=== PATIENT | female | born 1940 | race Caucasian/White ===

== ENCOUNTER 2019-03-14 14:35 | Observation (INO) ==
[2019-03-14 16:51] LABS: BASOPHILS % (AUTO) 0.4 % (0.2-1.0); EOSINOPHILS # (AUTO) 0.1 x10^3/uL (0.0-0.2); HEMATOCRIT 34.6 % (36.0-47.0); HEMOGLOBIN 11.6 g/dL (12.0-16.0); LYMPHOCYTES # (AUTO) 2.4 X10^3/uL (1.3-2.9); LYMPHOCYTES % (AUTO) 35.1 % (21.0-51.0); MEAN CORPUSCULAR HEMOGLOBIN 32.3 pg (27.0-34.0); MEAN CORPUSCULAR HGB CONC 33.5 g/dL (33.0-35.0); MEAN CORPUSCULAR VOLUME 96.3 fL (80.0-100.0); MEAN PLATELET VOLUME 7.5 fL (7.4-11.0); MONOCYTES # (AUTO) 0.7 x10^3/uL (0.3-0.8); MONOCYTES % (AUTO) 9.5 % (0.0-13.0); NEUTROPHILS # (AUTO) 3.6 x10^3/uL (2.2-4.8); PLATELET COUNT 285 X10^3/uL (150.0-450.0); RED BLOOD COUNT 3.59 X10^6/uL (3.5-5.4); RED CELL DISTRIBUTION WIDTH 13.3 % (11.6-16.5); WHITE BLOOD COUNT 6.9 X10^3/uL (3.6-10.0)
[2019-03-14 17:01] LABS: ALANINE AMINOTRANSFERASE 22 Units/L (12-78); ALBUMIN 3.7 g/dL (3.4-5.0); ALKALINE PHOSPHATASE 116 Units/L (46-116); ASPARTATE AMINO TRANSFERASE 18 Units/L (15-37); BLOOD UREA NITROGEN 16 mg/dL (7-18); CALCIUM 8.5 mg/dL (8.5-10.1); CARBON DIOXIDE 27.2 mmol/L (21-32); CHLORIDE 105 mmol/L (98-107); COR NA(FOR HYPERGLY) 142 mmol/L (136-145); CREATININE 1.15 mg/dL (0.55-1.02); SODIUM 141 mmol/L (136-145); TOTAL PROTEIN 6.9 g/dL (6.4-8.2); eGFR NON BLACK RACES 49 (>60)
[2019-03-14] MEDS: NS 1000 ML 1,000 ML IV SCH (17:37)
[2019-03-14 18:24] VITALS: BMI 22.4
[2019-03-14] MEDS: ZOFRAN INJ 4 MG VIAL IVP PRN (20:00)
[2019-03-14 20:48] LABS: BILIRUBIN,URINE NEGATIVE (NEGATIVE); BLOOD/HEMOGLOBIN,URINE NEGATIVE (NEGATIVE); GLUCOSE, URINE NEGATIVE (NEGATIVE); KETONES,URINE NEGATIVE (NEGATIVE); LEUKOCYTE ESTERASE ,URINE 1+ (NEGATIVE); NITRITES,URINE NEGATIVE (NEGATIVE); PH,URINE 6.5 (5.0 - 8.0); PROTEIN,URINE NEGATIVE (NEGATIVE); UROBILINOGEN,URINE NORMAL (NORMAL)
[2019-03-14 20:51] LABS: APPEARANCE,URINE CLEAR (CLEAR); COLOR,URINE STRAW (YELLOW)
[2019-03-14 20:54] LABS: BACTERIA,URINE NEGATIVE /HPF (NEGATIVE); RBC,URINE NONE SEEN /HPF (NONE SEEN); SQUAMOUS EPITHELIAL CELL,UR NEGATIVE /HPF (NEGATIVE)
--- NOTE | 2019-03-14 21:53 | CT ---
CT abdomen and pelvis with contrast Indication: Abdominal pain Technique: Helical images through the abdomen and pelvis after IV contrast. Coronal and sagittal reformats provided. Comparison: 09/23/2016 CT Findings: Limited images through the lower chest shows cardiomegaly and small hiatal hernia. Chronic lung changes are noted. Review of bone windows shows no destructive osseous lesion. Abdomen: Cholecystectomy clips is noted with mild intrahepatic biliary dilatation. No liver lesions seen. The spleen, adrenal glands and pancreas are normal. Stomach and small bowel are normal. No acute colonic abnormality is identified. Vasculature shows calcifications. Kidneys show no hydroureteronephrosis. Pelvis: The urinary bladder and rectum are normal. Uterus is absent. No adnexal region lesions seen. Appendix is not seen, presumably absent. Impression: 1. No acute abnormality to explain the patient's symptoms. 2. Vascular calcifications, cardiomegaly, biliary dilatation and other findings, all similar to the prior without significant change. Reported By:
[2019-03-15] MEDS: NS 1000 ML 1,000 ML IV SCH ×4 (01:01→18:07)
[2019-03-15 05:31] LABS: BASOPHILS % (AUTO) 0.7 % (0.2-1.0); EOSINOPHILS # (AUTO) 0.1 x10^3/uL (0.0-0.2); HEMATOCRIT 30.4 % (36.0-47.0); HEMOGLOBIN 10.5 g/dL (12.0-16.0); LYMPHOCYTES # (AUTO) 1.6 X10^3/uL (1.3-2.9); LYMPHOCYTES % (AUTO) 33.4 % (21.0-51.0); MEAN CORPUSCULAR HEMOGLOBIN 33.2 pg (27.0-34.0); MEAN CORPUSCULAR HGB CONC 34.4 g/dL (33.0-35.0); MEAN CORPUSCULAR VOLUME 96.3 fL (80.0-100.0); MEAN PLATELET VOLUME 7.6 fL (7.4-11.0); MONOCYTES # (AUTO) 0.6 x10^3/uL (0.3-0.8); MONOCYTES % (AUTO) 12.3 % (0.0-13.0); NEUTROPHILS # (AUTO) 2.5 x10^3/uL (2.2-4.8); NEUTROPHILS % (AUTO) 50.6 % (42.0-75.0); PLATELET COUNT 235 X10^3/uL (150.0-450.0); RED BLOOD COUNT 3.15 X10^6/uL (3.5-5.4); RED CELL DISTRIBUTION WIDTH 13.3 % (11.6-16.5); WHITE BLOOD COUNT 4.9 X10^3/uL (3.6-10.0)
[2019-03-15 05:46] LABS: ALANINE AMINOTRANSFERASE 18 Units/L (12-78); ALBUMIN 3.1 g/dL (3.4-5.0); ALKALINE PHOSPHATASE 100 Units/L (46-116); AMYLASE 29 Units/L (25-115); ASPARTATE AMINO TRANSFERASE 15 Units/L (15-37); BLOOD UREA NITROGEN 12 mg/dL (7-18); CALCIUM 7.8 mg/dL (8.5-10.1); CARBON DIOXIDE 25.4 mmol/L (21-32); CHLORIDE 107 mmol/L (98-107); COR CA(FOR HYPOALB) 8.5 mg/dL (8.5-10.1); COR NA(FOR HYPERGLY) 142 mmol/L (136-145); CREATININE 0.99 mg/dL (0.55-1.02); LIPASE 111 Units/L (73-393); SODIUM 142 mmol/L (136-145); TOTAL PROTEIN 5.9 g/dL (6.4-8.2); eGFR NON BLACK RACES 58 (>60)
[2019-03-15] MEDS: TYLENOL 325 MG TAB PO PRN ×2 (05:56→14:08)
[2019-03-15] MEDS: ZOFRAN INJ 4 MG VIAL IVP PRN (08:39)
[2019-03-15] MEDS: ZITHROMAX TAB 250 MG PO SCH (11:15)
[2019-03-15] MEDS ORDERED: LEVSIN ORAL DROPS PO PRN (12:20)
[2019-03-15] MEDS ORDERED: PHARMACY CONSULT - DOSE _____ XX SCH (13:00)
[2019-03-15] MEDS: LINZESS PO SCH (13:57)
[2019-03-15] MEDS: COZAAR PO SCH (13:58)
[2019-03-15] MEDS: CARAFATE PO SCH ×2 (13:58→21:17)
[2019-03-15] MEDS: SYNTHROID 100 mcg TAB PO SCH (13:58)
[2019-03-15] MEDS: OSCAL+D or CALTRATE+D PO SCH (13:58)
[2019-03-15] MEDS: BENTYL CAP 10 MG PO SCH ×3 (13:58→21:17)
[2019-03-15] MEDS: ELAVIL PO SCH ×2 (13:59→21:17)
[2019-03-15] MEDS: ECOTRIN TAB 325 MG PO SCH (13:59)
[2019-03-15] MEDS: PROTONIX TAB 40 MG PO SCH (13:59)
[2019-03-15] MEDS: TAB-A-VITE PO SCH (13:59)
[2019-03-15] MEDS: CELEXA PO SCH (13:59)
[2019-03-15] MEDS: LOVAZA PO SCH (13:59)
[2019-03-15] MEDS: REGLAN TAB 10 MG PO SCH ×2 (17:22→21:18)
[2019-03-15] MEDS ORDERED: MARINOL PO SCH (21:00)
[2019-03-15] MEDS ORDERED: LIPITOR TAB 40 MG PO SCH (21:00)
[2019-03-15] MEDS: LOPRESSOR TAB 25 MG PO SCH (21:18)
[2019-03-16] MEDS: NS 1000 ML 1,000 ML IV SCH (03:24)
[2019-03-16] MEDS: CARAFATE PO SCH (03:24)
[2019-03-16] MEDS: REGLAN TAB 10 MG PO SCH (05:43)
[2019-03-16 06:38] LABS: BASOPHILS % (AUTO) 0.8 % (0.2-1.0); EOSINOPHILS # (AUTO) 0.2 x10^3/uL (0.0-0.2); EOSINOPHILS % (AUTO) 3.2 % (0.9-2.9); HEMOGLOBIN 9.7 g/dL (12.0-16.0); LYMPHOCYTES # (AUTO) 1.7 X10^3/uL (1.3-2.9); LYMPHOCYTES % (AUTO) 33.2 % (21.0-51.0); MEAN CORPUSCULAR HEMOGLOBIN 33.3 pg (27.0-34.0); MEAN CORPUSCULAR HGB CONC 34.7 g/dL (33.0-35.0); MEAN CORPUSCULAR VOLUME 95.8 fL (80.0-100.0); MEAN PLATELET VOLUME 7.3 fL (7.4-11.0); MONOCYTES # (AUTO) 0.6 x10^3/uL (0.3-0.8); MONOCYTES % (AUTO) 12.2 % (0.0-13.0); NEUTROPHILS # (AUTO) 2.7 x10^3/uL (2.2-4.8); NEUTROPHILS % (AUTO) 50.6 % (42.0-75.0); PLATELET COUNT 200 X10^3/uL (150.0-450.0); RED BLOOD COUNT 2.93 X10^6/uL (3.5-5.4); RED CELL DISTRIBUTION WIDTH 13.5 % (11.6-16.5); WHITE BLOOD COUNT 5.3 X10^3/uL (3.6-10.0)
[2019-03-16 06:46] LABS: ALANINE AMINOTRANSFERASE 17 Units/L (12-78); ALBUMIN 2.8 g/dL (3.4-5.0); ALKALINE PHOSPHATASE 90 Units/L (46-116); ASPARTATE AMINO TRANSFERASE 17 Units/L (15-37); BLOOD UREA NITROGEN 11 mg/dL (7-18); CALCIUM 7.3 mg/dL (8.5-10.1); CARBON DIOXIDE 25.6 mmol/L (21-32); CHLORIDE 110 mmol/L (98-107); COR CA(FOR HYPOALB) 8.3 mg/dL (8.5-10.1); COR NA(FOR HYPERGLY) 143 mmol/L (136-145); CREATININE 0.93 mg/dL (0.55-1.02); SODIUM 142 mmol/L (136-145); TOTAL PROTEIN 5.6 g/dL (6.4-8.2); eGFR NON BLACK RACES > 60 (>60)
[2019-03-16] MEDS: ECOTRIN TAB 325 MG PO SCH (08:37)
[2019-03-16] MEDS: OSCAL+D or CALTRATE+D PO SCH (08:37)
[2019-03-16] MEDS: LOVAZA PO SCH (08:37)
[2019-03-16] MEDS: TAB-A-VITE PO SCH (08:37)
[2019-03-16] MEDS: COZAAR PO SCH (08:38)
[2019-03-16] MEDS: SYNTHROID 100 mcg TAB PO SCH (08:38)
[2019-03-16] MEDS: BENTYL CAP 10 MG PO SCH (08:39)
[2019-03-16] MEDS: PROTONIX TAB 40 MG PO SCH (08:39)
[2019-03-16] MEDS: CELEXA PO SCH (08:39)
[2019-03-16] MEDS: ZITHROMAX TAB 250 MG PO SCH (08:39)
[2019-03-16] MEDS: LOPRESSOR TAB 25 MG PO SCH (08:39)
[2019-03-16] MEDS: LINZESS PO SCH (08:39)
[2019-03-16 10:00] VITALS: BP 158/59
--- NOTE | 2019-03-27 17:42 | DR.UPDATE ---
H&P Update History and Physical Update: History and Physical reviewed and patient examined. Changes noted: Yes with the following: WAS SEEN IN THE OFFICE TODAY FOR COMPLAINTS OF SEVERE WEAKNESS, FATIGUE, NAUSEA, VOMITING, AND ABDOMINAL PAIN. SHE REPORTS BEING UNABLE TO HOLD ANYTHING DOWN. SHE HAS A HISTORY OF SEVERE GASTROPARESIS. WE ADMITTED PATIENT FOR FURTHER EVALUATION AND TREATMENT. ON ADMISSION, WE PLAN TO OBTAIN LABS AND AN ABDOMEN/PELVIS CT WITH CONTRAST. WE WILL START HER ON NORMAL SALINE AT 100ML/HR AND ZOFRAN 4MG IV Q6H PRN NAUSEA. OTHERWISE, WE WILL FOLLOW UP WITH AM LABS AND CONTINUE TO MONITOR.
--- NOTE | 2019-03-27 18:15 | PCM.PROG ---
Progress Note - Progress Note for Day of Date of Exam: 03/15/19 - Subjective Subjective: WAS ADMITTED FOR NAUSEA, VOMITING, ABDOMINAL PAIN, WEAKNESS, AND FATIGUE. SHE DOES HAVE A HISTORY OF SEVERE GASTROPARESIS. TODAY, SHE IS ALERT AND ORIENTED, LYING IN BED ON MORNING ROUNDS. SHE CONTINUES WITH SEVERE WEAKNESS, NAUSEA, AND VOMITING. ON EXAMINATION, HEART IS REGULAR IN RATE AND RHYTHM. BILATERAL LUNGS ARE NOTED WITH DIMINISHED LUNG SOUNDS THROUGHOUT. ABDOMEN IS ROUND, SOFT, AND NOTED WITH MILD, DIFFUSE TENDERNESS THROUGHOUT. HYPERACTIVE BOWEL SOUNDS ARE NOTED. HER VITALS THIS MORNING ARE: 98.1-73-18-97%-136/64. LABS WERE OBTAINED. ABNORMAL LAB VALUES INCLUDE THE FO LLOWING: RBC 3.15, HGB 10.5, HCT 30.4, GLUCOSE 114, TOTAL PROTEIN 5.9, ALBUMIN 3.1. AN ABDOMEN/PELVIS CT WITH CONTRAST WAS OBTAINED ON ADMISSION AND REVEALED: o acute abnormality to explain the patient's symptoms. Vascular calcifications, cardiomegaly, biliary dilatation and other findings, all similar to the prior without significant change. SHE IS CURRENTLY RECEIVING NORMAL SALINE AT 100ML/HR AND ZOFRAN. WE WILL RESUME HOME MEDICATIONS TODAY AND START AZITHROMAX 250MG PO DAILY FOR GASTROPARESIS. OTHERWISE, WE WILL FOLLOW UP WITH AM LABS AND CONTINUE TO MONITOR. - Past Medical Family Social History Past Med/Fam/Surg Hx: No changes since H&P Allergies: Allergies fentanyl Allergy (Severe, Verified 03/14/19 16:23) CARDIAC ARREST cefaclor Allergy (Mild, Verified 03/14/19 16:23) pentazocine Allergy (Mild, Verified 03/14/19 16:23) Sulfa (Sulfonamide Antibiotics) [SULFA] Allergy (Mild, Verified 03/14/19 16:23) prednisone Adverse Reaction (Mild, Verified 03/14/19 16:23) - Review of Systems ROS: No change since H&P - Vital Signs and I&O's Vital Signs: Temperature 97.8 F Pulse Rate [Right Brachial] 58 Respiratory Rate 18 Blood Pressure [Right Arm] 158/59 Blood Pressure [Left Arm] 109/56 Blood Pressure 109/56 O2 Sat by Pulse Oximetry 98 - Physical Exam Oriented: Normal Eyes: Normal Ear: Normal Nose: Normal Throat: Normal Respiratory: Generalized, Diminished Cardiovascular: Normal. negative: S3, S4, Murmur : Normal Auscultation: Bowel Sounds: Normal Palpation: Normal Tenderness: Diffuse, Mild. negative: Rebound, Guarding, Rigidity Skin: Normal Musculoskeletal: Normal Psychiatric: Normal Mood Description: Calm Affect: Normal Speech Pattern: Clear, Appropriate - Laboratory and Diagnostics Result Diagrams: 03/16/19 06:08 03/16/19 06:08 Labs: Laboratory WBC 5.3 X10^3/uL (3.6-10.0) 03/16/19 06:08 RBC 2.93 X10^6/uL (3.5-5.4) L 03/16/19 06:08 Hgb 9.7 g/dL (12.0-16.0) L 03/16/19 06:08 Hct 28.0 % (36.0-47.0) L 03/16/19 06:08 MCV 95.8 fL (80.0-100.0) 03/16/19 06:08 MCH 33.3 pg (27.0-34.0) 03/16/19 06:08 MCHC 34.7 g/dL (33.0-35.0) 03/16/19 06:08 RDW 13.5 % (11.6-16.5) 03/16/19 06:08 Plt Count 200 X10^3/uL (150.0-450.0) 03/16/19 06:08 MPV 7.3 fL (7.4-11.0) L 03/16/19 06:08 Neut % (Auto) 50.6 % (42.0-75.0) 03/16/19 06:08 Lymph % (Auto) 33.2 % (21.0-51.0) 03/16/19 06:08 [place] % (Auto) 12.2 % (0.0-13.0) 03/16/19 06:08 Eos % (Auto) 3.2 % (0.9-2.9) H 03/16/19 06:08 Baso % (Auto) 0.8 % (0.2-1.0) 03/16/19 06:08 Neut # (Auto) 2.7 x10^3/uL (2.2-4.8) 03/16/19 06:08 Lymph # (Auto) 1.7 X10^3/uL (1.3-2.9) 03/16/19 06:08 [place] # (Auto) 0.6 x10^3/uL (0.3-0.8) 03/16/19 06:08 Eos # (Auto) 0.2 x10^3/uL (0.0-0.2) 03/16/19 06:08 Baso # (Auto) 0.0 X10^3/uL (0.0-0.1) 03/16/19 06:08 Absolute Nucleated RBC 0.1 /100WBC 03/16/19 06:08 Sodium 142 mmol/L (136-145) 03/16/19 06:08 Corrected Sodium 143 mmol/L (136-145) 03/16/19 06:08 Potassium 3.9 mmol/L (3.5-5.1) 03/16/19 06:08 Chloride 110 mmol/L (98-107) H 03/16/19 06:08 Carbon Dioxide 25.6 mmol/L (21-32) 03/16/19 06:08 BUN 11 mg/dL (7-18) 03/16/19 06:08 Creatinine 0.93 mg/dL (0.55-1.02) 03/16/19 06:08 Est GFR (MDRD) Af Amer > 60 (>60) 03/16/19 06:08 Est GFR (MDRD) Non-Af > 60 (>60) 03/16/19 06:08 Glucose 131 mg/dL (65-99) H 03/16/19 06:08 POC Glucose (mg/dL) 115 mg/dL (65-99) H 03/16/19 05:30 Calcium 7.3 mg/dL (8.5-10.1) L 03/16/19 06:08 Corrected Calcium 8.3 mg/dL (8.5-10.1) L 03/16/19 06:08 Total Bilirubin 0.20 mg/dL (0.2-1.0) 03/16/19 06:08 AST 17 Units/L (15-37) 03/16/19 06:08 ALT 17 Units/L (12-78) 03/16/19 06:08 Alkaline Phosphatase 90 Units/L (46-116) 03/16/19 06:08 Total Protein 5.6 g/dL (6.4-8.2) L 03/16/19 06:08 Albumin 2.8 g/dL (3.4-5.0) L 03/16/19 06:08 Globulin 2.8 g/dL (2.5-4.5) 03/16/19 06:08 Albumin/Globulin Ratio 1.0 Ratio (1.1-2.1) L 03/16/19 06:08 Amylase 29 Units/L (25-115) 03/15/19 04:50 Lipase 111 Units/L (73-393) 03/15/19 04:50 Specimen Type Clean catch urine 03/14/19 20:40 Urine Color Straw (YELLOW) 03/14/19 20:40 Urine Appearance Clear (CLEAR) 03/14/19 20:40 Urine pH 6.5 (5.0 - 8.0) 03/14/19 20:40 Ur Specific [place] 1.005 (1.000-1.030) 03/14/19 20:40 Urine Protein Negative (NEGATIVE) 03/14/19 20:40 Urine Glucose (UA) Negative (NEGATIVE) 03/14/19 20:40 Urine Ketones Negative (NEGATIVE) 03/14/19 20:40 Urine Occult Blood Negative (NEGATIVE) 03/14/19 20:40 Urine Nitrite Negative (NEGATIVE) 03/14/19 20:40 Urine Bilirubin Negative (NEGATIVE) 03/14/19 20:40 Urine Urobilinogen Normal (NORMAL) 03/14/19 20:40 Ur Leukocyte Esterase 1+ (NEGATIVE) 03/14/19 20:40 Urine RBC None seen /HPF (NONE SEEN) 03/14/19 20:40 Urine WBC 0-2 /HPF (NONE SEEN) 03/14/19 20:40 Ur Squamous Epith Cells Negative /HPF (NEGATIVE) 03/14/19 20:40 Urine Bacteria Negative /HPF (NEGATIVE) 03/14/19 20:40 Ur Culture Indicated? No/not indicated 03/14/19 20:40 - Plan (1) Abdominal pain Status: Acute Qualifiers: Abdominal location: generalized Qualified Code(s): R10.84 - Generalized abdominal pain Plan: IV HYDRATION, PAIN CONTROL, NAUSEA MEDICATIONS, AZITHROMAX 250MG PO DAILY FOR GASTROPARESIS, CONTINUE TO MONITOR (2) Nausea and vomiting Status: Acute Qualifiers: Vomiting type: unspecified (3) Generalized weakness Status: Acute (4) Gastroparesis Status: Chronic Plan: AZITHROMAX 250MG PO DAILY, CONTINUE HOME MEDS, CONTINUE TO MONITOR
== END 2019-03-16 11:25 | disposition home or self-care (01) ==
LOC: MED/SURG
PROVIDERS: ADMIT Internal Medicine; ATTEND Internal Medicine
DX: R30.0 Dysuria; R11.2 Nausea with vomiting, unspecified; E86.0 Dehydration; I10 Essential (primary) hypertension; R94.4 Abnormal results of kidney function studies; R10.84 Generalized abdominal pain
CPT/HCPCS: 36415; 74177; 80053; 81001; 82150; 83690; 85025; 96367; 96374; A4216; A4222; Q0144; G0378; J2405; J3490; J7030

== ENCOUNTER 2019-05-01 16:33 | Inpatient (IN) ==
[2019-05-01 18:02] LABS: BASOPHILS # (AUTO) 0.1 X10^3/uL (0.0-0.1); BASOPHILS % (AUTO) 0.9 % (0.2-1.0); EOSINOPHILS # (AUTO) 0.2 x10^3/uL (0.0-0.2); EOSINOPHILS % (AUTO) 2.2 % (0.9-2.9); HEMATOCRIT 33.3 % (36.0-47.0); HEMOGLOBIN 11.1 g/dL (12.0-16.0); LYMPHOCYTES # (AUTO) 2.2 X10^3/uL (1.3-2.9); LYMPHOCYTES % (AUTO) 32.8 % (21.0-51.0); MEAN CORPUSCULAR HEMOGLOBIN 32.2 pg (27.0-34.0); MEAN CORPUSCULAR HGB CONC 33.2 g/dL (33.0-35.0); MEAN CORPUSCULAR VOLUME 96.9 fL (80.0-100.0); MEAN PLATELET VOLUME 8.8 fL (7.4-11.0); MONOCYTES # (AUTO) 0.7 x10^3/uL (0.3-0.8); MONOCYTES % (AUTO) 10.7 % (0.0-13.0); NEUTROPHILS # (AUTO) 3.6 x10^3/uL (2.2-4.8); NEUTROPHILS % (AUTO) 53.4 % (42.0-75.0); PLATELET COUNT 226 X10^3/uL (150.0-450.0); RED BLOOD COUNT 3.44 X10^6/uL (3.5-5.4); RED CELL DISTRIBUTION WIDTH 13.1 % (11.6-16.5); WHITE BLOOD COUNT 6.8 X10^3/uL (3.6-10.0)
[2019-05-01 18:12] VITALS: BMI 22.6
[2019-05-01 18:12] LABS: ALANINE AMINOTRANSFERASE 29 Units/L (12-78); ALBUMIN 3.8 g/dL (3.4-5.0); ALKALINE PHOSPHATASE 134 Units/L (46-116); AMYLASE 34 Units/L (25-115); ASPARTATE AMINO TRANSFERASE 27 Units/L (15-37); BLOOD UREA NITROGEN 19 mg/dL (7-18); CALCIUM 8.9 mg/dL (8.5-10.1); CHLORIDE 107 mmol/L (98-107); CREATININE 0.97 mg/dL (0.55-1.02); LIPASE 125 Units/L (73-393); SODIUM 142 mmol/L (136-145); TOTAL PROTEIN 7.4 g/dL (6.4-8.2); eGFR NON BLACK RACES 59 (>60)
[2019-05-01] MEDS: NS 1000 ML 1,000 ML IV SCH (18:31)
[2019-05-01 22:00] LABS: BILIRUBIN,URINE NEGATIVE (NEGATIVE); BLOOD/HEMOGLOBIN,URINE 1+ (NEGATIVE); GLUCOSE, URINE NEGATIVE (NEGATIVE); KETONES,URINE NEGATIVE (NEGATIVE); LEUKOCYTE ESTERASE ,URINE 3+ (NEGATIVE); NITRITES,URINE POSITIVE (NEGATIVE); PROTEIN,URINE NEGATIVE (NEGATIVE); UROBILINOGEN,URINE NORMAL (NORMAL)
[2019-05-01 22:27] LABS: APPEARANCE,URINE CLEAR (CLEAR); COLOR,URINE PALE YELLOW (YELLOW); RBC,URINE NONE SEEN /HPF (NONE SEEN)
[2019-05-01 22:28] LABS: BACTERIA,URINE 2+ /HPF (NEGATIVE); SQUAMOUS EPITHELIAL CELL,UR FEW /HPF (NEGATIVE); TRANSITIONAL EPI CELLS,URINE FEW /HPF (NEGATIVE)
[2019-05-02] MEDS: NS 1000 ML 1,000 ML IV SCH ×3 (06:02→21:07)
[2019-05-02] MEDS: TYLENOL 325 MG TAB PO PRN (06:02)
[2019-05-02 06:18] LABS: BASOPHILS % (AUTO) 0.5 % (0.2-1.0); EOSINOPHILS # (AUTO) 0.1 x10^3/uL (0.0-0.2); EOSINOPHILS % (AUTO) 3.1 % (0.9-2.9); HEMATOCRIT 28.6 % (36.0-47.0); HEMOGLOBIN 9.9 g/dL (12.0-16.0); LYMPHOCYTES # (AUTO) 1.6 X10^3/uL (1.3-2.9); LYMPHOCYTES % (AUTO) 34.2 % (21.0-51.0); MEAN CORPUSCULAR HEMOGLOBIN 33.2 pg (27.0-34.0); MEAN CORPUSCULAR HGB CONC 34.7 g/dL (33.0-35.0); MEAN CORPUSCULAR VOLUME 95.7 fL (80.0-100.0); MEAN PLATELET VOLUME 7.6 fL (7.4-11.0); MONOCYTES # (AUTO) 0.6 x10^3/uL (0.3-0.8); MONOCYTES % (AUTO) 12.6 % (0.0-13.0); NEUTROPHILS # (AUTO) 2.3 x10^3/uL (2.2-4.8); NEUTROPHILS % (AUTO) 49.6 % (42.0-75.0); PLATELET COUNT 230 X10^3/uL (150.0-450.0); RED BLOOD COUNT 2.98 X10^6/uL (3.5-5.4); RED CELL DISTRIBUTION WIDTH 12.9 % (11.6-16.5); WHITE BLOOD COUNT 4.6 X10^3/uL (3.6-10.0)
[2019-05-02 06:38] LABS: ALANINE AMINOTRANSFERASE 25 Units/L (12-78); ALBUMIN 3.1 g/dL (3.4-5.0); ALKALINE PHOSPHATASE 113 Units/L (46-116); ASPARTATE AMINO TRANSFERASE 21 Units/L (15-37); BLOOD UREA NITROGEN 14 mg/dL (7-18); CALCIUM 7.9 mg/dL (8.5-10.1); CARBON DIOXIDE 26.5 mmol/L (21-32); CHLORIDE 108 mmol/L (98-107); COR CA(FOR HYPOALB) 8.6 mg/dL (8.5-10.1); CREATININE 0.85 mg/dL (0.55-1.02); SODIUM 145 mmol/L (136-145); TOTAL PROTEIN 6.1 g/dL (6.4-8.2); eGFR NON BLACK RACES > 60 (>60)
[2019-05-02] MEDS: ZOFRAN INJ 4 MG VIAL IVP PRN ×3 (08:38→17:38)
[2019-05-02] MEDS ORDERED: ROCEPHIN VIAL 1 GRAM IVP SCH (09:00)
[2019-05-02] MEDS ORDERED: PHARMACY CONSULT - DOSE _____ XX SCH (09:00)
[2019-05-02] MEDS: LEVAQUIN PREMIX IV 500 MG 500 MG/100 ML BAG IV SCH (10:23)
[2019-05-02] MEDS ORDERED: LEVSIN SYRUP PO PRN (11:20)
[2019-05-02] MEDS: MARINOL PO SCH ×2 (12:22→21:09)
[2019-05-02] MEDS: LOVAZA PO SCH (12:22)
[2019-05-02] MEDS: LINZESS PO SCH (12:22)
[2019-05-02] MEDS: BENTYL CAP 10 MG PO SCH ×2 (12:22→21:07)
[2019-05-02] MEDS: CELEXA PO SCH (12:22)
[2019-05-02] MEDS: TAB-A-VITE PO SCH (12:23)
[2019-05-02] MEDS ORDERED: PHENERGAN INJ 25 MG IM PRN (13:15)
--- NOTE | 2019-05-02 15:03 | DR.H&P ---
H&P - History & Physical for Day of: H&P Date: 05/01/19 - Chief Complaint Chief Complaint: INTRACTABLE NAUSEA AND VOMITING, WEAKNESS - History of Present Illness History of Present Illness: IS A 79 YEAR OLD PATIENT OF OURS WHO PRESENTED TO THE HOSPITAL A DIRECT ADMISSION DUE TO COMPLAINTS OF INTRACTABLE NAUSEA AND VOMITING. PATIENT REPORTS THAT SYMPTOMS STARTED TWO DAYS AGO AND HAVE PROGRESSIVELY GOTTEN WORSE. PATIENT HAS A HISTORY SIGNIFICANT FOR DIABETIC GASTROPARESIS. ON ARRIVAL TO THE HOSPITAL, VITALS WERE 98.2-67-22-97%-215/97. LABS WERE OBTAINED. ABNORMAL LAB VALUES INCLUDE THE FOLLOWING: RBC 3.44, HGB 11.1, HCT 33.3, BUN 19, GLUCOSE 109, ALK PHOS 134. URINALYSIS REVEALED: WBC 10- 20, RBC NONE SEEN, LEUKOCYTES 3+, BACTERIA 2+, NITRITE POSITIVE. A URINE CULTURE IS PENDING. WE STARTED PATIENT ON NORMAL SALINE AT 80ML/HR, IV ZOFRAN, ROCEPHIN 1G IV DAILY, AND HER HOME MEDICATIONS WERE RESUMED. OTHERWISE, WE PLAN TO FOLLOW UP WITH AM LABS AND CONTINUE TO MONITOR. - Past Medical History Past Medical History: Dyslipidemia, GERD, Hypertension, Hypothyroidism - Past Surgical History Surgical History: Appendectomy, Cholecystectomy, Hysterectomy - Family History Family Medical History: Cancer, [place], Hypertension - Social History Does patient currently use any type of tobacco product: No Have you used tobacco products in the last 12 months: No Type of Tobacco Use: None Does any household member use tobacco: No Alcohol Use: None Drug Use: None Prescription drug monitoring program results: PDMP reviewed and no concerns identified - Medications Home Medications: fentanyl Allergy (Severe, Verified 05/01/19 17:57) CARDIAC ARREST cefaclor Allergy (Mild, Verified 05/01/19 17:57) pentazocine Allergy (Mild, Verified 05/01/19 17:57) Sulfa (Sulfonamide Antibiotics) [SULFA] Allergy (Mild, Verified 05/01/19 17:57) prednisone Adverse Reaction (Mild, Verified 05/01/19 17:57) CONTINUE taking the following medications dicyclomine 10 mg PO Q8H 05/02/19 [History] metoclopramide HCl 10 mg PO ACHS PRN 05/02/19 [History] - Review of Systems Constitutional: Weakness Eyes: No Symptoms Reported ENT: No Symptoms Reported Respiratory: No Symptoms Reported Cardiovascular: No Symptoms Reported Gastrointestinal: See HPI, Nausea, Vomiting, Abdominal Pain Genitourinary: No Symptoms Reported Musculoskeletal: No Symptoms Reported Skin: No Symptoms Reported Neurological: Weakness - Physical Exam Vital Signs: Temperature 98.1 F Pulse Rate [Left Brachial] 66 Respiratory Rate 18 Blood Pressure [Right Arm] 147/66 Blood Pressure [Left Arm] 139/64 Blood Pressure 180/74 O2 Sat by Pulse Oximetry 96 Oriented: Normal Eyes: Normal Ear: Normal Nose: Normal Throat: Normal Respiratory: Diminished Throughout Cardiovascular: Normal. negative: S3, S4, Murmur : Normal Auscultation: Bowel Sounds: Increased Palpation: Normal Tenderness: Diffuse, Moderate. negative: Rebound, Guarding, Rigidity Skin: Decreased [place] Musculoskeletal: Normal Psychiatric: Normal Mood Description: Calm Affect: Normal Speech Pattern: Clear - Assessment/Plan (1) Dehydration Status: Acute Plan: admit, normal saline at 80m/hr, continue to monitor (2) Generalized weakness Status: Acute (3) Nausea and vomiting Qualifiers: Vomiting type: unspecified Status: Acute Plan: zofran 4mg iv q4h prn, continue to monitor (4) Gastroparesis Status: Chronic - Allergies Allergies/Adverse Reactions: Allergies Allergy/AdvReac Type Severity Reaction Status Date / Time fentanyl Allergy Severe CARDIAC Verified 05/01/19 17:57 ARREST cefaclor Allergy Mild Verified 05/01/19 17:57 pentazocine Allergy Mild Verified 05/01/19 17:57 Sulfa (Sulfonamide Allergy Mild Verified 05/01/19 17:57 Antibiotics) [SULFA] prednisone AdvReac Mild Verified 05/01/19 17:57
[2019-05-02] MEDS: ELAVIL PO SCH (21:07)
[2019-05-02] MEDS: LIPITOR TAB 40 MG PO SCH (21:07)
[2019-05-03] MEDS: BENTYL CAP 10 MG PO SCH ×3 (04:26→21:08)
[2019-05-03 06:11] LABS: BASOPHILS % (AUTO) 0.6 % (0.2-1.0); EOSINOPHILS # (AUTO) 0.1 x10^3/uL (0.0-0.2); EOSINOPHILS % (AUTO) 2.7 % (0.9-2.9); HEMATOCRIT 28.9 % (36.0-47.0); HEMOGLOBIN 9.9 g/dL (12.0-16.0); LYMPHOCYTES # (AUTO) 1.5 X10^3/uL (1.3-2.9); LYMPHOCYTES % (AUTO) 30.9 % (21.0-51.0); MEAN CORPUSCULAR HEMOGLOBIN 32.9 pg (27.0-34.0); MEAN CORPUSCULAR HGB CONC 34.4 g/dL (33.0-35.0); MEAN CORPUSCULAR VOLUME 95.9 fL (80.0-100.0); MONOCYTES # (AUTO) 0.6 x10^3/uL (0.3-0.8); MONOCYTES % (AUTO) 11.4 % (0.0-13.0); NEUTROPHILS # (AUTO) 2.7 x10^3/uL (2.2-4.8); NEUTROPHILS % (AUTO) 54.4 % (42.0-75.0); PLATELET COUNT 200 X10^3/uL (150.0-450.0); RED BLOOD COUNT 3.01 X10^6/uL (3.5-5.4); RED CELL DISTRIBUTION WIDTH 12.9 % (11.6-16.5)
[2019-05-03 06:57] LABS: ALANINE AMINOTRANSFERASE 22 Units/L (12-78); ALBUMIN 2.8 g/dL (3.4-5.0); ALKALINE PHOSPHATASE 105 Units/L (46-116); ASPARTATE AMINO TRANSFERASE 21 Units/L (15-37); BLOOD UREA NITROGEN 9 mg/dL (7-18); CALCIUM 7.1 mg/dL (8.5-10.1); CARBON DIOXIDE 24.5 mmol/L (21-32); CHLORIDE 109 mmol/L (98-107); COR CA(FOR HYPOALB) 8.1 mg/dL (8.5-10.1); CREATININE 0.82 mg/dL (0.55-1.02); SODIUM 145 mmol/L (136-145); TOTAL PROTEIN 5.8 g/dL (6.4-8.2); eGFR NON BLACK RACES > 60 (>60)
[2019-05-03] MEDS: ZOFRAN INJ 4 MG VIAL IVP PRN ×3 (07:45→17:16)
[2019-05-03] MEDS: LEVAQUIN PREMIX IV 500 MG 500 MG/100 ML BAG IV SCH (08:20)
[2019-05-03] MEDS: LINZESS PO SCH (08:21)
[2019-05-03] MEDS: LOVAZA PO SCH (08:21)
[2019-05-03] MEDS: MARINOL PO SCH ×2 (08:37→21:10)
[2019-05-03] MEDS: TAB-A-VITE PO SCH (08:38)
[2019-05-03] MEDS: CELEXA PO SCH (08:39)
[2019-05-03] MEDS: ROCEPHIN VIAL 1 GRAM IVP SCH (10:19)
[2019-05-03] MEDS: NS 1000 ML 1,000 ML IV SCH ×3 (16:05→21:13)
[2019-05-03] MEDS: LIPITOR TAB 40 MG PO SCH (21:08)
[2019-05-03] MEDS: ELAVIL PO SCH (21:09)
--- NOTE | 2019-05-03 22:14 | PCM.PROG ---
Progress Note - Progress Note for Day of Date of Exam: 05/02/19 - Subjective Subjective: IS BEING TREATED FOR A URINARY TRACT INFECTION, GASTROPARESIS, AND INTRACTABLE NAUSEA AND VOMITING. TODAY, SHE IS ALERT AND ORIENTED, LYING IN BED ON MORNING ROUNDS. SHE CONTINUES WITH COMPLAINTS OF NAUSEA AND VOMITING TODAY, WELL COMPLAINTS OF LOWER ABDOMINAL PAIN. ON EXAMINATION, HEART IS REGULAR IN RATE AND RHYTHM. BILATERAL LUNGS ARE NOTED WITH DIMINISHED WITH LUNG SOUNDS THROUGHOUT. ABDOMEN IS ROUND, SOFT, AND NOTED WITH MILD SUPRAPUBIC TENDERNESS. NORMAL BOWEL SOUNDS NOTED IN ALL QUADRNATS. HER VITALS THIS MORNING ARE: 98.7-68-18-98%-139/64. LABS WERE OBTAINED. ABNORMAL LAB VALUES INCLUDE THE FOLLOWING: RBC 2.98, HGB 9.9 HCT 8.6, CHLORIDE 108, GLUCOSE 105, CALCIUM 7.9, TOTAL PROTEIN 6.1, ALBUMIN 3.1. URINE CULTURE IS PENDING. SHE IS CURRENTLY RECEIVING IV FLUIDS, IV ZOFRAN, AND IV ROCEPHIN. HOME MEDICATIONS WERE RESUMED. WE WILL DISCONTINUE THE ROCEPHIN AND START LEVAQUIN IV DAILY TODAY. WE WILL ALSO START PHENERGAN 12.5MG IM Q6H PRN NAUSEA. OTHERWISE, WE PLAN TO FOLLOW UP WITH AM LABS AND CONTINUE TO MONITOR. - Past Medical Family Social History Past Med/Fam/Surg Hx: No changes since H&P Allergies: Allergies fentanyl Allergy (Severe, Verified 05/01/19 17:57) CARDIAC ARREST cefaclor Allergy (Mild, Verified 05/01/19 17:57) pentazocine Allergy (Mild, Verified 05/01/19 17:57) Sulfa (Sulfonamide Antibiotics) [SULFA] Allergy (Mild, Verified 05/01/19 17:57) prednisone Adverse Reaction (Mild, Verified 05/01/19 17:57) - Review of Systems ROS: No change since H&P - Vital Signs and I&O's Vital Signs: Temperature 98.1 F Pulse Rate [Left Brachial] 61 Respiratory Rate 20 Blood Pressure [Right Arm] 150/76 Blood Pressure [Left Arm] 139/64 Blood Pressure 180/74 O2 Sat by Pulse Oximetry 96 Intake and Output: Intake & Output 05/01/19 05/02/19 05/03/19 05/04/19 11:59 11:59 11:59 11:59 Intake Total 1050 / 1050 2403 / 2403 2096 Balance 1050 / 1050 2403 / 2403 2096 - Physical Exam Oriented: Normal Eyes: Normal Ear: Normal Nose: Normal Throat: Normal Respiratory: Generalized, Diminished Cardiovascular: Normal. negative: S3, S4, Murmur : Normal Auscultation: Bowel Sounds: Normal Palpation: Normal Tenderness: Suprapubic, Mild. negative: Rebound, Guarding, Rigidity Skin: Decreased [place]urgur Musculoskeletal: Normal Psychiatric: Normal Mood Description: Calm Affect: Normal Speech Pattern: Clear - Laboratory and Diagnostics Result Diagrams: 05/03/19 05:50 05/03/19 05:50 Labs: 05/01/19 21:50 Urine,Clean Catch Urine Culture - Final Escherichia Coli Laboratory WBC 5.0 X10^3/uL (3.6-10.0) 05/03/19 05:50 RBC 3.01 X10^6/uL (3.5-5.4) L 05/03/19 05:50 Hgb 9.9 g/dL (12.0-16.0) L 05/03/19 05:50 Hct 28.9 % (36.0-47.0) L 05/03/19 05:50 MCV 95.9 fL (80.0-100.0) 05/03/19 05:50 MCH 32.9 pg (27.0-34.0) 05/03/19 05:50 MCHC 34.4 g/dL (33.0-35.0) 05/03/19 05:50 RDW 12.9 % (11.6-16.5) 05/03/19 05:50 Plt Count 200 X10^3/uL (150.0-450.0) 05/03/19 05:50 MPV 8.0 fL (7.4-11.0) 05/03/19 05:50 Neut % (Auto) 54.4 % (42.0-75.0) 05/03/19 05:50 Lymph % (Auto) 30.9 % (21.0-51.0) 05/03/19 05:50 [place] % (Auto) 11.4 % (0.0-13.0) 05/03/19 05:50 Eos % (Auto) 2.7 % (0.9-2.9) 05/03/19 05:50 Baso % (Auto) 0.6 % (0.2-1.0) 05/03/19 05:50 Neut # (Auto) 2.7 x10^3/uL (2.2-4.8) 05/03/19 05:50 Lymph # (Auto) 1.5 X10^3/uL (1.3-2.9) 05/03/19 05:50 [place] # (Auto) 0.6 x10^3/uL (0.3-0.8) 05/03/19 05:50 Eos # (Auto) 0.1 x10^3/uL (0.0-0.2) 05/03/19 05:50 Baso # (Auto) 0.0 X10^3/uL (0.0-0.1) 05/03/19 05:50 Absolute Nucleated RBC 0.1 /100WBC 05/03/19 05:50 Sodium 145 mmol/L (136-145) 05/03/19 05:50 Corrected Sodium TNP 05/03/19 05:50 Potassium 3.6 mmol/L (3.5-5.1) 05/03/19 05:50 Chloride 109 mmol/L (98-107) H 05/03/19 05:50 Carbon Dioxide 24.5 mmol/L (21-32) 05/03/19 05:50 BUN 9 mg/dL (7-18) 05/03/19 05:50 Creatinine 0.82 mg/dL (0.55-1.02) 05/03/19 05:50 Est GFR (MDRD) Af Amer > 60 (>60) 05/03/19 05:50 Est GFR (MDRD) Non-Af > 60 (>60) 05/03/19 05:50 Glucose 109 mg/dL (65-99) H 05/03/19 05:50 Calcium 7.1 mg/dL (8.5-10.1) L 05/03/19 05:50 Corrected Calcium 8.1 mg/dL (8.5-10.1) L 05/03/19 05:50 Total Bilirubin 0.20 mg/dL (0.2-1.0) 05/03/19 05:50 AST 21 Units/L (15-37) 05/03/19 05:50 ALT 22 Units/L (12-78) 05/03/19 05:50 Alkaline Phosphatase 105 Units/L (46-116) 05/03/19 05:50 Total Protein 5.8 g/dL (6.4-8.2) L 05/03/19 05:50 Albumin 2.8 g/dL (3.4-5.0) L 05/03/19 05:50 Globulin 3.0 g/dL (2.5-4.5) 05/03/19 05:50 Albumin/Globulin Ratio 0.9 Ratio (1.1-2.1) L 05/03/19 05:50 Amylase 34 Units/L (25-115) 05/01/19 17:49 Lipase 125 Units/L (73-393) 05/01/19 17:49 Specimen Type Clean catch urine 05/01/19 21:50 Urine Color Pale yellow (YELLOW) 05/01/19 21:50 Urine Appearance Clear (CLEAR) 05/01/19 21:50 Urine pH 6.0 (5.0 - 8.0) 05/01/19 21:50 Ur Specific [place] 1.010 (1.000-1.030) 05/01/19 21:50 Urine Protein Negative (NEGATIVE) 05/01/19 21:50 Urine Glucose (UA) Negative (NEGATIVE) 05/01/19 21:50 Urine Ketones Negative (NEGATIVE) 05/01/19 21:50 Urine Occult Blood 1+ (NEGATIVE) 05/01/19 21:50 Urine Nitrite Positive (NEGATIVE) 05/01/19 21:50 Urine Bilirubin Negative (NEGATIVE) 05/01/19 21:50 Urine Urobilinogen Normal (NORMAL) 05/01/19 21:50 Ur Leukocyte Esterase 3+ (NEGATIVE) 05/01/19 21:50 Urine RBC None seen /HPF (NONE SEEN) 05/01/19 21:50 Urine WBC 10-20 /HPF (NONE SEEN) 05/01/19 21:50 Ur Squamous Epith Cells Few /HPF (NEGATIVE) 05/01/19 21:50 Ur Transition Epith Cell Few /HPF (NEGATIVE) 05/01/19 21:50 Urine Bacteria 2+ /HPF (NEGATIVE) 05/01/19 21:50 Ur Culture Indicated? Yes/culture set up 05/01/19 21:50 - Plan (1) Dehydration Status: Acute Plan: admit, normal saline at 80m/hr, continue to monitor (2) Generalized weakness Status: Acute (3) Nausea and vomiting Status: Acute Qualifiers: Vomiting type: unspecified Plan: zofran 4mg iv q4h prn, continue to monitor (4) Gastroparesis Status: Chronic (5) Urinary tract infection Status: Acute Qualifiers: Urinary tract infection type: acute cystitis Hematuria presence: without hematuria Qualified Code(s): N30.00 - Acute cystitis without hematuria Plan: LEVAQUIN IV DAILY, IV FLUIDS, CONTINUE TO MONITOR
[2019-05-04] MEDS: NS 1000 ML 1,000 ML IV SCH ×2 (04:00→12:59)
[2019-05-04] MEDS: BENTYL CAP 10 MG PO SCH ×3 (04:06→21:34)
[2019-05-04 06:30] LABS: BASOPHILS % (AUTO) 0.5 % (0.2-1.0); EOSINOPHILS # (AUTO) 0.2 x10^3/uL (0.0-0.2); EOSINOPHILS % (AUTO) 3.3 % (0.9-2.9); HEMOGLOBIN 9.5 g/dL (12.0-16.0); LYMPHOCYTES # (AUTO) 1.6 X10^3/uL (1.3-2.9); LYMPHOCYTES % (AUTO) 29.8 % (21.0-51.0); MEAN CORPUSCULAR HEMOGLOBIN 33.4 pg (27.0-34.0); MEAN CORPUSCULAR HGB CONC 35.1 g/dL (33.0-35.0); MEAN CORPUSCULAR VOLUME 95.2 fL (80.0-100.0); MEAN PLATELET VOLUME 8.2 fL (7.4-11.0); MONOCYTES # (AUTO) 0.6 x10^3/uL (0.3-0.8); MONOCYTES % (AUTO) 11.7 % (0.0-13.0); NEUTROPHILS % (AUTO) 54.7 % (42.0-75.0); PLATELET COUNT 187 X10^3/uL (150.0-450.0); RED BLOOD COUNT 2.83 X10^6/uL (3.5-5.4); RED CELL DISTRIBUTION WIDTH 12.7 % (11.6-16.5); WHITE BLOOD COUNT 5.5 X10^3/uL (3.6-10.0)
[2019-05-04 06:46] LABS: ALANINE AMINOTRANSFERASE 19 Units/L (12-78); ALBUMIN 2.8 g/dL (3.4-5.0); ALKALINE PHOSPHATASE 109 Units/L (46-116); ASPARTATE AMINO TRANSFERASE 17 Units/L (15-37); BLOOD UREA NITROGEN 8 mg/dL (7-18); CALCIUM 7.2 mg/dL (8.5-10.1); CARBON DIOXIDE 22.1 mmol/L (21-32); CHLORIDE 110 mmol/L (98-107); COR CA(FOR HYPOALB) 8.2 mg/dL (8.5-10.1); CREATININE 0.82 mg/dL (0.55-1.02); SODIUM 144 mmol/L (136-145); TOTAL PROTEIN 5.8 g/dL (6.4-8.2); eGFR NON BLACK RACES > 60 (>60)
[2019-05-04] MEDS: ZOFRAN INJ 4 MG VIAL IVP PRN ×2 (08:00→18:07)
[2019-05-04] MEDS: CELEXA PO SCH (08:37)
[2019-05-04] MEDS: LOVAZA PO SCH (08:38)
[2019-05-04] MEDS: ROCEPHIN VIAL 1 GRAM IVP SCH (08:38)
[2019-05-04] MEDS: MARINOL PO SCH ×2 (08:38→21:35)
[2019-05-04] MEDS: LINZESS PO SCH (08:38)
[2019-05-04] MEDS: TAB-A-VITE PO SCH (08:38)
[2019-05-04] MEDS: LIPITOR TAB 40 MG PO SCH (21:34)
[2019-05-04] MEDS: REGLAN TAB 10 MG PO PRN (21:34)
[2019-05-04] MEDS: ELAVIL PO SCH (21:35)
[2019-05-05] MEDS: NS 1000 ML 1,000 ML IV SCH ×3 (03:24→20:06)
[2019-05-05] MEDS: BENTYL CAP 10 MG PO SCH ×3 (03:34→20:07)
[2019-05-05 05:25] LABS: BASOPHILS % (AUTO) 0.8 % (0.2-1.0); EOSINOPHILS # (AUTO) 0.2 x10^3/uL (0.0-0.2); EOSINOPHILS % (AUTO) 3.9 % (0.9-2.9); HEMATOCRIT 27.2 % (36.0-47.0); HEMOGLOBIN 9.2 g/dL (12.0-16.0); LYMPHOCYTES # (AUTO) 1.7 X10^3/uL (1.3-2.9); LYMPHOCYTES % (AUTO) 31.2 % (21.0-51.0); MEAN CORPUSCULAR HEMOGLOBIN 32.7 pg (27.0-34.0); MEAN CORPUSCULAR HGB CONC 33.9 g/dL (33.0-35.0); MEAN CORPUSCULAR VOLUME 96.6 fL (80.0-100.0); MEAN PLATELET VOLUME 8.8 fL (7.4-11.0); MONOCYTES # (AUTO) 0.7 x10^3/uL (0.3-0.8); MONOCYTES % (AUTO) 12.6 % (0.0-13.0); NEUTROPHILS # (AUTO) 2.8 x10^3/uL (2.2-4.8); NEUTROPHILS % (AUTO) 51.5 % (42.0-75.0); PLATELET COUNT 187 X10^3/uL (150.0-450.0); RED BLOOD COUNT 2.82 X10^6/uL (3.5-5.4); RED CELL DISTRIBUTION WIDTH 12.9 % (11.6-16.5); WHITE BLOOD COUNT 5.5 X10^3/uL (3.6-10.0)
[2019-05-05 05:42] LABS: ALANINE AMINOTRANSFERASE 11 Units/L (12-78); ALBUMIN 2.8 g/dL (3.4-5.0); ALKALINE PHOSPHATASE 108 Units/L (46-116); ASPARTATE AMINO TRANSFERASE 17 Units/L (15-37); BLOOD UREA NITROGEN 8 mg/dL (7-18); CARBON DIOXIDE 27.7 mmol/L (21-32); CHLORIDE 110 mmol/L (98-107); CREATININE 0.84 mg/dL (0.55-1.02); SODIUM 146 mmol/L (136-145); TOTAL PROTEIN 5.6 g/dL (6.4-8.2); eGFR NON BLACK RACES > 60 (>60)
[2019-05-05] MEDS ORDERED: POTASSIUM CHLORIDE LIQ 20 MEQ UDC PO PRN (06:07)
[2019-05-05] MEDS ORDERED: K-RIDER 10 MEQ/NS 100 ML 10 MEQ/100 ML BAG IV PRN (06:07)
[2019-05-05] MEDS ORDERED: POTASSIUM CHL 60 MEQ/NS 0.45% 500 ML IV PRN (06:07)
[2019-05-05] MEDS ORDERED: KLOR-CON PO PRN (06:07)
[2019-05-05] MEDS ORDERED: POTASSIUM CHL 40 MEQ/NS 0.45% 500 ML IV PRN (06:07)
[2019-05-05] MEDS ORDERED: K-DUR TAB 20 MEQ PO PRN (06:07)
[2019-05-05] MEDS: MAGNESIUM SULFATE 1 GRAM/100 mL PREMIX 1 GM/100 ML BAG IV PRN ×4 (06:35→14:48)
[2019-05-05] MEDS: LOVAZA PO SCH (09:34)
[2019-05-05] MEDS: ROCEPHIN VIAL 1 GRAM IVP SCH (09:34)
[2019-05-05] MEDS: CELEXA PO SCH (09:34)
[2019-05-05] MEDS: LINZESS PO SCH (09:34)
[2019-05-05] MEDS: TAB-A-VITE PO SCH (09:35)
[2019-05-05] MEDS: MICRO K EXTEN CAP 10 MEQ PO PRN ×2 (09:41→14:48)
[2019-05-05] MEDS: MARINOL PO SCH ×2 (11:00→20:07)
[2019-05-05] MEDS: TYLENOL 325 MG TAB PO PRN (20:08)
[2019-05-05] MEDS: ELAVIL PO SCH (20:08)
[2019-05-05] MEDS: LIPITOR TAB 40 MG PO SCH (20:08)
[2019-05-05] MEDS: REGLAN TAB 10 MG PO PRN (20:09)
--- NOTE | 2019-05-05 20:58 | PCM.PROG ---
Progress Note - Progress Note for Day of Date of Exam: 05/03/19 - Subjective Subjective: IS BEING TREATED FOR A URINARY TRACT INFECTION, GASTROPARESIS, AND INTRACTABLE NAUSEA AND VOMITING. TODAY, SHE IS ALERT AND ORIENTED, LYING IN BED ON MORNING ROUNDS. SHE CONTINUES WITH COMPLAINTS OF NAUSEA AND VOMITING TODAY, WELL COMPLAINTS OF LOWER ABDOMINAL PAIN. ON EXAMINATION, HEART IS REGULAR IN RATE AND RHYTHM. BILATERAL LUNGS ARE NOTED WITH DIMINISHED WITH LUNG SOUNDS THROUGHOUT. ABDOMEN IS ROUND, SOFT, AND NOTED WITH MILD SUPRAPUBIC TENDERNESS. NORMAL BOWEL SOUNDS NOTED IN ALL QUADRNATS. HER VITALS THIS MORNING ARE: 98.0-65-20-96%-144/62. ABNORMAL LAB VALUES INCLUDE THE FOLLOWING: RBC 3.01, HGB 9.9, HCT 28.6, CHLORIDE 109, GLUCOSE 109, CALCIUM 7.1, TOTAL PROTEIN 5.8, ALBUMIN 2.8. URINE CULTURE IS POSITIVE FOR E.COLI. SHE IS CURRENTLY RECEIVING IV FLUIDS, IV ZOFRAN, AND IV LEVAQUIN. HOME MEDICATIONS WERE RESUMED. WE WILL DISCONTINUE THE LEVAQUIN DUE TO RESISTANCE AND RESTART ROCEPHIN. OTHERWISE, WE PLAN TO FOLLOW UP WITH AM LABS AND CONTINUE TO MONITOR. - Past Medical Family Social History Past Med/Fam/Surg Hx: No changes since H&P Allergies: Allergies fentanyl Allergy (Severe, Verified 05/01/19 17:57) CARDIAC ARREST cefaclor Allergy (Mild, Verified 05/01/19 17:57) pentazocine Allergy (Mild, Verified 05/01/19 17:57) Sulfa (Sulfonamide Antibiotics) [SULFA] Allergy (Mild, Verified 05/01/19 17:57) prednisone Adverse Reaction (Mild, Verified 05/01/19 17:57) - Review of Systems ROS: No change since H&P - Vital Signs and I&O's Vital Signs: Temperature 98.5 F Pulse Rate [Left Brachial] 68 Respiratory Rate 20 Blood Pressure [Right Arm] 156/74 Blood Pressure [Left Arm] 139/64 Blood Pressure 180/74 O2 Sat by Pulse Oximetry 95 Intake and Output: Intake & Output 05/03/19 05/04/19 05/05/19 05/06/19 11:59 11:59 11:59 11:59 Intake Total 2403 / 2403 3781 / 3781 1520 / 1520 640 / 640 Balance 2403 / 2403 3781 / 3781 1520 / 1520 640 / 640 - Physical Exam Oriented: Normal Eyes: Normal Ear: Normal Nose: Normal Throat: Normal Respiratory: Generalized, Diminished Cardiovascular: Normal. negative: S3, S4, Murmur : Normal Auscultation: Bowel Sounds: Normal Palpation: Normal Tenderness: Suprapubic, Mild. negative: Rebound, Guarding, Rigidity Skin: Decreased Turgur Musculoskeletal: Normal Psychiatric: Normal Mood Description: Calm Affect: Normal Speech Pattern: Clear - Laboratory and Diagnostics Result Diagrams: 05/05/19 04:51 05/05/19 04:51 Labs: 05/01/19 21:50 Urine,Clean Catch Urine Culture - Final Escherichia Coli Laboratory WBC 5.5 X10^3/uL (3.6-10.0) 05/05/19 04:51 RBC 2.82 X10^6/uL (3.5-5.4) L 05/05/19 04:51 Hgb 9.2 g/dL (12.0-16.0) L 05/05/19 04:51 Hct 27.2 % (36.0-47.0) L 05/05/19 04:51 MCV 96.6 fL (80.0-100.0) 05/05/19 04:51 MCH 32.7 pg (27.0-34.0) 05/05/19 04:51 MCHC 33.9 g/dL (33.0-35.0) 05/05/19 04:51 RDW 12.9 % (11.6-16.5) 05/05/19 04:51 Plt Count 187 X10^3/uL (150.0-450.0) 05/05/19 04:51 MPV 8.8 fL (7.4-11.0) 05/05/19 04:51 Neut % (Auto) 51.5 % (42.0-75.0) 05/05/19 04:51 Lymph % (Auto) 31.2 % (21.0-51.0) 05/05/19 04:51 [place] % (Auto) 12.6 % (0.0-13.0) 05/05/19 04:51 Eos % (Auto) 3.9 % (0.9-2.9) H 05/05/19 04:51 Baso % (Auto) 0.8 % (0.2-1.0) 05/05/19 04:51 Neut # (Auto) 2.8 x10^3/uL (2.2-4.8) 05/05/19 04:51 Lymph # (Auto) 1.7 X10^3/uL (1.3-2.9) 05/05/19 04:51 [place] # (Auto) 0.7 x10^3/uL (0.3-0.8) 05/05/19 04:51 Eos # (Auto) 0.2 x10^3/uL (0.0-0.2) 05/05/19 04:51 Baso # (Auto) 0.0 X10^3/uL (0.0-0.1) 05/05/19 04:51 Absolute Nucleated RBC 0.0 /100WBC 05/05/19 04:51 Sodium 146 mmol/L (136-145) H 05/05/19 04:51 Corrected Sodium TNP 05/05/19 04:51 Potassium 3.1 mmol/L (3.5-5.1) L 05/05/19 04:51 Chloride 110 mmol/L (98-107) H 05/05/19 04:51 Carbon Dioxide 27.7 mmol/L (21-32) 05/05/19 04:51 BUN 8 mg/dL (7-18) 05/05/19 04:51 Creatinine 0.84 mg/dL (0.55-1.02) 05/05/19 04:51 Est GFR (MDRD) Af Amer > 60 (>60) 05/05/19 04:51 Est GFR (MDRD) Non-Af > 60 (>60) 05/05/19 04:51 Glucose 94 mg/dL (65-99) 05/05/19 04:51 Calcium 7.0 mg/dL (8.5-10.1) L 05/05/19 04:51 Corrected Calcium 8.0 mg/dL (8.5-10.1) L 05/05/19 04:51 Magnesium 1.3 mg/dL (1.7-2.9) L 05/05/19 04:51 Total Bilirubin 0.20 mg/dL (0.2-1.0) 05/05/19 04:51 AST 17 Units/L (15-37) 05/05/19 04:51 ALT 11 Units/L (12-78) L 05/05/19 04:51 Alkaline Phosphatase 108 Units/L (46-116) 05/05/19 04:51 Total Protein 5.6 g/dL (6.4-8.2) L 05/05/19 04:51 Albumin 2.8 g/dL (3.4-5.0) L 05/05/19 04:51 Globulin 2.8 g/dL (2.5-4.5) 05/05/19 04:51 Albumin/Globulin Ratio 1.0 Ratio (1.1-2.1) L 05/05/19 04:51 Amylase 34 Units/L (25-115) 05/01/19 17:49 Lipase 125 Units/L (73-393) 05/01/19 17:49 Specimen Type Clean catch urine 05/01/19 21:50 Urine Color Pale yellow (YELLOW) 05/01/19 21:50 Urine Appearance Clear (CLEAR) 05/01/19 21:50 Urine pH 6.0 (5.0 - 8.0) 05/01/19 21:50 Ur Specific [place] 1.010 (1.000-1.030) 05/01/19 21:50 Urine Protein Negative (NEGATIVE) 05/01/19 21:50 Urine Glucose (UA) Negative (NEGATIVE) 05/01/19 21:50 Urine Ketones Negative (NEGATIVE) 05/01/19 21:50 Urine Occult Blood 1+ (NEGATIVE) 05/01/19 21:50 Urine Nitrite Positive (NEGATIVE) 05/01/19 21:50 Urine Bilirubin Negative (NEGATIVE) 05/01/19 21:50 Urine Urobilinogen Normal (NORMAL) 05/01/19 21:50 Ur Leukocyte Esterase 3+ (NEGATIVE) 05/01/19 21:50 Urine RBC None seen /HPF (NONE SEEN) 05/01/19 21:50 Urine WBC 10-20 /HPF (NONE SEEN) 05/01/19 21:50 Ur Squamous Epith Cells Few /HPF (NEGATIVE) 05/01/19 21:50 Ur Transition Epith Cell Few /HPF (NEGATIVE) 05/01/19 21:50 Urine Bacteria 2+ /HPF (NEGATIVE) 05/01/19 21:50 Ur Culture Indicated? Yes/culture set up 05/01/19 21:50 - Plan (1) Dehydration Status: Acute Plan: normal saline at 80m/hr, continue to monitor (2) Generalized weakness Status: Acute (3) Nausea and vomiting Status: Acute Qualifiers: Vomiting type: unspecified Plan: zofran 4mg iv q4h prn, continue to monitor (4) Gastroparesis Status: Chronic (5) Urinary tract infection Status: Acute Qualifiers: Urinary tract infection type: acute cystitis Hematuria presence: without hematuria Qualified Code(s): N30.00 - Acute cystitis without hematuria Plan: ROCEPHIN, IV FLUIDS, CONTINUE TO MONITOR
[2019-05-06] MEDS: BENTYL CAP 10 MG PO SCH (05:04)
[2019-05-06 05:15] LABS: BASOPHILS % (AUTO) 0.5 % (0.2-1.0); EOSINOPHILS # (AUTO) 0.2 x10^3/uL (0.0-0.2); EOSINOPHILS % (AUTO) 3.4 % (0.9-2.9); HEMATOCRIT 27.4 % (36.0-47.0); HEMOGLOBIN 9.4 g/dL (12.0-16.0); LYMPHOCYTES # (AUTO) 1.5 X10^3/uL (1.3-2.9); LYMPHOCYTES % (AUTO) 26.5 % (21.0-51.0); MEAN CORPUSCULAR HGB CONC 34.4 g/dL (33.0-35.0); MEAN CORPUSCULAR VOLUME 96.1 fL (80.0-100.0); MEAN PLATELET VOLUME 8.8 fL (7.4-11.0); MONOCYTES # (AUTO) 0.6 x10^3/uL (0.3-0.8); MONOCYTES % (AUTO) 11.1 % (0.0-13.0); NEUTROPHILS # (AUTO) 3.3 x10^3/uL (2.2-4.8); NEUTROPHILS % (AUTO) 58.5 % (42.0-75.0); PLATELET COUNT 167 X10^3/uL (150.0-450.0); RED BLOOD COUNT 2.85 X10^6/uL (3.5-5.4); RED CELL DISTRIBUTION WIDTH 13.1 % (11.6-16.5); WHITE BLOOD COUNT 5.6 X10^3/uL (3.6-10.0)
[2019-05-06 05:33] LABS: ALANINE AMINOTRANSFERASE 24 Units/L (12-78); ALBUMIN 2.8 g/dL (3.4-5.0); ALKALINE PHOSPHATASE 112 Units/L (46-116); ASPARTATE AMINO TRANSFERASE 20 Units/L (15-37); BLOOD UREA NITROGEN 10 mg/dL (7-18); CALCIUM 7.1 mg/dL (8.5-10.1); CARBON DIOXIDE 27.3 mmol/L (21-32); CHLORIDE 109 mmol/L (98-107); COR CA(FOR HYPOALB) 8.1 mg/dL (8.5-10.1); CREATININE 0.88 mg/dL (0.55-1.02); MAGNESIUM 2.2 mg/dL (1.7-2.9); SODIUM 144 mmol/L (136-145); TOTAL PROTEIN 5.8 g/dL (6.4-8.2); eGFR NON BLACK RACES > 60 (>60)
[2019-05-06 08:03] VITALS: BP 157/72
[2019-05-06] MEDS: MARINOL PO SCH (09:33)
[2019-05-06] MEDS: ROCEPHIN VIAL 1 GRAM IVP SCH (09:33)
[2019-05-06] MEDS: TAB-A-VITE PO SCH (09:33)
[2019-05-06] MEDS: LINZESS PO SCH (09:33)
[2019-05-06] MEDS: CELEXA PO SCH (09:33)
[2019-05-06] MEDS: LOVAZA PO SCH (09:34)
== END 2019-05-06 12:10 | disposition home or self-care (01) | DRG 690 ==
LOC: ICU → OBS 17:10 → MED/SURG 05-04 14:05
PROVIDERS: ADMIT Internal Medicine; ATTEND Internal Medicine
DX: E11.43 Type 2 diabetes mellitus with diabetic autonomic (poly)neuropathy; R53.1 Weakness; N30.00 Acute cystitis without hematuria; I10 Essential (primary) hypertension; B96.29 Other Escherichia coli [E. coli] as the cause of diseases classified elsewhere; E78.2 Mixed hyperlipidemia; E11.65 Type 2 diabetes mellitus with hyperglycemia; E86.0 Dehydration; K21.9 Gastro-esophageal reflux disease without esophagitis; R11.2 Nausea with vomiting, unspecified; E03.8 Other specified hypothyroidism
CPT/HCPCS: 36415; 80053; 81001; 82150; 83690; 83735; 85025; 87086; 87088; 87186; A4216; A4222; G0378; J0696; J1956; J2405; J2550; J3475; J3490; J7030

== ENCOUNTER 2019-05-19 11:24 | Inpatient (IN) ==
[2019-05-19] MEDS ORDERED: HumuLIN R SUBCUT PRN (12:53)
[2019-05-19 14:01] LABS: BASOPHILS % (AUTO) 0.6 % (0.2-1.0); EOSINOPHILS # (AUTO) 0.2 x10^3/uL (0.0-0.2); EOSINOPHILS % (AUTO) 2.7 % (0.9-2.9); HEMATOCRIT 33.1 % (36.0-47.0); HEMOGLOBIN 11.2 g/dL (12.0-16.0); LYMPHOCYTES # (AUTO) 1.8 X10^3/uL (1.3-2.9); LYMPHOCYTES % (AUTO) 26.5 % (21.0-51.0); MEAN CORPUSCULAR HEMOGLOBIN 32.4 pg (27.0-34.0); MEAN CORPUSCULAR VOLUME 95.2 fL (80.0-100.0); MEAN PLATELET VOLUME 8.7 fL (7.4-11.0); MONOCYTES # (AUTO) 0.7 x10^3/uL (0.3-0.8); MONOCYTES % (AUTO) 10.9 % (0.0-13.0); NEUTROPHILS % (AUTO) 59.3 % (42.0-75.0); PLATELET COUNT 205 X10^3/uL (150.0-450.0); RED BLOOD COUNT 3.47 X10^6/uL (3.5-5.4); RED CELL DISTRIBUTION WIDTH 12.7 % (11.6-16.5); WHITE BLOOD COUNT 6.7 X10^3/uL (3.6-10.0)
[2019-05-19 14:16] VITALS: BMI 22.6
[2019-05-19 14:33] LABS: ALANINE AMINOTRANSFERASE 17 Units/L (12-78); ALBUMIN 3.8 g/dL (3.4-5.0); ALKALINE PHOSPHATASE 143 Units/L (46-116); AMYLASE 33 Units/L (25-115); ASPARTATE AMINO TRANSFERASE 18 Units/L (15-37); BLOOD UREA NITROGEN 21 mg/dL (7-18); CALCIUM 8.6 mg/dL (8.5-10.1); CARBON DIOXIDE 27.7 mmol/L (21-32); CHLORIDE 105 mmol/L (98-107); CREATININE 1.12 mg/dL (0.55-1.02); LIPASE 116 Units/L (73-393); SODIUM 142 mmol/L (136-145); eGFR NON BLACK RACES 50 (>60)
[2019-05-19 15:49] LABS: BILIRUBIN,URINE NEGATIVE (NEGATIVE); BLOOD/HEMOGLOBIN,URINE NEGATIVE (NEGATIVE); GLUCOSE, URINE NEGATIVE (NEGATIVE); KETONES,URINE NEGATIVE (NEGATIVE); LEUKOCYTE ESTERASE ,URINE 3+ (NEGATIVE); NITRITES,URINE NEGATIVE (NEGATIVE); PROTEIN,URINE NEGATIVE (NEGATIVE); UROBILINOGEN,URINE NORMAL (NORMAL)
[2019-05-19 16:03] LABS: APPEARANCE,URINE CLEAR (CLEAR); COLOR,URINE YELLOW (YELLOW); RBC,URINE 0-2 /HPF (NONE SEEN); SQUAMOUS EPITHELIAL CELL,UR FEW /HPF (NEGATIVE)
[2019-05-19 16:04] LABS: AMORPHOUS SEDIMENT,UR TRACE /HPF (NEGATIVE); BACTERIA,URINE TRACE /HPF (NEGATIVE)
[2019-05-19] MEDS: NS 1000 ML 1,000 ML IV SCH ×2 (16:57→22:16)
[2019-05-19] MEDS: ZOFRAN INJ 4 MG VIAL IVP PRN (17:15)
[2019-05-19] MEDS ORDERED: NORVASC TAB 5 MG PO ONE (17:22)
[2019-05-19] MEDS ORDERED: NORCO 5/325 MG TAB PO PRN (20:52)
--- NOTE | 2019-05-19 21:46 | DR.H&P ---
H&P - History & Physical for Day of: H&P Date: 05/19/19 - Chief Complaint Chief Complaint: NAUSEA, VOMITING, ABDOMINAL PAIN, FATIGUE - History of Present Illness History of Present Illness: IS A 79 YEAR OLD PATIENT OF OURS WHO PRESENTED TO THE HOSPITAL A DIRECT ADMISSION DUE TO COMPLAINTS OF INTRACTABLE NAUSEA AND VOMITING, AND FATIGUE. PATIENT REPORTS THAT SYMPTOMS HAVE PROGRESSIVELY GOTTEN WORSE SINCE HER LAST ADMISSION TWO WEEKS AGO. PATIENT HAS A HISTORY SIGNIFICANT FOR DIABETIC GASTROPARESIS. ON ARRIVAL TO THE HOSPITAL, VITALS WERE 98.1-63-20-91%-201/88. LABS WERE OBTAINED. ABNORMAL LAB VALUES INCLUDE THE FOLLOWING: RBC 3.47, HGB 11.2, HCT 33.1, BUN 21, CREATININE 1.12, GLUCOSE 105, ALK PHOS 143. URINALYSIS REVEALED: WBC 0-2, RBC 0-2, BACTERIA TRACE, LEUKOCYTES 3+. URINE CULTURE IS PENDING. WE STARTED PATIENT ON NORMAL SALINE AT 125ML/HR, IV ZOFRAN, PHENERGAN 12.5MG IM Q6H PRN, AND HOME MEDICATIONS WERE RESUMED. OTHERWISE, WE PLAN TO FOLLOW UP WITH AM LABS AND CONTINUE TO MONITOR. - Past Medical History Past Medical History: Dyslipidemia, GERD, Hypertension, Hypothyroidism - Past Surgical History Surgical History: Appendectomy, Cholecystectomy, Hysterectomy - Family History Family Medical History: Cancer, [place], Hypertension - Social History Does patient currently use any type of tobacco product: No Type of Tobacco Use: None Alcohol Use: None Drug Use: None - Medications Home Medications: fentanyl Allergy (Severe, Verified 05/01/19 17:57) CARDIAC ARREST cefaclor Allergy (Mild, Verified 05/01/19 17:57) pentazocine Allergy (Mild, Verified 05/01/19 17:57) Sulfa (Sulfonamide Antibiotics) [SULFA] Allergy (Mild, Verified 05/01/19 17:57) prednisone Adverse Reaction (Mild, Verified 05/01/19 17:57) CONTINUE taking the following medications atorvastatin 1 tab PO DAILY 05/19/19 [History] calcium citrate-vitamin D3 [Citracal Regular] 2 tab/day PO DAILY 05/19/19 [History] meloxicam 1 tab PO DAILY 05/19/19 [History] - Review of Systems Constitutional: See HPI, Weakness, Malaise Eyes: No Symptoms Reported ENT: No Symptoms Reported Respiratory: No Symptoms Reported Cardiovascular: No Symptoms Reported Gastrointestinal: See HPI, Nausea, Vomiting, Abdominal Pain Genitourinary: No Symptoms Reported Musculoskeletal: No Symptoms Reported Skin: No Symptoms Reported Neurological: Weakness - Physical Exam Vital Signs: Temperature 98.1 F Pulse Rate [Right] 63 Respiratory Rate 20 Blood Pressure [Right Arm] 201/88 Blood Pressure [Left Arm] 139/64 Blood Pressure 157/72 O2 Sat by Pulse Oximetry 91 Oriented: Normal Eyes: Normal Ear: Normal Nose: Normal Throat: Normal Respiratory: Diminished Throughout Cardiovascular: Normal : Normal Auscultation: Bowel Sounds: Increased Palpation: Normal Tenderness: Diffuse, Moderate. negative: Rebound, Guarding, Rigidity Skin: Normal Musculoskeletal: Normal Psychiatric: Normal Mood Description: Calm Affect: Normal Speech Pattern: Clear - Assessment/Plan (1) Dehydration Status: Acute Plan: NORMAL SALINE AT 125ML/HR, CONTINUE TO MONITOR (2) Abdominal pain Qualifiers: Abdominal location: generalized Qualified Code(s): R10.84 - Generalized abdominal pain Status: Acute (3) Nausea and vomiting Qualifiers: Vomiting type: unspecified Status: Acute Plan: NS AT 125ML/HR, IV ZOFRAN, IM PHENERGAN, CONTINUE TO MONITOR (4) Generalized weakness Status: Acute (5) Gastroparesis Status: Chronic - Allergies Allergies/Adverse Reactions: Allergies Allergy/AdvReac Type Severity Reaction Status Date / Time fentanyl Allergy Severe CARDIAC Verified 05/01/19 17:57 ARREST cefaclor Allergy Mild Verified 05/01/19 17:57 pentazocine Allergy Mild Verified 05/01/19 17:57 Sulfa (Sulfonamide Allergy Mild Verified 05/01/19 17:57 Antibiotics) [SULFA] prednisone AdvReac Mild Verified 05/01/19 17:57
[2019-05-19] MEDS: SNACK - Diabetic Appropriate PO SCH (22:16)
[2019-05-20] MEDS: NS 1000 ML 1,000 ML IV SCH ×3 (05:16→16:51)
[2019-05-20 05:17] LABS: BASOPHILS % (AUTO) 0.7 % (0.2-1.0); EOSINOPHILS # (AUTO) 0.2 x10^3/uL (0.0-0.2); EOSINOPHILS % (AUTO) 3.8 % (0.9-2.9); HEMATOCRIT 31.8 % (36.0-47.0); HEMOGLOBIN 10.7 g/dL (12.0-16.0); LYMPHOCYTES # (AUTO) 1.5 X10^3/uL (1.3-2.9); LYMPHOCYTES % (AUTO) 31.6 % (21.0-51.0); MEAN CORPUSCULAR HEMOGLOBIN 32.5 pg (27.0-34.0); MEAN CORPUSCULAR HGB CONC 33.8 g/dL (33.0-35.0); MEAN CORPUSCULAR VOLUME 96.1 fL (80.0-100.0); MEAN PLATELET VOLUME 8.8 fL (7.4-11.0); MONOCYTES # (AUTO) 0.6 x10^3/uL (0.3-0.8); MONOCYTES % (AUTO) 12.7 % (0.0-13.0); NEUTROPHILS # (AUTO) 2.5 x10^3/uL (2.2-4.8); NEUTROPHILS % (AUTO) 51.2 % (42.0-75.0); PLATELET COUNT 212 X10^3/uL (150.0-450.0); RED BLOOD COUNT 3.31 X10^6/uL (3.5-5.4); RED CELL DISTRIBUTION WIDTH 12.7 % (11.6-16.5); WHITE BLOOD COUNT 4.8 X10^3/uL (3.6-10.0)
[2019-05-20 05:36] LABS: ALANINE AMINOTRANSFERASE 14 Units/L (12-78); ALBUMIN 3.4 g/dL (3.4-5.0); ALKALINE PHOSPHATASE 130 Units/L (46-116); ASPARTATE AMINO TRANSFERASE 15 Units/L (15-37); BLOOD UREA NITROGEN 17 mg/dL (7-18); CALCIUM 7.9 mg/dL (8.5-10.1); CHLORIDE 107 mmol/L (98-107); COR NA(FOR HYPERGLY) 143 mmol/L (136-145); CREATININE 0.97 mg/dL (0.55-1.02); SODIUM 143 mmol/L (136-145); TOTAL PROTEIN 6.3 g/dL (6.4-8.2); eGFR NON BLACK RACES 59 (>60)
[2019-05-20] MEDS: ZOFRAN INJ 4 MG VIAL IVP PRN (08:56)
[2019-05-20] MEDS ORDERED: MAGIC MOUTHWASH MT PRN (09:18)
[2019-05-20] MEDS: PHENERGAN INJ 25 MG IM PRN (11:40)
[2019-05-20] MEDS ORDERED: PHARMACY CONSULT - DOSE _____ XX SCH (13:00)
[2019-05-20] MEDS: LOVENOX INJ 40 MG SYR SC SCH (16:50)
[2019-05-20] MEDS: SNACK - Diabetic Appropriate PO SCH (20:30)
[2019-05-20] MEDS ORDERED: K-RIDER 10 MEQ/NS 100 ML 10 MEQ/100 ML BAG IV PRN (23:32)
[2019-05-20] MEDS ORDERED: POTASSIUM CHL 60 MEQ/NS 0.45% 500 ML IV PRN (23:32)
[2019-05-20] MEDS ORDERED: KLOR-CON PO PRN (23:32)
[2019-05-20] MEDS ORDERED: MICRO K EXTEN CAP 10 MEQ PO PRN (23:32)
[2019-05-20] MEDS ORDERED: POTASSIUM CHL 40 MEQ/NS 0.45% 500 ML IV PRN (23:32)
[2019-05-20] MEDS ORDERED: POTASSIUM CHLORIDE LIQ 20 MEQ UDC PO PRN (23:32)
[2019-05-21] MEDS: NS 1000 ML 1,000 ML IV SCH ×6 (00:45→22:50)
[2019-05-21] MEDS: PHENERGAN INJ 25 MG IM PRN ×2 (03:50→20:01)
[2019-05-21 05:14] LABS: BASOPHILS % (AUTO) 0.7 % (0.2-1.0); EOSINOPHILS # (AUTO) 0.1 x10^3/uL (0.0-0.2); EOSINOPHILS % (AUTO) 3.2 % (0.9-2.9); HEMATOCRIT 29.2 % (36.0-47.0); LYMPHOCYTES # (AUTO) 1.2 X10^3/uL (1.3-2.9); LYMPHOCYTES % (AUTO) 28.2 % (21.0-51.0); MEAN CORPUSCULAR HEMOGLOBIN 32.9 pg (27.0-34.0); MEAN CORPUSCULAR HGB CONC 34.1 g/dL (33.0-35.0); MEAN CORPUSCULAR VOLUME 96.5 fL (80.0-100.0); MEAN PLATELET VOLUME 8.2 fL (7.4-11.0); MONOCYTES # (AUTO) 0.6 x10^3/uL (0.3-0.8); MONOCYTES % (AUTO) 13.4 % (0.0-13.0); NEUTROPHILS # (AUTO) 2.4 x10^3/uL (2.2-4.8); NEUTROPHILS % (AUTO) 54.5 % (42.0-75.0); PLATELET COUNT 223 X10^3/uL (150.0-450.0); RED BLOOD COUNT 3.03 X10^6/uL (3.5-5.4); RED CELL DISTRIBUTION WIDTH 12.7 % (11.6-16.5); WHITE BLOOD COUNT 4.3 X10^3/uL (3.6-10.0)
[2019-05-21 05:21] LABS: ALANINE AMINOTRANSFERASE 12 Units/L (12-78); ALBUMIN 3.2 g/dL (3.4-5.0); ALKALINE PHOSPHATASE 116 Units/L (46-116); ASPARTATE AMINO TRANSFERASE 12 Units/L (15-37); BLOOD UREA NITROGEN 15 mg/dL (7-18); CALCIUM 7.4 mg/dL (8.5-10.1); CHLORIDE 109 mmol/L (98-107); COR NA(FOR HYPERGLY) 144 mmol/L (136-145); CREATININE 0.92 mg/dL (0.55-1.02); MAGNESIUM 1.5 mg/dL (1.7-2.9); SODIUM 143 mmol/L (136-145); eGFR NON BLACK RACES > 60 (>60)
[2019-05-21] MEDS: MAGNESIUM SULFATE 1 GRAM/100 mL PREMIX 1 GM/100 ML BAG IV PRN ×2 (06:39→08:09)
[2019-05-21] MEDS: K-DUR TAB 20 MEQ PO PRN (06:43)
[2019-05-21] MEDS: LOVENOX INJ 40 MG SYR SC SCH (08:58)
[2019-05-21] MEDS ORDERED: LEVSIN ORAL DROPS PO PRN (12:54)
[2019-05-21] MEDS ORDERED: CARAFATE PO SCH (13:00)
[2019-05-21] MEDS: ZITHROMAX INJ 500 MG VIAL 500 MG in D5W 250 ML IV 250 ML IV SCH (16:59)
[2019-05-21] MEDS: COZAAR PO SCH (16:59)
[2019-05-21] MEDS: TAB-A-VITE PO SCH (16:59)
[2019-05-21] MEDS: MIRALAX POWDER (1 DOSE 17 G) PO SCH (17:00)
[2019-05-21] MEDS: PROTONIX TAB 40 MG PO SCH (17:00)
[2019-05-21] MEDS: SYNTHROID 100 mcg TAB PO SCH (17:00)
[2019-05-21] MEDS: LIPITOR TAB 40 MG PO SCH (17:00)
[2019-05-21] MEDS: ZOFRAN INJ 4 MG VIAL IVP PRN (17:53)
[2019-05-21] MEDS: ELAVIL PO SCH ×2 (17:53→20:28)
[2019-05-21] MEDS: BENTYL CAP 10 MG PO SCH ×2 (17:54→20:28)
[2019-05-21] MEDS: MARINOL PO SCH ×2 (17:58→20:04)
[2019-05-21] MEDS: SNACK - Diabetic Appropriate PO SCH (20:02)
--- NOTE | 2019-05-21 20:08 | PCM.PROG ---
Progress Note - Progress Note for Day of Date of Exam: 05/20/19 - Subjective Subjective: IS BEING TREATED FOR GASTROPARESIS, DEHYDRATION, AND INTRACTABLE NAUSEA AND VOMITING. TODAY, SHE IS ALERT AND ORIENTED, LYING IN BED ON MORNING ROUNDS. SHE CONTINUES WITH COMPLAINTS OF NAUSEA AND VOMITING TODAY, WELL COMPLAINTS OF DIFFUSE ABDOMINAL PAIN. ON EXAMINATION, HEART IS REGULAR IN RATE AND RHYTHM. BILATERAL LUNGS ARE NOTED WITH DIMINISHED WITH LUNG SOUNDS THROUGHOUT. ABDOMEN IS ROUND, SOFT, AND NOTED WITH MILD, DIFFUSE TENDERNESS. NORMAL BOWEL SOUNDS NOTED IN ALL QUADRANTS. HER VITALS THIS MORNING ARE: 98.1-74-18-96%-167/70. LABS WERE OBTAINED. ABNORMAL LAB VALUES INCLUDE THE FOLLOWING: RBC 3.31, HGB 10.7, HCT 31.8, POTASSIUM 3.3, GLUCOSE 14, CALCIUM 7.9, ALK PHOS 130, TOTAL PROTEIN 6.3. URINE CULTURE IS PENDING. SHE IS CURRENTLY RECEIVING IV FLUIDS, IV ZOFRAN, IM PHENERGAN, AND HOME MEDICATIONS WERE RESUMED. TODAY, WE WILL OBTAIN BLOOD CULTURES AND STOOL CULTURES. WE WILL OBTAIN AN ABDOMINAL SERIES. OTHERWISE, WE PLAN TO FOLLOW UP WITH AM LABS AND CONTINUE TO MONITOR. - Past Medical Family Social History Past Med/Fam/Surg Hx: No changes since H&P Allergies: Allergies fentanyl Allergy (Severe, Verified 05/01/19 17:57) CARDIAC ARREST cefaclor Allergy (Mild, Verified 05/01/19 17:57) pentazocine Allergy (Mild, Verified 05/01/19 17:57) Sulfa (Sulfonamide Antibiotics) [SULFA] Allergy (Mild, Verified 05/01/19 17:57) prednisone Adverse Reaction (Mild, Verified 05/01/19 17:57) - Review of Systems ROS: No change since H&P - Vital Signs and I&O's Vital Signs: Temperature 98.6 F Pulse Rate [Right] 72 Respiratory Rate 18 Blood Pressure [Right Arm] 154/70 Blood Pressure [Left Arm] 139/64 Blood Pressure 157/72 O2 Sat by Pulse Oximetry 97 Intake and Output: Intake & Output 05/19/19 05/20/19 05/21/19 05/22/19 11:59 11:59 11:59 11:59 Intake Total 910 / 910 2766 / 2766 640 / 640 Balance 910 / 910 2766 / 2766 640 / 640 - Physical Exam Oriented: Normal Eyes: Normal Ear: Normal Nose: Normal Throat: Normal Cardiovascular: Normal : Normal Auscultation: Bowel Sounds: Increased Palpation: Normal Tenderness: Diffuse, Moderate. negative: Rebound, Guarding, Rigidity Skin: Normal Musculoskeletal: Normal Psychiatric: Normal Mood Description: Calm Affect: Normal Speech Pattern: Clear, Appropriate - Laboratory and Diagnostics Result Diagrams: 05/21/19 04:45 05/21/19 04:45 Labs: 05/19/19 15:30 Urine,Clean Catch Urine Culture - Final Laboratory WBC 4.3 X10^3/uL (3.6-10.0) 05/21/19 04:45 RBC 3.03 X10^6/uL (3.5-5.4) L 05/21/19 04:45 Hgb 10.0 g/dL (12.0-16.0) L 05/21/19 04:45 Hct 29.2 % (36.0-47.0) L 05/21/19 04:45 MCV 96.5 fL (80.0-100.0) 05/21/19 04:45 MCH 32.9 pg (27.0-34.0) 05/21/19 04:45 MCHC 34.1 g/dL (33.0-35.0) 05/21/19 04:45 RDW 12.7 % (11.6-16.5) 05/21/19 04:45 Plt Count 223 X10^3/uL (150.0-450.0) 05/21/19 04:45 MPV 8.2 fL (7.4-11.0) 05/21/19 04:45 Neut % (Auto) 54.5 % (42.0-75.0) 05/21/19 04:45 Lymph % (Auto) 28.2 % (21.0-51.0) 05/21/19 04:45 [place] % (Auto) 13.4 % (0.0-13.0) H 05/21/19 04:45 Eos % (Auto) 3.2 % (0.9-2.9) H 05/21/19 04:45 Baso % (Auto) 0.7 % (0.2-1.0) 05/21/19 04:45 Neut # (Auto) 2.4 x10^3/uL (2.2-4.8) 05/21/19 04:45 Lymph # (Auto) 1.2 X10^3/uL (1.3-2.9) L 05/21/19 04:45 [place] # (Auto) 0.6 x10^3/uL (0.3-0.8) 05/21/19 04:45 Eos # (Auto) 0.1 x10^3/uL (0.0-0.2) 05/21/19 04:45 Baso # (Auto) 0.0 X10^3/uL (0.0-0.1) 05/21/19 04:45 Absolute Nucleated RBC 0.0 /100WBC 05/21/19 04:45 Sodium 143 mmol/L (136-145) 05/21/19 04:45 Corrected Sodium 144 mmol/L (136-145) 05/21/19 04:45 Potassium 3.8 mmol/L (3.5-5.1) 05/21/19 04:45 Chloride 109 mmol/L (98-107) H 05/21/19 04:45 Carbon Dioxide 24.0 mmol/L (21-32) 05/21/19 04:45 BUN 15 mg/dL (7-18) 05/21/19 04:45 Creatinine 0.92 mg/dL (0.55-1.02) 05/21/19 04:45 Est GFR (MDRD) Af Amer > 60 (>60) 05/21/19 04:45 Est GFR (MDRD) Non-Af > 60 (>60) 05/21/19 04:45 Glucose 122 mg/dL (65-99) H 05/21/19 04:45 Calcium 7.4 mg/dL (8.5-10.1) L 05/21/19 04:45 Corrected Calcium 8.0 mg/dL (8.5-10.1) L 05/21/19 04:45 Magnesium 1.5 mg/dL (1.7-2.9) L 05/21/19 04:45 Total Bilirubin 0.20 mg/dL (0.2-1.0) 05/21/19 04:45 AST 12 Units/L (15-37) L 05/21/19 04:45 ALT 12 Units/L (12-78) 05/21/19 04:45 Alkaline Phosphatase 116 Units/L (46-116) 05/21/19 04:45 Total Protein 6.0 g/dL (6.4-8.2) L 05/21/19 04:45 Albumin 3.2 g/dL (3.4-5.0) L 05/21/19 04:45 Globulin 2.8 g/dL (2.5-4.5) 05/21/19 04:45 Albumin/Globulin Ratio 1.1 Ratio (1.1-2.1) 05/21/19 04:45 Amylase 33 Units/L (25-115) 05/19/19 13:50 Lipase 116 Units/L (73-393) 05/19/19 13:50 Specimen Type Clean catch urine 05/19/19 15:30 Urine Color Yellow (YELLOW) 05/19/19 15:30 Urine Appearance Clear (CLEAR) 05/19/19 15:30 Urine pH 7.0 (5.0 - 8.0) 05/19/19 15:30 Ur Specific [place] 1.005 (1.000-1.030) 05/19/19 15:30 Urine Protein Negative (NEGATIVE) 05/19/19 15:30 Urine Glucose (UA) Negative (NEGATIVE) 05/19/19 15:30 Urine Ketones Negative (NEGATIVE) 05/19/19 15:30 Urine Occult Blood Negative (NEGATIVE) 05/19/19 15:30 Urine Nitrite Negative (NEGATIVE) 05/19/19 15:30 Urine Bilirubin Negative (NEGATIVE) 05/19/19 15:30 Urine Urobilinogen Normal (NORMAL) 05/19/19 15:30 Ur Leukocyte Esterase 3+ (NEGATIVE) 05/19/19 15:30 Urine RBC 0-2 /HPF (NONE SEEN) 05/19/19 15:30 Urine WBC 0-2 /HPF (NONE SEEN) 05/19/19 15:30 Ur Squamous Epith Cells Few /HPF (NEGATIVE) 05/19/19 15:30 Amorphous Sediment Trace /HPF (NEGATIVE) 05/19/19 15:30 Urine Bacteria Trace /HPF (NEGATIVE) 05/19/19 15:30 Ur Culture Indicated? Yes/culture set up 05/19/19 15:30 - Plan (1) Dehydration Status: Acute Plan: NORMAL SALINE AT 125ML/HR, CONTINUE TO MONITOR (2) Abdominal pain Status: Acute Qualifiers: Abdominal location: generalized Qualified Code(s): R10.84 - Generalized abdominal pain (3) Nausea and vomiting Status: Acute Qualifiers: Vomiting type: unspecified Plan: NS AT 125ML/HR, IV ZOFRAN, IM PHENERGAN, CONTINUE TO MONITOR (4) Generalized weakness Status: Acute (5) Gastroparesis Status: Chronic
[2019-05-21] MEDS: LOPRESSOR TAB 25 MG PO SCH (20:28)
[2019-05-22 05:33] LABS: BASOPHILS % (AUTO) 0.6 % (0.2-1.0); EOSINOPHILS # (AUTO) 0.1 x10^3/uL (0.0-0.2); EOSINOPHILS % (AUTO) 2.7 % (0.9-2.9); HEMATOCRIT 30.5 % (36.0-47.0); HEMOGLOBIN 10.4 g/dL (12.0-16.0); LYMPHOCYTES # (AUTO) 1.8 X10^3/uL (1.3-2.9); LYMPHOCYTES % (AUTO) 37.4 % (21.0-51.0); MEAN CORPUSCULAR HEMOGLOBIN 32.9 pg (27.0-34.0); MEAN CORPUSCULAR HGB CONC 34.3 g/dL (33.0-35.0); MEAN CORPUSCULAR VOLUME 95.9 fL (80.0-100.0); MEAN PLATELET VOLUME 8.8 fL (7.4-11.0); MONOCYTES # (AUTO) 0.6 x10^3/uL (0.3-0.8); MONOCYTES % (AUTO) 12.8 % (0.0-13.0); NEUTROPHILS # (AUTO) 2.2 x10^3/uL (2.2-4.8); NEUTROPHILS % (AUTO) 46.5 % (42.0-75.0); PLATELET COUNT 195 X10^3/uL (150.0-450.0); RED BLOOD COUNT 3.18 X10^6/uL (3.5-5.4); WHITE BLOOD COUNT 4.7 X10^3/uL (3.6-10.0)
[2019-05-22 05:45] LABS: ALANINE AMINOTRANSFERASE 11 Units/L (12-78); ALBUMIN 3.2 g/dL (3.4-5.0); ALKALINE PHOSPHATASE 115 Units/L (46-116); ASPARTATE AMINO TRANSFERASE 14 Units/L (15-37); BLOOD UREA NITROGEN 14 mg/dL (7-18); CALCIUM 7.4 mg/dL (8.5-10.1); CARBON DIOXIDE 24.5 mmol/L (21-32); CHLORIDE 111 mmol/L (98-107); CREATININE 0.83 mg/dL (0.55-1.02); SODIUM 144 mmol/L (136-145); TOTAL PROTEIN 6.4 g/dL (6.4-8.2); eGFR NON BLACK RACES > 60 (>60)
[2019-05-22] MEDS: NS 1000 ML 1,000 ML IV SCH ×3 (06:00→21:06)
[2019-05-22] MEDS: BENTYL CAP 10 MG PO SCH ×3 (06:00→21:02)
[2019-05-22] MEDS: SYNTHROID 100 mcg TAB PO SCH (06:00)
[2019-05-22] MEDS: MAGNESIUM SULFATE 1 GRAM/100 mL PREMIX 1 GM/100 ML BAG IV PRN ×2 (06:15→15:12)
[2019-05-22] MEDS: K-DUR TAB 20 MEQ PO PRN (06:20)
[2019-05-22] MEDS ORDERED: LINZESS PO SCH (09:00)
[2019-05-22] MEDS ORDERED: MILK OF MAGNESIA PO SCH (09:00)
[2019-05-22] MEDS: ZITHROMAX INJ 500 MG VIAL 500 MG in D5W 250 ML IV 250 ML IV SCH (09:11)
[2019-05-22] MEDS: COZAAR PO SCH (09:13)
[2019-05-22] MEDS: LOVAZA PO SCH (09:13)
[2019-05-22] MEDS: CARAFATE PO SCH ×2 (09:13→21:02)
[2019-05-22] MEDS: LIPITOR TAB 40 MG PO SCH (09:14)
[2019-05-22] MEDS: PROTONIX TAB 40 MG PO SCH (09:14)
[2019-05-22] MEDS: TAB-A-VITE PO SCH (09:14)
[2019-05-22] MEDS: MOBIC TAB 15 MG PO SCH (09:14)
[2019-05-22] MEDS: LOPRESSOR TAB 25 MG PO SCH ×3 (09:14→21:05)
[2019-05-22] MEDS: OSCAL+D or CALTRATE+D PO SCH (09:14)
[2019-05-22] MEDS: MIRALAX POWDER (1 DOSE 17 G) PO SCH (09:15)
[2019-05-22] MEDS: LOVENOX INJ 40 MG SYR SC SCH (09:16)
[2019-05-22] MEDS: MARINOL PO SCH ×2 (09:21→21:06)
[2019-05-22] MEDS: COLACE CAP 100 MG PO SCH ×2 (09:21→21:02)
--- NOTE | 2019-05-22 18:46 | PCM.PROG ---
Progress Note - Progress Note for Day of Date of Exam: 05/21/19 - Subjective Subjective: IS BEING TREATED FOR GASTROPARESIS, DEHYDRATION, AND INTRACTABLE NAUSEA AND VOMITING. TODAY, SHE IS ALERT AND ORIENTED, LYING IN BED ON MORNING ROUNDS. SHE CONTINUES WITH COMPLAINTS OF NAUSEA AND ABDOMINAL PAIN, BUT DENIES VOMITING TODAY. ON EXAMINATION, HEART IS REGULAR IN RATE AND RHYTHM. BILATERAL LUNGS ARE NOTED WITH DIMINISHED WITH LUNG SOUNDS THROUGHOUT. ABDOMEN IS ROUND, SOFT, AND NOTED WITH MILD, DIFFUSE TENDERNESS. NORMAL BOWEL SOUNDS NOTED IN ALL QUADRANTS. HER VITALS THIS MORNING ARE: 98.0-72-18-98%-178/74. LABS WERE OBTAINED. ABNORMAL LAB VALUES INCLUDE THE FOLLOWING: RBC 3.03, HGB 10.0, HCT 29.2, CHLORIDE 109, GLUCOSE 122, MAGNESIUM 1.5, AST 12, TOTAL PROTEIN 6.0, ALBUMIN 3.2. URINE CULTURE IS PENDING. SHE IS CURRENTLY RECEIVING IV FLUIDS, IV ZOFRAN, IM PHENERGAN, AND HOME MEDICATIONS WERE RESUMED. WE WILL CONTINUE WITH CURRENT PLAN OF CARE TODAY. OTHERWISE, WE PLAN TO FOLLOW UP WITH AM LABS AND CONTINUE TO MONITOR. - Past Medical Family Social History Past Med/Fam/Surg Hx: No changes since H&P Allergies: Allergies fentanyl Allergy (Severe, Verified 05/01/19 17:57) CARDIAC ARREST cefaclor Allergy (Mild, Verified 05/01/19 17:57) pentazocine Allergy (Mild, Verified 05/01/19 17:57) Sulfa (Sulfonamide Antibiotics) [SULFA] Allergy (Mild, Verified 05/01/19 17:57) prednisone Adverse Reaction (Mild, Verified 05/01/19 17:57) - Review of Systems ROS: No change since H&P - Vital Signs and I&O's Vital Signs: Temperature 97.8 F Pulse Rate [Right] 66 Respiratory Rate 20 Blood Pressure [Right Arm] 166/72 Blood Pressure [Left Arm] 139/64 Blood Pressure 157/72 O2 Sat by Pulse Oximetry 98 Intake and Output: Intake & Output 05/20/19 05/21/19 05/22/19 05/23/19 11:59 11:59 11:59 11:59 Intake Total 910 / 910 2766 / 2766 2360 / 2360 720 / 720 Balance 910 / 910 2766 / 2766 2360 / 2360 720 / 720 - Physical Exam Oriented: Normal Eyes: Normal Ear: Normal Nose: Normal Throat: Normal Cardiovascular: Normal : Normal Auscultation: Bowel Sounds: Increased Palpation: Normal Tenderness: Diffuse, Moderate. negative: Rebound, Guarding, Rigidity Skin: Normal Musculoskeletal: Normal Psychiatric: Normal Mood Description: Calm Affect: Normal Speech Pattern: Clear, Appropriate - Laboratory and Diagnostics Result Diagrams: 05/22/19 05:19 05/22/19 05:19 Labs: 05/20/19 09:50 Blood Blood Culture - Preliminary 05/20/19 09:38 Blood Blood Culture - Preliminary 05/19/19 15:30 Urine,Clean Catch Urine Culture - Final Laboratory WBC 4.7 X10^3/uL (3.6-10.0) 05/22/19 05:19 RBC 3.18 X10^6/uL (3.5-5.4) L 05/22/19 05:19 Hgb 10.4 g/dL (12.0-16.0) L 05/22/19 05:19 Hct 30.5 % (36.0-47.0) L 05/22/19 05:19 MCV 95.9 fL (80.0-100.0) 05/22/19 05:19 MCH 32.9 pg (27.0-34.0) 05/22/19 05:19 MCHC 34.3 g/dL (33.0-35.0) 05/22/19 05:19 RDW 13.0 % (11.6-16.5) 05/22/19 05:19 Plt Count 195 X10^3/uL (150.0-450.0) 05/22/19 05:19 MPV 8.8 fL (7.4-11.0) 05/22/19 05:19 Neut % (Auto) 46.5 % (42.0-75.0) 05/22/19 05:19 Lymph % (Auto) 37.4 % (21.0-51.0) 05/22/19 05:19 [place] % (Auto) 12.8 % (0.0-13.0) 05/22/19 05:19 Eos % (Auto) 2.7 % (0.9-2.9) 05/22/19 05:19 Baso % (Auto) 0.6 % (0.2-1.0) 05/22/19 05:19 Neut # (Auto) 2.2 x10^3/uL (2.2-4.8) 05/22/19 05:19 Lymph # (Auto) 1.8 X10^3/uL (1.3-2.9) 05/22/19 05:19 [place] # (Auto) 0.6 x10^3/uL (0.3-0.8) 05/22/19 05:19 Eos # (Auto) 0.1 x10^3/uL (0.0-0.2) 05/22/19 05:19 Baso # (Auto) 0.0 X10^3/uL (0.0-0.1) 05/22/19 05:19 Absolute Nucleated RBC 0.2 /100WBC 05/22/19 05:19 Sodium 144 mmol/L (136-145) 05/22/19 05:19 Corrected Sodium TNP 05/22/19 05:19 Potassium 3.8 mmol/L (3.5-5.1) 05/22/19 05:19 Chloride 111 mmol/L (98-107) H 05/22/19 05:19 Carbon Dioxide 24.5 mmol/L (21-32) 05/22/19 05:19 BUN 14 mg/dL (7-18) 05/22/19 05:19 Creatinine 0.83 mg/dL (0.55-1.02) 05/22/19 05:19 Est GFR (MDRD) Af Amer > 60 (>60) 05/22/19 05:19 Est GFR (MDRD) Non-Af > 60 (>60) 05/22/19 05:19 Glucose 107 mg/dL (65-99) H 05/22/19 05:19 Calcium 7.4 mg/dL (8.5-10.1) L 05/22/19 05:19 Corrected Calcium 8.0 mg/dL (8.5-10.1) L 05/22/19 05:19 Magnesium 1.6 mg/dL (1.7-2.9) L 05/22/19 05:19 Total Bilirubin 0.30 mg/dL (0.2-1.0) 05/22/19 05:19 AST 14 Units/L (15-37) L 05/22/19 05:19 ALT 11 Units/L (12-78) L 05/22/19 05:19 Alkaline Phosphatase 115 Units/L (46-116) 05/22/19 05:19 Total Protein 6.4 g/dL (6.4-8.2) 05/22/19 05:19 Albumin 3.2 g/dL (3.4-5.0) L 05/22/19 05:19 Globulin 3.2 g/dL (2.5-4.5) 05/22/19 05:19 Albumin/Globulin Ratio 1.0 Ratio (1.1-2.1) L 05/22/19 05:19 Amylase 33 Units/L (25-115) 05/19/19 13:50 Lipase 116 Units/L (73-393) 05/19/19 13:50 Specimen Type Clean catch urine 05/19/19 15:30 Urine Color Yellow (YELLOW) 05/19/19 15:30 Urine Appearance Clear (CLEAR) 05/19/19 15:30 Urine pH 7.0 (5.0 - 8.0) 05/19/19 15:30 Ur Specific [place] 1.005 (1.000-1.030) 05/19/19 15:30 Urine Protein Negative (NEGATIVE) 05/19/19 15:30 Urine Glucose (UA) Negative (NEGATIVE) 05/19/19 15:30 Urine Ketones Negative (NEGATIVE) 05/19/19 15:30 Urine Occult Blood Negative (NEGATIVE) 05/19/19 15:30 Urine Nitrite Negative (NEGATIVE) 05/19/19 15:30 Urine Bilirubin Negative (NEGATIVE) 05/19/19 15:30 Urine Urobilinogen Normal (NORMAL) 05/19/19 15:30 Ur Leukocyte Esterase 3+ (NEGATIVE) 05/19/19 15:30 Urine RBC 0-2 /HPF (NONE SEEN) 05/19/19 15:30 Urine WBC 0-2 /HPF (NONE SEEN) 05/19/19 15:30 Ur Squamous Epith Cells Few /HPF (NEGATIVE) 05/19/19 15:30 Amorphous Sediment Trace /HPF (NEGATIVE) 05/19/19 15:30 Urine Bacteria Trace /HPF (NEGATIVE) 05/19/19 15:30 Ur Culture Indicated? Yes/culture set up 08/03/19 15:30 - Plan (1) Dehydration Status: Acute Plan: NORMAL SALINE AT 125ML/HR, CONTINUE TO MONITOR (2) Abdominal pain Status: Acute Qualifiers: Abdominal location: generalized Qualified Code(s): R10.84 - Generalized abdominal pain (3) Nausea and vomiting Status: Acute Qualifiers: Vomiting type: unspecified Plan: NS AT 125ML/HR, IV ZOFRAN, IM PHENERGAN, CONTINUE TO MONITOR (4) Generalized weakness Status: Acute (5) Gastroparesis Status: Chronic
[2019-05-22] MEDS: ZITHROMAX TAB 250 MG PO SCH (21:02)
[2019-05-22] MEDS: ELAVIL PO SCH (21:05)
[2019-05-22] MEDS: SNACK - Diabetic Appropriate PO SCH (21:07)
[2019-05-23 05:21] LABS: BASOPHILS % (AUTO) 0.6 % (0.2-1.0); EOSINOPHILS # (AUTO) 0.2 x10^3/uL (0.0-0.2); EOSINOPHILS % (AUTO) 3.5 % (0.9-2.9); HEMATOCRIT 28.6 % (36.0-47.0); HEMOGLOBIN 9.7 g/dL (12.0-16.0); LYMPHOCYTES # (AUTO) 1.5 X10^3/uL (1.3-2.9); LYMPHOCYTES % (AUTO) 31.4 % (21.0-51.0); MEAN CORPUSCULAR HEMOGLOBIN 32.7 pg (27.0-34.0); MEAN CORPUSCULAR HGB CONC 33.8 g/dL (33.0-35.0); MEAN CORPUSCULAR VOLUME 96.5 fL (80.0-100.0); MEAN PLATELET VOLUME 8.5 fL (7.4-11.0); MONOCYTES # (AUTO) 0.6 x10^3/uL (0.3-0.8); MONOCYTES % (AUTO) 12.7 % (0.0-13.0); NEUTROPHILS # (AUTO) 2.5 x10^3/uL (2.2-4.8); NEUTROPHILS % (AUTO) 51.8 % (42.0-75.0); PLATELET COUNT 200 X10^3/uL (150.0-450.0); RED BLOOD COUNT 2.96 X10^6/uL (3.5-5.4); WHITE BLOOD COUNT 4.7 X10^3/uL (3.6-10.0)
[2019-05-23 05:35] LABS: ALANINE AMINOTRANSFERASE 12 Units/L (12-78); ALBUMIN 3.1 g/dL (3.4-5.0); ALKALINE PHOSPHATASE 108 Units/L (46-116); ASPARTATE AMINO TRANSFERASE 15 Units/L (15-37); BLOOD UREA NITROGEN 13 mg/dL (7-18); CALCIUM 7.2 mg/dL (8.5-10.1); CARBON DIOXIDE 20.7 mmol/L (21-32); CHLORIDE 113 mmol/L (98-107); COR CA(FOR HYPOALB) 7.9 mg/dL (8.5-10.1); CREATININE 0.83 mg/dL (0.55-1.02); SODIUM 145 mmol/L (136-145); eGFR NON BLACK RACES > 60 (>60)
[2019-05-23] MEDS: NS 1000 ML 1,000 ML IV SCH (05:43)
[2019-05-23] MEDS: BENTYL CAP 10 MG PO SCH (05:43)
[2019-05-23] MEDS: SYNTHROID 100 mcg TAB PO SCH (06:25)
[2019-05-23] MEDS: LOVENOX INJ 40 MG SYR SC SCH (08:42)
[2019-05-23] MEDS: CARAFATE PO SCH (08:43)
[2019-05-23] MEDS: LIPITOR TAB 40 MG PO SCH (08:43)
[2019-05-23] MEDS: ZITHROMAX TAB 250 MG PO SCH (08:43)
[2019-05-23] MEDS: PROTONIX TAB 40 MG PO SCH (08:43)
[2019-05-23] MEDS: COZAAR PO SCH (08:43)
[2019-05-23] MEDS: OSCAL+D or CALTRATE+D PO SCH (08:44)
[2019-05-23] MEDS: MOBIC TAB 15 MG PO SCH (08:44)
[2019-05-23] MEDS: TAB-A-VITE PO SCH (08:44)
[2019-05-23] MEDS: LOVAZA PO SCH (08:45)
[2019-05-23] MEDS: LOPRESSOR TAB 25 MG PO SCH (08:45)
[2019-05-23] MEDS: MARINOL PO SCH (08:51)
[2019-05-23 11:18] VITALS: BP 166/70
== END 2019-05-23 12:00 | disposition home or self-care (01) | DRG 74 ==
LOC: MED/SURG
PROVIDERS: ADMIT Internal Medicine; ATTEND Internal Medicine
DX: I10 Essential (primary) hypertension; K21.9 Gastro-esophageal reflux disease without esophagitis; R10.84 Generalized abdominal pain; R11.2 Nausea with vomiting, unspecified; K31.84 Gastroparesis; E11.43 Type 2 diabetes mellitus with diabetic autonomic (poly)neuropathy; E03.8 Other specified hypothyroidism; E78.2 Mixed hyperlipidemia; Z79.899 Other long term (current) drug therapy; E86.0 Dehydration
CPT/HCPCS: 36415; 74022; 80053; 81001; 82150; 83690; 83735; 85025; 87040; 87086; A4216; A4222; Q0144; G0378; J0456; J1650; J2405; J2550; J3475; J7030; J7060

== ENCOUNTER 2019-07-16 12:19 | Observation (INO) ==
[2019-07-16] MEDS ORDERED: ZOFRAN INJ 4 MG VIAL IVP PRN (15:58)
[2019-07-16] MEDS: NS 1000 ML 1,000 ML IV SCH (16:37)
[2019-07-16 16:41] LABS: BASOPHILS # (AUTO) 0.1 X10^3/uL (0.0-0.1); BASOPHILS % (AUTO) 0.7 % (0.2-1.0); EOSINOPHILS # (AUTO) 0.1 x10^3/uL (0.0-0.2); EOSINOPHILS % (AUTO) 0.9 % (0.9-2.9); HEMATOCRIT 35.6 % (36.0-47.0); HEMOGLOBIN 11.9 g/dL (12.0-16.0); LYMPHOCYTES # (AUTO) 1.3 X10^3/uL (1.3-2.9); LYMPHOCYTES % (AUTO) 14.9 % (21.0-51.0); MEAN CORPUSCULAR HEMOGLOBIN 31.6 pg (27.0-34.0); MEAN CORPUSCULAR HGB CONC 33.6 g/dL (33.0-35.0); MEAN CORPUSCULAR VOLUME 94.1 fL (80.0-100.0); MEAN PLATELET VOLUME 7.5 fL (7.4-11.0); MONOCYTES # (AUTO) 0.8 x10^3/uL (0.3-0.8); MONOCYTES % (AUTO) 9.4 % (0.0-13.0); NEUTROPHILS # (AUTO) 6.6 x10^3/uL (2.2-4.8); NEUTROPHILS % (AUTO) 74.1 % (42.0-75.0); PLATELET COUNT 321 X10^3/uL (150.0-450.0); RED BLOOD COUNT 3.78 X10^6/uL (3.5-5.4); RED CELL DISTRIBUTION WIDTH 13.1 % (11.6-16.5); WHITE BLOOD COUNT 8.9 X10^3/uL (3.6-10.0)
[2019-07-16 16:55] VITALS: BMI 22.6
[2019-07-16 17:00] LABS: ALANINE AMINOTRANSFERASE 69 Units/L (12-78); ALBUMIN 3.8 g/dL (3.4-5.0); ALKALINE PHOSPHATASE 210 Units/L (46-116); ASPARTATE AMINO TRANSFERASE 59 Units/L (15-37); BLOOD UREA NITROGEN 21 mg/dL (7-18); CALCIUM 9.2 mg/dL (8.5-10.1); CARBON DIOXIDE 25.5 mmol/L (21-32); CHLORIDE 101 mmol/L (98-107); COR NA(FOR HYPERGLY) 139 mmol/L (136-145); SODIUM 138 mmol/L (136-145); TOTAL PROTEIN 7.7 g/dL (6.4-8.2); eGFR NON BLACK RACES 46 (>60)
--- NOTE | 2019-07-16 17:23 | RAD ---
History: Chest pain and cough Exam: Chest x-ray Comparison: 09/10/2015 Technique: PA and lateral Findings: The heart is normal. The pulmonary vessels are normal. No consolidation or effusion is seen. The bones are intact. IMPRESSION: Stable chest with no acute abnormality seen. Reported By:
--- NOTE | 2019-07-16 18:29 | RAD ---
History: Pain Exam: KUB Comparison: None Technique: A supine view the abdomen was obtained. Findings: The gas pattern is unremarkable. Surgical clips are seen to a seen along the upper abdomen extending inferiorly. No urinary calculi are seen. Bones are intact. IMPRESSION: Postop changes along the upper abdomen with a nonspecific gas pattern Reported By:
[2019-07-16 20:53] LABS: BILIRUBIN,URINE NEGATIVE (NEGATIVE); BLOOD/HEMOGLOBIN,URINE 1+ (NEGATIVE); GLUCOSE, URINE NEGATIVE (NEGATIVE); KETONES,URINE NEGATIVE (NEGATIVE); LEUKOCYTE ESTERASE ,URINE 2+ (NEGATIVE); NITRITES,URINE NEGATIVE (NEGATIVE); PROTEIN,URINE 1+ (NEGATIVE); UROBILINOGEN,URINE NORMAL (NORMAL)
[2019-07-16 20:54] LABS: APPEARANCE,URINE SLIGHTLY HAZY (CLEAR); COLOR,URINE YELLOW (YELLOW)
[2019-07-16 21:02] LABS: BACTERIA,URINE TRACE /HPF (NEGATIVE); RBC,URINE 0-2 /HPF (0-3); SQUAMOUS EPITHELIAL CELL,UR FEW /HPF (NEGATIVE); YEAST,URINE FEW /HPF (NEGATIVE)
--- NOTE | 2019-07-16 21:17 | DR.UPDATE ---
H&P Update History and Physical Update: History and Physical reviewed and patient examined. Changes noted: Yes with the following: PRESENTED TO THE OFFICE WITH COMPLAINTS OF WEAKNESS, BODY ACHES, COUGH, AND NAUSEA. SHE REPORTS A DECREASED APPETITE. SYMPTOMS REPORTEDLY STARTED FOUR DAYS AGO. SHE WAS ADMITTED FOR FURTHER EVALUATION AND TREATMENT. ON ADMISSION, VITALS WERE 98.6-93-18-97%-146/74. LABS WERE OBTAINED. ABNORMAL LAB VALUES INCLUDE THE FOLLOWING: HGB 11.9, HCT 35.6, BUN 21, CREATININE 1.20, GLUCOSE 148, AST 59, ALK PHOS 210, INFLUENZA NEGATIVE. A KUB WAS OBTAINED AND REVEALED: Postop changes along the upper abdomen with a nonspecific gas pattern. A CHEST XRAY WAS OBTAINED AND REVEALED: Stable chest with no acute abnormality seen. WE WILL OBTAIN A URINALYSIS. WE WILL START NORMAL SALINE AT 125ML/HR AND ZOFRAN 4MG IV Q4H PRN NAUSEA. OTHERWISE, WE WILL FOLLOW UP WITH AM LABS AND CONTINUE TO MONITOR. Prescription drug monitoring program results: PDMP was not reviewed
[2019-07-17] MEDS: NS 1000 ML 1,000 ML IV SCH ×5 (00:22→21:10)
[2019-07-17 05:33] LABS: BASOPHILS % (AUTO) 0.5 % (0.2-1.0); EOSINOPHILS # (AUTO) 0.2 x10^3/uL (0.0-0.2); EOSINOPHILS % (AUTO) 2.8 % (0.9-2.9); HEMATOCRIT 29.7 % (36.0-47.0); LYMPHOCYTES # (AUTO) 1.8 X10^3/uL (1.3-2.9); LYMPHOCYTES % (AUTO) 32.7 % (21.0-51.0); MEAN CORPUSCULAR HEMOGLOBIN 31.8 pg (27.0-34.0); MEAN CORPUSCULAR HGB CONC 33.6 g/dL (33.0-35.0); MEAN CORPUSCULAR VOLUME 94.7 fL (80.0-100.0); MEAN PLATELET VOLUME 7.5 fL (7.4-11.0); MONOCYTES # (AUTO) 0.9 x10^3/uL (0.3-0.8); NEUTROPHILS # (AUTO) 2.6 x10^3/uL (2.2-4.8); PLATELET COUNT 263 X10^3/uL (150.0-450.0); RED BLOOD COUNT 3.14 X10^6/uL (3.5-5.4); RED CELL DISTRIBUTION WIDTH 12.6 % (11.6-16.5); WHITE BLOOD COUNT 5.5 X10^3/uL (3.6-10.0)
[2019-07-17 05:43] LABS: ALANINE AMINOTRANSFERASE 48 Units/L (12-78); ALBUMIN 2.8 g/dL (3.4-5.0); ALKALINE PHOSPHATASE 151 Units/L (46-116); ASPARTATE AMINO TRANSFERASE 35 Units/L (15-37); BLOOD UREA NITROGEN 16 mg/dL (7-18); CALCIUM 7.4 mg/dL (8.5-10.1); CARBON DIOXIDE 25.7 mmol/L (21-32); CHLORIDE 108 mmol/L (98-107); COR CA(FOR HYPOALB) 8.4 mg/dL (8.5-10.1); CREATININE 0.87 mg/dL (0.55-1.02); SODIUM 144 mmol/L (136-145); TOTAL PROTEIN 5.8 g/dL (6.4-8.2); eGFR NON BLACK RACES > 60 (>60)
[2019-07-17] MEDS ORDERED: LEVSIN SYRUP PO PRN (08:35)
[2019-07-17] MEDS ORDERED: TUSSIONEX PENNKINETIC SUSP PO PRN (10:26)
[2019-07-17] MEDS ORDERED: ROBITUSSIN DM ONE (10:52)
[2019-07-17] MEDS ORDERED: FORTAZ or TAZICEF VIAL INJ ONE (10:52)
[2019-07-17] MEDS ORDERED: PHARMACY CONSULT - DOSE _____ XX SCH (11:00)
[2019-07-17] MEDS: LINZESS PO SCH ×2 (11:14)
[2019-07-17] MEDS: BENTYL CAP 10 MG PO SCH ×2 (11:16→16:56)
[2019-07-17] MEDS: CITRACAL + VITAMIN D PO SCH (11:16)
[2019-07-17] MEDS: MARINOL PO SCH ×2 (11:16→13:01)
[2019-07-17] MEDS: CARAFATE PO SCH ×2 (11:16→21:34)
[2019-07-17] MEDS: COZAAR PO SCH (11:17)
[2019-07-17] MEDS: MOBIC TAB 15 MG PO SCH (11:18)
[2019-07-17] MEDS: LOVAZA PO SCH (11:18)
[2019-07-17] MEDS: LOPRESSOR TAB 25 MG PO SCH ×2 (11:18→21:36)
[2019-07-17] MEDS: LIPITOR TAB 40 MG PO SCH (11:18)
[2019-07-17] MEDS: SYNTHROID 100 mcg TAB PO SCH (11:19)
[2019-07-17] MEDS: FORTAZ or TAZICEF VIAL INJ 1 G in NS 100 ML IV + SPIKE MINIBAG* 100 ML IV SCH ×3 (11:19→21:36)
[2019-07-17] MEDS: PROTONIX TAB 40 MG PO SCH (11:19)
[2019-07-17] MEDS: TAB-A-VITE PO SCH (11:19)
[2019-07-17] MEDS: ROBITUSSIN DM PO SCH ×4 (11:20→21:33)
[2019-07-17] MEDS: LOVENOX INJ 40 MG SYR SC SCH (11:41)
--- NOTE | 2019-07-17 17:43 | PCM.PROG ---
Progress Note - Progress Note for Day of Date of Exam: 07/17/19 - Subjective Subjective: WAS ADMITTED FOR DEHYDRATION, WEAKNESS, AND BRONCHITIS. TODAY, SHE IS ALERT AND ORIENTED, LYING IN BED ON MORNING ROUNDS. SHE CONTINUES WITH WEAKNESS, NAUSEA, AND A NON-PRODUCTIVE COUGH. ON EXAMINATION, HEART IS REGULAR IN RATE AND RHYTHM. BILATERAL LUNGS ARE NOTED WITH DIMINISHED LUNG SOUNDS THROUGHOUT. ABDOMEN IS ROUND, SOFT, AND NON-TENDER WITH NORMAL BOWEL SOUNDS NOTED IN ALL QUADRANTS. HER VITALS THIS MORNING ARE: 98.0-82-18-95%-167/70. LABS WERE OBTAINED. ABNORMAL LAB VALUES INCLUDE THE FOLLOWING: RBC 3.14, HGB 10.0, HCT 29.7, POTASSIUM 3.2, CHLORIDE 108, GLUCOSE 108, CALCIUM 7.4, ALK PHOS 151, TOTAL PROTEIN 5.8, ALBUMIN 2.8. URINALYSIS REVEALED: WBC 5-10, RBC 0-2, LEUKOCYTES 2+, BACTERIA TRACE, YEAST FEW. URINE CULTURE PENDING. SHE IS CURRENTLY RECEIVING NORMAL SALINE AT 125ML/HR. TODAY, WE WILL START FORTAZ 1G IV Q8H, DIFLUCAN 200MG IV DAILY, TUSSIONEX Q12H PRN, AND ROBITUSSIN 10ML PO QID. OTHERWISE, WE PLAN TO FOLLOW UP WITH AM LABS AND CONTINUE TO MONITOR. - Past Medical Family Social History Past Med/Fam/Surg Hx: No changes since H&P Allergies: Allergies fentanyl Allergy (Severe, Verified 05/01/19 17:57) CARDIAC ARREST cefaclor Allergy (Mild, Verified 05/01/19 17:57) pentazocine Allergy (Mild, Verified 05/01/19 17:57) Sulfa (Sulfonamide Antibiotics) [SULFA] Allergy (Mild, Verified 05/01/19 17:57) prednisone Adverse Reaction (Mild, Verified 05/01/19 17:57) - Review of Systems ROS: No change since H&P - Vital Signs and I&O's Vital Signs: Temperature 98.2 F Pulse Rate [Left Radial] 70 Respiratory Rate 18 Blood Pressure [Right Arm] 160/74 Blood Pressure [Left Arm] 103/71 Blood Pressure 152/73 O2 Sat by Pulse Oximetry 94 Intake and Output: Intake & Output 07/15/19 07/16/19 07/17/19 07/18/19 11:59 11:59 11:59 11:59 Intake Total 1656 / 1656 1400 / 1400 Output Total 1200 / 1200 1100 / 1100 Balance 456 / 456 300 / 300 - Physical Exam Oriented: Normal Eyes: Normal Ear: Normal Nose: Normal Respiratory: Generalized, Diminished Cardiovascular: Normal. negative: S3, S4, Murmur : Normal Auscultation: Bowel Sounds: Normal Palpation: Normal Tenderness: Normal Skin: Normal Musculoskeletal: Normal Psychiatric: Normal Mood Description: Calm Affect: Normal Speech Pattern: Clear, Appropriate - Laboratory and Diagnostics Result Diagrams: 07/17/19 04:51 07/17/19 04:51 Labs: 07/16/19 20:25 Urine,Clean Catch Urine Culture - Final Laboratory WBC 5.5 X10^3/uL (3.6-10.0) 07/17/19 04:51 RBC 3.14 X10^6/uL (3.5-5.4) L 07/17/19 04:51 Hgb 10.0 g/dL (12.0-16.0) L 07/17/19 04:51 Hct 29.7 % (36.0-47.0) L 07/17/19 04:51 MCV 94.7 fL (80.0-100.0) 07/17/19 04:51 MCH 31.8 pg (27.0-34.0) 07/17/19 04:51 MCHC 33.6 g/dL (33.0-35.0) 07/17/19 04:51 RDW 12.6 % (11.6-16.5) 07/17/19 04:51 Plt Count 263 X10^3/uL (150.0-450.0) 07/17/19 04:51 MPV 7.5 fL (7.4-11.0) 07/17/19 04:51 Neut % (Auto) 47.0 % (42.0-75.0) 07/17/19 04:51 Lymph % (Auto) 32.7 % (21.0-51.0) 07/17/19 04:51 [place] % (Auto) 17.0 % (0.0-13.0) H 07/17/19 04:51 Eos % (Auto) 2.8 % (0.9-2.9) 07/17/19 04:51 Baso % (Auto) 0.5 % (0.2-1.0) 07/17/19 04:51 Neut # (Auto) 2.6 x10^3/uL (2.2-4.8) 07/17/19 04:51 Lymph # (Auto) 1.8 X10^3/uL (1.3-2.9) 07/17/19 04:51 [place] # (Auto) 0.9 x10^3/uL (0.3-0.8) H 07/17/19 04:51 Eos # (Auto) 0.2 x10^3/uL (0.0-0.2) 07/17/19 04:51 Baso # (Auto) 0.0 X10^3/uL (0.0-0.1) 07/17/19 04:51 Absolute Nucleated RBC 0.0 /100WBC 07/17/19 04:51 Sodium 144 mmol/L (136-145) 07/17/19 04:51 Corrected Sodium TNP 07/17/19 04:51 Potassium 3.2 mmol/L (3.5-5.1) L 07/17/19 04:51 Chloride 108 mmol/L (98-107) H 07/17/19 04:51 Carbon Dioxide 25.7 mmol/L (21-32) 07/17/19 04:51 BUN 16 mg/dL (7-18) 07/17/19 04:51 Creatinine 0.87 mg/dL (0.55-1.02) 07/17/19 04:51 Est GFR (MDRD) Af Amer > 60 (>60) 07/17/19 04:51 Est GFR (MDRD) Non-Af > 60 (>60) 07/17/19 04:51 Glucose 108 mg/dL (65-99) H 07/17/19 04:51 Calcium 7.4 mg/dL (8.5-10.1) L 07/17/19 04:51 Corrected Calcium 8.4 mg/dL (8.5-10.1) L 07/17/19 04:51 Total Bilirubin 0.20 mg/dL (0.2-1.0) 07/17/19 04:51 AST 35 Units/L (15-37) 07/17/19 04:51 ALT 48 Units/L (12-78) 07/17/19 04:51 Alkaline Phosphatase 151 Units/L (46-116) H 07/17/19 04:51 Total Protein 5.8 g/dL (6.4-8.2) L 07/17/19 04:51 Albumin 2.8 g/dL (3.4-5.0) L 07/17/19 04:51 Globulin 3.0 g/dL (2.5-4.5) 07/17/19 04:51 Albumin/Globulin Ratio 0.9 Ratio (1.1-2.1) L 07/17/19 04:51 Specimen Type Clean catch urine 07/16/19 20:25 Urine Color Yellow (YELLOW) 07/16/19 20:25 Urine Appearance Slightly hazy (CLEAR) 07/16/19 20:25 Urine pH 5.0 (5.0 - 8.0) 07/16/19 20:25 Ur Specific [place] 1.010 (1.000-1.030) 07/16/19 20:25 Urine Protein 1+ (NEGATIVE) 07/16/19 20:25 Urine Glucose (UA) Negative (NEGATIVE) 07/16/19 20:25 Urine Ketones Negative (NEGATIVE) 07/16/19 20:25 Urine Occult Blood 1+ (NEGATIVE) 07/16/19 20:25 Urine Nitrite Negative (NEGATIVE) 07/16/19 20:25 Urine Bilirubin Negative (NEGATIVE) 07/16/19 20:25 Urine Urobilinogen Normal (NORMAL) 07/16/19 20:25 Ur Leukocyte Esterase 2+ (NEGATIVE) 07/16/19 20:25 Urine RBC 0-2 /HPF (0-3) 07/16/19 20:25 Urine WBC 5-10 /HPF (0-5) A 07/16/19 20:25 Ur Squamous Epith Cells Few /HPF (NEGATIVE) 07/16/19 20:25 Urine Bacteria Trace /HPF (NEGATIVE) 07/16/19 20:25 Urine Yeast Few /HPF (NEGATIVE) 07/16/19 20:25 Ur Culture Indicated? Yes/culture set up 07/16/19 20:25 Influenza Type A (PCR) Negative (NEGATIVE) 07/16/19 16:25 Influenza Type B (PCR) Negative (NEGATIVE) 07/16/19 16:25 - Plan (1) Dehydration Status: Acute Plan: CHRISTAL SALINE AT 125ML/HR, CONTINUE TO MONITOR (2) Urinary tract infection Status: Acute Qualifiers: Urinary tract infection type: acute cystitis Hematuria presence: without hematuria Qualified Code(s): N30.00 - Acute cystitis without hematuria Plan: IV FORTAZ, IV FLUIDS, IV DIFLUCAN, CONTINUE TO MONITOR (3) Bronchitis Status: Acute Plan: IV FORTAZ, RESPIRATORY TX, CONTINUE TO MONITOR (4) Generalized weakness Status: Acute
[2019-07-17] MEDS ORDERED: DIFLUCAN 200 MG IV PREMIX* 200 MG/100 ML BAG IV ONE (17:52)
[2019-07-17] MEDS: DIFLUCAN 200 MG IV PREMIX* 200 MG/100 ML BAG IV SCH (18:01)
[2019-07-17] MEDS: DUONEB 0.5 MG/3 MG NEB SCH (20:57)
[2019-07-17] MEDS ORDERED: ELAVIL PO SCH (21:00)
[2019-07-17] MEDS ORDERED: POTASSIUM CHLORIDE LIQ 20 MEQ UDC PO PRN (23:34)
[2019-07-17] MEDS ORDERED: POTASSIUM CHL 40 MEQ/NS 0.45% 500 ML IV PRN (23:34)
[2019-07-17] MEDS ORDERED: MICRO K EXTEN CAP 10 MEQ PO PRN (23:34)
[2019-07-17] MEDS ORDERED: POTASSIUM CHL 60 MEQ/NS 0.45% 500 ML IV PRN (23:34)
[2019-07-17] MEDS ORDERED: KLOR-CON PO PRN (23:34)
[2019-07-17] MEDS ORDERED: K-RIDER 10 MEQ/NS 100 ML 10 MEQ/100 ML BAG IV PRN (23:34)
[2019-07-17] MEDS ORDERED: K-DUR TAB 20 MEQ PO PRN (23:34)
[2019-07-17] MEDS ORDERED: MARINOL PO SCH (23:45)
[2019-07-18] MEDS: NS 1000 ML 1,000 ML IV SCH ×2 (00:20→11:35)
[2019-07-18] MEDS: BENTYL CAP 10 MG PO SCH ×2 (01:52→09:27)
[2019-07-18] MEDS: MAGNESIUM SULFATE 1 GRAM/100 mL PREMIX 1 GM/100 ML BAG IV PRN ×4 (01:54→05:02)
[2019-07-18 05:18] LABS: BASOPHILS % (AUTO) 0.7 % (0.2-1.0); EOSINOPHILS # (AUTO) 0.1 x10^3/uL (0.0-0.2); EOSINOPHILS % (AUTO) 3.2 % (0.9-2.9); HEMATOCRIT 25.8 % (36.0-47.0); HEMOGLOBIN 8.9 g/dL (12.0-16.0); LYMPHOCYTES # (AUTO) 1.3 X10^3/uL (1.3-2.9); LYMPHOCYTES % (AUTO) 27.9 % (21.0-51.0); MEAN CORPUSCULAR HEMOGLOBIN 32.4 pg (27.0-34.0); MEAN CORPUSCULAR HGB CONC 34.4 g/dL (33.0-35.0); MEAN CORPUSCULAR VOLUME 94.2 fL (80.0-100.0); MEAN PLATELET VOLUME 7.3 fL (7.4-11.0); MONOCYTES # (AUTO) 0.6 x10^3/uL (0.3-0.8); MONOCYTES % (AUTO) 13.1 % (0.0-13.0); NEUTROPHILS # (AUTO) 2.6 x10^3/uL (2.2-4.8); NEUTROPHILS % (AUTO) 55.1 % (42.0-75.0); PLATELET COUNT 243 X10^3/uL (150.0-450.0); RED BLOOD COUNT 2.73 X10^6/uL (3.5-5.4); RED CELL DISTRIBUTION WIDTH 12.7 % (11.6-16.5); WHITE BLOOD COUNT 4.6 X10^3/uL (3.6-10.0)
[2019-07-18 05:29] LABS: ALANINE AMINOTRANSFERASE 33 Units/L (12-78); ALBUMIN 2.5 g/dL (3.4-5.0); ALKALINE PHOSPHATASE 122 Units/L (46-116); ASPARTATE AMINO TRANSFERASE 20 Units/L (15-37); BLOOD UREA NITROGEN 14 mg/dL (7-18); CALCIUM 7.3 mg/dL (8.5-10.1); CARBON DIOXIDE 25.1 mmol/L (21-32); CHLORIDE 110 mmol/L (98-107); COR CA(FOR HYPOALB) 8.5 mg/dL (8.5-10.1); COR NA(FOR HYPERGLY) 143 mmol/L (136-145); CREATININE 0.82 mg/dL (0.55-1.02); SODIUM 142 mmol/L (136-145); TOTAL PROTEIN 5.2 g/dL (6.4-8.2); eGFR NON BLACK RACES > 60 (>60)
[2019-07-18] MEDS: FORTAZ or TAZICEF VIAL INJ 1 G in NS 100 ML IV + SPIKE MINIBAG* 100 ML IV SCH (06:15)
[2019-07-18] MEDS: SYNTHROID 100 mcg TAB PO SCH (06:33)
--- NOTE | 2019-07-18 06:43 | RAD ---
HISTORY: Shortness of breath Study: Chest AP portable Comparison: 07/16/2019 Findings: The heart is enlarged. No congestive heart failure is identified. The lungs are mildly hypo inflated but free of acute alveolar infiltrates. No pleural effusions are identified. The bony thorax is unremarkable. IMPRESSION: Mild cardiomegaly without congestive heart failure No definite acute infiltrates Reported By:
[2019-07-18] MEDS: DUONEB 0.5 MG/3 MG NEB SCH ×2 (08:42→11:59)
[2019-07-18] MEDS: CARAFATE PO SCH (09:26)
[2019-07-18] MEDS: LOVENOX INJ 40 MG SYR SC SCH (09:26)
[2019-07-18] MEDS: LINZESS PO SCH (09:26)
[2019-07-18] MEDS: ROBITUSSIN DM PO SCH (09:26)
[2019-07-18] MEDS: MOBIC TAB 15 MG PO SCH (09:27)
[2019-07-18] MEDS: TAB-A-VITE PO SCH (09:27)
[2019-07-18] MEDS: PROTONIX TAB 40 MG PO SCH (09:27)
[2019-07-18] MEDS: COZAAR PO SCH (09:27)
[2019-07-18] MEDS: LOVAZA PO SCH (09:28)
[2019-07-18] MEDS: LOPRESSOR TAB 25 MG PO SCH (09:28)
[2019-07-18] MEDS: LIPITOR TAB 40 MG PO SCH (09:29)
[2019-07-18] MEDS: CITRACAL + VITAMIN D PO SCH (09:29)
[2019-07-18] MEDS: DIFLUCAN 200 MG IV PREMIX* 200 MG/100 ML BAG IV SCH (09:36)
[2019-07-18 12:11] VITALS: BP 121/64
== END 2019-07-18 12:57 | disposition home or self-care (01) ==
LOC: MED/SURG
PROVIDERS: ADMIT Internal Medicine; ATTEND Internal Medicine
DX: J20.9 Acute bronchitis, unspecified; E11.65 Type 2 diabetes mellitus with hyperglycemia; R74.0 Nonspecific elevation of levels of transaminase and lactic acid dehydrogenase [LDH]; N30.00 Acute cystitis without hematuria; R53.1 Weakness; E86.0 Dehydration; R94.4 Abnormal results of kidney function studies
CPT/HCPCS: 36415; 71010; 71020; 71045; 71046; 74000; 74018; 80053; 81001; 83735; 85025; 87086; 87502; 94640; 96367; 96372; 96374; A4222; G0378; J0713; J1450; J1650; J2405; J3475; J7030; J7050; J7620

== ENCOUNTER 2019-10-25 17:33 | Inpatient (IN) ==
[2019-10-25] MEDS ORDERED: HumuLIN R SUBCUT PRN (19:43)
[2019-10-25 20:05] LABS: BASOPHILS # (AUTO) 0.1 X10^3/uL (0.0-0.1); BASOPHILS % (AUTO) 1.1 % (0.2-1.0); EOSINOPHILS # (AUTO) 0.1 x10^3/uL (0.0-0.2); EOSINOPHILS % (AUTO) 1.1 % (0.9-2.9); HEMATOCRIT 35.2 % (36.0-47.0); HEMOGLOBIN 11.9 g/dL (12.0-16.0); LYMPHOCYTES # (AUTO) 1.7 X10^3/uL (1.3-2.9); MEAN CORPUSCULAR HEMOGLOBIN 31.3 pg (27.0-34.0); MEAN CORPUSCULAR HGB CONC 33.8 g/dL (33.0-35.0); MEAN CORPUSCULAR VOLUME 92.5 fL (80.0-100.0); MEAN PLATELET VOLUME 7.4 fL (7.4-11.0); MONOCYTES # (AUTO) 0.7 x10^3/uL (0.3-0.8); MONOCYTES % (AUTO) 8.3 % (0.0-13.0); NEUTROPHILS # (AUTO) 5.6 x10^3/uL (2.2-4.8); NEUTROPHILS % (AUTO) 68.5 % (42.0-75.0); PLATELET COUNT 277 X10^3/uL (150.0-450.0); RED CELL DISTRIBUTION WIDTH 13.3 % (11.6-16.5); WHITE BLOOD COUNT 8.2 X10^3/uL (3.6-10.0)
[2019-10-25 20:28] LABS: ALANINE AMINOTRANSFERASE 17 Units/L (12-78); ALBUMIN 3.8 g/dL (3.4-5.0); ALKALINE PHOSPHATASE 123 Units/L (46-116); ASPARTATE AMINO TRANSFERASE 10 Units/L (15-37); BLOOD UREA NITROGEN 21 mg/dL (7-18); CALCIUM 8.4 mg/dL (8.5-10.1); CARBON DIOXIDE 25.7 mmol/L (21-32); CHLORIDE 104 mmol/L (98-107); COR NA(FOR HYPERGLY) 143 mmol/L (136-145); CREATININE 1.32 mg/dL (0.55-1.02); SODIUM 142 mmol/L (136-145); TOTAL PROTEIN 7.2 g/dL (6.4-8.2); eGFR NON BLACK RACES 41 (>60)
[2019-10-25] MEDS: NS 1000 ML 1,000 ML IV SCH (20:59)
[2019-10-25 21:16] LABS: BILIRUBIN,URINE NEGATIVE (NEGATIVE); BLOOD/HEMOGLOBIN,URINE 1+ (NEGATIVE); GLUCOSE, URINE NEGATIVE (NEGATIVE); KETONES,URINE NEGATIVE (NEGATIVE); LEUKOCYTE ESTERASE ,URINE 3+ (NEGATIVE); NITRITES,URINE NEGATIVE (NEGATIVE); PH,URINE 6.5 (5.0 - 8.0); PROTEIN,URINE NEGATIVE (NEGATIVE); UROBILINOGEN,URINE NORMAL (NORMAL)
[2019-10-25 21:18] LABS: APPEARANCE,URINE HAZY (CLEAR); COLOR,URINE YELLOW (YELLOW)
[2019-10-25 21:22] LABS: BACTERIA,URINE 2+ /HPF (NEGATIVE); RBC,URINE 0-2 /HPF (0-3); SQUAMOUS EPITHELIAL CELL,UR FEW /HPF (NEGATIVE)
[2019-10-26 02:15] VITALS: BMI 21.2
[2019-10-26 05:28] LABS: BASOPHILS % (AUTO) 0.7 % (0.2-1.0); EOSINOPHILS # (AUTO) 0.1 x10^3/uL (0.0-0.2); HEMATOCRIT 30.6 % (36.0-47.0); HEMOGLOBIN 10.4 g/dL (12.0-16.0); LYMPHOCYTES # (AUTO) 1.8 X10^3/uL (1.3-2.9); MEAN CORPUSCULAR HEMOGLOBIN 31.6 pg (27.0-34.0); MEAN CORPUSCULAR HGB CONC 33.9 g/dL (33.0-35.0); MEAN CORPUSCULAR VOLUME 93.2 fL (80.0-100.0); MEAN PLATELET VOLUME 7.8 fL (7.4-11.0); MONOCYTES # (AUTO) 0.7 x10^3/uL (0.3-0.8); MONOCYTES % (AUTO) 12.1 % (0.0-13.0); NEUTROPHILS # (AUTO) 3.4 x10^3/uL (2.2-4.8); NEUTROPHILS % (AUTO) 55.2 % (42.0-75.0); PLATELET COUNT 240 X10^3/uL (150.0-450.0); RED BLOOD COUNT 3.28 X10^6/uL (3.5-5.4); RED CELL DISTRIBUTION WIDTH 13.1 % (11.6-16.5); WHITE BLOOD COUNT 6.1 X10^3/uL (3.6-10.0)
[2019-10-26 05:37] LABS: ALANINE AMINOTRANSFERASE 17 Units/L (12-78); ALBUMIN 3.1 g/dL (3.4-5.0); ALKALINE PHOSPHATASE 100 Units/L (46-116); ASPARTATE AMINO TRANSFERASE 15 Units/L (15-37); BLOOD UREA NITROGEN 18 mg/dL (7-18); CALCIUM 7.6 mg/dL (8.5-10.1); CHLORIDE 106 mmol/L (98-107); COR CA(FOR HYPOALB) 8.3 mg/dL (8.5-10.1); COR NA(FOR HYPERGLY) 142 mmol/L (136-145); CREATININE 1.08 mg/dL (0.55-1.02); SODIUM 141 mmol/L (136-145); eGFR NON BLACK RACES 52 (>60)
[2019-10-26] MEDS: NS 1000 ML 1,000 ML IV SCH (09:52)
--- NOTE | 2019-10-26 10:10 | DR.H&P ---
H&P - History & Physical for Day of: H&P Date: 10/25/19 - Chief Complaint Chief Complaint: NAUSEA, VOMITING, ABDOMINAL PAIN, FATIGUE - History of Present Illness History of Present Illness: IS A 79 YEAR OLD PATIENT OF OURS WHO PRESENTED TO THE HOSPITAL A DIRECT ADMISSION DUE TO COMPLAINTS OF INTRACTABLE NAUSEA AND VOMITING, ABDOMINAL PAIN, AND FATIGUE. PATIENT REPORTS THAT SYMPTOMSSTARTED SEVERAL DAYS AGO AND HAVE PROGRESSIVELY GOTTEN WORSE. PATIENT HAS A HISTORY SIGNIFICANT FOR DIABETIC GASTROPARESIS. ON ARRIVAL TO THE HOSPITAL, VITALS WERE 98.5-80-18-97%-136/71. LABS WERE OBTAINED. ABNORMAL LAB VALUES INCLUDE THE FOLLOWING: HGB 11.9, HCT 35.2, BUN 21, CREATININE 1.32, GLUCOSE 133, CALCIUM 8.4, TOTAL BILI 0.10, AST 10, ALK PHOS 123. URINALYSIS REVEALED WBC 5-10, RBC 0-2, LEUKOCYTES 3+, BACTERIA 2+. WE STARTED PATIENT ON NORMAL SALINE AT 80ML/HR, IV ZOFRAN, ROCEPHIN 1G IV DAILY, AND HOME MEDICATIONS WERE RESUMED. OTHERWISE, WE PLAN TO FOLLOW UP WITH AM LABS AND CONTINUE TO MONITOR. - Past Medical History Past Medical History: Diabetes, Dyslipidemia, GERD, Hypertension, Hypothyroidism Additional Medical History: GASTROPARESIS - Past Surgical History Surgical History: Appendectomy, Cholecystectomy, Hysterectomy, Ortho Surgery, Other - Family History Family Medical History: Cancer, GA, Hypertension - Social History Alcohol Use: None Drug Use: None Prescription drug monitoring program results: PDMP was not reviewed - Medications Home Medications: fentanyl Allergy (Severe, Verified 10/25/19 21:05) CARDIAC ARREST cefaclor Allergy (Mild, Verified 10/25/19 21:05) pentazocine Allergy (Mild, Verified 10/25/19 21:05) Sulfa (Sulfonamide Antibiotics) [SULFA] Allergy (Mild, Verified 10/25/19 21:05) prednisone Adverse Reaction (Mild, Verified 10/25/19 21:05) - Review of Systems Constitutional: Weakness, Malaise Eyes: No Symptoms Reported ENT: No Symptoms Reported Respiratory: No Symptoms Reported Cardiovascular: No Symptoms Reported Gastrointestinal: Nausea, Vomiting, Abdominal Pain Genitourinary: No Symptoms Reported Musculoskeletal: No Symptoms Reported Skin: No Symptoms Reported Neurological: Weakness - Physical Exam Vital Signs: Temperature 98.6 F Pulse Rate [Right Brachial] 85 Respiratory Rate 20 Blood Pressure [Right Arm] 121/59 Blood Pressure [Left Arm] 144/64 O2 Sat by Pulse Oximetry 98 Oriented: Normal Eyes: Normal Ear: Normal Nose: Normal Throat: Normal Respiratory: Diminished Throughout Cardiovascular: Normal : Normal Auscultation: Bowel Sounds: Normal Palpation: Normal Tenderness: Diffuse, Moderate. negative: Rebound, Guarding, Rigidity Skin: Decreased Turgur Musculoskeletal: Normal Psychiatric: Normal Mood Description: Calm Affect: Normal Speech Pattern: Clear - Assessment/Plan (1) Dehydration Status: Acute Plan: NORMAL SALINE AT 80ML/HR, CONTINUE TO MONITOR (2) Urinary tract infection Qualifiers: Urinary tract infection type: acute cystitis Hematuria presence: without hematuria Qualified Code(s): N30.00 - Acute cystitis without hematuria Status: Acute Plan: ROCEPHIN 1G IV DAILY (3) Abdominal pain Qualifiers: Abdominal location: generalized Status: Acute (4) Nausea and vomiting Qualifiers: Vomiting type: unspecified Vomiting Intractability: intractable Qualified Code(s): R11.2 - Nausea with vomiting, unspecified Status: Acute Plan: ZOFRAN PRN, CONTINUE TO MONITOR - Allergies Allergies/Adverse Reactions: Allergies Allergy/AdvReac Type Severity Reaction Status Date / Time fentanyl Allergy Severe CARDIAC Verified 10/25/19 21:05 ARREST cefaclor Allergy Mild Verified 10/25/19 21:05 pentazocine Allergy Mild Verified 10/25/19 21:05 Sulfa (Sulfonamide Allergy Mild Verified 10/25/19 21:05 Antibiotics) [SULFA] prednisone AdvReac Mild Verified 10/25/19 21:05
[2019-10-26] MEDS ORDERED: LEVSIN SYRUP PO PRN (10:11)
[2019-10-26] MEDS ORDERED: ZOFRAN TAB 4 MG PO PRN (10:11)
[2019-10-26] MEDS ORDERED: BENTYL CAP 10 MG PO SCH (11:00)
[2019-10-26] MEDS: ROCEPHIN VIAL 1 GRAM 1 G in NS 100 ML IV + SPIKE MINIBAG* 100 ML IV SCH (11:31)
[2019-10-26] MEDS: COZAAR PO SCH (11:35)
[2019-10-26] MEDS: MOBIC TAB 15 MG PO SCH (11:36)
[2019-10-26] MEDS: CITRACAL + VITAMIN D PO SCH (11:36)
[2019-10-26] MEDS: LOPRESSOR TAB 25 MG PO SCH ×2 (11:36→21:04)
[2019-10-26] MEDS: LOVAZA PO SCH (11:37)
[2019-10-26] MEDS: PROTONIX TAB 40 MG PO SCH (11:37)
[2019-10-26] MEDS: LINZESS PO SCH (11:37)
[2019-10-26] MEDS: CARAFATE PO SCH ×2 (11:38→23:15)
[2019-10-26] MEDS: LIPITOR TAB 40 MG PO SCH (11:38)
[2019-10-26] MEDS: SYNTHROID 100 mcg TAB PO SCH (11:38)
[2019-10-26] MEDS: TAB-A-VITE PO SCH (11:38)
[2019-10-26] MEDS: ELAVIL PO SCH ×2 (11:39→21:05)
[2019-10-26] MEDS: MARINOL PO SCH ×3 (11:39→21:05)
[2019-10-26] MEDS ORDERED: MILK OF MAGNESIA PO PRN (14:12)
[2019-10-26] MEDS ORDERED: COLACE CAP 100 MG PO PRN (14:12)
[2019-10-27] MEDS: NS 1000 ML 1,000 ML IV SCH ×2 (03:24→11:06)
[2019-10-27 06:51] LABS: BASOPHILS % (AUTO) 0.4 % (0.2-1.0); EOSINOPHILS # (AUTO) 0.1 x10^3/uL (0.0-0.2); EOSINOPHILS % (AUTO) 1.8 % (0.9-2.9); HEMATOCRIT 30.8 % (36.0-47.0); HEMOGLOBIN 10.3 g/dL (12.0-16.0); LYMPHOCYTES # (AUTO) 1.8 X10^3/uL (1.3-2.9); LYMPHOCYTES % (AUTO) 24.4 % (21.0-51.0); MEAN CORPUSCULAR HEMOGLOBIN 31.7 pg (27.0-34.0); MEAN CORPUSCULAR HGB CONC 33.5 g/dL (33.0-35.0); MEAN CORPUSCULAR VOLUME 94.4 fL (80.0-100.0); MONOCYTES # (AUTO) 0.8 x10^3/uL (0.3-0.8); MONOCYTES % (AUTO) 11.4 % (0.0-13.0); NEUTROPHILS # (AUTO) 4.5 x10^3/uL (2.2-4.8); PLATELET COUNT 228 X10^3/uL (150.0-450.0); RED BLOOD COUNT 3.26 X10^6/uL (3.5-5.4); RED CELL DISTRIBUTION WIDTH 13.2 % (11.6-16.5); WHITE BLOOD COUNT 7.3 X10^3/uL (3.6-10.0)
[2019-10-27 07:09] LABS: ALANINE AMINOTRANSFERASE 17 Units/L (12-78); ALBUMIN 2.9 g/dL (3.4-5.0); ALKALINE PHOSPHATASE 89 Units/L (46-116); ASPARTATE AMINO TRANSFERASE 15 Units/L (15-37); BLOOD UREA NITROGEN 15 mg/dL (7-18); CALCIUM 7.2 mg/dL (8.5-10.1); CARBON DIOXIDE 20.7 mmol/L (21-32); CHLORIDE 110 mmol/L (98-107); COR CA(FOR HYPOALB) 8.1 mg/dL (8.5-10.1); CREATININE 0.88 mg/dL (0.55-1.02); SODIUM 143 mmol/L (136-145); TOTAL PROTEIN 5.7 g/dL (6.4-8.2); eGFR NON BLACK RACES > 60 (>60)
[2019-10-27] MEDS: CITRACAL + VITAMIN D PO SCH (08:26)
[2019-10-27] MEDS: LOVAZA PO SCH (08:26)
[2019-10-27] MEDS: ROCEPHIN VIAL 1 GRAM 1 G in NS 100 ML IV + SPIKE MINIBAG* 100 ML IV SCH (08:26)
[2019-10-27] MEDS: MOBIC TAB 15 MG PO SCH (08:27)
[2019-10-27] MEDS: LIPITOR TAB 40 MG PO SCH (08:27)
[2019-10-27] MEDS: SYNTHROID 100 mcg TAB PO SCH (08:27)
[2019-10-27] MEDS: LINZESS PO SCH (08:28)
[2019-10-27] MEDS: TAB-A-VITE PO SCH (08:28)
[2019-10-27] MEDS: COZAAR PO SCH (08:28)
[2019-10-27] MEDS: LOPRESSOR TAB 25 MG PO SCH ×2 (08:29→20:38)
[2019-10-27] MEDS: MARINOL PO SCH (08:29)
[2019-10-27] MEDS: PROTONIX TAB 40 MG PO SCH (08:29)
[2019-10-27] MEDS: CARAFATE PO SCH ×2 (11:06→22:44)
[2019-10-27] MEDS ORDERED: K-RIDER 10 MEQ/NS 100 ML 10 MEQ/100 ML BAG IV PRN (14:09)
[2019-10-27] MEDS ORDERED: K-DUR TAB 20 MEQ PO PRN (14:09)
[2019-10-27] MEDS ORDERED: MICRO K EXTEN CAP 10 MEQ PO PRN (14:09)
[2019-10-27] MEDS ORDERED: KLOR-CON PO PRN (14:09)
[2019-10-27] MEDS ORDERED: POTASSIUM CHL 60 MEQ/NS 0.45% 500 ML IV PRN (14:09)
[2019-10-27] MEDS ORDERED: POTASSIUM CHL 40 MEQ/NS 0.45% 500 ML IV PRN (14:09)
[2019-10-27] MEDS ORDERED: POTASSIUM CHLORIDE LIQ 20 MEQ UDC PO PRN (14:09)
[2019-10-27] MEDS: IMODIUM CAP 2 MG PO SCH ×2 (14:41→18:17)
[2019-10-27] MEDS: MAGNESIUM SULFATE 1 GRAM/100 mL PREMIX 1 GM/100 ML BAG IV PRN ×4 (16:06→22:01)
[2019-10-27] MEDS: ZOFRAN INJ 4 MG VIAL IVP PRN (19:48)
[2019-10-27] MEDS: ELAVIL PO SCH (20:37)
[2019-10-28 05:55] LABS: BASOPHILS % (AUTO) 0.5 % (0.2-1.0); EOSINOPHILS # (AUTO) 0.1 x10^3/uL (0.0-0.2); EOSINOPHILS % (AUTO) 2.1 % (0.9-2.9); HEMATOCRIT 29.4 % (36.0-47.0); HEMOGLOBIN 10.1 g/dL (12.0-16.0); LYMPHOCYTES # (AUTO) 1.8 X10^3/uL (1.3-2.9); LYMPHOCYTES % (AUTO) 33.9 % (21.0-51.0); MEAN CORPUSCULAR HEMOGLOBIN 31.7 pg (27.0-34.0); MEAN CORPUSCULAR HGB CONC 34.2 g/dL (33.0-35.0); MEAN CORPUSCULAR VOLUME 92.6 fL (80.0-100.0); MEAN PLATELET VOLUME 7.7 fL (7.4-11.0); MONOCYTES # (AUTO) 0.6 x10^3/uL (0.3-0.8); MONOCYTES % (AUTO) 10.8 % (0.0-13.0); NEUTROPHILS # (AUTO) 2.9 x10^3/uL (2.2-4.8); NEUTROPHILS % (AUTO) 52.7 % (42.0-75.0); PLATELET COUNT 225 X10^3/uL (150.0-450.0); RED BLOOD COUNT 3.18 X10^6/uL (3.5-5.4); RED CELL DISTRIBUTION WIDTH 13.1 % (11.6-16.5); WHITE BLOOD COUNT 5.4 X10^3/uL (3.6-10.0)
[2019-10-28 06:07] LABS: ALANINE AMINOTRANSFERASE 18 Units/L (12-78); ALKALINE PHOSPHATASE 90 Units/L (46-116); ASPARTATE AMINO TRANSFERASE 14 Units/L (15-37); BLOOD UREA NITROGEN 12 mg/dL (7-18); CALCIUM 7.6 mg/dL (8.5-10.1); CARBON DIOXIDE 25.2 mmol/L (21-32); CHLORIDE 109 mmol/L (98-107); COR CA(FOR HYPOALB) 8.4 mg/dL (8.5-10.1); CREATININE 1.02 mg/dL (0.55-1.02); MAGNESIUM 2.6 mg/dL (1.7-2.9); SODIUM 143 mmol/L (136-145); TOTAL PROTEIN 5.9 g/dL (6.4-8.2); eGFR NON BLACK RACES 56 (>60)
[2019-10-28] MEDS: NS 1000 ML 1,000 ML IV SCH ×4 (06:52→22:00)
[2019-10-28] MEDS: ZOFRAN INJ 4 MG VIAL IVP PRN (07:58)
[2019-10-28] MEDS: LINZESS PO SCH (08:03)
[2019-10-28] MEDS: MOBIC TAB 15 MG PO SCH (08:03)
[2019-10-28] MEDS: LIPITOR TAB 40 MG PO SCH (08:03)
[2019-10-28] MEDS: COZAAR PO SCH (08:03)
[2019-10-28] MEDS: TAB-A-VITE PO SCH (08:03)
[2019-10-28] MEDS: LOVAZA PO SCH (08:04)
[2019-10-28] MEDS: PROTONIX TAB 40 MG PO SCH (08:04)
[2019-10-28] MEDS: ROCEPHIN VIAL 1 GRAM 1 G in NS 100 ML IV + SPIKE MINIBAG* 100 ML IV SCH (08:04)
[2019-10-28] MEDS: CITRACAL + VITAMIN D PO SCH (08:04)
[2019-10-28] MEDS: SYNTHROID 100 mcg TAB PO SCH (08:04)
[2019-10-28] MEDS: LOPRESSOR TAB 25 MG PO SCH ×2 (08:04→22:29)
[2019-10-28] MEDS: MARINOL PO SCH (08:11)
[2019-10-28] MEDS: CARAFATE PO SCH ×2 (11:30→22:49)
--- NOTE | 2019-10-28 11:59 | PCM.PROG ---
Progress Note - Progress Note for Day of Date of Exam: 10/27/19 - Subjective Subjective: IS BEING TREATED FOR GASTROPARESIS, DEHYDRATION, INTRACTABLE NAUSEA AND VOMITING, AND ABDOMINAL PAIN. TODAY, SHE IS ALERT AND ORIENTED, LYING IN BED ON MORNING ROUNDS. SHE CONTINUES WITH COMPLAINTS OF NAUSEA, VOMITING, AND ABDOMINAL PAIN. ON EXAMINATION, HEART IS REGULAR IN RATE AND RHYTHM. BILATERAL LUNGS ARE NOTED WITH DIMINISHED WITH LUNG SOUNDS THROUGHOUT. ABDOMEN IS ROUND, SOFT, AND NOTED WITH MILD, DIFFUSE TENDERNESS. NORMAL BOWEL SOUNDS NOTED IN ALL QUADRANTS. HER VITALS THIS MORNING ARE: 97.7-83-18-99%-157/72. LABS WERE OBTAINED. ABNORMAL LAB VALUES INCLUDE THE FOLLOWING: RBC 3.26, HGB 10.3, HCT 30.8, POTASSIUM 3.4, CHLORIDE 110, CARBON DIOXIDE 20.7, GLUCOSE 104, CALCIUM 7.2, MAGNESIUM 1.3, TOTAL BILI 0.10, TOTAL PROTEIN 5.7, ALBUMIN 2.9. URINE CULTURE AND BLOOD CULTURES ARE PENDING. SHE IS CURRENTLY RECEIVING IV FLUIDS, IV ZOFRAN, ROCEPHIN IV, THE POTASSIUM AND MAGNESIUM PROTOCOLS, AND HOME MEDICATIONS WERE RESUMED. WE WILL CONTINUE WITH CURRENT PLAN OF CARE TODAY. OTHERWISE, WE PLAN TO FOLLOW UP WITH AM LABS AND CONTINUE TO MONITOR. - Past Medical Family Social History Past Med/Fam/Surg Hx: No changes since H&P Allergies: Allergies fentanyl Allergy (Severe, Verified 10/25/19 21:05) CARDIAC ARREST cefaclor Allergy (Mild, Verified 10/25/19 21:05) pentazocine Allergy (Mild, Verified 10/25/19 21:05) Sulfa (Sulfonamide Antibiotics) [SULFA] Allergy (Mild, Verified 10/25/19 21:05) prednisone Adverse Reaction (Mild, Verified 10/25/19 21:05) - Review of Systems ROS: No change since H&P - Vital Signs and I&O's Vital Signs: Temperature 97.7 F Pulse Rate [Right Brachial] 77 Respiratory Rate 20 Blood Pressure [Right Arm] 184/86 Blood Pressure [Left Arm] 144/64 O2 Sat by Pulse Oximetry 98 Intake and Output: Intake & Output 10/25/19 10/26/19 10/27/19 10/28/19 11:59 11:59 11:59 11:59 Intake Total 1328 / 1328 3165 / 3165 3650 / 3650 Balance 1328 / 1328 3165 / 3165 3649 / 3649 - Physical Exam Oriented: Normal Eyes: Normal Ear: Normal Nose: Normal Throat: Normal Respiratory: Generalized, Diminished Cardiovascular: Normal : Normal Auscultation: Bowel Sounds: Normal Palpation: Normal Tenderness: Diffuse, Mild. negative: Rebound, Guarding, Rigidity Skin: Decreased Turgur Musculoskeletal: Normal Psychiatric: Normal Mood Description: Calm Affect: Normal Speech Pattern: Clear, Appropriate - Laboratory and Diagnostics Result Diagrams: 10/28/19 04:40 10/28/19 04:40 Labs: 10/25/19 21:04 Urine,Clean Catch Urine Culture - Final Escherichia Coli 10/25/19 19:55 Blood Blood Culture - Preliminary 10/25/19 19:51 Blood Blood Culture - Preliminary Laboratory WBC 5.4 X10^3/uL (3.6-10.0) 10/28/19 04:40 RBC 3.18 X10^6/uL (3.5-5.4) L 10/28/19 04:40 Hgb 10.1 g/dL (12.0-16.0) L 10/28/19 04:40 Hct 29.4 % (36.0-47.0) L 10/28/19 04:40 MCV 92.6 fL (80.0-100.0) 10/28/19 04:40 MCH 31.7 pg (27.0-34.0) 10/28/19 04:40 MCHC 34.2 g/dL (33.0-35.0) 10/28/19 04:40 RDW 13.1 % (11.6-16.5) 10/28/19 04:40 Plt Count 225 X10^3/uL (150.0-450.0) 10/28/19 04:40 MPV 7.7 fL (7.4-11.0) 10/28/19 04:40 Neut % (Auto) 52.7 % (42.0-75.0) 10/28/19 04:40 Lymph % (Auto) 33.9 % (21.0-51.0) 10/28/19 04:40 [place] % (Auto) 10.8 % (0.0-13.0) 10/28/19 04:40 Eos % (Auto) 2.1 % (0.9-2.9) 10/28/19 04:40 Baso % (Auto) 0.5 % (0.2-1.0) 10/28/19 04:40 Neut # (Auto) 2.9 x10^3/uL (2.2-4.8) 10/28/19 04:40 Lymph # (Auto) 1.8 X10^3/uL (1.3-2.9) 10/28/19 04:40 [place] # (Auto) 0.6 x10^3/uL (0.3-0.8) 10/28/19 04:40 Eos # (Auto) 0.1 x10^3/uL (0.0-0.2) 10/28/19 04:40 Baso # (Auto) 0.0 X10^3/uL (0.0-0.1) 10/28/19 04:40 Absolute Nucleated RBC 0.0 /100WBC 10/28/19 04:40 Sodium 143 mmol/L (136-145) 10/28/19 04:40 Corrected Sodium TNP 10/28/19 04:40 Potassium 4.1 mmol/L (3.5-5.1) 10/28/19 04:40 Chloride 109 mmol/L (98-107) H 10/28/19 04:40 Carbon Dioxide 25.2 mmol/L (21-32) 10/28/19 04:40 BUN 12 mg/dL (7-18) 10/28/19 04:40 Creatinine 1.02 mg/dL (0.55-1.02) 10/28/19 04:40 Est GFR (MDRD) Af Amer > 60 (>60) 10/28/19 04:40 Est GFR (MDRD) Non-Af 56 (>60) L 10/28/19 04:40 Glucose 104 mg/dL (65-99) H 10/28/19 04:40 POC Glucose (mg/dL) 106 mg/dL (65-99) H 10/28/19 05:58 Calcium 7.6 mg/dL (8.5-10.1) L 10/28/19 04:40 Corrected Calcium 8.4 mg/dL (8.5-10.1) L 10/28/19 04:40 Magnesium 2.6 mg/dL (1.7-2.9) 10/28/19 04:40 Total Bilirubin 0.10 mg/dL (0.2-1.0) L 10/28/19 04:40 AST 14 Units/L (15-37) L 10/28/19 04:40 ALT 18 Units/L (12-78) 10/28/19 04:40 Alkaline Phosphatase 90 Units/L (46-116) 10/28/19 04:40 Total Protein 5.9 g/dL (6.4-8.2) L 10/28/19 04:40 Albumin 3.0 g/dL (3.4-5.0) L 10/28/19 04:40 Globulin 2.9 g/dL (2.5-4.5) 10/28/19 04:40 Albumin/Globulin Ratio 1.0 Ratio (1.1-2.1) L 10/28/19 04:40 Specimen Type Clean catch urine 10/25/19 21:04 Urine Color Yellow (YELLOW) 10/25/19 21:04 Urine Appearance Hazy (CLEAR) 10/25/19 21:04 Urine pH 6.5 (5.0 - 8.0) 10/25/19 21:04 Ur Specific [place] 1.005 (1.000-1.030) 10/25/19 21:04 Urine Protein Negative (NEGATIVE) 10/25/19 21:04 Urine Glucose (UA) Negative (NEGATIVE) 10/25/19 21:04 Urine Ketones Negative (NEGATIVE) 10/25/19 21:04 Urine Occult Blood 1+ (NEGATIVE) 10/25/19 21:04 Urine Nitrite Negative (NEGATIVE) 10/25/19 21:04 Urine Bilirubin Negative (NEGATIVE) 10/25/19 21:04 Urine Urobilinogen Normal (NORMAL) 10/25/19 21:04 Ur Leukocyte Esterase 3+ (NEGATIVE) 10/25/19 21:04 Urine RBC 0-2 /HPF (0-3) 10/25/19 21:04 Urine WBC 5-10 /HPF (0-5) A 10/25/19 21:04 Ur Squamous Epith Cells Few /HPF (NEGATIVE) 10/25/19 21:04 Urine Bacteria 2+ /HPF (NEGATIVE) 10/25/19 21:04 Ur Culture Indicated? Yes/culture set up 10/25/19 21:04 - Plan (1) Urinary tract infection Status: Acute Qualifiers: Urinary tract infection type: acute cystitis Hematuria presence: without hematuria Qualified Code(s): N30.00 - Acute cystitis without hematuria Plan: ROCEPHIN 1G IV DAILY (2) Nausea and vomiting Status: Acute Qualifiers: Vomiting type: unspecified Vomiting Intractability: intractable Qualified Code(s): R11.2 - Nausea with vomiting, unspecified Plan: ZOFRAN IV PRN (3) Hypokalemia Status: Acute Plan: REPLACEMENT PER PROTOCOL (4) Hypomagnesemia Status: Acute Plan: REPLACEMENT PER PROTOCOL (5) Gastroparesis Status: Chronic Plan: CONTINUE HOME MEDS
--- NOTE | 2019-10-28 12:01 | PCM.PROG ---
Progress Note - Progress Note for Day of Date of Exam: 10/28/19 - Subjective Subjective: IS BEING TREATED FOR GASTROPARESIS, DEHYDRATION, INTRACTABLE NAUSEA AND VOMITING, AND ABDOMINAL PAIN. TODAY, SHE IS ALERT AND ORIENTED, LYING IN BED ON MORNING ROUNDS. SHE CONTINUES WITH COMPLAINTS OF NAUSEA, VOMITING, AND ABDOMINAL PAIN. ON EXAMINATION, HEART IS REGULAR IN RATE AND RHYTHM. BILATERAL LUNGS ARE NOTED WITH DIMINISHED WITH LUNG SOUNDS THROUGHOUT. ABDOMEN IS ROUND, SOFT, AND NOTED WITH MILD, DIFFUSE TENDERNESS. NORMAL BOWEL SOUNDS NOTED IN ALL QUADRANTS. HER VITALS THIS MORNING ARE: 97.7-77-20-98%-184/86. LABS WERE OBTAINED. ABNORMAL LAB VALUES INCLUDE THE FOLLOWING: RBC 3.18, HGB 10.1, HCT 29.4, CHLORIDE 109, GLUCOSE 104, CALCIUM 7.6, TOTAL BILI 0.10, AST 14, TOTAL PROTEIN 5.9, ALBUMIN 3.0. URINE CULTURE REPORTS GROWTH OF E.COLI. BLOOD CULTURES ARE PENDING. SHE IS CURRENTLY RECEIVING IV FLUIDS, IV ZOFRAN, ROCEPHIN IV, THE POTASSIUM AND MAGNESIUM PROTOCOLS, AND HOME MEDICATIONS WERE RESUMED. WE WILL CONTINUE WITH CURRENT PLAN OF CARE TODAY AND ADD GI COCKTAIL. OTHERWISE, WE PLAN TO FOLLOW UP WITH AM LABS AND CONTINUE TO MONITOR. - Past Medical Family Social History Past Med/Fam/Surg Hx: No changes since H&P Allergies: Allergies fentanyl Allergy (Severe, Verified 10/25/19 21:05) CARDIAC ARREST cefaclor Allergy (Mild, Verified 10/25/19 21:05) pentazocine Allergy (Mild, Verified 10/25/19 21:05) Sulfa (Sulfonamide Antibiotics) [SULFA] Allergy (Mild, Verified 10/25/19 21:05) prednisone Adverse Reaction (Mild, Verified 10/25/19 21:05) - Review of Systems ROS: No change since H&P - Vital Signs and I&O's Vital Signs: Temperature 97.7 F Pulse Rate [Right Brachial] 77 Respiratory Rate 20 Blood Pressure [Right Arm] 184/86 Blood Pressure [Left Arm] 144/64 O2 Sat by Pulse Oximetry 98 Intake and Output: Intake & Output 10/26/19 10/27/19 10/28/19 10/29/19 11:59 11:59 11:59 11:59 Intake Total 1328 / 1328 3165 / 3165 3650 / 3650 Balance 1328 / 1328 3165 / 3165 365 / 365 - Physical Exam Oriented: Normal Eyes: Normal Ear: Normal Nose: Normal Throat: Normal Respiratory: Generalized, Diminished Cardiovascular: Normal : Normal Auscultation: Bowel Sounds: Normal Tenderness: Diffuse, Mild. negative: Rebound, Guarding, Rigidity Skin: Decreased Turgur Musculoskeletal: Normal Psychiatric: Normal Mood Description: Calm Affect: Normal Speech Pattern: Clear, Appropriate - Laboratory and Diagnostics Result Diagrams: 10/28/19 04:40 10/28/19 04:40 Labs: 10/25/19 21:04 Urine,Clean Catch Urine Culture - Final Escherichia Coli 10/25/19 19:55 Blood Blood Culture - Preliminary 10/25/19 19:51 Blood Blood Culture - Preliminary Laboratory WBC 5.4 X10^3/uL (3.6-10.0) 10/28/19 04:40 RBC 3.18 X10^6/uL (3.5-5.4) L 10/28/19 04:40 Hgb 10.1 g/dL (12.0-16.0) L 10/28/19 04:40 Hct 29.4 % (36.0-47.0) L 10/28/19 04:40 MCV 92.6 fL (80.0-100.0) 10/28/19 04:40 MCH 31.7 pg (27.0-34.0) 10/28/19 04:40 MCHC 34.2 g/dL (33.0-35.0) 10/28/19 04:40 RDW 13.1 % (11.6-16.5) 10/28/19 04:40 Plt Count 225 X10^3/uL (150.0-450.0) 10/28/19 04:40 MPV 7.7 fL (7.4-11.0) 10/28/19 04:40 Neut % (Auto) 52.7 % (42.0-75.0) 10/28/19 04:40 Lymph % (Auto) 33.9 % (21.0-51.0) 10/28/19 04:40 [place] % (Auto) 10.8 % (0.0-13.0) 10/28/19 04:40 Eos % (Auto) 2.1 % (0.9-2.9) 10/28/19 04:40 Baso % (Auto) 0.5 % (0.2-1.0) 10/28/19 04:40 Neut # (Auto) 2.9 x10^3/uL (2.2-4.8) 10/28/19 04:40 Lymph # (Auto) 1.8 X10^3/uL (1.3-2.9) 10/28/19 04:40 [place] # (Auto) 0.6 x10^3/uL (0.3-0.8) 10/28/19 04:40 Eos # (Auto) 0.1 x10^3/uL (0.0-0.2) 10/28/19 04:40 Baso # (Auto) 0.0 X10^3/uL (0.0-0.1) 10/28/19 04:40 Absolute Nucleated RBC 0.0 /100WBC 10/28/19 04:40 Sodium 143 mmol/L (136-145) 10/28/19 04:40 Corrected Sodium TNP 10/28/19 04:40 Potassium 4.1 mmol/L (3.5-5.1) 10/28/19 04:40 Chloride 109 mmol/L (98-107) H 10/28/19 04:40 Carbon Dioxide 25.2 mmol/L (21-32) 10/28/19 04:40 BUN 12 mg/dL (7-18) 10/28/19 04:40 Creatinine 1.02 mg/dL (0.55-1.02) 10/28/19 04:40 Est GFR (MDRD) Af Amer > 60 (>60) 10/28/19 04:40 Est GFR (MDRD) Non-Af 56 (>60) L 10/28/19 04:40 Glucose 104 mg/dL (65-99) H 10/28/19 04:40 POC Glucose (mg/dL) 106 mg/dL (65-99) H 10/28/19 05:58 Calcium 7.6 mg/dL (8.5-10.1) L 10/28/19 04:40 Corrected Calcium 8.4 mg/dL (8.5-10.1) L 10/28/19 04:40 Magnesium 2.6 mg/dL (1.7-2.9) 10/28/19 04:40 Total Bilirubin 0.10 mg/dL (0.2-1.0) L 10/28/19 04:40 AST 14 Units/L (15-37) L 10/28/19 04:40 ALT 18 Units/L (12-78) 10/28/19 04:40 Alkaline Phosphatase 90 Units/L (46-116) 10/28/19 04:40 Total Protein 5.9 g/dL (6.4-8.2) L 10/28/19 04:40 Albumin 3.0 g/dL (3.4-5.0) L 10/28/19 04:40 Globulin 2.9 g/dL (2.5-4.5) 10/28/19 04:40 Albumin/Globulin Ratio 1.0 Ratio (1.1-2.1) L 10/28/19 04:40 Specimen Type Clean catch urine 10/25/19 21:04 Urine Color Yellow (YELLOW) 10/25/19 21:04 Urine Appearance Hazy (CLEAR) 10/25/19 21:04 Urine pH 6.5 (5.0 - 8.0) 10/25/19 21:04 Ur Specific [place] 1.005 (1.000-1.030) 10/25/19 21:04 Urine Protein Negative (NEGATIVE) 10/25/19 21:04 Urine Glucose (UA) Negative (NEGATIVE) 10/25/19 21:04 Urine Ketones Negative (NEGATIVE) 10/25/19 21:04 Urine Occult Blood 1+ (NEGATIVE) 10/25/19 21:04 Urine Nitrite Negative (NEGATIVE) 10/25/19 21:04 Urine Bilirubin Negative (NEGATIVE) 10/25/19 21:04 Urine Urobilinogen Normal (NORMAL) 10/25/19 21:04 Ur Leukocyte Esterase 3+ (NEGATIVE) 10/25/19 21:04 Urine RBC 0-2 /HPF (0-3) 10/25/19 21:04 Urine WBC 5-10 /HPF (0-5) A 10/25/19 21:04 Ur Squamous Epith Cells Few /HPF (NEGATIVE) 10/25/19 21:04 Urine Bacteria 2+ /HPF (NEGATIVE) 10/25/19 21:04 Ur Culture Indicated? Yes/culture set up 10/25/19 21:04 - Plan (1) Urinary tract infection Status: Acute Qualifiers: Urinary tract infection type: acute cystitis Hematuria presence: without hematuria Qualified Code(s): N30.00 - Acute cystitis without hematuria Plan: ROCEPHIN 1G IV DAILY (2) Nausea and vomiting Status: Acute Qualifiers: Vomiting type: unspecified Vomiting Intractability: intractable Qualified Code(s): R11.2 - Nausea with vomiting, unspecified Plan: ZOFRAN IV PRN (3) Hypokalemia Status: Acute Plan: REPLACEMENT PER PROTOCOL (4) Hypomagnesemia Status: Acute Plan: REPLACEMENT PER PROTOCOL (5) Gastroparesis Status: Chronic Plan: CONTINUE HOME MEDS
[2019-10-28] MEDS: LEVSIN/MAALOX/LIDOC VISC PO SCH ×3 (13:39→22:29)
[2019-10-28] MEDS: ELAVIL PO SCH (22:29)
[2019-10-29] MEDS ORDERED: TYLENOL 325 MG TAB PO ONE (03:32)
[2019-10-29] MEDS: TYLENOL 325 MG TAB PO PRN ×2 (03:34→12:34)
[2019-10-29] MEDS: NS 1000 ML 1,000 ML IV SCH ×3 (05:22→17:02)
[2019-10-29 06:18] LABS: ALANINE AMINOTRANSFERASE 16 Units/L (12-78); ALBUMIN 2.9 g/dL (3.4-5.0); ALKALINE PHOSPHATASE 84 Units/L (46-116); ASPARTATE AMINO TRANSFERASE 15 Units/L (15-37); BLOOD UREA NITROGEN 15 mg/dL (7-18); CALCIUM 7.2 mg/dL (8.5-10.1); CARBON DIOXIDE 26.5 mmol/L (21-32); CHLORIDE 108 mmol/L (98-107); COR CA(FOR HYPOALB) 8.1 mg/dL (8.5-10.1); CREATININE 0.99 mg/dL (0.55-1.02); SODIUM 142 mmol/L (136-145); TOTAL PROTEIN 5.9 g/dL (6.4-8.2); eGFR NON BLACK RACES 58 (>60)
[2019-10-29 06:38] LABS: BASOPHILS # (AUTO) 0.1 X10^3/uL (0.0-0.1); BASOPHILS % (AUTO) 0.8 % (0.2-1.0); EOSINOPHILS # (AUTO) 0.1 x10^3/uL (0.0-0.2); EOSINOPHILS % (AUTO) 0.9 % (0.9-2.9); HEMATOCRIT 29.5 % (36.0-47.0); HEMOGLOBIN 9.8 g/dL (12.0-16.0); LYMPHOCYTES # (AUTO) 1.3 X10^3/uL (1.3-2.9); LYMPHOCYTES % (AUTO) 17.2 % (21.0-51.0); MEAN CORPUSCULAR HEMOGLOBIN 30.6 pg (27.0-34.0); MEAN CORPUSCULAR HGB CONC 33.2 g/dL (33.0-35.0); MEAN CORPUSCULAR VOLUME 92.2 fL (80.0-100.0); MEAN PLATELET VOLUME 8.2 fL (7.4-11.0); MONOCYTES # (AUTO) 0.8 x10^3/uL (0.3-0.8); MONOCYTES % (AUTO) 10.4 % (0.0-13.0); NEUTROPHILS # (AUTO) 5.2 x10^3/uL (2.2-4.8); NEUTROPHILS % (AUTO) 70.7 % (42.0-75.0); PLATELET COUNT 211 X10^3/uL (150.0-450.0); RED CELL DISTRIBUTION WIDTH 13.2 % (11.6-16.5); WHITE BLOOD COUNT 7.3 X10^3/uL (3.6-10.0)
[2019-10-29 07:09] LABS: PLATELET MORPHOLOGY COMMENT NORMAL (NORMAL)
[2019-10-29] MEDS: ZOFRAN INJ 4 MG VIAL IVP PRN (08:19)
[2019-10-29] MEDS: LINZESS PO SCH (08:20)
[2019-10-29] MEDS: LOPRESSOR TAB 25 MG PO SCH ×2 (08:20→21:35)
[2019-10-29] MEDS: LOVAZA PO SCH (08:21)
[2019-10-29] MEDS: LIPITOR TAB 40 MG PO SCH (08:21)
[2019-10-29] MEDS: PROTONIX TAB 40 MG PO SCH (08:21)
[2019-10-29] MEDS: MOBIC TAB 15 MG PO SCH (08:21)
[2019-10-29] MEDS: TAB-A-VITE PO SCH (08:22)
[2019-10-29] MEDS: SYNTHROID 100 mcg TAB PO SCH (08:22)
[2019-10-29] MEDS: CITRACAL + VITAMIN D PO SCH (08:23)
[2019-10-29] MEDS: COZAAR PO SCH (08:23)
[2019-10-29] MEDS: ROCEPHIN VIAL 1 GRAM 1 G in NS 100 ML IV + SPIKE MINIBAG* 100 ML IV SCH (08:24)
[2019-10-29] MEDS: MARINOL PO SCH (08:25)
[2019-10-29] MEDS: LEVSIN/MAALOX/LIDOC VISC PO SCH ×4 (08:26→21:36)
[2019-10-29] MEDS: CARAFATE PO SCH ×2 (12:27→23:00)
[2019-10-29] MEDS: PATANOL 0.1% EYE DROPS OP SCH ×2 (12:28→21:37)
[2019-10-29] MEDS: FLONASE NASAL SPRAY ENOSTRIL SCH (12:28)
[2019-10-29] MEDS: LOVENOX INJ 40 MG SYR SC SCH (14:30)
--- NOTE | 2019-10-29 20:43 | PCM.PROG ---
Progress Note - Progress Note for Day of Date of Exam: 10/29/19 - Subjective Subjective: IS BEING TREATED FOR GASTROPARESIS, DEHYDRATION, INTRACTABLE NAUSEA AND VOMITING, AND ABDOMINAL PAIN. TODAY, SHE IS ALERT AND ORIENTED, LYING IN BED ON MORNING ROUNDS. SHE CONTINUES WITH COMPLAINTS OF NAUSEA, VOMITING, AND ABDOMINAL PAIN. SHE ALSO REPORTS NASAL CONGESTION AND WATERY DRAINAGE FROM EYES TODAY. ON EXAMINATION, HEART IS REGULAR IN RATE AND RHYTHM. BILATERAL LUNGS ARE NOTED WITH DIMINISHED WITH LUNG SOUNDS THROUGHOUT. ABDOMEN IS ROUND, SOFT, AND NOTED WITH MILD, DIFFUSE TENDERNESS. NORMAL BOWEL SOUNDS NOTED IN ALL QUADRANTS. HER VITALS THIS MORNING ARE: 98.2-82-20-97%- 160/77. LABS WERE OBTAINED. ABNORMAL LAB VALUES INCLUDE THE FOLLOWING: RBC 3.20, HGB 9.8, HCT 29.5, CHLORIDE 108, GLUCOSE 104, CALCIUM 7.2, TOTAL PROTEIN 5.9, ALBUMIN 2.9. URINE CULTURE REPORTS GROWTH OF E.COLI. BLOOD CULTURES ARE PENDING. SHE IS CURRENTLY RECEIVING IV FLUIDS, IV ZOFRAN, ROCEPHIN IV, GI COCKTAIL, THE POTASSIUM AND MAGNESIUM PROTOCOLS, AND HOME MEDICATIONS WERE RESUMED. WE WILL CONTINUE WITH CURRENT PLAN OF CARE TODAY AND ADD FLONASE AND PATANOL EYE DROPS. OTHERWISE, WE PLAN TO FOLLOW UP WITH AM LABS AND CONTINUE TO MONITOR. - Past Medical Family Social History Past Med/Fam/Surg Hx: No changes since H&P Allergies: Allergies fentanyl Allergy (Severe, Verified 10/25/19 21:05) CARDIAC ARREST cefaclor Allergy (Mild, Verified 10/25/19 21:05) pentazocine Allergy (Mild, Verified 10/25/19 21:05) Sulfa (Sulfonamide Antibiotics) [SULFA] Allergy (Mild, Verified 10/25/19 21:05) prednisone Adverse Reaction (Mild, Verified 10/25/19 21:05) - Review of Systems ROS: No change since H&P - Vital Signs and I&O's Vital Signs: Temperature 98.2 F Pulse Rate [Right Brachial] 74 Respiratory Rate 20 Blood Pressure [Right Arm] 137/65 Blood Pressure [Left Arm] 116/56 O2 Sat by Pulse Oximetry 96 Intake and Output: Intake & Output 10/27/19 10/28/19 10/29/19 10/30/19 11:59 11:59 11:59 11:59 Intake Total 3165 / 3165 3650 / 3650 2200 / 2200 680 / 680 Balance 3165 / 3165 3650 / 3650 2200 / 2200 680 / 680 - Physical Exam Oriented: Normal Eyes: Normal Ear: Normal Nose: Normal Throat: Normal Respiratory: Generalized, Diminished Cardiovascular: Normal : Normal Auscultation: Bowel Sounds: Normal Tenderness: Diffuse, Mild. negative: Rebound, Guarding, Rigidity Skin: Decreased Turgur Musculoskeletal: Normal Psychiatric: Normal Mood Description: Calm Affect: Normal Speech Pattern: Clear, Appropriate - Laboratory and Diagnostics Result Diagrams: 10/29/19 05:20 10/29/19 05:20 Labs: 10/25/19 21:04 Urine,Clean Catch Urine Culture - Final Escherichia Coli 10/25/19 19:55 Blood Blood Culture - Preliminary 10/25/19 19:51 Blood Blood Culture - Preliminary Laboratory WBC 7.3 X10^3/uL (3.6-10.0) 10/29/19 05:20 RBC 3.20 X10^6/uL (3.5-5.4) L 10/29/19 05:20 Hgb 9.8 g/dL (12.0-16.0) L 10/29/19 05:20 Hct 29.5 % (36.0-47.0) L 10/29/19 05:20 MCV 92.2 fL (80.0-100.0) 10/29/19 05:20 MCH 30.6 pg (27.0-34.0) 10/29/19 05:20 MCHC 33.2 g/dL (33.0-35.0) 10/29/19 05:20 RDW 13.2 % (11.6-16.5) 10/29/19 05:20 Plt Count 211 X10^3/uL (150.0-450.0) 10/29/19 05:20 Plt Count Comment Adequate (ADEQUATE) 10/29/19 05:20 MPV 8.2 fL (7.4-11.0) 10/29/19 05:20 Neut % (Auto) 70.7 % (42.0-75.0) 10/29/19 05:20 Lymph % (Auto) 17.2 % (21.0-51.0) L 10/29/19 05:20 [place] % (Auto) 10.4 % (0.0-13.0) 10/29/19 05:20 Eos % (Auto) 0.9 % (0.9-2.9) 10/29/19 05:20 Baso % (Auto) 0.8 % (0.2-1.0) 10/29/19 05:20 Neut # (Auto) 5.2 x10^3/uL (2.2-4.8) H 10/29/19 05:20 Lymph # (Auto) 1.3 X10^3/uL (1.3-2.9) 10/29/19 05:20 [place] # (Auto) 0.8 x10^3/uL (0.3-0.8) 10/29/19 05:20 Eos # (Auto) 0.1 x10^3/uL (0.0-0.2) 10/29/19 05:20 Baso # (Auto) 0.1 X10^3/uL (0.0-0.1) 10/29/19 05:20 Absolute Nucleated RBC 0.1 /100WBC 10/29/19 05:20 Plt Clumps, EDTA Rare 10/29/19 05:20 Plt Morphology Comment Normal (NORMAL) 10/29/19 05:20 RBC Morphology Normal (NORMAL) 10/29/19 05:20 Sodium 142 mmol/L (136-145) 10/29/19 05:20 Corrected Sodium TNP 10/29/19 05:20 Potassium 3.9 mmol/L (3.5-5.1) 10/29/19 05:20 Chloride 108 mmol/L (98-107) H 10/29/19 05:20 Carbon Dioxide 26.5 mmol/L (21-32) 10/29/19 05:20 BUN 15 mg/dL (7-18) 10/29/19 05:20 Creatinine 0.99 mg/dL (0.55-1.02) 10/29/19 05:20 Est GFR (MDRD) Af Amer > 60 (>60) 10/29/19 05:20 Est GFR (MDRD) Non-Af 58 (>60) L 10/29/19 05:20 Glucose 104 mg/dL (65-99) H 10/29/19 05:20 POC Glucose (mg/dL) 125 mg/dL (65-99) H 10/28/19 20:01 Calcium 7.2 mg/dL (8.5-10.1) L 10/29/19 05:20 Corrected Calcium 8.1 mg/dL (8.5-10.1) L 10/29/19 05:20 Magnesium 2.6 mg/dL (1.7-2.9) 10/28/19 04:40 Total Bilirubin < 0.10 mg/dL (0.2-1.0) L 10/29/19 05:20 AST 15 Units/L (15-37) 10/29/19 05:20 ALT 16 Units/L (12-78) 10/29/19 05:20 Alkaline Phosphatase 84 Units/L (46-116) 10/29/19 05:20 Total Protein 5.9 g/dL (6.4-8.2) L 10/29/19 05:20 Albumin 2.9 g/dL (3.4-5.0) L 10/29/19 05:20 Globulin 3.0 g/dL (2.5-4.5) 10/29/19 05:20 Albumin/Globulin Ratio 1.0 Ratio (1.1-2.1) L 10/29/19 05:20 Specimen Type Clean catch urine 10/25/19 21:04 Urine Color Yellow (YELLOW) 10/25/19 21:04 Urine Appearance Hazy (CLEAR) 10/25/19 21:04 Urine pH 6.5 (5.0 - 8.0) 10/25/19 21:04 Ur Specific Bow 1.005 (1.000-1.030) 10/25/19 21:04 Urine Protein Negative (NEGATIVE) 10/25/19 21:04 Urine Glucose (UA) Negative (NEGATIVE) 10/25/19 21:04 Urine Ketones Negative (NEGATIVE) 10/25/19 21:04 Urine Occult Blood 1+ (NEGATIVE) 10/25/19 21:04 Urine Nitrite Negative (NEGATIVE) 10/25/19 21:04 Urine Bilirubin Negative (NEGATIVE) 10/25/19 21:04 Urine Urobilinogen Normal (NORMAL) 10/25/19 21:04 Ur Leukocyte Esterase 3+ (NEGATIVE) 10/25/19 21:04 Urine RBC 0-2 /HPF (0-3) 10/25/19 21:04 Urine WBC 5-10 /HPF (0-5) A 10/25/19 21:04 Ur Squamous Epith Cells Few /HPF (NEGATIVE) 10/25/19 21:04 Urine Bacteria 2+ /HPF (NEGATIVE) 10/25/19 21:04 Ur Culture Indicated? Yes/culture set up 10/25/19 21:04 - Plan (1) Urinary tract infection Status: Acute Qualifiers: Urinary tract infection type: acute cystitis Hematuria presence: without hematuria Qualified Code(s): N30.00 - Acute cystitis without hematuria Plan: ROCEPHIN 1G IV DAILY (2) Nausea and vomiting Status: Acute Qualifiers: Vomiting type: unspecified Vomiting Intractability: intractable Qualified Code(s): R11.2 - Nausea with vomiting, unspecified Plan: ZOFRAN IV PRN (3) Hypokalemia Status: Acute Plan: REPLACEMENT PER PROTOCOL (4) Hypomagnesemia Status: Acute Plan: REPLACEMENT PER PROTOCOL (5) Gastroparesis Status: Chronic Plan: CONTINUE HOME MEDS
[2019-10-29] MEDS: ELAVIL PO SCH (21:36)
[2019-10-30] MEDS: NS 1000 ML 1,000 ML IV SCH ×4 (00:20→18:07)
[2019-10-30 06:20] LABS: BASOPHILS % (AUTO) 0.7 % (0.2-1.0); EOSINOPHILS % (AUTO) 1.1 % (0.9-2.9); HEMATOCRIT 25.2 % (36.0-47.0); HEMOGLOBIN 8.8 g/dL (12.0-16.0); LYMPHOCYTES # (AUTO) 1.1 X10^3/uL (1.3-2.9); LYMPHOCYTES % (AUTO) 29.6 % (21.0-51.0); MEAN CORPUSCULAR HEMOGLOBIN 32.1 pg (27.0-34.0); MEAN CORPUSCULAR VOLUME 91.8 fL (80.0-100.0); MEAN PLATELET VOLUME 7.7 fL (7.4-11.0); MONOCYTES # (AUTO) 0.5 x10^3/uL (0.3-0.8); MONOCYTES % (AUTO) 14.2 % (0.0-13.0); NEUTROPHILS # (AUTO) 2.1 x10^3/uL (2.2-4.8); NEUTROPHILS % (AUTO) 54.4 % (42.0-75.0); PLATELET COUNT 185 X10^3/uL (150.0-450.0); RED BLOOD COUNT 2.75 X10^6/uL (3.5-5.4); WHITE BLOOD COUNT 3.8 X10^3/uL (3.6-10.0)
[2019-10-30 06:27] LABS: ALANINE AMINOTRANSFERASE 19 Units/L (12-78); ALBUMIN 2.7 g/dL (3.4-5.0); ALKALINE PHOSPHATASE 82 Units/L (46-116); ASPARTATE AMINO TRANSFERASE 19 Units/L (15-37); BLOOD UREA NITROGEN 14 mg/dL (7-18); CHLORIDE 108 mmol/L (98-107); CREATININE 0.88 mg/dL (0.55-1.02); SODIUM 143 mmol/L (136-145); TOTAL PROTEIN 5.5 g/dL (6.4-8.2); eGFR NON BLACK RACES > 60 (>60)
--- NOTE | 2019-10-30 10:33 | RAD ---
HISTORYAbdominal painSTUDYPortable supine abdomenCOMPARISONSeptember 2018FINDINGSThe bowel gas pattern is unremarkable. There is prominent fecal material in the ascending and transverse and descending colon. The rectosigmoid appears relatively empty. There are multiple upper abdominal surgical clips and right upper quadrant anastomotic sutures. No abnormal soft tissue calcification is demonstrated.IMPRESSIONNo evidence for acute disease. Prominent fecal material in the ascending transverse and descending colon.Electronically signed by: KIKI ELIZONDO (Oct 30, 2019 10:32:25)
[2019-10-30] MEDS: MARINOL PO SCH (11:09)
[2019-10-30] MEDS: TAB-A-VITE PO SCH (11:10)
[2019-10-30] MEDS: FLONASE NASAL SPRAY ENOSTRIL SCH (11:11)
[2019-10-30] MEDS: COZAAR PO SCH (11:13)
[2019-10-30] MEDS: PROTONIX TAB 40 MG PO SCH (11:13)
[2019-10-30] MEDS: LOVAZA PO SCH (11:13)
[2019-10-30] MEDS: LOPRESSOR TAB 25 MG PO SCH ×2 (11:13→21:27)
[2019-10-30] MEDS: LIPITOR TAB 40 MG PO SCH (11:14)
[2019-10-30] MEDS: MOBIC TAB 15 MG PO SCH (11:15)
[2019-10-30] MEDS: CARAFATE PO SCH ×2 (11:15→23:47)
[2019-10-30] MEDS: CITRACAL + VITAMIN D PO SCH (11:15)
[2019-10-30] MEDS: SYNTHROID 100 mcg TAB PO SCH (11:15)
[2019-10-30] MEDS: LINZESS PO SCH (11:16)
[2019-10-30] MEDS: ROCEPHIN VIAL 1 GRAM 1 G in NS 100 ML IV + SPIKE MINIBAG* 100 ML IV SCH (11:16)
[2019-10-30] MEDS: PATANOL 0.1% EYE DROPS OP SCH ×2 (11:17→21:32)
[2019-10-30] MEDS: COLACE CAP 100 MG PO SCH ×2 (11:22→21:27)
[2019-10-30] MEDS: MIRALAX POWDER (1 DOSE 17 G) PO SCH (11:23)
[2019-10-30] MEDS: LEVSIN/MAALOX/LIDOC VISC PO SCH ×4 (11:24→21:29)
[2019-10-30] MEDS: MILK OF MAGNESIA PO SCH ×4 (11:27→21:26)
[2019-10-30] MEDS: MAGNESIUM SULFATE 1 GRAM/100 mL PREMIX 1 GM/100 ML BAG IV PRN ×2 (12:00→14:31)
[2019-10-30] MEDS: LOVENOX INJ 40 MG SYR SC SCH (12:36)
--- NOTE | 2019-10-30 21:22 | PCM.PROG ---
Progress Note - Progress Note for Day of Date of Exam: 10/30/19 - Subjective Subjective: IS BEING TREATED FOR GASTROPARESIS, DEHYDRATION, INTRACTABLE NAUSEA AND VOMITING, AND ABDOMINAL PAIN. TODAY, SHE IS ALERT AND ORIENTED, LYING IN BED ON MORNING ROUNDS. SHE CONTINUES WITH COMPLAINTS OF NAUSEA, VOMITING, AND ABDOMINAL PAIN. SHE REPORTS CONSTIPATION TODAY. ON EXAMINATION, HEART IS REGULAR IN RATE AND RHYTHM. BILATERAL LUNGS ARE NOTED WITH DIMINISHED WITH LUNG SOUNDS THROUGHOUT. ABDOMEN IS ROUND, SOFT, AND NOTED WITH MILD, DIFFUSE TENDERNESS. HYPOACTIVE BOWEL SOUNDS NOTED IN ALL QUADRANTS. HER VITALS THIS MORNING ARE: 98.5-72-20-98%-181/83. LABS WERE OBTAINED. ABNORMAL LAB VALUES INCLUDE THE FOLLOWING: RBC 2.75, HGB 8.8, HCT 25.2, CHLORIE 108, GLUCOSE 102, CALCIUM 7.0, MAGNESIUM 1.6, TOTAL BILI 0.10, TOTAL PROTEIN 5.5, ALBUMIN 2.7. URINE CULTURE REPORTS GROWTH OF E.COLI. SHE IS CURRENTLY RECEIVING IV FLUIDS, IV ZOFRAN, ROCEPHIN IV, GI COCKTAIL, FLONASE, PATANOL EYE DROPS, THE POTASSIUM AND MAGNESIUM PROTOCOLS, AND HOME MEDICATIONS WERE RESUMED. WE WILL CONTINUE WITH CURRENT PLAN OF CARE TODAY AND ADD COLACE, MIRALAX, AND MILK OF MAGNESIA. WE WILL OBTAIN A KUB. OTHERWISE, WE PLAN TO FOLLOW UP WITH AM LABS AND CONTINUE TO MONITOR. - Past Medical Family Social History Past Med/Fam/Surg Hx: No changes since H&P Allergies: Allergies fentanyl Allergy (Severe, Verified 10/25/19 21:05) CARDIAC ARREST cefaclor Allergy (Mild, Verified 10/25/19 21:05) pentazocine Allergy (Mild, Verified 10/25/19 21:05) Sulfa (Sulfonamide Antibiotics) [SULFA] Allergy (Mild, Verified 10/25/19 21:05) prednisone Adverse Reaction (Mild, Verified 10/25/19 21:05) - Review of Systems ROS: No change since H&P - Vital Signs and I&O's Vital Signs: Temperature 98.7 F Pulse Rate [Right Brachial] 72 Respiratory Rate 18 Blood Pressure [Right Arm] 137/65 Blood Pressure [Left Arm] 125/60 O2 Sat by Pulse Oximetry 96 Intake and Output: Intake & Output 10/28/19 10/29/19 10/30/19 10/31/19 11:59 11:59 11:59 11:59 Intake Total 3650 / 3650 2200 / 2200 1520 / 1520 840 / 840 Balance 3650 / 3650 2200 / 2200 1520 / 1520 840 / 840 - Physical Exam Oriented: Normal Eyes: Normal Ear: Normal Nose: Normal Throat: Normal Respiratory: Generalized, Diminished Cardiovascular: Normal : Normal Auscultation: Bowel Sounds: Normal Palpation: Normal Tenderness: Diffuse, Mild. negative: Rebound, Guarding, Rigidity Skin: Decreased Turgur Musculoskeletal: Normal Psychiatric: Normal Mood Description: Calm Affect: Normal Speech Pattern: Clear, Appropriate - Laboratory and Diagnostics Result Diagrams: 10/30/19 04:06 10/30/19 04:06 Labs: 10/25/19 21:04 Urine,Clean Catch Urine Culture - Final Escherichia Coli 10/25/19 19:55 Blood Blood Culture - Preliminary 10/25/19 19:51 Blood Blood Culture - Preliminary Laboratory WBC 3.8 X10^3/uL (3.6-10.0) 10/30/19 04:06 RBC 2.75 X10^6/uL (3.5-5.4) L 10/30/19 04:06 Hgb 8.8 g/dL (12.0-16.0) L 10/30/19 04:06 Hct 25.2 % (36.0-47.0) L 10/30/19 04:06 MCV 91.8 fL (80.0-100.0) 10/30/19 04:06 MCH 32.1 pg (27.0-34.0) 10/30/19 04:06 MCHC 35.0 g/dL (33.0-35.0) 10/30/19 04:06 RDW 13.0 % (11.6-16.5) 10/30/19 04:06 Plt Count 185 X10^3/uL (150.0-450.0) 10/30/19 04:06 Plt Count Comment Adequate (ADEQUATE) 10/29/19 05:20 MPV 7.7 fL (7.4-11.0) 10/30/19 04:06 Neut % (Auto) 54.4 % (42.0-75.0) 10/30/19 04:06 Lymph % (Auto) 29.6 % (21.0-51.0) 10/30/19 04:06 [place] % (Auto) 14.2 % (0.0-13.0) H 10/30/19 04:06 Eos % (Auto) 1.1 % (0.9-2.9) 10/30/19 04:06 Baso % (Auto) 0.7 % (0.2-1.0) 10/30/19 04:06 Neut # (Auto) 2.1 x10^3/uL (2.2-4.8) L 10/30/19 04:06 Lymph # (Auto) 1.1 X10^3/uL (1.3-2.9) L 10/30/19 04:06 [place] # (Auto) 0.5 x10^3/uL (0.3-0.8) 10/30/19 04:06 Eos # (Auto) 0.0 x10^3/uL (0.0-0.2) 10/30/19 04:06 Baso # (Auto) 0.0 X10^3/uL (0.0-0.1) 10/30/19 04:06 Absolute Nucleated RBC 0.1 /100WBC 10/30/19 04:06 Plt Clumps, EDTA Rare 10/29/19 05:20 Plt Morphology Comment Normal (NORMAL) 10/29/19 05:20 RBC Morphology Normal (NORMAL) 10/29/19 05:20 Sodium 143 mmol/L (136-145) 10/30/19 04:06 Corrected Sodium TNP 10/30/19 04:06 Potassium 3.6 mmol/L (3.5-5.1) 10/30/19 04:06 Chloride 108 mmol/L (98-107) H 10/30/19 04:06 Carbon Dioxide 28.0 mmol/L (21-32) 10/30/19 04:06 BUN 14 mg/dL (7-18) 10/30/19 04:06 Creatinine 0.88 mg/dL (0.55-1.02) 10/30/19 04:06 Est GFR (MDRD) Af Amer > 60 (>60) 10/30/19 04:06 Est GFR (MDRD) Non-Af > 60 (>60) 10/30/19 04:06 Glucose 102 mg/dL (65-99) H 10/30/19 04:06 POC Glucose (mg/dL) 98 mg/dL (65-99) 10/30/19 20:57 Calcium 7.0 mg/dL (8.5-10.1) L 10/30/19 04:06 Corrected Calcium 8.0 mg/dL (8.5-10.1) L 10/30/19 04:06 Magnesium 1.6 mg/dL (1.7-2.9) L 10/30/19 04:06 Total Bilirubin 0.10 mg/dL (0.2-1.0) L 10/30/19 04:06 AST 19 Units/L (15-37) 10/30/19 04:06 ALT 19 Units/L (12-78) 10/30/19 04:06 Alkaline Phosphatase 82 Units/L (46-116) 10/30/19 04:06 Total Protein 5.5 g/dL (6.4-8.2) L 10/30/19 04:06 Albumin 2.7 g/dL (3.4-5.0) L 10/30/19 04:06 Globulin 2.8 g/dL (2.5-4.5) 10/30/19 04:06 Albumin/Globulin Ratio 1.0 Ratio (1.1-2.1) L 10/30/19 04:06 Specimen Type Clean catch urine 10/25/19 21:04 Urine Color Yellow (YELLOW) 10/25/19 21:04 Urine Appearance Hazy (CLEAR) 10/25/19 21:04 Urine pH 6.5 (5.0 - 8.0) 10/25/19 21:04 Ur Specific [place] 1.005 (1.000-1.030) 10/25/19 21:04 Urine Protein Negative (NEGATIVE) 10/25/19 21:04 Urine Glucose (UA) Negative (NEGATIVE) 10/25/19 21:04 Urine Ketones Negative (NEGATIVE) 10/25/19 21:04 Urine Occult Blood 1+ (NEGATIVE) 10/25/19 21:04 Urine Nitrite Negative (NEGATIVE) 10/25/19 21:04 Urine Bilirubin Negative (NEGATIVE) 10/25/19 21:04 Urine Urobilinogen Normal (NORMAL) 10/25/19 21:04 Ur Leukocyte Esterase 3+ (NEGATIVE) 10/25/19 21:04 Urine RBC 0-2 /HPF (0-3) 10/25/19 21:04 Urine WBC 5-10 /HPF (0-5) A 10/25/19 21:04 Ur Squamous Epith Cells Few /HPF (NEGATIVE) 10/25/19 21:04 Urine Bacteria 2+ /HPF (NEGATIVE) 10/25/19 21:04 Ur Culture Indicated? Yes/culture set up 10/25/19 21:04 - Plan (1) Urinary tract infection Status: Acute Qualifiers: Urinary tract infection type: acute cystitis Hematuria presence: without hematuria Qualified Code(s): N30.00 - Acute cystitis without hematuria Plan: ROCEPHIN 1G IV DAILY (2) Nausea and vomiting Status: Acute Qualifiers: Vomiting type: unspecified Vomiting Intractability: intractable Qualified Code(s): R11.2 - Nausea with vomiting, unspecified Plan: ZOFRAN IV PRN (3) Hypokalemia Status: Acute Plan: REPLACEMENT PER PROTOCOL (4) Hypomagnesemia Status: Acute Plan: REPLACEMENT PER PROTOCOL (5) Gastroparesis Status: Chronic Plan: CONTINUE HOME MEDS (6) Constipation Status: Acute Qualifiers: Constipation type: unspecified constipation type Qualified Code(s): K59.00 - Constipation, unspecified Plan: COLACE, MIRALAX, MILK OF MAGNESIA, CONTINUE TO MONITOR
[2019-10-30] MEDS: TYLENOL 325 MG TAB PO PRN (21:28)
[2019-10-30] MEDS: ELAVIL PO SCH (21:28)
[2019-10-31] MEDS: NS 1000 ML 1,000 ML IV SCH ×2 (05:04→06:05)
[2019-10-31 05:07] LABS: CRYPTOSPORIDIUM PARVUM ANTIGEN NEGATIVE (NEGATIVE); GIARDIA LAMBLIA ANTIGEN NEGATIVE (NEGATIVE)
[2019-10-31 06:30] LABS: BASOPHILS % (AUTO) 0.4 % (0.2-1.0); EOSINOPHILS % (AUTO) 0.7 % (0.9-2.9); HEMATOCRIT 27.9 % (36.0-47.0); HEMOGLOBIN 9.6 g/dL (12.0-16.0); LYMPHOCYTES # (AUTO) 1.1 X10^3/uL (1.3-2.9); LYMPHOCYTES % (AUTO) 23.6 % (21.0-51.0); MEAN CORPUSCULAR HEMOGLOBIN 31.5 pg (27.0-34.0); MEAN CORPUSCULAR HGB CONC 34.6 g/dL (33.0-35.0); MEAN CORPUSCULAR VOLUME 91.1 fL (80.0-100.0); MEAN PLATELET VOLUME 7.4 fL (7.4-11.0); MONOCYTES # (AUTO) 0.7 x10^3/uL (0.3-0.8); MONOCYTES % (AUTO) 15.4 % (0.0-13.0); NEUTROPHILS # (AUTO) 2.7 x10^3/uL (2.2-4.8); NEUTROPHILS % (AUTO) 59.9 % (42.0-75.0); PLATELET COUNT 178 X10^3/uL (150.0-450.0); RED BLOOD COUNT 3.06 X10^6/uL (3.5-5.4); RED CELL DISTRIBUTION WIDTH 13.3 % (11.6-16.5); WHITE BLOOD COUNT 4.5 X10^3/uL (3.6-10.0)
[2019-10-31 07:07] LABS: ALANINE AMINOTRANSFERASE 33 Units/L (12-78); ALBUMIN 2.8 g/dL (3.4-5.0); ALKALINE PHOSPHATASE 105 Units/L (46-116); ASPARTATE AMINO TRANSFERASE 39 Units/L (15-37); BLOOD UREA NITROGEN 12 mg/dL (7-18); CARBON DIOXIDE 27.8 mmol/L (21-32); CHLORIDE 106 mmol/L (98-107); SODIUM 142 mmol/L (136-145); TOTAL PROTEIN 5.8 g/dL (6.4-8.2); eGFR NON BLACK RACES > 60 (>60)
[2019-10-31] MEDS: ROCEPHIN VIAL 1 GRAM 1 G in NS 100 ML IV + SPIKE MINIBAG* 100 ML IV SCH (07:59)
[2019-10-31] MEDS: LEVSIN/MAALOX/LIDOC VISC PO SCH ×2 (07:59→14:23)
[2019-10-31] MEDS: LOVENOX INJ 40 MG SYR SC SCH (08:03)
[2019-10-31] MEDS: LINZESS PO SCH (08:03)
[2019-10-31] MEDS: LOPRESSOR TAB 25 MG PO SCH (08:04)
[2019-10-31] MEDS: COZAAR PO SCH (08:04)
[2019-10-31] MEDS: TAB-A-VITE PO SCH (08:05)
[2019-10-31] MEDS: PATANOL 0.1% EYE DROPS OP SCH (08:05)
[2019-10-31] MEDS: MOBIC TAB 15 MG PO SCH (08:05)
[2019-10-31] MEDS: PROTONIX TAB 40 MG PO SCH (08:05)
[2019-10-31] MEDS: SYNTHROID 100 mcg TAB PO SCH (08:05)
[2019-10-31] MEDS: CITRACAL + VITAMIN D PO SCH (08:05)
[2019-10-31] MEDS: LOVAZA PO SCH (08:06)
[2019-10-31] MEDS: LIPITOR TAB 40 MG PO SCH (08:06)
[2019-10-31] MEDS: MIRALAX POWDER (1 DOSE 17 G) PO SCH (08:06)
[2019-10-31] MEDS: FLONASE NASAL SPRAY ENOSTRIL SCH (08:07)
[2019-10-31] MEDS: MARINOL PO SCH (08:09)
[2019-10-31] MEDS: MILK OF MAGNESIA PO SCH ×2 (08:34→14:24)
--- NOTE | 2019-10-31 09:55 | RAD ---
HISTORYConstipationSTUDYKUBCOMPARISONAbdominal film October 30, 2019.FINDINGSMultiple surgical clips are seen right upper and left upper quadrant. Bowel anastomotic sutures are seen in the area of the h epatic flexure. The amount of stool has decreased significantly from the right and descending colon c ompared to yesterdays study.IMPRESSIONMarked decrease in the stool burden throughout the colon when c ompared to yesterday's exam.Electronically signed by: LAURA TORREZ (Oct 31, 2019 09:53:50)
[2019-10-31] MEDS: CARAFATE PO SCH (10:58)
[2019-10-31] MEDS: COLACE CAP 100 MG PO SCH (10:58)
[2019-10-31 12:28] VITALS: BP 118/56
== END 2019-10-31 15:55 | disposition home or self-care (01) | DRG 690 ==
LOC: MED/SURG
PROVIDERS: ADMIT Internal Medicine; ATTEND Internal Medicine
CPT/HCPCS: 36415; 74000; 74018; 80053; 81001; 83735; 85025; 87040; 87045; 87086; 87088; 87186; 87328; 87329; 87427; 87449; 87899; A4216; A4222; G0378; J0696; J1650; J2405; J3475; J3490; J7030; J7050

== ENCOUNTER 2020-01-11 14:00 | Inpatient (IN) ==
[2020-01-11] MEDS ORDERED: HumuLIN R SUBCUT PRN (14:11)
[2020-01-11] MEDS ORDERED: PHENERGAN INJ 25 MG IM PRN (14:23)
[2020-01-11 15:07] LABS: BASOPHILS # (AUTO) 0.1 X10^3/uL (0.0-0.1); BASOPHILS % (AUTO) 0.8 % (0.2-1.0); EOSINOPHILS # (AUTO) 0.1 x10^3/uL (0.0-0.2); EOSINOPHILS % (AUTO) 1.1 % (0.9-2.9); HEMATOCRIT 36.2 % (36.0-47.0); LYMPHOCYTES # (AUTO) 1.8 X10^3/uL (1.3-2.9); LYMPHOCYTES % (AUTO) 24.7 % (21.0-51.0); MEAN CORPUSCULAR HEMOGLOBIN 31.3 pg (27.0-34.0); MEAN CORPUSCULAR HGB CONC 33.1 g/dL (33.0-35.0); MEAN CORPUSCULAR VOLUME 94.6 fL (80.0-100.0); MEAN PLATELET VOLUME 7.3 fL (7.4-11.0); MONOCYTES # (AUTO) 0.8 x10^3/uL (0.3-0.8); MONOCYTES % (AUTO) 10.3 % (0.0-13.0); NEUTROPHILS # (AUTO) 4.6 x10^3/uL (2.2-4.8); NEUTROPHILS % (AUTO) 63.1 % (42.0-75.0); PLATELET COUNT 318 X10^3/uL (150.0-450.0); RED BLOOD COUNT 3.83 X10^6/uL (3.5-5.4); RED CELL DISTRIBUTION WIDTH 13.7 % (11.6-16.5); WHITE BLOOD COUNT 7.3 X10^3/uL (3.6-10.0)
[2020-01-11 15:20] LABS: ALANINE AMINOTRANSFERASE 27 Units/L (12-78); ALKALINE PHOSPHATASE 124 Units/L (46-116); ASPARTATE AMINO TRANSFERASE 21 Units/L (15-37); BLOOD UREA NITROGEN 28 mg/dL (7-18); CARBON DIOXIDE 27.7 mmol/L (21-32); CHLORIDE 105 mmol/L (98-107); CREATININE 1.46 mg/dL (0.55-1.02); SODIUM 141 mmol/L (136-145); TOTAL PROTEIN 7.5 g/dL (6.4-8.2); eGFR NON BLACK RACES 37 (>60)
--- NOTE | 2020-01-11 15:27 | RAD ---
HISTORY:Nausea, vomitingStudy: KUBComparison:NoneFINDINGS/IMPRESSION:Multiple surgical clips are present throughout the abdomen. Bowel gas pattern is nonobstructive. No abnormal calcifications are seen. The soft tissues are intact.Electronically signed by: MIRNA VELASCO (Jan 11, 2020 15:26:19)
[2020-01-11] MEDS: NS 1000 ML 1,000 ML IV SCH (17:05)
[2020-01-11] MEDS: PEPCID 20 MG IV PREMIX* 20 MG/50 ML BAG IV SCH ×2 (17:05→22:07)
[2020-01-11] MEDS: PROTONIX INJ 40 MG VIAL IVP SCH ×2 (17:06→22:07)
[2020-01-11] MEDS: LEVSIN/MAALOX/LIDOC VISC PO SCH ×3 (17:07→22:08)
[2020-01-11 17:13] VITALS: BMI 21.2
[2020-01-11 20:31] LABS: BILIRUBIN,URINE NEGATIVE (NEGATIVE); BLOOD/HEMOGLOBIN,URINE NEGATIVE (NEGATIVE); GLUCOSE, URINE NEGATIVE (NEGATIVE); KETONES,URINE NEGATIVE (NEGATIVE); LEUKOCYTE ESTERASE ,URINE 1+ (NEGATIVE); NITRITES,URINE NEGATIVE (NEGATIVE); PROTEIN,URINE NEGATIVE (NEGATIVE); UROBILINOGEN,URINE NORMAL (NORMAL)
[2020-01-11 20:40] LABS: APPEARANCE,URINE CLEAR (CLEAR); COLOR,URINE PALE YELLOW (YELLOW)
[2020-01-11 20:41] LABS: BACTERIA,URINE NEGATIVE /HPF (NEGATIVE); RBC,URINE NONE SEEN /HPF (0-3); SQUAMOUS EPITHELIAL CELL,UR RARE /HPF (NEGATIVE)
[2020-01-11] MEDS: SNACK - Diabetic Appropriate PO SCH (22:02)
[2020-01-12] MEDS: NS 1000 ML 1,000 ML IV SCH ×3 (04:10→17:31)
[2020-01-12 05:21] LABS: BASOPHILS % (AUTO) 0.8 % (0.2-1.0); EOSINOPHILS # (AUTO) 0.2 x10^3/uL (0.0-0.2); EOSINOPHILS % (AUTO) 2.8 % (0.9-2.9); HEMATOCRIT 31.3 % (36.0-47.0); HEMOGLOBIN 10.6 g/dL (12.0-16.0); LYMPHOCYTES # (AUTO) 1.8 X10^3/uL (1.3-2.9); LYMPHOCYTES % (AUTO) 31.7 % (21.0-51.0); MEAN CORPUSCULAR HEMOGLOBIN 31.8 pg (27.0-34.0); MEAN CORPUSCULAR HGB CONC 33.9 g/dL (33.0-35.0); MEAN CORPUSCULAR VOLUME 93.9 fL (80.0-100.0); MEAN PLATELET VOLUME 7.8 fL (7.4-11.0); MONOCYTES # (AUTO) 0.8 x10^3/uL (0.3-0.8); MONOCYTES % (AUTO) 13.9 % (0.0-13.0); NEUTROPHILS # (AUTO) 2.8 x10^3/uL (2.2-4.8); NEUTROPHILS % (AUTO) 50.8 % (42.0-75.0); PLATELET COUNT 275 X10^3/uL (150.0-450.0); RED BLOOD COUNT 3.33 X10^6/uL (3.5-5.4); RED CELL DISTRIBUTION WIDTH 13.7 % (11.6-16.5); WHITE BLOOD COUNT 5.6 X10^3/uL (3.6-10.0)
[2020-01-12 05:26] LABS: ALANINE AMINOTRANSFERASE 25 Units/L (12-78); ALBUMIN 3.3 g/dL (3.4-5.0); ALKALINE PHOSPHATASE 103 Units/L (46-116); ASPARTATE AMINO TRANSFERASE 19 Units/L (15-37); BLOOD UREA NITROGEN 21 mg/dL (7-18); CALCIUM 7.9 mg/dL (8.5-10.1); CARBON DIOXIDE 26.9 mmol/L (21-32); CHLORIDE 107 mmol/L (98-107); COR CA(FOR HYPOALB) 8.5 mg/dL (8.5-10.1); CREATININE 1.17 mg/dL (0.55-1.02); SODIUM 141 mmol/L (136-145); TOTAL PROTEIN 6.3 g/dL (6.4-8.2); eGFR NON BLACK RACES 47 (>60)
[2020-01-12] MEDS: LEVSIN/MAALOX/LIDOC VISC PO SCH ×4 (08:40→20:27)
[2020-01-12] MEDS: PEPCID 20 MG IV PREMIX* 20 MG/50 ML BAG IV SCH ×2 (08:41→20:29)
[2020-01-12] MEDS: PROTONIX INJ 40 MG VIAL IVP SCH ×2 (08:41→20:26)
[2020-01-12] MEDS: SNACK - Diabetic Appropriate PO SCH (20:25)
[2020-01-12] MEDS: MILK OF MAGNESIA PO SCH (20:26)
[2020-01-12] MEDS: COLACE CAP 100 MG PO SCH (20:27)
[2020-01-12] MEDS: RESTORIL CAP 15 MG PO PRN (20:27)
[2020-01-13] MEDS: NS 1000 ML 1,000 ML IV SCH ×3 (01:19→20:33)
[2020-01-13 05:25] LABS: BASOPHILS % (AUTO) 0.6 % (0.2-1.0); EOSINOPHILS # (AUTO) 0.1 x10^3/uL (0.0-0.2); EOSINOPHILS % (AUTO) 2.4 % (0.9-2.9); HEMATOCRIT 30.5 % (36.0-47.0); HEMOGLOBIN 10.3 g/dL (12.0-16.0); LYMPHOCYTES # (AUTO) 1.8 X10^3/uL (1.3-2.9); LYMPHOCYTES % (AUTO) 33.4 % (21.0-51.0); MEAN CORPUSCULAR HEMOGLOBIN 31.9 pg (27.0-34.0); MEAN CORPUSCULAR HGB CONC 33.8 g/dL (33.0-35.0); MEAN CORPUSCULAR VOLUME 94.4 fL (80.0-100.0); MEAN PLATELET VOLUME 7.7 fL (7.4-11.0); MONOCYTES # (AUTO) 0.6 x10^3/uL (0.3-0.8); MONOCYTES % (AUTO) 11.4 % (0.0-13.0); NEUTROPHILS # (AUTO) 2.7 x10^3/uL (2.2-4.8); NEUTROPHILS % (AUTO) 52.2 % (42.0-75.0); PLATELET COUNT 237 X10^3/uL (150.0-450.0); RED BLOOD COUNT 3.23 X10^6/uL (3.5-5.4); RED CELL DISTRIBUTION WIDTH 13.5 % (11.6-16.5); WHITE BLOOD COUNT 5.2 X10^3/uL (3.6-10.0)
[2020-01-13 05:37] LABS: ALBUMIN 3.1 g/dL (3.4-5.0); CALCIUM 7.4 mg/dL (8.5-10.1); CARBON DIOXIDE 28.1 mmol/L (21-32); COR CA(FOR HYPOALB) 8.1 mg/dL (8.5-10.1); CREATININE 1.14 mg/dL (0.55-1.02)
[2020-01-13] MEDS: PEPCID 20 MG IV PREMIX* 20 MG/50 ML BAG IV SCH ×2 (09:29→20:40)
[2020-01-13] MEDS: PROTONIX INJ 40 MG VIAL IVP SCH ×2 (09:31→20:40)
[2020-01-13] MEDS: LEVSIN/MAALOX/LIDOC VISC PO SCH ×4 (09:38→20:39)
[2020-01-13] MEDS: SNACK - Diabetic Appropriate PO SCH (20:38)
[2020-01-13] MEDS: COLACE CAP 100 MG PO SCH (20:39)
[2020-01-13] MEDS: MILK OF MAGNESIA PO SCH (20:40)
[2020-01-13] MEDS: RESTORIL CAP 15 MG PO PRN (20:41)
--- NOTE | 2020-01-13 21:39 | DR.H&P ---
H&P - History & Physical for Day of: H&P Date: 01/11/20 - Chief Complaint Chief Complaint: NAUSEA, VOMITING, WEAKNESS, FATIGUE - History of Present Illness History of Present Illness: IS A 79 YEAR OLD PATIENT OF OURS WHO PRESENTED TO THE HOSPITAL A DIRECT ADMISSION DUE TO COMPLAINTS OF INTRACTABLE NAUSEA AND VOMITING, WEAKNESS, AND FATIGUE. PATIENT REPORTS THAT SYMPTOMS STARTED ONE WEEK AGO AND HAS PROGRESSIVELY GOTTEN WORSE. PATIENT HAS A HISTORY SIGNIFICANT FOR GASTROPARESIS. ON ARRIVAL TO THE HOSPITAL, VITALS WERE 97.9-110-20-97%-137/71. LABS WERE OBTAINED. ABNORMAL LAB VALUES INCLUDE THE FOLLOWING: BUN 28, CREATININE 1.46, ALK PHOS 124. URINALYSIS REVEALED: WBC 0-2, RBC NONE SEEN, BACTERIA NEGATIVE, LEUKOCYTES 1+. A KUB WAS OBTAINED AND REVEALED: Multiple surgical clips are present throughout the abdomen. Bowel gas pattern is nonobstructive. No abnormal calcifications are seen. The soft tissues are intact. WE STARTED PATIENT ON NORMAL SALINE AT 80ML/HR, PHENERGAN 12.5MG IM Q6H PRN, PEPCID IV, PROTONIX IV, HUMULIN R SLIDING SCALE, AND GI COCKTAIL. WE WILL REVIEW HER HOME MEDICATIONS. OTHERWISE, WE PLAN TO FOLLOW UP WITH AM LABS AND CONTINUE TO MONITOR. - Past Medical History Past Medical History: Diabetes, Dyslipidemia, GERD, Hypertension, Hypothyroidism Additional Medical History: GASTROPARESIS - Past Surgical History Surgical History: Abdominal Surgery - Family History Family Medical History: Cancer, Coronary Artery Disease - Social History Does patient currently use any type of tobacco product: No Have you used tobacco products in the last 12 months: No Type of Tobacco Use: None Does any household member use tobacco: No Alcohol Use: None Drug Use: None - Medications Home Medications: fentanyl Allergy (Severe, Verified 10/25/19 21:05) CARDIAC ARREST cefaclor Allergy (Mild, Verified 10/25/19 21:05) pentazocine Allergy (Mild, Verified 10/25/19 21:05) Sulfa (Sulfonamide Antibiotics) [SULFA] Allergy (Mild, Verified 10/25/19 21:05) prednisone Adverse Reaction (Mild, Verified 10/25/19 21:05) CONTINUE taking the following medications pantoprazole 40 mg PO DAILY 01/12/20 [History] - Review of Systems Constitutional: Weakness, Malaise Eyes: No Symptoms Reported ENT: No Symptoms Reported Respiratory: No Symptoms Reported Cardiovascular: No Symptoms Reported Gastrointestinal: See HPI, Nausea, Vomiting Genitourinary: No Symptoms Reported Musculoskeletal: No Symptoms Reported Skin: No Symptoms Reported Neurological: Weakness - Physical Exam Vital Signs: Temperature 98.6 F Pulse Rate [Right Brachial] 98 Respiratory Rate 18 Blood Pressure [Right Arm] 127/64 Blood Pressure [Left Arm] 177/77 O2 Sat by Pulse Oximetry 96 Oriented: Normal Eyes: Normal Ear: Normal Nose: Normal Throat: Normal Respiratory: Diminished Throughout Cardiovascular: Normal : Normal Auscultation: Bowel Sounds: Normal Palpation: Normal Tenderness: Normal Skin: Decreased Turgur Musculoskeletal: Normal Psychiatric: Normal Mood Description: Calm Affect: Normal Speech Pattern: Clear - Assessment/Plan (1) Dehydration Status: Acute Plan: ADMIT, NORMAL SALINE AT 80ML/HR, PHENERGAN 12.5MG IM Q6H PRN, PEPCID IV, PROTONIX IV, HUMULIN R SLIDING SCALE, AND GI COCKTAIL. (2) Nausea and vomiting Qualifiers: Vomiting type: unspecified Vomiting Intractability: intractable Qualified Code(s): R11.2 - Nausea with vomiting, unspecified Status: Acute (3) Gastroparesis Status: Chronic - Allergies Allergies/Adverse Reactions: Allergies Allergy/AdvReac Type Severity Reaction Status Date / Time fentanyl Allergy Severe CARDIAC Verified 10/25/19 21:05 ARREST cefaclor Allergy Mild Verified 10/25/19 21:05 pentazocine Allergy Mild Verified 10/25/19 21:05 Sulfa (Sulfonamide Allergy Mild Verified 10/25/19 21:05 Antibiotics) [SULFA] prednisone AdvReac Mild Verified 10/25/19 21:05
[2020-01-14 05:18] LABS: BASOPHILS % (AUTO) 0.5 % (0.2-1.0); EOSINOPHILS # (AUTO) 0.2 x10^3/uL (0.0-0.2); EOSINOPHILS % (AUTO) 2.6 % (0.9-2.9); HEMATOCRIT 30.4 % (36.0-47.0); HEMOGLOBIN 10.4 g/dL (12.0-16.0); LYMPHOCYTES # (AUTO) 1.7 X10^3/uL (1.3-2.9); LYMPHOCYTES % (AUTO) 28.3 % (21.0-51.0); MEAN CORPUSCULAR HGB CONC 34.2 g/dL (33.0-35.0); MEAN CORPUSCULAR VOLUME 93.6 fL (80.0-100.0); MEAN PLATELET VOLUME 7.4 fL (7.4-11.0); MONOCYTES # (AUTO) 0.7 x10^3/uL (0.3-0.8); MONOCYTES % (AUTO) 11.2 % (0.0-13.0); NEUTROPHILS # (AUTO) 3.4 x10^3/uL (2.2-4.8); NEUTROPHILS % (AUTO) 57.4 % (42.0-75.0); PLATELET COUNT 240 X10^3/uL (150.0-450.0); RED BLOOD COUNT 3.24 X10^6/uL (3.5-5.4); RED CELL DISTRIBUTION WIDTH 13.5 % (11.6-16.5)
[2020-01-14 05:27] LABS: ALANINE AMINOTRANSFERASE 19 Units/L (12-78); ALBUMIN 3.1 g/dL (3.4-5.0); ALKALINE PHOSPHATASE 99 Units/L (46-116); ASPARTATE AMINO TRANSFERASE 18 Units/L (15-37); BLOOD UREA NITROGEN 19 mg/dL (7-18); CALCIUM 7.3 mg/dL (8.5-10.1); CARBON DIOXIDE 27.5 mmol/L (21-32); CHLORIDE 106 mmol/L (98-107); COR NA(FOR HYPERGLY) 139 mmol/L (136-145); CREATININE 1.07 mg/dL (0.55-1.02); SODIUM 139 mmol/L (136-145); eGFR NON BLACK RACES 53 (>60)
[2020-01-14] MEDS: PROTONIX INJ 40 MG VIAL IVP SCH ×2 (08:37→20:09)
[2020-01-14] MEDS: LEVSIN/MAALOX/LIDOC VISC PO SCH ×4 (08:37→20:09)
[2020-01-14] MEDS: NS 1000 ML 1,000 ML IV SCH ×3 (08:37→20:18)
[2020-01-14] MEDS: PEPCID 20 MG IV PREMIX* 20 MG/50 ML BAG IV SCH ×2 (08:38→20:11)
[2020-01-14] MEDS ORDERED: ZOFRAN TAB 4 MG PO PRN (09:55)
--- NOTE | 2020-01-14 10:27 | PCM.PROG ---
Progress Note - Progress Note for Day of Date of Exam: 01/13/20 - Subjective Subjective: IS BEING TREATED FOR DEHYDRATION, NAUSEA AND VOMITING, AND GASTROPARESIS. TODAY, SHE IS ALERT AND ORIENTED, LYING IN BED ON MORNING ROUNDS. SHE CONTINUES WITH INTERMITTENT NAUSEA AND VOMITING. SHE ALSO REPORTS WEAKNESS. ON EXAMINATION, HEART IS REGULAR IN RATE AND RHYTHM. BILATERAL LUNGS ARE CLEAR TO AUSCULTATION. ABDOMEN IS ROUND, SOFT, AND NOTED WITH MILD, DIFFUSE TENDERNESS. HYPERACTIVE BOWEL SOUNDS NOTED. HER VITALS THIS MORNING ARE: 98.2-97-18-97%-177/77. LABS WERE OBTAINED. ABNORMAL LAB VALUES INCLUDE THE FOLLOWING: RBC 3.23, HGB 10.3, HCT 30.5, BUN 19, CREATININE 1.14, GLUCOSE 111, CALCIUM 7.4, TOTAL PROTEIN 6.0, ALBUMIN 3.1. SHE IS CURRENTLY RECEIVING NORMAL SALINE AT 80ML/HR, PHENERGAN 12.5MG IM Q6H PRN, PEPCID IV, PROTONIX IV, HUMULIN R SLIDING SCALE, AND GI COCKTAIL. WE WILL CONTINUE WITH CURRENT PLAN OF CARE TODAY. OTHERWISE, WE PLAN TO FOLLOW UP WITH AM LABS AND CONTINUE TO MONITOR. - Past Medical Family Social History Past Med/Fam/Surg Hx: No changes since H&P Allergies: Allergies fentanyl Allergy (Severe, Verified 10/25/19 21:05) CARDIAC ARREST cefaclor Allergy (Mild, Verified 10/25/19 21:05) pentazocine Allergy (Mild, Verified 10/25/19 21:05) Sulfa (Sulfonamide Antibiotics) [SULFA] Allergy (Mild, Verified 10/25/19 21:05) prednisone Adverse Reaction (Mild, Verified 10/25/19 21:05) - Review of Systems ROS: No change since H&P - Vital Signs and I&O's Vital Signs: Temperature 97.7 F Pulse Rate [Right Brachial] 110 Respiratory Rate 18 Blood Pressure [Right Arm] 137/65 Blood Pressure [Left Arm] 177/77 O2 Sat by Pulse Oximetry 97 Intake and Output: Intake & Output 01/11/20 01/12/20 01/13/20 01/14/20 11:59 11:59 11:59 11:59 Intake Total 1370 / 1370 3287 / 3287 3725 / 3725 Output Total 900 / 900 Balance 1370 / 1370 2387 / 2387 3725 / 3725 - Physical Exam Oriented: Normal Eyes: Normal Ear: Normal Nose: Normal Throat: Normal Respiratory: Normal Cardiovascular: Normal : Normal Auscultation: Bowel Sounds: Normal Palpation: Normal Tenderness: Normal Skin: Decreased Turgur Musculoskeletal: Normal Psychiatric: Normal Mood Description: Calm Affect: Normal Speech Pattern: Clear, Appropriate - Laboratory and Diagnostics Result Diagrams: 01/14/20 04:45 01/14/20 04:45 Labs: Laboratory WBC 6.0 X10^3/uL (3.6-10.0) 01/14/20 04:45 RBC 3.24 X10^6/uL (3.5-5.4) L 01/14/20 04:45 Hgb 10.4 g/dL (12.0-16.0) L 01/14/20 04:45 Hct 30.4 % (36.0-47.0) L 01/14/20 04:45 MCV 93.6 fL (80.0-100.0) 01/14/20 04:45 MCH 32.0 pg (27.0-34.0) 01/14/20 04:45 MCHC 34.2 g/dL (33.0-35.0) 01/14/20 04:45 RDW 13.5 % (11.6-16.5) 01/14/20 04:45 Plt Count 240 X10^3/uL (150.0-450.0) 01/14/20 04:45 MPV 7.4 fL (7.4-11.0) 01/14/20 04:45 Neut % (Auto) 57.4 % (42.0-75.0) 01/14/20 04:45 Lymph % (Auto) 28.3 % (21.0-51.0) 01/14/20 04:45 [place] % (Auto) 11.2 % (0.0-13.0) 01/14/20 04:45 Eos % (Auto) 2.6 % (0.9-2.9) 01/14/20 04:45 Baso % (Auto) 0.5 % (0.2-1.0) 01/14/20 04:45 Neut # (Auto) 3.4 x10^3/uL (2.2-4.8) 01/14/20 04:45 Lymph # (Auto) 1.7 X10^3/uL (1.3-2.9) 01/14/20 04:45 [place] # (Auto) 0.7 x10^3/uL (0.3-0.8) 01/14/20 04:45 Eos # (Auto) 0.2 x10^3/uL (0.0-0.2) 01/14/20 04:45 Baso # (Auto) 0.0 X10^3/uL (0.0-0.1) 01/14/20 04:45 Absolute Nucleated RBC 0.0 /100WBC 01/14/20 04:45 Sodium 139 mmol/L (136-145) 01/14/20 04:45 Corrected Sodium 139 mmol/L (136-145) 01/14/20 04:45 Potassium 4.8 mmol/L (3.5-5.1) 01/14/20 04:45 Chloride 106 mmol/L (98-107) 01/14/20 04:45 Carbon Dioxide 27.5 mmol/L (21-32) 01/14/20 04:45 BUN 19 mg/dL (7-18) H 01/14/20 04:45 Creatinine 1.07 mg/dL (0.55-1.02) H 01/14/20 04:45 Est GFR (MDRD) Af Amer > 60 (>60) 01/14/20 04:45 Est GFR (MDRD) Non-Af 53 (>60) L 01/14/20 04:45 Glucose 111 mg/dL (65-99) H 01/14/20 04:45 POC Glucose (mg/dL) 121 mg/dL (65-99) H 01/14/20 05:17 Calcium 7.3 mg/dL (8.5-10.1) L 01/14/20 04:45 Corrected Calcium 8.0 mg/dL (8.5-10.1) L 01/14/20 04:45 Total Bilirubin 0.20 mg/dL (0.2-1.0) 01/14/20 04:45 AST 18 Units/L (15-37) 01/14/20 04:45 ALT 19 Units/L (12-78) 01/14/20 04:45 Alkaline Phosphatase 99 Units/L (46-116) 01/14/20 04:45 Total Protein 6.0 g/dL (6.4-8.2) L 01/14/20 04:45 Albumin 3.1 g/dL (3.4-5.0) L 01/14/20 04:45 Globulin 2.9 g/dL (2.5-4.5) 01/14/20 04:45 Albumin/Globulin Ratio 1.1 Ratio (1.1-2.1) 01/14/20 04:45 Specimen Type Clean catch urine 01/11/20 20:20 Urine Color Pale yellow (YELLOW) 01/11/20 20:20 Urine Appearance Clear (CLEAR) 01/11/20 20:20 Urine pH 7.0 (5.0 - 8.0) 01/11/20 20:20 Ur Specific [place] 1.005 (1.000-1.030) 01/11/20 20:20 Urine Protein Negative (NEGATIVE) 01/11/20 20:20 Urine Glucose (UA) Negative (NEGATIVE) 01/11/20 20:20 Urine Ketones Negative (NEGATIVE) 01/11/20 20:20 Urine Occult Blood Negative (NEGATIVE) 01/11/20 20:20 Urine Nitrite Negative (NEGATIVE) 01/11/20 20:20 Urine Bilirubin Negative (NEGATIVE) 01/11/20 20:20 Urine Urobilinogen Normal (NORMAL) 01/11/20 20:20 Ur Leukocyte Esterase 1+ (NEGATIVE) 01/11/20 20:20 Urine RBC None seen /HPF (0-3) 01/11/20 20:20 Urine WBC 0-2 /HPF (0-5) 01/11/20 20:20 Ur Squamous Epith Cells Rare /HPF (NEGATIVE) 01/11/20 20:20 Urine Bacteria Negative /HPF (NEGATIVE) 01/11/20 20:20 Ur Culture Indicated? No/not indicated 01/11/20 20:20 - Plan (1) Dehydration Status: Acute Plan: NORMAL SALINE AT 80ML/HR, PHENERGAN 12.5MG IM Q6H PRN, PEPCID IV, PROTONIX IV, HUMULIN R SLIDING SCALE, AND GI COCKTAIL. (2) Nausea and vomiting Status: Acute Qualifiers: Vomiting type: unspecified Vomiting Intractability: intractable Qualified Code(s): R11.2 - Nausea with vomiting, unspecified (3) Gastroparesis Status: Chronic
[2020-01-14] MEDS: LOVAZA PO SCH (10:44)
[2020-01-14] MEDS: LIPITOR TAB 40 MG PO SCH (10:44)
[2020-01-14] MEDS: SYNTHROID 100 mcg TAB PO SCH (10:44)
[2020-01-14] MEDS: COZAAR PO SCH (10:45)
[2020-01-14] MEDS: CITRACAL + VITAMIN D PO SCH (10:45)
[2020-01-14] MEDS: LINZESS PO SCH (10:45)
[2020-01-14] MEDS: TAB-A-VITE PO SCH (10:46)
[2020-01-14] MEDS: BENTYL CAP 10 MG PO SCH ×2 (10:46→17:23)
[2020-01-14] MEDS: LOPRESSOR TAB 25 MG PO SCH ×2 (10:47→20:10)
[2020-01-14] MEDS: MOBIC TAB 15 MG PO SCH (10:47)
[2020-01-14] MEDS: CARAFATE PO SCH ×2 (10:47→21:14)
--- NOTE | 2020-01-14 11:12 | PCM.PROG ---
Progress Note - Progress Note for Day of Date of Exam: 01/14/20 - Subjective Subjective: IS BEING TREATED FOR DEHYDRATION, NAUSEA AND VOMITING, AND GASTROPARESIS. TODAY, SHE IS ALERT AND ORIENTED, LYING IN BED ON MORNING ROUNDS. SHE CONTINUES WITH INTERMITTENT NAUSEA AND VOMITING. SHE ALSO REPORTS WEAKNESS. ON EXAMINATION, HEART IS REGULAR IN RATE AND RHYTHM. BILATERAL LUNGS ARE CLEAR TO AUSCULTATION. ABDOMEN IS ROUND, SOFT, AND NOTED WITH MILD, DIFFUSE TENDERNESS. HYPERACTIVE BOWEL SOUNDS NOTED. HER VITALS THIS MORNING ARE: 97.7-100-20-97%-137/65. LABS WERE OBTAINED. ABNORMAL LAB VALUES INCLUDE THE FOLLOWING: RBC 3.24, HGB 10.4, HCT 30.4, BUN 19, CREATININE 1.07, GLUCOSE 111, CALCIUM 7.3, TOTAL PROTEIN 6.0, ALBUMIN 3.1. SHE IS CURRENTLY RECEIVING NORMAL SALINE AT 80ML/HR, PHENERGAN 12.5MG IM Q6H PRN, PEPCID IV, PROTONIX IV, HUMULIN R SLIDING SCALE, AND GI COCKTAIL. WE WILL CONTINUE WITH CURRENT PLAN OF CARE TODAY AND RESUME HER HOME MEDICATIONS. OTHERWISE, WE PLAN TO FOLLOW UP WITH AM LABS AND CONTINUE TO MONITOR. - Past Medical Family Social History Past Med/Fam/Surg Hx: No changes since H&P Allergies: Allergies fentanyl Allergy (Severe, Verified 10/25/19 21:05) CARDIAC ARREST cefaclor Allergy (Mild, Verified 10/25/19 21:05) pentazocine Allergy (Mild, Verified 10/25/19 21:05) Sulfa (Sulfonamide Antibiotics) [SULFA] Allergy (Mild, Verified 10/25/19 21:05) prednisone Adverse Reaction (Mild, Verified 10/25/19 21:05) - Review of Systems ROS: No change since H&P - Vital Signs and I&O's Vital Signs: Temperature 97.7 F Pulse Rate [Right Brachial] 110 Respiratory Rate 18 Blood Pressure [Right Arm] 137/65 Blood Pressure [Left Arm] 177/77 O2 Sat by Pulse Oximetry 97 Intake and Output: Intake & Output 01/11/20 01/12/20 01/13/20 01/14/20 11:59 11:59 11:59 11:59 Intake Total 1370 / 1370 3287 / 3287 3725 / 3725 Output Total 900 / 900 Balance 1370 / 1370 2387 / 2387 3725 / 3725 - Physical Exam Oriented: Normal Eyes: Normal Ear: Normal Nose: Normal Throat: Normal Respiratory: Normal Cardiovascular: Normal : Normal Auscultation: Bowel Sounds: Normal Tenderness: Normal Skin: Decreased Turgur Musculoskeletal: Normal Psychiatric: Normal Mood Description: Calm Affect: Normal Speech Pattern: Clear, Appropriate - Laboratory and Diagnostics Result Diagrams: 01/14/20 04:45 01/14/20 04:45 Labs: Laboratory WBC 6.0 X10^3/uL (3.6-10.0) 01/14/20 04:45 RBC 3.24 X10^6/uL (3.5-5.4) L 01/14/20 04:45 Hgb 10.4 g/dL (12.0-16.0) L 01/14/20 04:45 Hct 30.4 % (36.0-47.0) L 01/14/20 04:45 MCV 93.6 fL (80.0-100.0) 01/14/20 04:45 MCH 32.0 pg (27.0-34.0) 01/14/20 04:45 MCHC 34.2 g/dL (33.0-35.0) 01/14/20 04:45 RDW 13.5 % (11.6-16.5) 01/14/20 04:45 Plt Count 240 X10^3/uL (150.0-450.0) 01/14/20 04:45 MPV 7.4 fL (7.4-11.0) 01/14/20 04:45 Neut % (Auto) 57.4 % (42.0-75.0) 01/14/20 04:45 Lymph % (Auto) 28.3 % (21.0-51.0) 01/14/20 04:45 [place] % (Auto) 11.2 % (0.0-13.0) 01/14/20 04:45 Eos % (Auto) 2.6 % (0.9-2.9) 01/14/20 04:45 Baso % (Auto) 0.5 % (0.2-1.0) 01/14/20 04:45 Neut # (Auto) 3.4 x10^3/uL (2.2-4.8) 01/14/20 04:45 Lymph # (Auto) 1.7 X10^3/uL (1.3-2.9) 01/14/20 04:45 [place] # (Auto) 0.7 x10^3/uL (0.3-0.8) 01/14/20 04:45 Eos # (Auto) 0.2 x10^3/uL (0.0-0.2) 01/14/20 04:45 Baso # (Auto) 0.0 X10^3/uL (0.0-0.1) 01/14/20 04:45 Absolute Nucleated RBC 0.0 /100WBC 01/14/20 04:45 Sodium 139 mmol/L (136-145) 01/14/20 04:45 Corrected Sodium 139 mmol/L (136-145) 01/14/20 04:45 Potassium 4.8 mmol/L (3.5-5.1) 01/14/20 04:45 Chloride 106 mmol/L (98-107) 01/14/20 04:45 Carbon Dioxide 27.5 mmol/L (21-32) 01/14/20 04:45 BUN 19 mg/dL (7-18) H 01/14/20 04:45 Creatinine 1.07 mg/dL (0.55-1.02) H 01/14/20 04:45 Est GFR (MDRD) Af Amer > 60 (>60) 01/14/20 04:45 Est GFR (MDRD) Non-Af 53 (>60) L 01/14/20 04:45 Glucose 111 mg/dL (65-99) H 01/14/20 04:45 POC Glucose (mg/dL) 121 mg/dL (65-99) H 01/14/20 05:17 Calcium 7.3 mg/dL (8.5-10.1) L 01/14/20 04:45 Corrected Calcium 8.0 mg/dL (8.5-10.1) L 01/14/20 04:45 Total Bilirubin 0.20 mg/dL (0.2-1.0) 01/14/20 04:45 AST 18 Units/L (15-37) 01/14/20 04:45 ALT 19 Units/L (12-78) 01/14/20 04:45 Alkaline Phosphatase 99 Units/L (46-116) 01/14/20 04:45 Total Protein 6.0 g/dL (6.4-8.2) L 01/14/20 04:45 Albumin 3.1 g/dL (3.4-5.0) L 01/14/20 04:45 Globulin 2.9 g/dL (2.5-4.5) 01/14/20 04:45 Albumin/Globulin Ratio 1.1 Ratio (1.1-2.1) 01/14/20 04:45 Specimen Type Clean catch urine 01/11/20 20:20 Urine Color Pale yellow (YELLOW) 01/11/20 20:20 Urine Appearance Clear (CLEAR) 01/11/20 20:20 Urine pH 7.0 (5.0 - 8.0) 01/11/20 20:20 Ur Specific [place] 1.005 (1.000-1.030) 01/11/20 20:20 Urine Protein Negative (NEGATIVE) 01/11/20 20:20 Urine Glucose (UA) Negative (NEGATIVE) 01/11/20 20:20 Urine Ketones Negative (NEGATIVE) 01/11/20 20:20 Urine Occult Blood Negative (NEGATIVE) 01/11/20 20:20 Urine Nitrite Negative (NEGATIVE) 01/11/20 20:20 Urine Bilirubin Negative (NEGATIVE) 01/11/20 20:20 Urine Urobilinogen Normal (NORMAL) 01/11/20 20:20 Ur Leukocyte Esterase 1+ (NEGATIVE) 01/11/20 20:20 Urine RBC None seen /HPF (0-3) 01/11/20 20:20 Urine WBC 0-2 /HPF (0-5) 01/11/20 20:20 Ur Squamous Epith Cells Rare /HPF (NEGATIVE) 01/11/20 20:20 Urine Bacteria Negative /HPF (NEGATIVE) 01/11/20 20:20 Ur Culture Indicated? No/not indicated 01/11/20 20:20 - Plan (1) Dehydration Status: Acute Plan: NORMAL SALINE AT 80ML/HR, PHENERGAN 12.5MG IM Q6H PRN, PEPCID IV, PROTONIX IV, HUMULIN R SLIDING SCALE, AND GI COCKTAIL. (2) Nausea and vomiting Status: Acute Qualifiers: Vomiting type: unspecified Vomiting Intractability: intractable Qualified Code(s): R11.2 - Nausea with vomiting, unspecified (3) Gastroparesis Status: Chronic
[2020-01-14] MEDS: MARINOL PO SCH ×2 (12:36→20:11)
[2020-01-14] MEDS: MILK OF MAGNESIA PO SCH (20:09)
[2020-01-14] MEDS: RESTORIL CAP 15 MG PO PRN (20:10)
[2020-01-14] MEDS: COLACE CAP 100 MG PO SCH (20:10)
[2020-01-14] MEDS: SNACK - Diabetic Appropriate PO SCH (20:11)
[2020-01-14] MEDS ORDERED: ELAVIL PO SCH (21:00)
[2020-01-15] MEDS: BENTYL CAP 10 MG PO SCH (02:30)
[2020-01-15 05:25] LABS: BASOPHILS % (AUTO) 0.7 % (0.2-1.0); EOSINOPHILS # (AUTO) 0.2 x10^3/uL (0.0-0.2); EOSINOPHILS % (AUTO) 3.3 % (0.9-2.9); HEMATOCRIT 29.7 % (36.0-47.0); LYMPHOCYTES # (AUTO) 1.7 X10^3/uL (1.3-2.9); MEAN CORPUSCULAR HEMOGLOBIN 31.6 pg (27.0-34.0); MEAN CORPUSCULAR HGB CONC 33.6 g/dL (33.0-35.0); MEAN CORPUSCULAR VOLUME 93.8 fL (80.0-100.0); MEAN PLATELET VOLUME 7.9 fL (7.4-11.0); MONOCYTES # (AUTO) 0.6 x10^3/uL (0.3-0.8); MONOCYTES % (AUTO) 12.1 % (0.0-13.0); NEUTROPHILS # (AUTO) 2.7 x10^3/uL (2.2-4.8); NEUTROPHILS % (AUTO) 50.9 % (42.0-75.0); PLATELET COUNT 226 X10^3/uL (150.0-450.0); RED BLOOD COUNT 3.16 X10^6/uL (3.5-5.4); RED CELL DISTRIBUTION WIDTH 13.5 % (11.6-16.5); WHITE BLOOD COUNT 5.2 X10^3/uL (3.6-10.0)
[2020-01-15 05:39] LABS: ALANINE AMINOTRANSFERASE 24 Units/L (12-78); ALKALINE PHOSPHATASE 97 Units/L (46-116); ASPARTATE AMINO TRANSFERASE 25 Units/L (15-37); BLOOD UREA NITROGEN 18 mg/dL (7-18); CALCIUM 7.4 mg/dL (8.5-10.1); CARBON DIOXIDE 25.8 mmol/L (21-32); CHLORIDE 107 mmol/L (98-107); COR CA(FOR HYPOALB) 8.2 mg/dL (8.5-10.1); CREATININE 1.05 mg/dL (0.55-1.02); SODIUM 138 mmol/L (136-145); TOTAL PROTEIN 5.8 g/dL (6.4-8.2); eGFR NON BLACK RACES 54 (>60)
[2020-01-15] MEDS ORDERED: BENTYL CAP 10 MG PO PRN (05:47)
[2020-01-15] MEDS: LINZESS PO SCH (08:38)
[2020-01-15] MEDS: CITRACAL + VITAMIN D PO SCH (08:39)
[2020-01-15] MEDS: MOBIC TAB 15 MG PO SCH (08:39)
[2020-01-15] MEDS: LIPITOR TAB 40 MG PO SCH (08:39)
[2020-01-15] MEDS: TAB-A-VITE PO SCH (08:39)
[2020-01-15] MEDS: LOPRESSOR TAB 25 MG PO SCH (08:40)
[2020-01-15] MEDS: LOVAZA PO SCH (08:40)
[2020-01-15] MEDS: LEVSIN/MAALOX/LIDOC VISC PO SCH (08:40)
[2020-01-15] MEDS: COZAAR PO SCH (08:40)
[2020-01-15] MEDS: SYNTHROID 100 mcg TAB PO SCH (08:40)
[2020-01-15] MEDS: MARINOL PO SCH (08:41)
[2020-01-15] MEDS ORDERED: PROTONIX TAB 40 MG PO SCH (09:00)
[2020-01-15] MEDS ORDERED: PEPCID TAB 20 MG PO SCH (09:00)
[2020-01-15 09:55] VITALS: BP 152/64
[2020-01-15] MEDS: NS 1000 ML 1,000 ML IV SCH (09:55)
[2020-01-15] MEDS: CARAFATE PO SCH (10:05)
== END 2020-01-15 11:30 | disposition home or self-care (01) | DRG 641 ==
LOC: MED/SURG
PROVIDERS: ADMIT Internal Medicine; ATTEND Internal Medicine
DX: E78.2 Mixed hyperlipidemia; E03.8 Other specified hypothyroidism; K31.84 Gastroparesis; E86.0 Dehydration; R11.2 Nausea with vomiting, unspecified; E11.65 Type 2 diabetes mellitus with hyperglycemia; R53.83 Other fatigue; K21.9 Gastro-esophageal reflux disease without esophagitis
CPT/HCPCS: 36415; 74000; 74018; 80053; 81001; 85025; A4216; A4222; C9113; G0378; J2550; J7030; Q0167; S0028

== ENCOUNTER 2020-02-04 15:34 | Observation (INO) ==
[2020-02-04] MEDS ORDERED: ZOSYN VIAL 3.375 GRAMS 3.375 G in NS 100 ML IV + SPIKE MINIBAG* 100 ML IV SCH (16:30)
[2020-02-04] MEDS ORDERED: NS 1000 ML 1,000 ML ONE (17:12)
[2020-02-04] MEDS: NS 1000 ML 1,000 ML IV SCH (17:14)
--- NOTE | 2020-02-04 17:17 | RAD ---
HISTORYSOBSTUDYCHEST, 1 VIEWCOMPARISONNoneFINDINGSThe heart is normal. The pulmonary vessels are normal. No consolidation or effusion is seen. The bones are intact.IMPRESSIONNo acute cardiopulmonary disease.Electronically signed by: JULIA DICKEY (Feb 04, 2020 17:16:15)
[2020-02-04] MEDS ORDERED: NS 100 ML IV 100 ML IV ONE (17:45)
[2020-02-04] MEDS ORDERED: ZOSYN VIAL 3.375 GRAMS IV ONE (17:45)
[2020-02-04] MEDS: ZOSYN VIAL 3.375 GRAMS 3.375 G in NS 100 ML IV + SPIKE MINIBAG* 100 ML IV SCH ×2 (17:56→21:35)
[2020-02-04 18:14] LABS: ALANINE AMINOTRANSFERASE 29 Units/L (12-78); ALBUMIN 3.8 g/dL (3.4-5.0); ALKALINE PHOSPHATASE 96 Units/L (46-116); ASPARTATE AMINO TRANSFERASE 16 Units/L (15-37); BLOOD UREA NITROGEN 36 mg/dL (7-18); CALCIUM 8.9 mg/dL (8.5-10.1); CARBON DIOXIDE 23.3 mmol/L (21-32); CHLORIDE 102 mmol/L (98-107); COR NA(FOR HYPERGLY) 141 mmol/L (136-145); CREATININE 1.35 mg/dL (0.55-1.02); SODIUM 139 mmol/L (136-145); TOTAL PROTEIN 7.4 g/dL (6.4-8.2); eGFR NON BLACK RACES 40 (>60)
[2020-02-04 18:15] VITALS: BMI 20.5
[2020-02-04 18:34] LABS: BASOPHILS % (AUTO) 0.3 % (0.2-1.0); HEMATOCRIT 37.7 % (36.0-47.0); HEMOGLOBIN 12.4 g/dL (12.0-16.0); LYMPHOCYTES # (AUTO) 0.9 X10^3/uL (1.3-2.9); LYMPHOCYTES % (AUTO) 8.2 % (21.0-51.0); MEAN CORPUSCULAR HEMOGLOBIN 31.3 pg (27.0-34.0); MEAN CORPUSCULAR VOLUME 94.8 fL (80.0-100.0); MEAN PLATELET VOLUME 8.2 fL (7.4-11.0); MONOCYTES # (AUTO) 0.3 x10^3/uL (0.3-0.8); MONOCYTES % (AUTO) 2.5 % (0.0-13.0); NEUTROPHILS # (AUTO) 10.1 x10^3/uL (2.2-4.8); PLATELET COUNT 323 X10^3/uL (150.0-450.0); RED BLOOD COUNT 3.97 X10^6/uL (3.5-5.4); RED CELL DISTRIBUTION WIDTH 13.8 % (11.6-16.5); WHITE BLOOD COUNT 11.4 X10^3/uL (3.6-10.0)
[2020-02-04 18:44] LABS: BAND NEUTROPHILS % 6 % (0-10)
[2020-02-04 18:45] LABS: PLATELET MORPHOLOGY COMMENT NORMAL (NORMAL)
[2020-02-04 21:18] LABS: BILIRUBIN,URINE NEGATIVE (NEGATIVE); BLOOD/HEMOGLOBIN,URINE 1+ (NEGATIVE); GLUCOSE, URINE NEGATIVE (NEGATIVE); KETONES,URINE NEGATIVE (NEGATIVE); LEUKOCYTE ESTERASE ,URINE 3+ (NEGATIVE); NITRITES,URINE NEGATIVE (NEGATIVE); PROTEIN,URINE NEGATIVE (NEGATIVE); UROBILINOGEN,URINE NORMAL (NORMAL)
[2020-02-04 21:21] LABS: COLOR,URINE YELLOW (YELLOW)
[2020-02-04 21:22] LABS: APPEARANCE,URINE CLOUDY (CLEAR)
[2020-02-04 21:33] LABS: BACTERIA,URINE 1+ /HPF (NEGATIVE); SQUAMOUS EPITHELIAL CELL,UR RARE /HPF (NEGATIVE)
[2020-02-04 21:34] LABS: YEAST,URINE MODERATE /HPF (NEGATIVE)
[2020-02-04] MEDS: RESTORIL CAP 15 MG PO PRN (21:52)
[2020-02-05] MEDS: NS 1000 ML 1,000 ML IV SCH ×3 (00:48→17:43)
[2020-02-05] MEDS ORDERED: NS 100 ML IV 100 ML IV ONE ×2 (05:31→15:44)
[2020-02-05] MEDS ORDERED: ZOSYN VIAL 3.375 GRAMS IV ONE ×2 (05:31→15:44)
[2020-02-05] MEDS: ZOSYN VIAL 3.375 GRAMS 3.375 G in NS 100 ML IV + SPIKE MINIBAG* 100 ML IV SCH (06:04)
[2020-02-05 06:38] LABS: BASOPHILS % (AUTO) 0.3 % (0.2-1.0); EOSINOPHILS % (AUTO) 0.4 % (0.9-2.9); HEMATOCRIT 26.9 % (36.0-47.0); HEMOGLOBIN 9.2 g/dL (12.0-16.0); LYMPHOCYTES # (AUTO) 1.8 X10^3/uL (1.3-2.9); LYMPHOCYTES % (AUTO) 15.1 % (21.0-51.0); MEAN CORPUSCULAR HEMOGLOBIN 31.8 pg (27.0-34.0); MEAN CORPUSCULAR HGB CONC 34.3 g/dL (33.0-35.0); MEAN CORPUSCULAR VOLUME 92.8 fL (80.0-100.0); MEAN PLATELET VOLUME 7.4 fL (7.4-11.0); MONOCYTES # (AUTO) 0.9 x10^3/uL (0.3-0.8); NEUTROPHILS % (AUTO) 76.2 % (42.0-75.0); PLATELET COUNT 237 X10^3/uL (150.0-450.0); RED CELL DISTRIBUTION WIDTH 13.8 % (11.6-16.5); WHITE BLOOD COUNT 11.8 X10^3/uL (3.6-10.0)
[2020-02-05 06:42] LABS: ALANINE AMINOTRANSFERASE 20 Units/L (12-78); ALBUMIN 2.5 g/dL (3.4-5.0); ALKALINE PHOSPHATASE 58 Units/L (46-116); ASPARTATE AMINO TRANSFERASE 14 Units/L (15-37); BLOOD UREA NITROGEN 35 mg/dL (7-18); CALCIUM 7.6 mg/dL (8.5-10.1); CARBON DIOXIDE 24.6 mmol/L (21-32); CHLORIDE 109 mmol/L (98-107); COR CA(FOR HYPOALB) 8.8 mg/dL (8.5-10.1); CREATININE 1.31 mg/dL (0.55-1.02); SODIUM 142 mmol/L (136-145); eGFR NON BLACK RACES 42 (>60)
[2020-02-05 07:00] LABS: PLATELET MORPHOLOGY COMMENT NORMAL (NORMAL)
[2020-02-05 07:01] LABS: BAND NEUTROPHILS % 2 % (0-10)
[2020-02-05] MEDS ORDERED: HumuLIN R SUBCUT PRN (09:37)
--- NOTE | 2020-02-05 10:56 | US ---
HISTORYHX CHRONIC UTI, DEHYDRATIONSTUDYRENAL SONOGRAMCOMPARISONNoneTECHNIQUEMultiple zavala scale and color flow Doppler images of the kidneys were obtained. The region of the urinary bladder was evaluated as well.FINDINGSRight kidney measures 7.6 x 4.0 x 4.8 centimeters in size. Renal cortical thickness on the right is 1.2 centimeters.Left kidney measures 8.0 x 4.3 x 4.4 centimeters in size. Renal cortical thickness on the left is 1.4 centimeters.Both kidneys demonstrate no evidence of hydronephrosis, echogenic calculi, or renal mass on either side.Urinary bladder is sonographically unremarkableIMPRESSIONUnremarkable renal ultrasound examElectronically signed by: TAYE DAVIS (Feb 05, 2020 10:55:05)
--- NOTE | 2020-02-05 11:07 | CT ---
HISTORYAltered mental status. Hypertension, CVA.STUDYBRAIN W/O CONCOMPARISONNone.TECHNIQUEMultiple axial images of the head were obtained from the skull base to the vertex without administration of IV contrast. Sagittal and coronal reformatted images were performed. Automated exposure control (AEC) was utilized to adjust the MA and/or kV.FINDINGSThe sulci, cisterns and ventricles are prominent consistent with diffuse volume loss. There are confluent and scattered foci of low attenuation in the periventricular and subcortical white matter of both hemispheres. This is a nonspecific finding which likely represents microangiopathic change in a patient of this age.There is no evidence of acute territorial infarction, hemorrhage, mass, mass effect or midline shift. There are no abnormal intra-axial or extra-axial fluid collections.There is no evidence of acute osseous abnormality or significant soft tissue swelling. There is polypoid mucosal thickening in the right maxillary sinus. There is opacification of several ethmoid air cells. No air-fluid levels are identified.IMPRESSION1. No evidence of acute intracranial abnormality.2. Nonspecific white matter change and volume loss.3. If there is strong clinical concern for acute infarction, then an MRI examination of the brain could be performed for further evaluation. However, if there are no deficits on neurologic exam, there are no abnormalities identified on this study which require immediate imaging follow-up on an emergent basis. Follow-up MRI could be considered on an outpatient basis as clinically warranted.Electronically signed by: ИРИНА WITT (Feb 05, 2020 11:05:05)
[2020-02-05] MEDS: DIFLUCAN 200 MG IV PREMIX* 200 MG/100 ML BAG IV SCH (11:59)
--- NOTE | 2020-02-05 15:10 | DR.H&P ---
H&P - History & Physical for Day of: H&P Date: 02/04/20 - Chief Complaint Chief Complaint: AMS, WEAKNESS, LOWER ABDOMINAL PAIN - History of Present Illness History of Present Illness: IS A 79 YEAR OLD PATIENT OF OURS WHO PRESENTED TO THE HOSPITAL A DIRECT ADMISSION DUE TO COMPLAINTS OF SEVERE WEAKNESS, ALTERED MENTAL STATUS, AND LOWER ABDOMINAL PAIN. SYMPTOMS STARTED SEVERAL DAYS PRIOR TO ARRIVAL. SHE HAS A PMH OF DIABETES, GASTROPARESIS, HTN, AND DYSLIPIDEMIA. ON ARRIVAL TO THE HOSPITAL, VITALS WERE 97.1-108-20-99%-145/75. LABS WERE OBTAINED. ABNORMAL LAB VALUES INCLUDE THE FOLLOWING: WBC 11.4, BUN 36, CREATININE 1.35, GLUCOSE 193. A URINALYSIS WAS OBTAINED AND REVEALED: WBC 5-10, RBC 3-5, LEUKOCYTES 3+, BACTERIA 1+, YEAST MODERATE. URINE AND BLOOD CULTURES WERE SET UP. A CHEST XRAY WAS OBTAINED AND REVEALED: NO ACUTE CARDIOPULMONARY DISEASE. SHE WAS STARTED ON NS AT 125 ML/HR, ZOSYN 3.375G IV TID FOR TX OF UTI, HUMULIN R SLIDING SCALE, AND DIFLUCAN 200MG IV DAILY FOR TX OF YEAST IN URINE. TODAY, WE WILL OBTAIN A RENAL US AND A BRAIN CT WITHOUT CONTRAST DUE TO PERSISTENT AMS. WE WILL REVIEW HER HOME MEDICATIONS. OTHERWISE, WE WILL FOLLOW UP WITH AM LABS AND CONTINUE TO MONITOR. - Past Medical History Past Medical History: Diabetes, Dyslipidemia, GERD, Hypertension, Hypothyroidism Additional Medical History: GASTROPARESIS - Past Surgical History Surgical History: Abdominal Surgery - Family History Family Medical History: Cancer, Coronary Artery Disease - Social History Does any household member use tobacco: No Alcohol Use: None Drug Use: None Prescription drug monitoring program results: PDMP was not reviewed - Medications Home Medications: fentanyl Allergy (Severe, Verified 10/25/19 21:05) CARDIAC ARREST cefaclor Allergy (Mild, Verified 10/25/19 21:05) pentazocine Allergy (Mild, Verified 10/25/19 21:05) Sulfa (Sulfonamide Antibiotics) [SULFA] Allergy (Mild, Verified 10/25/19 21:05) prednisone Adverse Reaction (Mild, Verified 10/25/19 21:05) - Review of Systems Constitutional: See HPI, Weakness Eyes: No Symptoms Reported ENT: No Symptoms Reported Respiratory: No Symptoms Reported Cardiovascular: No Symptoms Reported Gastrointestinal: Nausea, Abdominal Pain Musculoskeletal: No Symptoms Reported Skin: No Symptoms Reported Neurological: Weakness, Confusion - Physical Exam Vital Signs: Temperature 97.9 F Pulse Rate [Left Brachial] 74 Respiratory Rate 18 Blood Pressure [Left Arm] 117/58 Blood Pressure [Right Arm] 148/74 O2 Sat by Pulse Oximetry 99 Oriented: Person Ear: Normal Nose: Normal Throat: Normal Respiratory: Diminished Throughout Cardiovascular: Tachycardia : Normal Auscultation: Bowel Sounds: Normal Palpation: Normal Tenderness: Suprapubic, Mild. negative: Rebound, Guarding, Rigidity Skin: Normal Musculoskeletal: Normal Psychiatric: Normal Mood Description: Calm Affect: Normal Speech Pattern: Clear - Assessment/Plan (1) Dehydration Status: Acute Plan: NS AT 125ML/HR, CONTINUE TO MONITOR (2) Urinary tract infection Qualifiers: Urinary tract infection type: acute cystitis Hematuria presence: without hematuria Qualified Code(s): N30.00 - Acute cystitis without hematuria Status: Acute Plan: ZOSYN 3.375G IV TID, DIFLUCAN 200MG IV DAILY, CONTINUE TO MONITOR (3) Yeast UTI Status: Acute (4) Altered mental status Status: Acute (5) Weakness Status: Acute - Allergies Allergies/Adverse Reactions: Allergies Allergy/AdvReac Type Severity Reaction Status Date / Time fentanyl Allergy Severe CARDIAC Verified 10/25/19 21:05 ARREST cefaclor Allergy Mild Verified 10/25/19 21:05 pentazocine Allergy Mild Verified 10/25/19 21:05 Sulfa (Sulfonamide Allergy Mild Verified 10/25/19 21:05 Antibiotics) [SULFA] prednisone AdvReac Mild Verified 10/25/19 21:05
[2020-02-05] MEDS: ZOSYN VIAL 3.375 GRAMS 3.375 G in NS 100 ML IV 100 ML IV SCH ×2 (15:46→21:46)
[2020-02-05] MEDS ORDERED: SNACK - Diabetic Appropriate PO SCH (20:00)
[2020-02-05] MEDS: RESTORIL CAP 15 MG PO PRN (21:49)
[2020-02-06] MEDS: NS 1000 ML 1,000 ML IV SCH (02:40)
[2020-02-06] MEDS: ZOSYN VIAL 3.375 GRAMS 3.375 G in NS 100 ML IV 100 ML IV SCH (05:32)
[2020-02-06 05:43] LABS: BASOPHILS % (AUTO) 0.2 % (0.2-1.0); EOSINOPHILS # (AUTO) 0.2 x10^3/uL (0.0-0.2); EOSINOPHILS % (AUTO) 2.2 % (0.9-2.9); HEMATOCRIT 25.9 % (36.0-47.0); HEMOGLOBIN 9.2 g/dL (12.0-16.0); LYMPHOCYTES # (AUTO) 1.2 X10^3/uL (1.3-2.9); LYMPHOCYTES % (AUTO) 15.7 % (21.0-51.0); MEAN CORPUSCULAR HEMOGLOBIN 32.9 pg (27.0-34.0); MEAN CORPUSCULAR HGB CONC 35.3 g/dL (33.0-35.0); MEAN PLATELET VOLUME 7.4 fL (7.4-11.0); MONOCYTES # (AUTO) 0.7 x10^3/uL (0.3-0.8); MONOCYTES % (AUTO) 9.2 % (0.0-13.0); NEUTROPHILS # (AUTO) 5.4 x10^3/uL (2.2-4.8); NEUTROPHILS % (AUTO) 72.7 % (42.0-75.0); PLATELET COUNT 215 X10^3/uL (150.0-450.0); RED BLOOD COUNT 2.79 X10^6/uL (3.5-5.4); RED CELL DISTRIBUTION WIDTH 13.8 % (11.6-16.5); WHITE BLOOD COUNT 7.4 X10^3/uL (3.6-10.0)
[2020-02-06 05:56] LABS: ALANINE AMINOTRANSFERASE 18 Units/L (12-78); ALBUMIN 2.4 g/dL (3.4-5.0); ALKALINE PHOSPHATASE 55 Units/L (46-116); ASPARTATE AMINO TRANSFERASE 13 Units/L (15-37); BLOOD UREA NITROGEN 27 mg/dL (7-18); CALCIUM 7.4 mg/dL (8.5-10.1); CARBON DIOXIDE 23.4 mmol/L (21-32); CHLORIDE 109 mmol/L (98-107); COR CA(FOR HYPOALB) 8.7 mg/dL (8.5-10.1); CREATININE 1.13 mg/dL (0.55-1.02); SODIUM 143 mmol/L (136-145); TOTAL PROTEIN 4.9 g/dL (6.4-8.2); eGFR NON BLACK RACES 49 (>60)
[2020-02-06 06:04] LABS: BAND NEUTROPHILS % 5 % (0-10); PLATELET MORPHOLOGY COMMENT NORMAL (NORMAL)
[2020-02-06] MEDS: DIFLUCAN 200 MG IV PREMIX* 200 MG/100 ML BAG IV SCH (10:07)
[2020-02-06] MEDS ORDERED: NS 1000 ML 1,000 ML IV ONE (10:20)
[2020-02-06 12:34] VITALS: BP 154/65
== END 2020-02-06 13:30 | disposition home or self-care (01) ==
LOC: MED/SURG
PROVIDERS: ADMIT Internal Medicine; ATTEND Internal Medicine
DX: R94.4 Abnormal results of kidney function studies; I10 Essential (primary) hypertension; R10.84 Generalized abdominal pain; E86.0 Dehydration; B96.1 Klebsiella pneumoniae [K. pneumoniae] as the cause of diseases classified elsewhere; E11.65 Type 2 diabetes mellitus with hyperglycemia; N30.00 Acute cystitis without hematuria; D64.89 Other specified anemias; K31.84 Gastroparesis; B37.41 Candidal cystitis and urethritis; R41.82 Altered mental status, unspecified; R53.1 Weakness; E78.2 Mixed hyperlipidemia

== ENCOUNTER 2020-08-26 11:36 | Inpatient (IN) ==
[2020-08-26] MEDS ORDERED: NS 1000 ML 1,000 ML IV ONE ×2 (13:31)
[2020-08-26] MEDS ORDERED: HumuLIN R SUBCUT PRN (13:31)
[2020-08-26] MEDS ORDERED: NS 1000 ML 1,000 ML ONE (13:40)
[2020-08-26] MEDS: LEVAQUIN PREMIX IV 500 MG 500 MG/100 ML BAG IV SCH (14:30)
[2020-08-26 14:33] LABS: ABG BASE EXCESS -10.6 mmol/L (-2.0-2.0)
[2020-08-26 14:33] LABS: BASOPHILS % (AUTO) 0.6 % (0.2-1.0); EOSINOPHILS # (AUTO) 0.1 x10^3/uL (0.0-0.2); EOSINOPHILS % (AUTO) 1.6 % (0.9-2.9); HEMATOCRIT 31.4 % (36.0-47.0); HEMOGLOBIN 10.4 g/dL (12.0-16.0); LYMPHOCYTES # (AUTO) 2.1 X10^3/uL (1.3-2.9); LYMPHOCYTES % (AUTO) 28.8 % (21.0-51.0); MEAN CORPUSCULAR VOLUME 94.1 fL (80.0-100.0); MEAN PLATELET VOLUME 7.4 fL (7.4-11.0); MONOCYTES # (AUTO) 0.8 x10^3/uL (0.3-0.8); MONOCYTES % (AUTO) 10.7 % (0.0-13.0); NEUTROPHILS # (AUTO) 4.2 x10^3/uL (2.2-4.8); NEUTROPHILS % (AUTO) 58.3 % (42.0-75.0); PLATELET COUNT 296 X10^3/uL (150.0-450.0); RED BLOOD COUNT 3.34 X10^6/uL (3.5-5.4); RED CELL DISTRIBUTION WIDTH 15.4 % (11.6-16.5); WHITE BLOOD COUNT 7.2 X10^3/uL (3.6-10.0)
[2020-08-26 14:34] LABS: ABG ALLEN TEST POS; ABG HCO3 13.2 mmol/L (22-26)
[2020-08-26 14:47] LABS: ALANINE AMINOTRANSFERASE 19 Units/L (12-78); ALBUMIN 3.5 g/dL (3.4-5.0); ALKALINE PHOSPHATASE 72 Units/L (46-116); ASPARTATE AMINO TRANSFERASE 16 Units/L (15-37); BLOOD UREA NITROGEN 30 mg/dL (7-18); CALCIUM 8.1 mg/dL (8.5-10.1); CARBON DIOXIDE 17.6 mmol/L (21-32); CHLORIDE 114 mmol/L (98-107); CREATININE 1.36 mg/dL (0.55-1.02); SODIUM 149 mmol/L (136-145); TOTAL PROTEIN 7.2 g/dL (6.4-8.2); eGFR NON BLACK RACES 40 (>60)
[2020-08-26] MEDS: NS 1000 ML 1,000 ML with SODIUM BICARBONATE 8.4% INJ ADULT 50 ML IV SCH ×4 (15:15→21:48)
[2020-08-26 15:37] LABS: BILIRUBIN,URINE NEGATIVE (NEGATIVE); BLOOD/HEMOGLOBIN,URINE NEGATIVE (NEGATIVE); GLUCOSE, URINE NEGATIVE (NEGATIVE); KETONES,URINE NEGATIVE (NEGATIVE); LEUKOCYTE ESTERASE ,URINE 3+ (NEGATIVE); NITRITES,URINE NEGATIVE (NEGATIVE); PROTEIN,URINE 1+ (NEGATIVE); UROBILINOGEN,URINE NORMAL (NORMAL)
[2020-08-26 15:59] VITALS: BMI 21.0
[2020-08-26 16:26] LABS: APPEARANCE,URINE SLIGHTLY HAZY (CLEAR); COLOR,URINE YELLOW (YELLOW)
[2020-08-26 16:27] LABS: BACTERIA,URINE 1+ /HPF (NEGATIVE); RBC,URINE 0-2 /HPF (0-3); SQUAMOUS EPITHELIAL CELL,UR MODERATE /HPF (NEGATIVE)
[2020-08-26] MEDS: RESTORIL CAP 15 MG PO PRN (20:48)
[2020-08-26] MEDS: SNACK - Diabetic Appropriate PO SCH (20:50)
[2020-08-27 05:49] LABS: ABG BASE EXCESS -1.2 mmol/L (-2.0-2.0); ABG HCO3 20.1 mmol/L (22-26)
[2020-08-27 05:50] LABS: ABG ALLEN TEST POS
[2020-08-27] MEDS: NS 1000 ML 1,000 ML with SODIUM BICARBONATE 8.4% INJ ADULT 50 ML IV SCH ×4 (05:57→14:57)
[2020-08-27 06:31] LABS: BASOPHILS % (AUTO) 0.4 % (0.2-1.0); EOSINOPHILS # (AUTO) 0.1 x10^3/uL (0.0-0.2); HEMATOCRIT 23.7 % (36.0-47.0); HEMOGLOBIN 8.2 g/dL (12.0-16.0); LYMPHOCYTES # (AUTO) 1.7 X10^3/uL (1.3-2.9); LYMPHOCYTES % (AUTO) 30.6 % (21.0-51.0); MEAN CORPUSCULAR HEMOGLOBIN 31.9 pg (27.0-34.0); MEAN CORPUSCULAR HGB CONC 34.7 g/dL (33.0-35.0); MEAN CORPUSCULAR VOLUME 91.8 fL (80.0-100.0); MEAN PLATELET VOLUME 7.1 fL (7.4-11.0); MONOCYTES # (AUTO) 0.6 x10^3/uL (0.3-0.8); MONOCYTES % (AUTO) 11.2 % (0.0-13.0); NEUTROPHILS # (AUTO) 3.1 x10^3/uL (2.2-4.8); NEUTROPHILS % (AUTO) 55.8 % (42.0-75.0); PLATELET COUNT 250 X10^3/uL (150.0-450.0); RED BLOOD COUNT 2.58 X10^6/uL (3.5-5.4); RED CELL DISTRIBUTION WIDTH 15.2 % (11.6-16.5); WHITE BLOOD COUNT 5.5 X10^3/uL (3.6-10.0)
[2020-08-27 07:07] LABS: ALANINE AMINOTRANSFERASE 16 Units/L (12-78); ALBUMIN 2.6 g/dL (3.4-5.0); ALKALINE PHOSPHATASE 58 Units/L (46-116); ASPARTATE AMINO TRANSFERASE 15 Units/L (15-37); BLOOD UREA NITROGEN 17 mg/dL (7-18); CALCIUM 6.7 mg/dL (8.5-10.1); CARBON DIOXIDE 24.2 mmol/L (21-32); CHLORIDE 113 mmol/L (98-107); COR CA(FOR HYPOALB) 7.8 mg/dL (8.5-10.1); CREATININE 1.08 mg/dL (0.55-1.02); SODIUM 147 mmol/L (136-145); TOTAL PROTEIN 5.3 g/dL (6.4-8.2); eGFR NON BLACK RACES 52 (>60)
[2020-08-27] MEDS ORDERED: MICRO K EXTEN CAP 10 MEQ PO PRN (07:41)
[2020-08-27] MEDS ORDERED: K-RIDER 10 MEQ/NS 100 ML 10 MEQ/100 ML BAG IV PRN (07:41)
[2020-08-27] MEDS ORDERED: KLOR-CON PO PRN (07:41)
[2020-08-27] MEDS ORDERED: POTASSIUM CHLORIDE LIQ 20 MEQ UDC PO PRN (07:41)
[2020-08-27] MEDS ORDERED: POTASSIUM CHL 60 MEQ/NS 0.45% 500 ML IV PRN (07:41)
[2020-08-27] MEDS ORDERED: POTASSIUM CHL 40 MEQ/NS 0.45% 500 ML IV PRN (07:41)
[2020-08-27] MEDS ORDERED: LEVSIN SYRUP PO PRN (08:34)
[2020-08-27] MEDS ORDERED: MARINOL PO SCH (09:00)
[2020-08-27] MEDS: K-DUR TAB 20 MEQ PO PRN (09:31)
[2020-08-27] MEDS: CARAFATE PO SCH ×2 (09:31→20:14)
[2020-08-27] MEDS: CITRACAL + VITAMIN D PO SCH (09:31)
[2020-08-27] MEDS: LIPITOR TAB 40 MG PO SCH (09:32)
[2020-08-27] MEDS: LINZESS PO SCH (09:32)
[2020-08-27] MEDS: LEVAQUIN PREMIX IV 500 MG 500 MG/100 ML BAG IV SCH (09:32)
[2020-08-27] MEDS: ELAVIL PO SCH ×2 (09:32→20:14)
[2020-08-27] MEDS: COZAAR PO SCH (09:32)
[2020-08-27] MEDS: LOVAZA PO SCH (09:33)
[2020-08-27] MEDS: SYNTHROID 100 mcg TAB PO SCH (09:33)
[2020-08-27] MEDS: PROTONIX TAB 40 MG PO SCH (09:33)
[2020-08-27] MEDS: LOPRESSOR TAB 25 MG PO SCH ×2 (09:33→20:14)
[2020-08-27] MEDS: TAB-A-VITE PO SCH (09:33)
[2020-08-27] MEDS ORDERED: ZOFRAN INJ 4 MG VIAL IVP PRN (12:01)
[2020-08-27] MEDS ORDERED: FIORICET TAB PO PRN (12:01)
--- NOTE | 2020-08-27 12:01 | DR.H&P ---
H&P - History & Physical for Day of: H&P Date: 08/26/20 - Chief Complaint Chief Complaint: WEAKNESS, SOB, NAUSEA, DIARRHEA, ABDOMINAL PAIN, UTI - History of Present Illness History of Present Illness: IS A 80 YEAR OLD PATIENT OF OURS. SHE PRESENTED TO THE HOSPITAL A DIRECT ADMISSION DUE TO COMPLAINTS OF WEAKNESS, SHORTNESS OF BREATH, NAUSEA, DIARRHEA, AND LOWER ABDOMINAL PAIN. SYMPTOMS REPORTEDLY STARTED ON 08/12/20 AND HAVE PROGRESSIVELY GOTTEN WORSE. SHE BEGAN TREATMENT WITH LEVAQUIN FOR A URINARY TRACT INFECTION ON 08/24/20. SHE HAS A PMH OF GASTROPARESIS, HTN, AND DYSLIPIDEMIA. ON ARRIVAL TO THE HOSPITAL, VITALS WERE 97.9-100-20-96%-167/72. LABS WERE OBTAINED. ABNORMAL LAB VALUES INCLUDE THE FOLLOWING: RBC 3.34, HGB 10.4, HCT 31.4, SODIUM 149, CHLORIDE 114, CARBON DIOXIDE 17.6, BUN 30, CREATININE 1.36, CALCIUM 8.1, TOTAL BILI 0.10. URINALYSIS WAS REPEATED AND REVEALED: WBC 10-20, RBC 0-2, LEUKOCYTES 3+, BACTERIA 1+. ACETONES NEGATIVE. COVID-19 NEGATIVE. AN ABG WAS OBTAINED AND REVEALED: PH 7.350, PC02 24.0, P02 119, HC03 13.2, 02 SAT 98, FI02 21.0. A URINE CULTURE WAS SET UP. SHE WAS GIVEN TWO, ONE LITER NORMAL SALINE BOLUSES ON ADMISSION. SHE WAS THEN STARTED ON NORMAL SALINE WITH ONE AMP OF BICARB IN EACH LITER AT 150ML/HR, LEVAQUIN 500MG IV DAILY, THE POTASSIUM AND MAGNESIUM PROTOCOLS, HUMULIN R SLIDING SCALE, AND HER HOME MEDICATIONS OF ELAVIL, LIPITOR, BENTYL, MARINOL, LEVSIN, SYNTHROID, LINZESS, COZAAR, LOPRESSOR, MULTIVITAMINS, LOVAZA, PROTONIX, AND CARAFATE WERE RESUMED. OTHERWISE, WE PLAN TO FOLLOW UP WITH AM LABS AND CONTINUE TO MONITOR. - Past Medical History Past Medical History: Hypertension, Dyslipidemia, Diabetes, Hypothyroidism, GERD Additional Medical History: GASTROPARESIS - Past Surgical History Surgical History: Abdominal Surgery, Other - Family History Family Medical History: Cancer, Coronary Artery Disease - Social History Does any household member use tobacco: No Alcohol Use: None Drug Use: None - Medications Home Medications: fentanyl Allergy (Severe, Verified 10/01/20 17:27) CARDIAC ARREST cefaclor Allergy (Mild, Verified 07/17/20 17:27) pentazocine Allergy (Mild, Verified 07/17/20 17:27) Sulfa (Sulfonamide Antibiotics) [SULFA] Allergy (Mild, Verified 07/17/20 17:27) prednisone Adverse Reaction (Mild, Verified 07/17/20 17:27) - Review of Systems Constitutional: Weakness Eyes: No Symptoms Reported ENT: No Symptoms Reported Respiratory: Shortness of Breath Cardiovascular: No Symptoms Reported Gastrointestinal: No Symptoms Reported, Nausea, Abdominal Pain, Diarrhea Genitourinary: Dysuria Musculoskeletal: No Symptoms Reported Skin: No Symptoms Reported Neurological: Weakness - Physical Exam Vital Signs: Temperature 98.3 F Pulse Rate [Bilateral Radial] 76 Respiratory Rate 20 Blood Pressure [Right Arm] 139/66 Blood Pressure [Left Arm] 132/72 O2 Sat by Pulse Oximetry 99 Oriented: Normal Eyes: Normal Ear: Normal Nose: Normal Throat: Normal Respiratory: Diminished Throughout Cardiovascular: Normal : Normal Auscultation: Bowel Sounds: Normal Palpation: Normal Tenderness: Suprapubic Skin: Normal Musculoskeletal: Normal Psychiatric: Normal Mood Description: Calm Affect: Normal Speech Pattern: Clear - Assessment/Plan (1) Urinary tract infection Qualifiers: Urinary tract infection type: acute cystitis Hematuria presence: without hematuria Qualified Code(s): N30.00 - Acute cystitis without hematuria Status: Acute Plan: ADMIT, NORMAL SALINE WITH ONE AMP OF BICARB IN EACH LITER AT 150ML/HR, LEVAQUIN 500MG IV DAILY, THE POTASSIUM AND MAGNESIUM PROTOCOLS, HUMULIN R SLIDING SCALE, AND HER HOME MEDICATIONS OF ELAVIL, LIPITOR, BENTYL, MARINOL, LEVSIN, SYNTHROID, LINZESS, COZAAR, LOPRESSOR, MULTIVITAMINS, LOVAZA, PROTONIX, AND CARAFATE WERE RESUMED (2) Metabolic acidosis Status: Acute - Allergies Allergies/Adverse Reactions: Allergies Allergy/AdvReac Type Severity Reaction Status Date / Time fentanyl Allergy Severe CARDIAC Verified 07/17/20 17:27 ARREST cefaclor Allergy Mild Verified 07/17/20 17:27 pentazocine Allergy Mild Verified 07/17/20 17:27 Sulfa (Sulfonamide Allergy Mild Verified 07/17/20 17:27 Antibiotics) [SULFA] prednisone AdvReac Mild Verified 07/17/20 17:27
[2020-08-27] MEDS: BENTYL CAP 10 MG PO SCH ×2 (13:32→21:38)
[2020-08-27] MEDS: SNACK - Diabetic Appropriate PO SCH (20:10)
[2020-08-27] MEDS: MARINOL PO SCH (20:12)
[2020-08-27] MEDS: RESTORIL CAP 15 MG PO PRN (20:15)
[2020-08-27] MEDS: MAGNESIUM SULFATE 1 GRAM/100 mL PREMIX 1 GM/100 ML BAG IV PRN ×2 (22:18→23:20)
[2020-08-28] MEDS: MAGNESIUM SULFATE 1 GRAM/100 mL PREMIX 1 GM/100 ML BAG IV PRN ×4 (00:33→04:03)
[2020-08-28] MEDS: BENTYL CAP 10 MG PO SCH ×3 (05:38→22:30)
[2020-08-28] MEDS: NS 1000 ML 1,000 ML with SODIUM BICARBONATE 8.4% INJ ADULT 50 ML IV SCH ×2 (05:38)
[2020-08-28 06:19] LABS: BASOPHILS % (AUTO) 0.4 % (0.2-1.0); EOSINOPHILS # (AUTO) 0.1 x10^3/uL (0.0-0.2); EOSINOPHILS % (AUTO) 2.2 % (0.9-2.9); HEMATOCRIT 26.1 % (36.0-47.0); LYMPHOCYTES # (AUTO) 1.8 X10^3/uL (1.3-2.9); LYMPHOCYTES % (AUTO) 29.1 % (21.0-51.0); MEAN CORPUSCULAR HEMOGLOBIN 31.7 pg (27.0-34.0); MEAN CORPUSCULAR HGB CONC 34.6 g/dL (33.0-35.0); MEAN CORPUSCULAR VOLUME 91.8 fL (80.0-100.0); MONOCYTES # (AUTO) 0.6 x10^3/uL (0.3-0.8); MONOCYTES % (AUTO) 10.2 % (0.0-13.0); NEUTROPHILS # (AUTO) 3.6 x10^3/uL (2.2-4.8); NEUTROPHILS % (AUTO) 58.1 % (42.0-75.0); PLATELET COUNT 264 X10^3/uL (150.0-450.0); RED BLOOD COUNT 2.85 X10^6/uL (3.5-5.4); RED CELL DISTRIBUTION WIDTH 15.2 % (11.6-16.5); WHITE BLOOD COUNT 6.3 X10^3/uL (3.6-10.0)
[2020-08-28 06:21] LABS: ABG BASE EXCESS 0.2 mmol/L (-2.0-2.0); ABG HCO3 22.3 mmol/L (22-26)
[2020-08-28 06:22] LABS: ABG ALLEN TEST POS
[2020-08-28 06:35] LABS: ALANINE AMINOTRANSFERASE 20 Units/L (12-78); ALBUMIN 2.7 g/dL (3.4-5.0); ALKALINE PHOSPHATASE 66 Units/L (46-116); ASPARTATE AMINO TRANSFERASE 17 Units/L (15-37); BLOOD UREA NITROGEN 12 mg/dL (7-18); CALCIUM 6.9 mg/dL (8.5-10.1); CARBON DIOXIDE 23.1 mmol/L (21-32); CHLORIDE 111 mmol/L (98-107); COR CA(FOR HYPOALB) 7.9 mg/dL (8.5-10.1); CREATININE 0.92 mg/dL (0.55-1.02); SODIUM 144 mmol/L (136-145); TOTAL PROTEIN 5.6 g/dL (6.4-8.2); eGFR NON BLACK RACES > 60 (>60)
[2020-08-28] MEDS: MARINOL PO SCH ×2 (08:30→21:50)
[2020-08-28] MEDS: CARAFATE PO SCH ×2 (08:30→21:50)
[2020-08-28] MEDS: LEVAQUIN PREMIX IV 500 MG 500 MG/100 ML BAG IV SCH (08:55)
[2020-08-28] MEDS: SYNTHROID 100 mcg TAB PO SCH (08:56)
[2020-08-28] MEDS: CITRACAL + VITAMIN D PO SCH (08:56)
[2020-08-28] MEDS: LIPITOR TAB 40 MG PO SCH (08:56)
[2020-08-28] MEDS: TAB-A-VITE PO SCH (08:57)
[2020-08-28] MEDS: LOVAZA PO SCH (08:58)
[2020-08-28] MEDS: COZAAR PO SCH (08:58)
[2020-08-28] MEDS: LINZESS PO SCH (08:58)
[2020-08-28] MEDS: PROTONIX TAB 40 MG PO SCH (08:58)
[2020-08-28] MEDS: LOPRESSOR TAB 25 MG PO SCH ×2 (08:58→21:49)
[2020-08-28] MEDS: K-DUR TAB 20 MEQ PO PRN (10:53)
[2020-08-28] MEDS: NS 1000 ML 1,000 ML IV SCH ×2 (10:54→23:00)
--- NOTE | 2020-08-28 11:18 | RAD ---
HISTORYSOBSTUDYCHEST x-ray, 1 VIEWCOMPARISONX-ray 08/24/2020FINDINGSPort catheter terminates in the region of the mid SVC. No pneumothorax, focal infiltrate, or pleural effusion is seen. Likely minimal linear atelectasis in the lingula.IMPRESSIONLikely minimal linear atelectasis in the lingula.Electronically signed by: Blu Cazares (Aug 28, 2020 11:16:33)
[2020-08-28] MEDS: SNACK - Diabetic Appropriate PO SCH (20:30)
[2020-08-28] MEDS: ELAVIL PO SCH (21:50)
[2020-08-28] MEDS: RESTORIL CAP 15 MG PO PRN (21:52)
[2020-08-29] MEDS: BENTYL CAP 10 MG PO SCH (05:27)
--- NOTE | 2020-08-29 05:50 | RAD ---
HISTORYSOBSTUDYCHEST, 1 [id number]/12/2020FINDINGSThe trachea is midline. The cardiac silhouette is upper limits of normal.. No new consolidation.. The bony thorax is unremarkable. Left chest wall MediPort unchanged in position.IMPRESSIONNo significant interval change.Electronically signed by: Madelyn Wright (Aug 29, 2020 05:48:48)
[2020-08-29 07:07] LABS: BASOPHILS % (AUTO) 0.3 % (0.2-1.0); EOSINOPHILS # (AUTO) 0.1 x10^3/uL (0.0-0.2); EOSINOPHILS % (AUTO) 2.1 % (0.9-2.9); HEMATOCRIT 23.5 % (36.0-47.0); HEMOGLOBIN 8.1 g/dL (12.0-16.0); LYMPHOCYTES # (AUTO) 1.7 X10^3/uL (1.3-2.9); LYMPHOCYTES % (AUTO) 26.7 % (21.0-51.0); MEAN CORPUSCULAR HEMOGLOBIN 31.6 pg (27.0-34.0); MEAN CORPUSCULAR HGB CONC 34.4 g/dL (33.0-35.0); MEAN CORPUSCULAR VOLUME 91.9 fL (80.0-100.0); MEAN PLATELET VOLUME 7.1 fL (7.4-11.0); MONOCYTES # (AUTO) 0.7 x10^3/uL (0.3-0.8); MONOCYTES % (AUTO) 10.3 % (0.0-13.0); NEUTROPHILS # (AUTO) 3.9 x10^3/uL (2.2-4.8); NEUTROPHILS % (AUTO) 60.6 % (42.0-75.0); PLATELET COUNT 233 X10^3/uL (150.0-450.0); RED BLOOD COUNT 2.55 X10^6/uL (3.5-5.4); RED CELL DISTRIBUTION WIDTH 14.8 % (11.6-16.5); WHITE BLOOD COUNT 6.4 X10^3/uL (3.6-10.0)
[2020-08-29 07:13] LABS: ALANINE AMINOTRANSFERASE 19 Units/L (12-78); ALBUMIN 2.3 g/dL (3.4-5.0); ALKALINE PHOSPHATASE 56 Units/L (46-116); ASPARTATE AMINO TRANSFERASE 19 Units/L (15-37); BLOOD UREA NITROGEN 11 mg/dL (7-18); CALCIUM 6.6 mg/dL (8.5-10.1); CARBON DIOXIDE 22.2 mmol/L (21-32); CHLORIDE 111 mmol/L (98-107); CREATININE 0.99 mg/dL (0.55-1.02); SODIUM 145 mmol/L (136-145); TOTAL PROTEIN 5.2 g/dL (6.4-8.2); eGFR NON BLACK RACES 57 (>60)
--- NOTE | 2020-08-29 08:30 | PCM.PROG ---
Progress Note - Progress Note for Day of Date of Exam: 08/28/20 - Subjective Subjective: WAS ADMITTED FOR TREATMENT OF A URINARY TRACT INFECTION, SHORTNESS OF BREATH, AND METABOLIC ACIDOSIS. TODAY, SHE IS ALERT AND ORIENTED, LYING IN BED ON MORNING ROUNDS. SHE CONTINUES WITH COMPLAINTS OF SHORTNESS OF BREATH AND WEAKNESS TODAY. ON EXAMINATION, HEART IS REGULAR IN RATE AND RHYTHM. LUNGS ARE NOTED WITH DIMINISHED LUNG SOUNDS THROUGHOUT. ABDOMEN IS ROUND, SOFT, AND NOTED WITH SUPRAPUBIC TENDERNESS. HER VITALS THIS MORNING ARE: 98.8-62-18-100%-135/62. LABS WERE OBTAINED. ABNORMAL LAB VALUES INCLUDE THE FOLLOWING: RBC 2.85, HGB 9.0, HCT 26.1, POTASSIUM 3.4, CHLORIDE 111, GLUCOSE 101, CALCIUM 6.9, MAGNESIUM 3.0, TOTAL BILI 0.10, TOTAL PROTEIN 5.6, ALBUMIN 2.7. AN ABG WAS REPEATED AND REVEALED: PH 7.510, PC02 28.0, P02 93.0, HC03 22.3, 02 SAT 98.0, FI02 21.0. A CHEST XRAY WAS OBTAINED AND REVEALED: Likely minimal linear atelectasis in the lingula. SHE IS CURRENTLY RECEIVING NS AT 50 ML/HR, THE POTASSIUM AND MAGNESIUM PROTOCOLS, ZOFRAN 4MG IV Q4H PRN, HUMULIN R SLIDIDNG SCALE, LEVAQUIN 500MG IV DAILY, AND HER HOME MEDICATIOSN WERE RESUMED. WE WILL CONTINUE WITH DISCONTINUE THE BICARB IN HER IV FLUIDS TODAY. OTHERWISE, WE WILL FOLLOW UP WITH AM LABS AND CONTINUE TO MONITOR. - Past Medical Family Social History Past Med/Fam/Surg Hx: No changes since H&P Allergies: Allergies fentanyl Allergy (Severe, Verified 07/17/20 17:27) CARDIAC ARREST cefaclor Allergy (Mild, Verified 07/17/20 17:27) pentazocine Allergy (Mild, Verified 07/17/20 17:27) Sulfa (Sulfonamide Antibiotics) [SULFA] Allergy (Mild, Verified 07/17/20 17:27) prednisone Adverse Reaction (Mild, Verified 07/17/20 17:27) - Review of Systems ROS: No change since H&P - Vital Signs and I&O's Vital Signs: Temperature 98.8 F Pulse Rate [Right Brachial] 100 Pulse Rate [Bilateral Radial] 62 Respiratory Rate 18 Blood Pressure [Right Arm] 155/55 Blood Pressure [Left Arm] 132/72 O2 Sat by Pulse Oximetry 98 Intake and Output: Intake & Output 08/26/20 08/27/20 08/28/20 08/29/20 11:59 11:59 11:59 11:59 Intake Total 4145 / 4145 3711 / 3711 3296 / 3296 Balance 4145 / 4145 3711 / 3711 3296 / 3296 - Physical Exam Oriented: Normal Eyes: Normal Ear: Normal Nose: Normal Throat: Normal Respiratory: Generalized, Diminished Cardiovascular: Normal : Normal Auscultation: Bowel Sounds: Normal Palpation: Normal Tenderness: Suprapubic Skin: Normal Musculoskeletal: Normal Psychiatric: Normal Mood Description: Calm Affect: Normal Speech Pattern: Clear, Appropriate - Laboratory and Diagnostics Result Diagrams: 08/29/20 05:58 08/29/20 05:58 Labs: 08/26/20 15:11 Urine,Clean Catch Urine Culture - Final Laboratory WBC 6.4 X10^3/uL (3.6-10.0) 08/29/20 05:58 RBC 2.55 X10^6/uL (3.5-5.4) L 08/29/20 05:58 Hgb 8.1 g/dL (12.0-16.0) L 08/29/20 05:58 Hct 23.5 % (36.0-47.0) L 08/29/20 05:58 MCV 91.9 fL (80.0-100.0) 08/29/20 05:58 MCH 31.6 pg (27.0-34.0) 08/29/20 05:58 MCHC 34.4 g/dL (33.0-35.0) 08/29/20 05:58 RDW 14.8 % (11.6-16.5) 08/29/20 05:58 Plt Count 233 X10^3/uL (150.0-450.0) 08/29/20 05:58 MPV 7.1 fL (7.4-11.0) L 08/29/20 05:58 Neut % (Auto) 60.6 % (42.0-75.0) 08/29/20 05:58 Lymph % (Auto) 26.7 % (21.0-51.0) 08/29/20 05:58 [place] % (Auto) 10.3 % (0.0-13.0) 08/29/20 05:58 Eos % (Auto) 2.1 % (0.9-2.9) 08/29/20 05:58 Baso % (Auto) 0.3 % (0.2-1.0) 08/29/20 05:58 Neut # (Auto) 3.9 x10^3/uL (2.2-4.8) 08/29/20 05:58 Lymph # (Auto) 1.7 X10^3/uL (1.3-2.9) 08/29/20 05:58 [place] # (Auto) 0.7 x10^3/uL (0.3-0.8) 08/29/20 05:58 Eos # (Auto) 0.1 x10^3/uL (0.0-0.2) 08/29/20 05:58 Baso # (Auto) 0.0 X10^3/uL (0.0-0.1) 08/29/20 05:58 Absolute Nucleated RBC 0.0 /100WBC 08/29/20 05:58 Sample Site Rrad 08/28/20 06:19 ABG pH 7.510 (7.35-7.45) H 08/28/20 06:19 ABG pCO2 28.0 mmHg (35.0-45.0) L 08/28/20 06:19 ABG pO2 93.0 mmHg (80.0-100.0) 08/28/20 06:19 ABG HCO3 22.3 mmol/L (22-26) 08/28/20 06:19 ABG O2 Saturation 98.0 % (90-100) 08/28/20 06:19 ABG Base Excess 0.2 mmol/L (-2.0-2.0) 08/28/20 06:19 Will Test Pos 08/28/20 06:19 A-a Gradient 22.0 mmHg 08/28/20 06:19 FiO2 21.0 08/28/20 06:19 Blood Gas Comments Rosario abg well-mtf 08/28/20 06:19 Sodium 145 mmol/L (136-145) 08/29/20 05:58 Corrected Sodium TNP 08/29/20 05:58 Potassium 3.0 mmol/L (3.5-5.1) L* 08/29/20 05:58 Chloride 111 mmol/L (98-107) H 08/29/20 05:58 Carbon Dioxide 22.2 mmol/L (21-32) 08/29/20 05:58 BUN 11 mg/dL (7-18) 08/29/20 05:58 Creatinine 0.99 mg/dL (0.55-1.02) 08/29/20 05:58 Est GFR (MDRD) Af Amer > 60 (>60) 08/29/20 05:58 Est GFR (MDRD) Non-Af 57 (>60) L 08/29/20 05:58 Glucose 87 mg/dL (65-99) 08/29/20 05:58 POC Glucose (mg/dL) 83 mg/dL (65-99) 08/29/20 05:20 Calcium 6.6 mg/dL (8.5-10.1) L 08/29/20 05:58 Corrected Calcium 8.0 mg/dL (8.5-10.1) L 08/29/20 05:58 Magnesium 3.0 mg/dL (1.7-2.9) H 08/28/20 05:24 Total Bilirubin 0.10 mg/dL (0.2-1.0) L 08/29/20 05:58 AST 19 Units/L (15-37) 08/29/20 05:58 ALT 19 Units/L (12-78) 08/29/20 05:58 Alkaline Phosphatase 56 Units/L (46-116) 08/29/20 05:58 Total Protein 5.2 g/dL (6.4-8.2) L 08/29/20 05:58 Albumin 2.3 g/dL (3.4-5.0) L 08/29/20 05:58 Globulin 2.9 g/dL (2.5-4.5) 08/29/20 05:58 Albumin/Globulin Ratio 0.8 Ratio (1.1-2.1) L 08/29/20 05:58 Specimen Type Clean catch urine 08/26/20 15:11 Urine Color Yellow (YELLOW) 08/26/20 15:11 Urine Appearance Slightly hazy (CLEAR) 08/26/20 15:11 Urine pH 5.0 (5.0 - 8.0) 08/26/20 15:11 Ur Specific [place] 1.010 (1.000-1.030) 08/26/20 15:11 Urine Protein 1+ (NEGATIVE) 08/26/20 15:11 Urine Glucose (UA) Negative (NEGATIVE) 08/26/20 15:11 Urine Ketones Negative (NEGATIVE) 08/26/20 15:11 Urine Occult Blood Negative (NEGATIVE) 08/26/20 15:11 Urine Nitrite Negative (NEGATIVE) 08/26/20 15:11 Urine Bilirubin Negative (NEGATIVE) 08/26/20 15:11 Urine Acetone Negative (NEGATIVE) 08/26/20 15:11 Urine Urobilinogen Normal (NORMAL) 08/26/20 15:11 Ur Leukocyte Esterase 3+ (NEGATIVE) 08/26/20 15:11 Urine RBC 0-2 /HPF (0-3) 08/26/20 15:11 Urine WBC 10-20 /HPF (0-5) A 08/26/20 15:11 Ur Squamous Epith Cells Moderate /HPF (NEGATIVE) 08/26/20 15:11 Urine Bacteria 1+ /HPF (NEGATIVE) 08/26/20 15:11 Ur Culture Indicated? Yes/culture set up 08/26/20 15:11 SARS-CoV-2 (PCR) Negative (NEGATIVE) 08/26/20 15:00 - Plan (1) Urinary tract infection Status: Acute Qualifiers: Urinary tract infection type: acute cystitis Hematuria presence: without hematuria Qualified Code(s): N30.00 - Acute cystitis without hematuria Plan: NORMAL SALINE AT 150ML/HR, LEVAQUIN 500MG IV DAILY, THE POTASSIUM AND MAGNESIUM PROTOCOLS, HUMULIN R SLIDING SCALE, AND HER HOME MEDICATIONS OF ELAVIL, LIPITOR, BENTYL, MARINOL, LEVSIN, SYNTHROID, LINZESS, COZAAR, LOPRESSOR, MULTIVITAMINS, LOVAZA, PROTONIX, AND CARAFATE WERE RESUMED (2) Metabolic acidosis Status: Acute (3) SOB (shortness of breath) Status: Acute
[2020-08-29] MEDS: PROTONIX TAB 40 MG PO SCH (09:20)
[2020-08-29] MEDS: SYNTHROID 100 mcg TAB PO SCH (09:20)
[2020-08-29] MEDS: CITRACAL + VITAMIN D PO SCH (09:20)
[2020-08-29] MEDS: TAB-A-VITE PO SCH (09:20)
[2020-08-29] MEDS: LOPRESSOR TAB 25 MG PO SCH (09:21)
[2020-08-29] MEDS: MARINOL PO SCH (09:21)
[2020-08-29] MEDS: LOVAZA PO SCH (09:21)
[2020-08-29] MEDS: LIPITOR TAB 40 MG PO SCH (09:22)
[2020-08-29] MEDS: COZAAR PO SCH (09:22)
[2020-08-29] MEDS: LEVAQUIN PREMIX IV 500 MG 500 MG/100 ML BAG IV SCH (09:22)
[2020-08-29] MEDS: LINZESS PO SCH (09:22)
[2020-08-29] MEDS: CARAFATE PO SCH (09:22)
[2020-08-29 09:55] VITALS: BP 124/60
== END 2020-08-29 11:30 | disposition home health service (06) | DRG 690 ==
LOC: MED/SURG
PROVIDERS: ADMIT Internal Medicine; ATTEND Internal Medicine
DX: Z20.828 Contact with and (suspected) exposure to other viral communicable diseases; E87.2 Acidosis; R06.02 Shortness of breath; R94.4 Abnormal results of kidney function studies; E87.5 Hyperkalemia; I10 Essential (primary) hypertension; E78.2 Mixed hyperlipidemia; N30.00 Acute cystitis without hematuria; B96.29 Other Escherichia coli [E. coli] as the cause of diseases classified elsewhere

== ENCOUNTER 2021-06-05 23:49 | Inpatient (IN) ==
--- NOTE | 2021-06-06 00:08 | DR.CP ---
HPI Time Seen Time Seen by Provider: 06/06/21 00:04 PCP Primary Care Physician: Geovanni HPI Comment HPI Comment: PATIENT IS 81YR OLD FEMALE WITH CHEST PAIN ON AND OFF Complaint Chief Complaint Doctor Comments: CHEST PAIN. Chief Complaint:: chest pain off and on for 1 week. Saw MD on Tuesday and wore a monitor. Severe tonight , sharp, knife like radiating into back. Source History Provided: Patient Mode of Arrival Mode of Arrival: Wheelchair Timing Onset of Chief Complaint: 05/29/21 PMH PMH Past Medical History: Yes Past Medical History: Coronary Artery Disease and Hypertension Past Surgical History: Yes Surgical History: Other Past Surgical History Comment: several stomach surgeries Family History History of Family Medical Conditions: No Family Medical History: Cancer, [place], Coronary Artery Disease, Heart Failure, Sudden Cardiac and Hypertension Social History Does patient currently use any type of tobacco product: No Have you used tobacco products in the last 12 months: No Type of Tobacco Use: None Does any household member use tobacco: No Alcohol Use: None Do you use any recreational Drugs:: No Lives With: Spouse Lives Where: Home Infectious screening In the last 2 months have you had wt loss of >10#?: NO Have you had fever, night sweats or hemotysis?: No Have you traveled outside the country in the last 6 months?: No Isolation: Standard PE Vitals Vitals: Pulse Rate [Left] 87 Pulse Rate 86 Respiratory Rate 17 Blood Pressure [Right Arm] 129/64 Blood Pressure 117/61 O2 Sat by Pulse Oximetry 96 ROR Labs Reviewed Result Diagrams: 06/06/21 00:21 06/06/21 00:21 Laboratory: WBC 11.1 X10^3/uL (3.6-10.0) H 06/06/21 00:21 RBC 2.49 X10^6/uL (3.5-5.4) L 06/06/21 00:21 Hgb 8.2 g/dL (12.0-16.0) L 06/06/21 00:21 Hct 24.6 % (36.0-47.0) L 06/06/21 00:21 MCV 99.2 fL (80.0-100.0) 06/06/21 00:21 MCH 32.9 pg (27.0-34.0) 06/06/21 00:21 MCHC 33.2 g/dL (33.0-35.0) 06/06/21 00: RDW 14.5 % (11.6-16.5) 06/06/21 00:21 Plt Count 385 X10^3/uL (150.0-450.0) 06/06/21 00: Plt Count Comment Adequate (ADEQUATE) 06/06/21 00:21 MPV 7.9 fL (7.4-11.0) 06/06/21 00:21 Neut % (Auto) 71.1 % (42.0-75.0) 06/06/21 00:21 Lymph % (Auto) 16.7 % (21.0-51.0) L 06/06/21 00:21 [place] % (Auto) 11.1 % (0.0-13.0) 06/06/21 00:21 Eos % (Auto) 0.9 % (0.9-2.9) 06/06/21 00:21 Baso % (Auto) 0.2 % (0.2-1.0) 06/06/21 00:21 Neut # (Auto) 7.9 x10^3/uL (2.2-4.8) H 06/06/21 00:21 Lymph # (Auto) 1.9 X10^3/uL (1.3-2.9) 06/06/21 00:21 [place] # (Auto) 1.2 x10^3/uL (0.3-0.8) H 06/06/21 00:21 Eos # (Auto) 0.1 x10^3/uL (0.0-0.2) 06/06/21 00:21 Baso # (Auto) 0.0 X10^3/uL (0.0-0.1) 06/06/21 00:21 Absolute Nucleated RBC 0.0 /100WBC 06/06/21 00: Total Counted 100 06/06/21 00:21 Neutrophils % (Manual) 78 % (39-76) H 06/06/21 00:21 Lymphocytes % (Manual) 8 % (13-43) L 06/06/21 00:21 Monocytes % (Manual) 14 % (4-9) H 06/06/21 00:21 Plt Morphology Comment Normal (NORMAL) 06/06/21 00:21 RBC Morphology Normal (NORMAL) 06/06/21 00:21 PT 66.0 SECONDS (11.8-14.3) 06/06/21 02:47 INR Target Range - 06/06/21 02:47 INR 8.38 (0.8-1.3) H* 06/06/21 02:47 APTT 131.1 SECONDS (22.9-36.5) H 06/06/21 02:47 PTT Comment - 06/06/21 02:47 D-Dimer 5.27 ug/ml (0.0-0.57) H* 06/06/21 02:47 Sodium 137 mmol/L (136-145) 06/06/21 00:21 Corrected Sodium 138 mmol/L (136-145) 06/06/21 00:21 Potassium 4.4 mmol/L (3.5-5.1) 06/06/21 00:21 Chloride 105 mmol/L (98-107) 06/06/21 00:21 Carbon Dioxide 14.2 mmol/L (21-32) L* 06/06/21 00:21 BUN 54 mg/dL (7-18) H 06/06/21 00:21 Creatinine 1.95 mg/dL (0.55-1.02) H 06/06/21 00:21 Est GFR (MDRD) Af Amer 32 (>60) L 06/06/21 00:21 Est GFR (MDRD) Non-Af 26 (>60) L 06/06/21 00:21 Glucose 128 mg/dL (65-99) H 06/06/21 00:21 Calcium 7.9 mg/dL (8.5-10.1) L 06/06/21 00:21 Corrected Calcium 8.9 mg/dL (8.5-10.1) 06/06/21 00:21 Total Bilirubin 0.20 mg/dL (0.2-1.0) 06/06/21 00:21 AST 106 Units/L (15-37) H 06/06/21 00:21 ALT 104 Units/L (12-78) H 06/06/21 00:21 Alkaline Phosphatase 126 Units/L (46-116) H 06/06/21 00:21 Creatine Kinase 29 Units/L (26-192) 06/06/21 00:21 CK-MB (CK-2) < 1.0 ng/mL (0-4.0) 06/06/21 00:21 CK/CKMB % Calc 3.5 % (<4) 06/06/21 00:21 Troponin I < 0.02 ng/mL (0-1.5) 06/06/21 00:21 Total Protein 7.2 g/dL (6.4-8.2) 06/06/21 00:21 Albumin 2.7 g/dL (3.4-5.0) L 06/06/21 00:21 Globulin 4.5 g/dL (2.5-4.5) 06/06/21 00:21 Albumin/Globulin Ratio 0.6 Ratio (1.1-2.1) L 06/06/21 00:21 SARS CoV-2 RNA Rapid ASHLEY Negative (NEGATIVE) 06/06/21 04:58 Opioid Opioid Risk Tool Age (Adan box if 16-45): No History of Preadolescent Sexual Abuse: No Total: 0 Total Score Risk Category: Low Risk Copyright: [employer] HEL[employer] predicting aberrant behaviors
[2021-06-06 00:39] LABS: BASOPHILS % (AUTO) 0.2 % (0.2-1.0); EOSINOPHILS # (AUTO) 0.1 x10^3/uL (0.0-0.2); EOSINOPHILS % (AUTO) 0.9 % (0.9-2.9); PLATELET COUNT 385 X10^3/uL (150.0-450.0); RED BLOOD COUNT 2.49 X10^6/uL (3.5-5.4)
[2021-06-06 00:56] LABS: ALANINE AMINOTRANSFERASE 104 Units/L (12-78); ALBUMIN 2.7 g/dL (3.4-5.0); ALKALINE PHOSPHATASE 126 Units/L (46-116); ASPARTATE AMINO TRANSFERASE 106 Units/L (15-37); BLOOD UREA NITROGEN 54 mg/dL (7-18); CALCIUM 7.9 mg/dL (8.5-10.1); CHLORIDE 105 mmol/L (98-107); CKMB % 3.5 % (<4); COR CA(FOR HYPOALB) 8.9 mg/dL (8.5-10.1); COR NA(FOR HYPERGLY) 138 mmol/L (136-145); CREATINE KINASE 29 Units/L (26-192); CREATINE KINASE MB < 1.0 ng/mL (0-4.0); CREATININE 1.95 mg/dL (0.55-1.02); SODIUM 137 mmol/L (136-145); TOTAL PROTEIN 7.2 g/dL (6.4-8.2); TROPONIN I < 0.02 ng/mL (0-1.5); eGFR NON BLACK RACES 26 (>60)
[2021-06-06 00:57] LABS: HEMATOCRIT 24.6 % (36.0-47.0); HEMOGLOBIN 8.2 g/dL (12.0-16.0); LYMPHOCYTES # (AUTO) 1.9 X10^3/uL (1.3-2.9); LYMPHOCYTES % (AUTO) 16.7 % (21.0-51.0); MEAN CORPUSCULAR HEMOGLOBIN 32.9 pg (27.0-34.0); MEAN CORPUSCULAR HGB CONC 33.2 g/dL (33.0-35.0); MEAN CORPUSCULAR VOLUME 99.2 fL (80.0-100.0); MEAN PLATELET VOLUME 7.9 fL (7.4-11.0); MONOCYTES # (AUTO) 1.2 x10^3/uL (0.3-0.8); MONOCYTES % (AUTO) 11.1 % (0.0-13.0); NEUTROPHILS # (AUTO) 7.9 x10^3/uL (2.2-4.8); NEUTROPHILS % (AUTO) 71.1 % (42.0-75.0); RED CELL DISTRIBUTION WIDTH 14.5 % (11.6-16.5); WHITE BLOOD COUNT 11.1 X10^3/uL (3.6-10.0)
[2021-06-06 01:04] LABS: CARBON DIOXIDE 14.2 mmol/L (21-32)
[2021-06-06] MEDS ORDERED: ZOFRAN INJ 4 MG VIAL IVP ONE (01:11)
[2021-06-06] MEDS ORDERED: MORPHINE SULFATE INJ 2 MG INJ IVP ONE ×2 (01:11→02:18)
[2021-06-06] MEDS ORDERED: MORPHINE SULFATE INJ 2 MG INJ ONE ×2 (01:23→02:19)
[2021-06-06] MEDS ORDERED: NS 1000 ML 1,000 ML ONE (01:23)
[2021-06-06] MEDS ORDERED: ZOFRAN INJ 4 MG VIAL ONE (01:23)
[2021-06-06] MEDS ORDERED: TESSALON PERLES PO ONE (01:33)
[2021-06-06] MEDS: NS 1000 ML 1,000 ML IV SCH ×3 (01:35→21:44)
[2021-06-06 02:16] LABS: PLATELET MORPHOLOGY COMMENT NORMAL (NORMAL)
--- NOTE | 2021-06-06 05:27 | RAD ---
STUDY: FRONTAL VIEW CHESTCOMPARISON: April 24, 2021HISTORY: CHEST PAINFINDINGS:Left chemotherapy port is stable.No focal consolidation is seen.The heart size is within normal limits.The mediastinum is unremarkable.There is no evidence of pleural effusion or gross pneumothorax.The trachea is midline.IMPRESSION:1. No focal consolidation is seen.2. The heart size is normal.Electronically signed by: Clem Aponte (Jun 06, 2021 05:25:18)
[2021-06-06] MEDS ORDERED: AQUA-MEPHYTON ADULT INJ SC ONE (05:52)
[2021-06-06] MEDS ORDERED: AQUA-MEPHYTON ADULT INJ ONE (06:06)
[2021-06-06] MEDS ORDERED: ZESTRIL TAB 5 MG PO PRN (07:13)
[2021-06-06] MEDS ORDERED: ZOFRAN TAB 4 MG PO PRN (07:13)
[2021-06-06 08:35] LABS: CKMB % 3.9 % (<4); CREATINE KINASE 26 Units/L (26-192); CREATINE KINASE MB < 1.0 ng/mL (0-4.0); TROPONIN I < 0.02 ng/mL (0-1.5)
[2021-06-06] MEDS ORDERED: [UNRECOGNIZED DRUG - OTHER] PO SCH (09:00)
[2021-06-06] MEDS ORDERED: TOPROL XL PO SCH (09:00)
[2021-06-06] MEDS ORDERED: HYOSCYAMINE SULFATE PO SCH (09:00)
[2021-06-06] MEDS ORDERED: PROTONIX TAB 40 MG PO SCH (09:00)
[2021-06-06] MEDS ORDERED: LEVSIN SYRUP PO SCH (09:00)
[2021-06-06 11:04] LABS: AMYLASE 36 Units/L (25-115); LIPASE 172 Units/L (73-393)
--- NOTE | 2021-06-06 11:22 | DR.H&P ---
H&P - History & Physical for Day of: H&P Date: 06/06/21 - Chief Complaint Chief Complaint: UPPER ABDOMINAL PAIN, CHEST PAIN RADIATES TO MID BACK - History of Present Illness History of Present Illness: chest pain off and on for 1 week. Saw MD on Tuesday and wore a monitor. Severe tonight , sharp, knife like radiating into back. - Past Medical History Past Medical History: Coronary Artery Disease, Diabetes, Hypertension Additional Medical History: GASTROPARESIS - Past Surgical History Surgical History: Other - Family History Family Medical History: Cancer, [place], Coronary Artery Disease, Heart Failure, Sudden Cardiac , Hypertension - Social History Does patient currently use any type of tobacco product: No Have you used tobacco products in the last 12 months: No Type of Tobacco Use: None Does any household member use tobacco: No Alcohol Use: None - Medications Home Medications: cefaclor Allergy (Mild, Verified 07/17/20 17:27) pentazocine Allergy (Mild, Verified 07/17/20 17:27) Sulfa (Sulfonamide Antibiotics) [SULFA] Allergy (Mild, Verified 07/17/20 17:27) megestrol Allergy (Verified 04/24/21 21:09) fentanyl Adverse Reaction (Severe, Verified 10/12/20 14:34) CARDIAC ARREST prednisone Adverse Reaction (Mild, Verified 07/17/20 17:27) nitrofurantoin [From Macrobid] Adverse Reaction (Verified 10/12/20 14:34) CONTINUE taking the following medications amitriptyline 20 mg PO HS 06/06/21 [History] atorvastatin 40 mg PO DAILY 06/06/21 [History] dicyclomine See Rx Instructions .ROUTE .COMPLEX 06/06/21 [History] diltiazem HCl 30 mg PO TID 06/06/21 [History] docusate sodium [Colace] 100 mg PO DAILY 06/06/21 [History] ferrous sulfate [FeroSul] 325 mg PO DAILY 06/06/21 [History] furosemide 20 mg PO DAILY PRN 06/06/21 [History] hyoscyamine sulfate [Anaspaz] 125 mg PO DAILY 06/06/21 [History] levothyroxine 50 mcg PO DAILY 06/06/21 [History] linaclotide [Linzess] 290 mcg PO DAILY 06/06/21 [History] lisinopril 5 mg PO DAILY PRN 06/06/21 [History] metoprolol succinate 50 mg PO DAILY 06/06/21 [History] ondansetron 8 mg PO TID-QID PRN 06/06/21 [History] pantoprazole 40 mg PO DAILY 06/06/21 [History] warfarin 2 mg PO DAILY 06/06/21 [History] - Review of Systems Constitutional: Weakness Eyes: No Symptoms Reported ENT: No Symptoms Reported Respiratory: No Symptoms Reported Cardiovascular: Chest Pain Gastrointestinal: Nausea, Diarrhea Genitourinary: No Symptoms Reported Musculoskeletal: Back Pain Skin: No Symptoms Reported Neurological: No Symptoms Reported - Physical Exam Vital Signs: Pulse Rate [Left] 87 Pulse Rate 87 Respiratory Rate 19 Blood Pressure [Right Arm] 129/64 Blood Pressure 117/61 O2 Sat by Pulse Oximetry 98 Oriented: Normal Eyes: Normal Ear: Normal Nose: Normal Throat: Normal Respiratory: RLL Diminished, LLL Diminished Cardiovascular: Normal : Normal Auscultation: Bowel Sounds: Normal Palpation: Normal Tenderness: Diffuse Skin: Decreased Turgur Musculoskeletal: Back:Thoracic, Back:Lumbar Psychiatric: Anxiety Affect: Anxious Speech Pattern: Clear, Appropriate - Assessment/Plan (1) Chest pain Status: Acute Plan: ADMIT, CARDIAC MONITORING. EKG, BP CONTROL, VERIFY HOME MEDICATION. PT/INR, HOLD COUMADIN THERAPY. VIT K GIVEN IN ER. OCCULT STOOL. PPI THERAPY, PAIN AND NAUSEA CONTROL (2) Coumadin toxicity Status: Acute (3) Nausea and vomiting Qualifiers: Status: Acute (4) Constipation Qualifiers: Status: Acute - Allergies Allergies/Adverse Reactions: Allergies Allergy/AdvReac Type Severity Reaction Status Date / Time cefaclor Allergy Mild Verified 07/17/20 17:27 pentazocine Allergy Mild Verified 07/17/20 17:27 Sulfa (Sulfonamide Allergy Mild Verified 07/17/20 17:27 Antibiotics) [SULFA] megestrol Allergy Verified 04/24/21 21:09 fentanyl AdvReac Severe CARDIAC Verified 10/12/20 14:34 ARREST prednisone AdvReac Mild Verified 07/17/20 17:27 nitrofurantoin AdvReac Verified 10/12/20 14:34 [From Macrobid]
[2021-06-06] MEDS: FERROUS GLUCONATE PO SCH (11:52)
[2021-06-06] MEDS: COLACE CAP 100 MG PO SCH (11:52)
[2021-06-06] MEDS: BENTYL CAP 10 MG PO SCH (11:52)
[2021-06-06] MEDS: SYNTHROID 50 mcg TAB PO SCH (11:53)
[2021-06-06] MEDS: PROTONIX INJ 40 MG VIAL IVP SCH ×2 (11:54→21:43)
[2021-06-06] MEDS: LIPITOR TAB 40 MG PO SCH (11:54)
[2021-06-06] MEDS: MORPHINE SULFATE INJ 4 MG IVP PRN ×2 (12:06→19:52)
[2021-06-06 14:39] LABS: CREATINE KINASE 25 Units/L (26-192); CREATINE KINASE MB < 1.0 ng/mL (0-4.0); TROPONIN I < 0.02 ng/mL (0-1.5)
[2021-06-06] MEDS: CARDIZEM TAB 30 MG PLAIN PO SCH ×2 (14:57→21:44)
--- NOTE | 2021-06-06 15:47 | RAD ---
HISTORYAbdominal painSTUDYAbdomen with AP supine chest three viewsCOMPARISONKUB 03/09/2021FINDINGSAP supine chest demonstrates normal heart size and grossly clear lungs. A left subclavian port extends to the SVC.Additional frontal views of the abdomen were obtained. The images are not designated as either supine or upright. There is moderately severe gaseous distention of small and large bowel. Surgical clips are present in the upper abdomen. No mass, organ enlargement or ascites identified.IMPRESSION1. No acute abnormality demonstrated on AP chest.2. Described intestinal gas pattern is consistent with nonobstructive distention/ileus. No other abnormality is identified although it should be noted that pneumoperitoneum cannot be reliably excluded without a designated upright view of chest or abdomen.Electronically signed by: BHARAT SAAVEDRA (Jun 06, 2021 15:45:43)
[2021-06-06 19:38] LABS: BILIRUBIN,URINE NEGATIVE (NEGATIVE); BLOOD/HEMOGLOBIN,URINE 1+ (NEGATIVE); GLUCOSE, URINE NEGATIVE (NEGATIVE); KETONES,URINE NEGATIVE (NEGATIVE); LEUKOCYTE ESTERASE ,URINE 3+ (NEGATIVE); NITRITES,URINE NEGATIVE (NEGATIVE); PROTEIN,URINE 2+ (NEGATIVE); UROBILINOGEN,URINE NORMAL (NORMAL)
[2021-06-06 19:39] LABS: APPEARANCE,URINE HAZY (CLEAR); COLOR,URINE YELLOW (YELLOW)
[2021-06-06 19:46] LABS: BACTERIA,URINE 3+ /HPF (NEGATIVE); COARSE GRANULAR CASTS,URINE FEW /HPF (NEGATIVE); HYALINE CASTS, URINE FEW /LPF (NEGATIVE); SQUAMOUS EPITHELIAL CELL,UR FEW /HPF (NEGATIVE)
[2021-06-06 21:33] LABS: CKMB % 2.9 % (<4); CREATINE KINASE 34 Units/L (26-192); CREATINE KINASE MB < 1.0 ng/mL (0-4.0); TROPONIN I < 0.02 ng/mL (0-1.5)
[2021-06-06] MEDS: ELAVIL PO SCH (21:43)
[2021-06-07] MEDS: CARDIZEM TAB 30 MG PLAIN PO SCH ×3 (05:53→21:58)
[2021-06-07] MEDS: NS 1000 ML 1,000 ML IV SCH ×2 (06:07→21:32)
[2021-06-07 06:47] LABS: BASOPHILS % (AUTO) 0.2 % (0.2-1.0); EOSINOPHILS % (AUTO) 0.2 % (0.9-2.9); HEMATOCRIT 24.2 % (36.0-47.0); HEMOGLOBIN 8.1 g/dL (12.0-16.0); LYMPHOCYTES # (AUTO) 0.9 X10^3/uL (1.3-2.9); LYMPHOCYTES % (AUTO) 7.8 % (21.0-51.0); MEAN CORPUSCULAR HEMOGLOBIN 33.4 pg (27.0-34.0); MEAN CORPUSCULAR HGB CONC 33.3 g/dL (33.0-35.0); MEAN CORPUSCULAR VOLUME 100.5 fL (80.0-100.0); MEAN PLATELET VOLUME 7.6 fL (7.4-11.0); MONOCYTES # (AUTO) 1.6 x10^3/uL (0.3-0.8); MONOCYTES % (AUTO) 14.4 % (0.0-13.0); NEUTROPHILS # (AUTO) 8.7 x10^3/uL (2.2-4.8); NEUTROPHILS % (AUTO) 77.4 % (42.0-75.0); PLATELET COUNT 451 X10^3/uL (150.0-450.0); RED BLOOD COUNT 2.41 X10^6/uL (3.5-5.4); RED CELL DISTRIBUTION WIDTH 14.9 % (11.6-16.5); WHITE BLOOD COUNT 11.2 X10^3/uL (3.6-10.0)
[2021-06-07 06:53] LABS: ALBUMIN 2.6 g/dL (3.4-5.0); CALCIUM 7.7 mg/dL (8.5-10.1); COR CA(FOR HYPOALB) 8.8 mg/dL (8.5-10.1); CREATININE 1.71 mg/dL (0.55-1.02); MAGNESIUM 1.9 mg/dL (1.7-2.9); TOTAL PROTEIN 7.5 g/dL (6.4-8.2)
[2021-06-07 06:56] LABS: CARBON DIOXIDE 13.5 mmol/L (21-32)
[2021-06-07 08:12] LABS: BAND NEUTROPHILS % 4 % (0-10)
[2021-06-07 08:13] LABS: ANISOCYTOSIS SLIGHT; PLATELET MORPHOLOGY COMMENT ABNORMAL (NORMAL)
[2021-06-07 08:14] LABS: METAMYELOCYTES % 3
[2021-06-07] MEDS: FERROUS GLUCONATE PO SCH (09:00)
[2021-06-07] MEDS: PROTONIX INJ 40 MG VIAL IVP SCH ×2 (09:00→21:58)
[2021-06-07] MEDS: BENTYL CAP 10 MG PO SCH (09:00)
[2021-06-07] MEDS: LIPITOR TAB 40 MG PO SCH (09:00)
[2021-06-07] MEDS: TOPROL XL PO SCH (09:00)
[2021-06-07] MEDS: COLACE CAP 100 MG PO SCH (09:00)
[2021-06-07] MEDS: SYNTHROID 50 mcg TAB PO SCH (09:00)
[2021-06-07] MEDS: MORPHINE SULFATE INJ 4 MG IVP PRN (10:30)
--- NOTE | 2021-06-07 12:01 | CT ---
PROCEDURE: CT Abdomen and Pelvis without Contrast .HISTORY: Abdomen pain. Rule out obstruction.TECHNIQUE: Axial images were performed through the abdomen and pelvis without the administration of IV contrast with multiplanar reformations . Oral contrast was not administered . Dose reduction techniques including Automated Exposure Control (AEC) and adjustment of mA and kV were utilized .COMPARISON: 12/31/2020.TECHNICAL QUALITY: Satisfactory .FINDINGS:Small to moderate pericardial effusion that is appeared since previous study. Small left pleural effusion with linear scar versus discoid atelectasis left base.Liver, spleen, adrenals, pancreas show no significant abnormality.Kidneys show no urinary tract stones or obstruction.Previous cholecystectomy with normal size biliary tree.No abdominal ascites or pneumoperitoneum.Mild atherosclerosis aorta.No lymphadenopathy.Some nonspecific gas in the colon. No obstruction or bowel inflammation. Appendix is not visualized.Pelvis shows previous hysterectomy and no masses or free fluid. Normal urinary bladder.No acute bony abnormality.IMPRESSION:1. Some nonspecific gas in the colon with no obstruction or inflammation involving bowel.2. No other significant abnormality involving abdomen or pelvis.3. Small left pleural effusion.4. Mild to moderate pericardial effusion that is appeared since previous study.Electronically signed by: Jorje Cortes (Jun 07, 2021 11:59:56)
[2021-06-07 12:06] LABS: ABG BASE EXCESS -14.8 mmol/L (-2.0-2.0)
[2021-06-07 12:07] LABS: ABG ALLEN TEST POS; ABG HCO3 9.9 mmol/L (22-26)
[2021-06-07] MEDS: LEVSIN/MAALOX/LIDOC VISC PO SCH (13:00)
[2021-06-07] MEDS: MERREM VIAL 500 MG in NS 100 ML IV + SPIKE MINIBAG* 100 ML IV SCH ×2 (13:34→21:57)
[2021-06-07] MEDS ORDERED: LASIX IVP ONE ×2 (14:47→15:03)
[2021-06-07] MEDS: ZOFRAN INJ 4 MG VIAL IVP PRN (17:16)
[2021-06-07 20:08] LABS: CALCIUM 7.9 mg/dL (8.5-10.1); CREATININE 1.84 mg/dL (0.55-1.02)
[2021-06-07 20:13] LABS: CARBON DIOXIDE 13.9 mmol/L (21-32)
[2021-06-07] MEDS: ELAVIL PO SCH (21:58)
[2021-06-08 00:38] LABS: CALCIUM 7.6 mg/dL (8.5-10.1); CREATININE 1.62 mg/dL (0.55-1.02)
[2021-06-08 00:44] LABS: CARBON DIOXIDE 14.4 mmol/L (21-32)
[2021-06-08] MEDS ORDERED: NS 100 ML IV + SPIKE MINIBAG* 100 ML IV ONE (05:31)
[2021-06-08] MEDS ORDERED: MERREM VIAL ONE (05:31)
[2021-06-08] MEDS: CARDIZEM TAB 30 MG PLAIN PO SCH ×3 (05:36→21:35)
[2021-06-08] MEDS: MERREM VIAL 500 MG in NS 100 ML IV + SPIKE MINIBAG* 100 ML IV SCH ×3 (05:36→21:40)
--- NOTE | 2021-06-08 06:24 | RAD ---
HISTORYSOBSTUDYCHEST, 1 [id number]/21/2021.TECHNIQUEAP view of the chestFINDINGSLeft chest wall port with tip in good position. Cardiac silhouette is stably mildly enlarged. Low lung volumes. Mild scattered interstitial opacities. No definite pleural effusion or pneumothorax.IMPRESSIONMild scattered interstitial opacities can be seen with pulmonary edema and atypical pneumonia.Electronically signed by: Hemant Lujan (Jun 08, 2021 06:22:24)
[2021-06-08 07:10] LABS: BASOPHILS % (AUTO) 0.3 % (0.2-1.0); EOSINOPHILS # (AUTO) 0.1 x10^3/uL (0.0-0.2); EOSINOPHILS % (AUTO) 0.7 % (0.9-2.9); HEMOGLOBIN 8.1 g/dL (12.0-16.0); LYMPHOCYTES # (AUTO) 1.3 X10^3/uL (1.3-2.9); LYMPHOCYTES % (AUTO) 12.3 % (21.0-51.0); MEAN CORPUSCULAR HEMOGLOBIN 33.5 pg (27.0-34.0); MEAN CORPUSCULAR HGB CONC 33.6 g/dL (33.0-35.0); MEAN CORPUSCULAR VOLUME 99.9 fL (80.0-100.0); MEAN PLATELET VOLUME 7.7 fL (7.4-11.0); MONOCYTES # (AUTO) 1.5 x10^3/uL (0.3-0.8); MONOCYTES % (AUTO) 14.1 % (0.0-13.0); NEUTROPHILS # (AUTO) 7.8 x10^3/uL (2.2-4.8); NEUTROPHILS % (AUTO) 72.6 % (42.0-75.0); PLATELET COUNT 507 X10^3/uL (150.0-450.0); RED CELL DISTRIBUTION WIDTH 14.2 % (11.6-16.5); WHITE BLOOD COUNT 10.8 X10^3/uL (3.6-10.0)
[2021-06-08 07:35] LABS: ALBUMIN 2.6 g/dL (3.4-5.0); CALCIUM 7.8 mg/dL (8.5-10.1); COR CA(FOR HYPOALB) 8.9 mg/dL (8.5-10.1); CREATININE 1.6 mg/dL (0.55-1.02); TOTAL PROTEIN 7.6 g/dL (6.4-8.2)
[2021-06-08 07:38] LABS: PLATELET MORPHOLOGY COMMENT NORMAL (NORMAL)
[2021-06-08 07:42] LABS: CARBON DIOXIDE 15.1 mmol/L (21-32)
[2021-06-08] MEDS ORDERED: PROTONIX INJ 40 MG VIAL ONE (08:31)
[2021-06-08] MEDS: LEVSIN/MAALOX/LIDOC VISC PO SCH (08:33)
[2021-06-08] MEDS: SYNTHROID 50 mcg TAB PO SCH (08:34)
[2021-06-08] MEDS: COLACE CAP 100 MG PO SCH (08:34)
[2021-06-08] MEDS: FERROUS GLUCONATE PO SCH (08:34)
[2021-06-08] MEDS: PROTONIX INJ 40 MG VIAL IVP SCH ×2 (08:34→21:30)
[2021-06-08] MEDS: LIPITOR TAB 40 MG PO SCH (08:35)
[2021-06-08] MEDS ORDERED: REMDESIVIR 200 MG in NS 250 ML IV 250 ML IV ONE (09:57)
[2021-06-08] MEDS: MORPHINE SULFATE INJ 4 MG IVP PRN (09:58)
[2021-06-08] MEDS: TOPROL XL PO SCH (10:23)
[2021-06-08] MEDS: LASIX IVP SCH ×2 (10:26→21:35)
[2021-06-08] MEDS: DIFLUCAN PO SCH (10:28)
[2021-06-08] MEDS: DUONEB 0.5 MG/3 MG (3 mL) NEB SCH ×3 (14:00→21:58)
[2021-06-08] MEDS: PULMICORT NEB TX 0.5 MG NEB SCH ×2 (19:01→21:58)
[2021-06-08] MEDS: ELAVIL PO SCH (21:35)
[2021-06-09] MEDS: MORPHINE SULFATE INJ 4 MG IVP PRN ×3 (03:35→22:11)
[2021-06-09] MEDS: DUONEB 0.5 MG/3 MG (3 mL) NEB SCH ×3 (05:22→21:00)
[2021-06-09 05:33] LABS: ABG ALLEN TEST POS; ABG BASE EXCESS -8.2 mmol/L (-2.0-2.0); ABG HCO3 15.4 mmol/L (22-26)
[2021-06-09] MEDS: CARDIZEM TAB 30 MG PLAIN PO SCH ×3 (05:59→22:35)
[2021-06-09] MEDS: MERREM VIAL 500 MG in NS 100 ML IV + SPIKE MINIBAG* 100 ML IV SCH ×3 (06:01→22:36)
[2021-06-09 06:18] LABS: BASOPHILS % (AUTO) 0.3 % (0.2-1.0); EOSINOPHILS % (AUTO) 0.4 % (0.9-2.9); HEMATOCRIT 23.5 % (36.0-47.0); HEMOGLOBIN 7.8 g/dL (12.0-16.0); LYMPHOCYTES # (AUTO) 1.3 X10^3/uL (1.3-2.9); LYMPHOCYTES % (AUTO) 12.2 % (21.0-51.0); MEAN CORPUSCULAR HEMOGLOBIN 33.1 pg (27.0-34.0); MEAN CORPUSCULAR HGB CONC 33.3 g/dL (33.0-35.0); MEAN CORPUSCULAR VOLUME 99.4 fL (80.0-100.0); MEAN PLATELET VOLUME 7.5 fL (7.4-11.0); MONOCYTES # (AUTO) 1.6 x10^3/uL (0.3-0.8); MONOCYTES % (AUTO) 14.2 % (0.0-13.0); NEUTROPHILS # (AUTO) 8.1 x10^3/uL (2.2-4.8); NEUTROPHILS % (AUTO) 72.9 % (42.0-75.0); PLATELET COUNT 535 X10^3/uL (150.0-450.0); RED BLOOD COUNT 2.37 X10^6/uL (3.5-5.4); RED CELL DISTRIBUTION WIDTH 14.6 % (11.6-16.5); WHITE BLOOD COUNT 11.1 X10^3/uL (3.6-10.0)
[2021-06-09 06:46] LABS: ALBUMIN 2.5 g/dL (3.4-5.0); CALCIUM 7.9 mg/dL (8.5-10.1); CARBON DIOXIDE 17.2 mmol/L (21-32); COR CA(FOR HYPOALB) 9.1 mg/dL (8.5-10.1); CREATININE 1.45 mg/dL (0.55-1.02); TOTAL PROTEIN 7.4 g/dL (6.4-8.2)
[2021-06-09 07:04] LABS: GIANT PLATELET FEW; PLATELET MORPHOLOGY COMMENT ABNORMAL (NORMAL)
--- NOTE | 2021-06-09 07:58 | RAD ---
HISTORYSOBSTUDYCHEST x-ray, 1 VIEWCOMPARISONX-ray 06/08/2021FINDINGSPort catheter terminates in the region of the mid SVC. Persistent cardiomegaly is seen without pulmonary venous congestion. Vague scattered lung infiltrates persist. No pneumothorax or pleural effusion is seen.IMPRESSIONAppearance of the chest is unchanged.Electronically signed by: Blu Cazares (Jun 09, 2021 07:56:45)
[2021-06-09] MEDS: DIFLUCAN PO SCH (08:22)
[2021-06-09] MEDS: COLACE CAP 100 MG PO SCH (08:22)
[2021-06-09] MEDS: FERROUS GLUCONATE PO SCH (08:23)
[2021-06-09] MEDS: LIPITOR TAB 40 MG PO SCH (08:23)
[2021-06-09] MEDS: REMDESIVIR 100 MG in NS 250 ML IV 250 ML IV SCH (08:24)
[2021-06-09] MEDS: PROTONIX INJ 40 MG VIAL IVP SCH ×2 (08:24→21:35)
[2021-06-09] MEDS: SYNTHROID 50 mcg TAB PO SCH (08:24)
[2021-06-09] MEDS: TOPROL XL PO SCH (08:26)
[2021-06-09] MEDS: PULMICORT NEB TX 0.5 MG NEB SCH ×2 (08:58→21:00)
[2021-06-09] MEDS ORDERED: LEVSIN/MAALOX/LIDOC VISC ONE (09:27)
[2021-06-09] MEDS: LEVSIN/MAALOX/LIDOC VISC PO SCH ×4 (09:36→22:28)
[2021-06-09] MEDS ORDERED: PROCRIT or EPOGEN VIAL 10,000 UNITS SC ONE ×2 (09:52→21:00)
[2021-06-09] MEDS: COREG TAB 3.125 MG PO SCH ×2 (10:33→21:14)
[2021-06-09] MEDS: PEPCID 20 MG IV PREMIX* 20 MG/50 ML BAG IV SCH (10:33)
--- NOTE | 2021-06-09 11:53 | PCM.PROG ---
Progress Note - Progress Note for Day of Date of Exam: 06/08/21 - Subjective Subjective: WAS ADMITTED ON 06/06 FOR TREATMENT OF CHEST PAIN, SHORTNESS OF BREATH, UTI, COUMADIN TOXICITY, ELEVATED D-DIMER, NAUSEA AND VOMITING, AND CONSTIPATION. SHE HAS A RECENT HISTORY OF A PULMONARY EMOBLISM. SHE ALSO HAS A PMH OF GASTROPARESIS, CHF, HTN. ABDOMEN/PELVIS CT OBTAINED ON ADMISSION ALSO REVEALED A NEW MILD TO MODERATE PERICARDIAL EFFUSION. TODAY, SHE IS ALERT AND ORIENTED, LYING IN BED ON MORNING ROUNDS. SHE REPORTS SHORTNESS OF BREATH AND WEAKNESS THIS MORNING. SHE ADMITS TO A NON-PRODUCTIVE COUGH. SHE DENIES CHEST PAIN THIS MORNING. ON EXAMINATION, HEART IS REGULAR IN RATE AND RHYTHM. SHE IS NOTED TO HAVE UPPER EXPIRATORY WHEEZING. ABDOMEN IS ROUND, SOFT, AND NOTED WITH MILD, DIFFUSE TENDERNESS. NORMAL BOWEL SOUNDS NOTED IN ALL QUADRANTS. BLE NOTED TO HAVE 1+ PITTING EDEMA. HER VITALS THIS MORNING ARE: 98.3-107-18-95%-132/70. LABS WERE OBTAINED. ABNORMAL LAB VALUES INCLUDE THE FOLLOWING: WBC 10.8, RBC 2.40, HGB 8.1, HCT 24.0, PLT COUNT 507, INR 2.06, PTT 53, D-DIMER 8.95, CARBON DIOXIDE 15.1, BUN 49, CREATININE 1.60, GLUCOSE 123, CALCIUM 7.8, AST 88, ALT 111, ALK PHOS 152, CRP 357.50, BNP 619, ALBUMIN 2.6, GLOBULIN 5.0. COVID-19 NEGATIVE. A CHEST XRAY WAS OBTAINED AND REVEALED: Mild scattered interstitial opacities can be seen with pulmonary edema and atypical pneumonia. SHE IS CURRENTLY RECEIVING NORMAL SALINE AT 70 ML/HR, MEROPENEM 500MG IV Q8H, PEPCID 20MG IV DAILY, PROTONIX 40MG IV BID, GI COCKTAIL, ZOFRAN 4MG IV Q6H PRN, MORPHINE SULFATE 4MG IV Q6H PRN, AND HER HOME MEDICATIONS WITH THE EXCEPTION OF HER COUMADIN WERE RESUMED. TODAY, WE WILL OBTAIN AN AIT SWAB FOR RESPIRATORY PANEL, SPUTUM CULTURE, BETSY PANEL, ECHO. WE WILL START LASIX 20MG IV BID X 2 DOSES, REMDESIVIR 100MG IV DAILY, DUONEBS TID, PULMICORT NEBS BID, DIFLUCAN 100MG PO DAILY. WE WILL RESTRICT HER FLUID INTAKE TO LESS THAN 1 LITER/DAY. OTHERWISE, WE WILL CONTINUE WITH CURRENT PLAN OF CARE. WE PLAN TO FOLLOW UP WITH AM LABS AND CHEST XRAY AND CONTINUE TO [facility]. TIME SPENT ON CLINICAL ASSESSMENT, REVIEWING LABS AND IMAGING, DECISION MAKING, AND DOCUMENTATION GREATER THAN 45 MINUTES. - Past Medical Family Social History Past Med/Fam/Surg Hx: No changes since H&P Allergies: Allergies cefaclor Allergy (Mild, Verified 07/17/20 17:27) pentazocine Allergy (Mild, Verified 07/17/20 17:27) Sulfa (Sulfonamide Antibiotics) [SULFA] Allergy (Mild, Verified 07/17/20 17:27) megestrol Allergy (Verified 04/24/21 21:09) fentanyl Adverse Reaction (Severe, Verified 10/12/20 14:34) CARDIAC ARREST prednisone Adverse Reaction (Mild, Verified 07/17/20 17:27) nitrofurantoin [From Macrobid] Adverse Reaction (Verified 10/12/20 14:34) - Review of Systems ROS: No change since H&P - Vital Signs and I&O's Vital Signs: Temperature 98.2 F Pulse Rate [Left] 108 Pulse Rate 80 Respiratory Rate 22 Blood Pressure [Right Arm] 131/69 Blood Pressure 117/61 O2 Sat by Pulse Oximetry 91 Intake and Output: Intake & Output 06/06/21 06/07/21 06/08/21 06/09/21 11:59 11:59 11:59 11:59 Intake Total 3210 / 3210 1511 / 1511 2200 / 2200 Balance 3210 / 3210 1511 / 1511 2200 / 2200 - Physical Exam Oriented: Normal Eyes: Normal Ear: Normal Nose: Normal Throat: Normal Respiratory: Generalized, Diminished, Wheezes Cardiovascular: Edema (BLE 1+ PITTING ) : Normal Auscultation: Bowel Sounds: Normal Palpation: Normal Tenderness: Diffuse, Mild Skin: Decreased Turgur Musculoskeletal: Back:Thoracic, Back:Lumbar Psychiatric: Anxiety Affect: Anxious Speech Pattern: Clear, Appropriate - Laboratory and Diagnostics Result Diagrams: 06/09/21 05:39 06/09/21 05:39 Labs: 06/06/21 19:20 Urine,Clean Catch Urine Culture - Final Klebsiella Pneumoniae Laboratory WBC 11.1 X10^3/uL (3.6-10.0) H 06/09/21 05:39 RBC 2.37 X10^6/uL (3.5-5.4) L 06/09/21 05:39 Hgb 7.8 g/dL (12.0-16.0) L 06/09/21 05:39 Hct 23.5 % (36.0-47.0) L 06/09/21 05:39 MCV 99.4 fL (80.0-100.0) 06/09/21 05:39 MCH 33.1 pg (27.0-34.0) 06/09/21 05:39 MCHC 33.3 g/dL (33.0-35.0) 06/09/21 05:39 RDW 14.6 % (11.6-16.5) 06/09/21 05:39 Plt Count 535 X10^3/uL (150.0-450.0) H 06/09/21 05:39 Plt Count Comment Increased (ADEQUATE) A 06/09/21 05:39 MPV 7.5 fL (7.4-11.0) 06/09/21 05:39 Neut % (Auto) 72.9 % (42.0-75.0) 06/09/21 05:39 Lymph % (Auto) 12.2 % (21.0-51.0) L 06/09/21 05:39 [place] % (Auto) 14.2 % (0.0-13.0) H 06/09/21 05:39 Eos % (Auto) 0.4 % (0.9-2.9) L 06/09/21 05:39 Baso % (Auto) 0.3 % (0.2-1.0) 06/09/21 05:39 Neut # (Auto) 8.1 x10^3/uL (2.2-4.8) H 06/09/21 05:39 Lymph # (Auto) 1.3 X10^3/uL (1.3-2.9) 06/09/21 05:39 [place] # (Auto) 1.6 x10^3/uL (0.3-0.8) H 06/09/21 05:39 Eos # (Auto) 0.0 x10^3/uL (0.0-0.2) 06/09/21 05:39 Baso # (Auto) 0.0 X10^3/uL (0.0-0.1) 06/09/21 05:39 Absolute Nucleated RBC 0.2 /100WBC 06/09/21 05:39 Total Counted 100 06/09/21 05:39 Neutrophils % (Manual) 65 % (39-76) 06/09/21 05:39 Band Neutrophils % 4 % (0-10) 06/07/21 05:15 Lymphocytes % (Manual) 14 % (13-43) 06/09/21 05:39 Monocytes % (Manual) 21 % (4-9) H 06/09/21 05:39 Metamyelocytes % 3 06/07/21 05:15 Plt Clumps, EDTA Rare 06/07/21 05:15 Giant Platelets Few 06/09/21 05:39 Plt Morphology Comment Abnormal (NORMAL) A 06/09/21 05:39 RBC Morphology Normal (NORMAL) 06/09/21 05:39 Anisocytosis Slight A 06/07/21 05:15 Macrocytosis Slight A 06/07/21 05:15 PT 19.4 SECONDS (11.8-14.3) 06/09/21 05:39 INR Target Range - 06/09/21 05:39 INR 1.73 (0.8-1.3) H 06/09/21 05:39 APTT 37.0 SECONDS (22.9-36.5) H 06/09/21 05:39 PTT Comment - 06/09/21 05:39 D-Dimer 9.38 ug/ml (0.0-0.57) H* 06/09/21 05:39 Sample Site Lrad 06/09/21 05:30 ABG pH 7.380 (7.35-7.45) 06/09/21 05:30 ABG pCO2 26.0 mmHg (35.0-45.0) L 06/09/21 05:30 ABG pO2 77.0 mmHg (80.0-100.0) L 06/09/21 05:30 ABG HCO3 15.4 mmol/L (22-26) L* 06/09/21 05:30 ABG O2 Saturation 95.0 % (90-100) 06/09/21 05:30 ABG Base Excess -8.2 mmol/L (-2.0-2.0) L 06/09/21 05:30 Will Test Pos 06/09/21 05:30 A-a Gradient 90.0 mmHg 06/09/21 05:30 FiO2 28.0 06/09/21 05:30 Blood Gas Comments Rosario well mts/sa 06/09/21 05:30 Sodium 139 mmol/L (136-145) 06/09/21 05:39 Corrected Sodium 140 mmol/L (136-145) 06/09/21 05:39 Potassium 4.7 mmol/L (3.5-5.1) 06/09/21 05:39 Chloride 105 mmol/L (98-107) 06/09/21 05:39 Carbon Dioxide 17.2 mmol/L (21-32) L 06/09/21 05:39 BUN 48 mg/dL (7-18) H 06/09/21 05:39 Creatinine 1.45 mg/dL (0.55-1.02) H 06/09/21 05:39 Est GFR (MDRD) Af Amer 45 (>60) L 06/09/21 05:39 Est GFR (MDRD) Non-Af 37 (>60) L 06/09/21 05:39 Glucose 152 mg/dL (65-99) H 06/09/21 05:39 Lactic Acid 1.1 mmol/L (0.4-2.0) 06/07/21 12:06 Calcium 7.9 mg/dL (8.5-10.1) L 06/09/21 05:39 Corrected Calcium 9.1 mg/dL (8.5-10.1) 06/09/21 05:39 Magnesium 1.9 mg/dL (1.7-2.9) 06/07/21 05:15 Total Bilirubin 0.20 mg/dL (0.2-1.0) 06/09/21 05:39 AST 94 Units/L (15-37) H 06/09/21 05:39 ALT 117 Units/L (12-78) H 06/09/21 05:39 Alkaline Phosphatase 152 Units/L (46-116) H 06/09/21 05:39 Creatine Kinase 34 Units/L (26-192) 06/06/21 20:54 CK-MB (CK-2) < 1.0 ng/mL (0-4.0) 06/06/21 20:54 CK/CKMB % Calc 2.9 % (<4) 06/06/21 20:54 Troponin I < 0.02 ng/mL (0-1.5) 06/06/21 20:54 C-Reactive Protein 323.20 mg/L (0-3.0) H 06/09/21 05:39 B-Natriuretic Peptide 417 pg/mL (0-79) H 06/09/21 05:39 Total Protein 7.4 g/dL (6.4-8.2) 06/09/21 05:39 Albumin 2.5 g/dL (3.4-5.0) L 06/09/21 05:39 Globulin 4.9 g/dL (2.5-4.5) H 06/09/21 05:39 Albumin/Globulin Ratio 0.5 Ratio (1.1-2.1) L 06/09/21 05:39 Amylase 36 Units/L (25-115) 06/06/21 00:21 Lipase 172 Units/L (73-393) 06/06/21 00:21 Specimen Type Clean catch urine 06/06/21 19:20 Urine Color Yellow (YELLOW) 06/06/21 19:20 Urine Appearance Hazy (CLEAR) 06/06/21 19:20 Urine pH 5.0 (5.0 - 8.0) 06/06/21 19:20 Ur Specific [place] 1.020 (1.000-1.030) 06/06/21 19:20 Urine Protein 2+ (NEGATIVE) 06/06/21 19:20 Urine Glucose (UA) Negative (NEGATIVE) 06/06/21 19:20 Urine Ketones Negative (NEGATIVE) 06/06/21 19:20 Urine Occult Blood 1+ (NEGATIVE) 06/06/21 19:20 Urine Nitrite Negative (NEGATIVE) 06/06/21 19:20 Urine Bilirubin Negative (NEGATIVE) 06/06/21 19:20 Urine Urobilinogen Normal (NORMAL) 06/06/21 19:20 Ur Leukocyte Esterase 3+ (NEGATIVE) 06/06/21 19:20 Urine RBC 3-5 /HPF (0-3) A 06/06/21 19:20 Urine WBC Tntc /HPF (0-5) A 06/06/21 19:20 Ur Squamous Epith Cells Few /HPF (NEGATIVE) 06/06/21 19:20 Urine Bacteria 3+ /HPF (NEGATIVE) 06/06/21 19:20 Hyaline Casts Few /LPF (NEGATIVE) 06/06/21 19:20 Coarse Granular Casts Few /HPF (NEGATIVE) 06/06/21 19:20 Ur Culture Indicated? Yes/culture set up 06/06/21 19:20 Acetone, Semi-Quant Negative (NEGATIVE) 06/07/21 12:06 SARS-CoV-2 (PCR) Negative (NEGATIVE) 06/08/21 09:54 Influenza Type A (PCR) Negative (NEGATIVE) 06/08/21 09:54 Influenza Type B (PCR) Negative (NEGATIVE) 06/08/21 09:54 RSV (PCR) Negative (NEGATIVE) 06/08/21 09:54 SARS CoV-2 RNA Rapid ASHLEY Negative (NEGATIVE) 06/06/21 04:58 - Plan (1) Pneumonia Status: Acute Qualifiers: Pneumonia type: due to unspecified organism Laterality: unspecified laterality Lung location: unspecified part of lung Qualified Code(s): J18.9 - Pneumonia, unspecified organism Plan: NORMAL SALINE AT 70 ML/HR, MEROPENEM 500MG IV Q8H, PEPCID 20MG IV DAILY, PROTONIX 40MG IV BID, GI COCKTAIL, ZOFRAN 4MG IV Q6H PRN, MORPHINE SULFATE 4MG IV Q6H PRN, LASIX 20MG IV BID X 2 DOSES, REMDESIVIR 100MG IV DAILY, DUONEBS TID, PULMICORT NEBS BID, DIFLUCAN 100MG PO DAILY, AND HER HOME MEDICATIONS WITH THE EXCEPTION OF HER COUMADIN WERE RESUMED. (2) Coumadin toxicity Status: Acute Qualifiers: Encounter type: initial encounter Injury intent: undetermined intent Qualified Code(s): T45.514A - Poisoning by anticoagulants, undetermined, initial encounter (3) Urinary tract infection Status: Acute Qualifiers: Urinary tract infection type: acute cystitis Hematuria presence: without hematuria Qualified Code(s): N30.00 - Acute cystitis without hematuria (4) Abdominal pain Status: Acute Qualifiers: Abdominal location: generalized Qualified Code(s): R10.84 - Generalized abdominal pain (5) Pericardial effusion Status: Acute (6) Elevated d-dimer Status: Acute (7) Gastroparesis Status: Chronic (8) Diabetes Status: Chronic Qualifiers: Diabetes mellitus type: type 2 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 roof 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
--- NOTE | 2021-06-09 12:31 | PCM.PROG ---
Progress Note - Progress Note for Day of Date of Exam: 06/09/21 - Subjective Subjective: IS BEING TREATED FOR PNEUMONIA, SHORTNESS OF BREATH, UTI, COUMADIN TOXICITY, ELEVATED D-DIMER, ABDOMINAL PAIN, PERICARDIAL EFFUSION. SHE HAS A RECENT HISTORY OF A PULMONARY EMOBLISM, GASTROPARESIS, CHF, HTN. SHE HAS BEEN TAKING COUMADIN AT HOME. TODAY, SHE IS ALERT AND ORIENTED, LYING IN BED ON MORNING ROUNDS. SHE CONTINUES WITH SHORTNESS OF BREATH AND WEAKNESS THIS MORNING. SHE ALSO REPORTS LEFT ARM PAIN AND REPORTS THAT IT IS DIFFICULT TO LIFT IT MUCH. SHE ADMITS TO A NON-PRODUCTIVE COUGH. ON EXAMINATION, HEART IS REGULAR IN RATE AND RHYTHM. SHE IS NOTED TO HAVE UPPER EXPIRATORY WHEEZING. ABDOMEN IS ROUND, SOFT, AND NOTED WITH MILD, DIFFUSE TENDERNESS. NORMAL BOWEL SOUNDS NOTED IN ALL QUADRANTS. BLE NOTED TO HAVE 1+ PITTING EDEMA. HER VITALS THIS MORNING ARE: 98.2-108-20-91%-131/69. LABS WERE OBTAINED. ABNORMAL LAB VALUES INCLUDE THE FOLLOWING: WBC 11.1, RBC 2.37, HGB 7.8, HCT 23.5, PLT CONT 535, INR 1.73, PTT 37, D-DIMER 9.38, CARBON DIOXIDE 17.2, BUN 48, CREATININE 1.45, GLUCOSE 152, CALCIUM 7.9, AST 94, ALT 117, ALK PHOS 152, CRP 323.20, BNP 417, ALBUMIN 2.5, GLOBULIN 4.9. URINE CULTURE POSITIVE FOR GROWTH OF KELBSIELLA PNEUMONIAE. A CHEST XRAY WAS OBTAINED AND REVEALED: Port catheter terminates in the region of the mid SVC. Persistent cardiomegaly is seen without pulmonary venous congestion. Vague scattered lung infiltrates persist. No pneumothorax or pleural effusion is seen. ECHO REVEALED AN EJECTION FRACTION OF 23%. RVSP 27mmHg, SMALL PERICARDIAL EFFUSION WITH CLEAR FLUIDS. SHE IS CURRENTLY RECEIVING NORMAL SALINE AT 70 ML/HR, MEROPENEM 500MG IV Q8H, REMDESIVIR 100MG IV DAILY, DUONEBS TID, PULMICORT NEBS BID, DIFLUCAN 100MG PO DAILY, PEPCID 20MG IV DAILY, PROTONIX 40MG IV BID, GI COCKTAIL, ZOFRAN 4MG IV Q6H PRN, MORPHINE SULFATE 4MG IV Q6H PRN, AND HER HOME MEDICATIONS WERE RESUMED. TODAY, WE WILL DISCONTINUE THE METOPROLOL. WE WILL START ALDACTONE 25MG PO DAILY, COREG 3.125MG PO BID, RESUME HER COUMADIN, ADD PEPCID BID, AND ADMINISTER PROCRIT 5,000 UNITS THIS MORNING. IF SHE TOLERATES PROCRIT, WE WILL GIVE AN ADDITIONAL DOSE THIS EVENING. WE WILL MONITOR H&H Q12H. OTHERWISE, WE WILL CONTINUE WITH CURRENT PLAN OF CARE. WE PLAN TO FOLLOW UP WITH AM LABS AND CHEST XRAY AND CONTINUE TO MONITOR. TIME SPENT ON CLINICAL ASSESSMENT, REVIEWING LABS AND IMAGING, DECISION MAKING, AND DOCUMENTATION GREATER THAN 45 MINUTES. - Past Medical Family Social History Past Med/Fam/Surg Hx: No changes since H&P Allergies: Allergies cefaclor Allergy (Mild, Verified 07/17/20 17:27) pentazocine Allergy (Mild, Verified 07/17/20 17:27) Sulfa (Sulfonamide Antibiotics) [SULFA] Allergy (Mild, Verified 07/17/20 17:27) megestrol Allergy (Verified 04/24/21 21:09) fentanyl Adverse Reaction (Severe, Verified 10/12/20 14:34) CARDIAC ARREST prednisone Adverse Reaction (Mild, Verified 07/17/20 17:27) nitrofurantoin [From Macrobid] Adverse Reaction (Verified 10/12/20 14:34) - Review of Systems ROS: No change since H&P - Vital Signs and I&O's Vital Signs: Temperature 98.2 F Pulse Rate [Left] 108 Pulse Rate 80 Respiratory Rate 22 Blood Pressure [Right Arm] 131/69 Blood Pressure 117/61 O2 Sat by Pulse Oximetry 91 Intake and Output: Intake & Output 06/07/21 06/08/21 06/09/21 06/10/21 11:59 11:59 11:59 11:59 Intake Total 3210 / 3210 1511 / 1511 2200 / 2200 Balance 3210 / 3210 1511 / 1511 2200 / 2200 - Physical Exam Oriented: Normal Eyes: Normal Ear: Normal Nose: Normal Throat: Normal Respiratory: Generalized, Diminished, Wheezes Cardiovascular: Edema (BLE 1+ PITTING ) : Normal Auscultation: Bowel Sounds: Normal Tenderness: Diffuse, Mild Skin: Decreased Turgur Musculoskeletal: Back:Thoracic, Back:Lumbar Psychiatric: Anxiety Affect: Anxious Speech Pattern: Clear, Appropriate - Laboratory and Diagnostics Result Diagrams: 06/09/21 05:39 06/09/21 05:39 Labs: 06/06/21 19:20 Urine,Clean Catch Urine Culture - Final Klebsiella Pneumoniae Laboratory WBC 11.1 X10^3/uL (3.6-10.0) H 06/09/21 05:39 RBC 2.37 X10^6/uL (3.5-5.4) L 06/09/21 05:39 Hgb 7.8 g/dL (12.0-16.0) L 06/09/21 05:39 Hct 23.5 % (36.0-47.0) L 06/09/21 05:39 MCV 99.4 fL (80.0-100.0) 06/09/21 05:39 MCH 33.1 pg (27.0-34.0) 06/09/21 05:39 MCHC 33.3 g/dL (33.0-35.0) 06/09/21 05:39 RDW 14.6 % (11.6-16.5) 06/09/21 05:39 Plt Count 535 X10^3/uL (150.0-450.0) H 06/09/21 05:39 Plt Count Comment Increased (ADEQUATE) A 06/09/21 05:39 MPV 7.5 fL (7.4-11.0) 06/09/21 05:39 Neut % (Auto) 72.9 % (42.0-75.0) 06/09/21 05:39 Lymph % (Auto) 12.2 % (21.0-51.0) L 06/09/21 05:39 Sibley % (Auto) 14.2 % (0.0-13.0) H 06/09/21 05:39 Eos % (Auto) 0.4 % (0.9-2.9) L 06/09/21 05:39 Baso % (Auto) 0.3 % (0.2-1.0) 06/09/21 05:39 Neut # (Auto) 8.1 x10^3/uL (2.2-4.8) H 06/09/21 05:39 Lymph # (Auto) 1.3 X10^3/uL (1.3-2.9) 06/09/21 05:39 Sibley # (Auto) 1.6 x10^3/uL (0.3-0.8) H 06/09/21 05:39 Eos # (Auto) 0.0 x10^3/uL (0.0-0.2) 06/09/21 05:39 Baso # (Auto) 0.0 X10^3/uL (0.0-0.1) 06/09/21 05:39 Absolute Nucleated RBC 0.2 /100WBC 06/09/21 05:39 Total Counted 100 06/09/21 05:39 Neutrophils % (Manual) 65 % (39-76) 06/09/21 05:39 Band Neutrophils % 4 % (0-10) 06/07/21 05:15 Lymphocytes % (Manual) 14 % (13-43) 06/09/21 05:39 Monocytes % (Manual) 21 % (4-9) H 06/09/21 05:39 Metamyelocytes % 3 06/07/21 05:15 Plt Clumps, EDTA Rare 06/07/21 05:15 Giant Platelets Few 06/09/21 05:39 Plt Morphology Comment Abnormal (NORMAL) A 06/09/21 05:39 RBC Morphology Normal (NORMAL) 06/09/21 05:39 Anisocytosis Slight A 06/07/21 05:15 Macrocytosis Slight A 06/07/21 05:15 PT 19.4 SECONDS (11.8-14.3) 06/09/21 05:39 INR Target Range - 06/09/21 05:39 INR 1.73 (0.8-1.3) H 06/09/21 05:39 APTT 37.0 SECONDS (22.9-36.5) H 06/09/21 05:39 PTT Comment - 06/09/21 05:39 D-Dimer 9.38 ug/ml (0.0-0.57) H* 06/09/21 05:39 Sample Site Lrad 06/09/21 05:30 ABG pH 7.380 (7.35-7.45) 06/09/21 05:30 ABG pCO2 26.0 mmHg (35.0-45.0) L 06/09/21 05:30 ABG pO2 77.0 mmHg (80.0-100.0) L 06/09/21 05:30 ABG HCO3 15.4 mmol/L (22-26) L* 06/09/21 05:30 ABG O2 Saturation 95.0 % (90-100) 06/09/21 05:30 ABG Base Excess -8.2 mmol/L (-2.0-2.0) L 06/09/21 05:30 Will Test Pos 06/09/21 05:30 A-a Gradient 90.0 mmHg 06/09/21 05:30 FiO2 28.0 06/09/21 05:30 Blood Gas Comments Rosario well mts/sa 06/09/21 05:30 Sodium 139 mmol/L (136-145) 06/09/21 05:39 Corrected Sodium 140 mmol/L (136-145) 06/09/21 05:39 Potassium 4.7 mmol/L (3.5-5.1) 06/09/21 05:39 Chloride 105 mmol/L (98-107) 06/09/21 05:39 Carbon Dioxide 17.2 mmol/L (21-32) L 06/09/21 05:39 BUN 48 mg/dL (7-18) H 06/09/21 05:39 Creatinine 1.45 mg/dL (0.55-1.02) H 06/09/21 05:39 Est GFR (MDRD) Af Amer 45 (>60) L 06/09/21 05:39 Est GFR (MDRD) Non-Af 37 (>60) L 06/09/21 05:39 Glucose 152 mg/dL (65-99) H 06/09/21 05:39 Lactic Acid 1.1 mmol/L (0.4-2.0) 06/07/21 12:06 Calcium 7.9 mg/dL (8.5-10.1) L 06/09/21 05:39 Corrected Calcium 9.1 mg/dL (8.5-10.1) 06/09/21 05:39 Magnesium 1.9 mg/dL (1.7-2.9) 06/07/21 05:15 Total Bilirubin 0.20 mg/dL (0.2-1.0) 06/09/21 05:39 AST 94 Units/L (15-37) H 06/09/21 05:39 ALT 117 Units/L (12-78) H 06/09/21 05:39 Alkaline Phosphatase 152 Units/L (46-116) H 06/09/21 05:39 Creatine Kinase 34 Units/L (26-192) 06/06/21 20:54 CK-MB (CK-2) < 1.0 ng/mL (0-4.0) 06/06/21 20:54 CK/CKMB % Calc 2.9 % (<4) 06/06/21 20:54 Troponin I < 0.02 ng/mL (0-1.5) 06/06/21 20:54 C-Reactive Protein 323.20 mg/L (0-3.0) H 06/09/21 05:39 B-Natriuretic Peptide 417 pg/mL (0-79) H 06/09/21 05:39 Total Protein 7.4 g/dL (6.4-8.2) 06/09/21 05:39 Albumin 2.5 g/dL (3.4-5.0) L 06/09/21 05:39 Globulin 4.9 g/dL (2.5-4.5) H 06/09/21 05:39 Albumin/Globulin Ratio 0.5 Ratio (1.1-2.1) L 06/09/21 05:39 Amylase 36 Units/L (25-115) 06/06/21 00:21 Lipase 172 Units/L (73-393) 06/06/21 00:21 Specimen Type Clean catch urine 06/06/21 19:20 Urine Color Yellow (YELLOW) 06/06/21 19:20 Urine Appearance Hazy (CLEAR) 06/06/21 19:20 Urine pH 5.0 (5.0 - 8.0) 06/06/21 19:20 Ur Specific W[place]ell 1.020 (1.000-1.030) 06/06/21 19:20 Urine Protein 2+ (NEGATIVE) 06/06/21 19:20 Urine Glucose (UA) Negative (NEGATIVE) 06/06/21 19:20 Urine Ketones Negative (NEGATIVE) 06/06/21 19:20 Urine Occult Blood 1+ (NEGATIVE) 06/06/21 19:20 Urine Nitrite Negative (NEGATIVE) 06/06/21 19:20 Urine Bilirubin Negative (NEGATIVE) 06/06/21 19:20 Urine Urobilinogen Normal (NORMAL) 06/06/21 19:20 Ur Leukocyte Esterase 3+ (NEGATIVE) 06/06/21 19:20 Urine RBC 3-5 /HPF (0-3) A 06/06/21 19:20 Urine WBC Tntc /HPF (0-5) A 06/06/21 19:20 Ur Squamous Epith Cells Few /HPF (NEGATIVE) 06/06/21 19:20 Urine Bacteria 3+ /HPF (NEGATIVE) 06/06/21 19:20 Hyaline Casts Few /LPF (NEGATIVE) 06/06/21 19:20 Coarse Granular Casts Few /HPF (NEGATIVE) 06/06/21 19:20 Ur Culture Indicated? Yes/culture set up 06/06/21 19:20 Acetone, Semi-Quant Negative (NEGATIVE) 06/07/21 12:06 SARS-CoV-2 (PCR) Negative (NEGATIVE) 06/08/21 09:54 Influenza Type A (PCR) Negative (NEGATIVE) 06/08/21 09:54 Influenza Type B (PCR) Negative (NEGATIVE) 06/08/21 09:54 RSV (PCR) Negative (NEGATIVE) 06/08/21 09:54 SARS CoV-2 RNA Rapid ASHLEY Negative (NEGATIVE) 06/06/21 04:58 - Plan (1) Pneumonia Status: Acute Qualifiers: Pneumonia type: due to unspecified organism Laterality: unspecified laterality Lung location: unspecified part of lung Qualified Code(s): J18.9 - Pneumonia, unspecified organism Plan: NORMAL SALINE AT 70 ML/HR, MEROPENEM 500MG IV Q8H, PEPCID 20MG IV DAILY, PROTONIX 40MG IV BID, GI COCKTAIL, ZOFRAN 4MG IV Q6H PRN, MORPHINE SULFATE 4MG IV Q6H PRN, LASIX 20MG IV BID X 2 DOSES, REMDESIVIR 100MG IV DAILY, DUONEBS TID, PULMICORT NEBS BID, DIFLUCAN 100MG PO DAILY, AND HER HOME MEDICATIONS WITH THE EXCEPTION OF HER COUMADIN WERE RESUMED. (2) Coumadin toxicity Status: Acute Qualifiers: Encounter type: initial encounter Injury intent: undetermined intent Qualified Code(s): T45.514A - Poisoning by anticoagulants, undetermined, initial encounter (3) Urinary tract infection Status: Acute Qualifiers: Urinary tract infection type: acute cystitis Hematuria presence: without hematuria Qualified Code(s): N30.00 - Acute cystitis without hematuria (4) Abdominal pain Status: Acute Qualifiers: Abdominal location: generalized Qualified Code(s): R10.84 - Generalized abdominal pain (5) Pericardial effusion Status: Acute (6) Elevated d-dimer Status: Acute (7) Gastroparesis Status: Chronic (8) Diabetes Status: Chronic Qualifiers: Diabetes mellitus type: type 2 Diabetes mellitus rn long term care insulin use: with rn long term care use Diabetes mellitus complication status: with other specified complication Qualified Code(s): E11.69 - Type 2 diabetes mellitus with other specified complication; Z79.4 - detention (current) use of insulin (9) Anemia Status: Chronic Qualifiers: Anemia type: iron deficiency Iron deficiency anemia type: unspecified iron deficiency Qualified Code(s): D50.9 - Iron deficiency anemia, unspecified (10) CHF (congestive heart failure) Status: Chronic Qualifiers: Heart failure type: unspecified Heart failure chronicity: acute on chronic Qualified Code(s): I50.9 - Heart failure, unspecified
--- NOTE | 2021-06-09 13:10 | VAS ---
HISTORYLUE PAIN, HX OF PESTUDYDuplex venous ultrasound of the left upper extremityCOMPARISONNoneTECHNIQUEMultiple zavala scale and color flow Doppler images of the deep venous system were obtained of the left upper extremity.FINDINGSThe deep venous system of the left upper extremity was evaluated from the level of internal jugular vein to the radial and ulnar veins. Normal color flow and augmentation can be observed. In addition, normal compression is seen throughout the deep venous system.IMPRESSIONNegative for DVT.Electronically signed by: Blu Cazares (Jun 09, 2021 13:07:48)
[2021-06-09 16:25] LABS: HEMATOCRIT 24.7 % (36.0-47.0)
[2021-06-09] MEDS: NS 1000 ML 1,000 ML IV SCH (17:04)
[2021-06-09] MEDS ORDERED: COUMADIN TAB 2 MG (JANTOVEN) PO SCH (21:00)
[2021-06-09] MEDS: ELAVIL PO SCH (21:28)
[2021-06-09] MEDS ORDERED: PROCRIT or EPOGEN VIAL 10,000 UNITS ONE (23:52)
[2021-06-10] MEDS: MORPHINE SULFATE INJ 4 MG IVP PRN ×2 (05:14→18:23)
[2021-06-10] MEDS: CARDIZEM TAB 30 MG PLAIN PO SCH ×3 (05:15→21:30)
[2021-06-10] MEDS: MERREM VIAL 500 MG in NS 100 ML IV + SPIKE MINIBAG* 100 ML IV SCH ×3 (05:16→21:30)
[2021-06-10] MEDS: DUONEB 0.5 MG/3 MG (3 mL) NEB SCH ×3 (06:14→21:35)
[2021-06-10 07:09] LABS: BASOPHILS % (AUTO) 0.3 % (0.2-1.0); EOSINOPHILS # (AUTO) 0.1 x10^3/uL (0.0-0.2); EOSINOPHILS % (AUTO) 0.7 % (0.9-2.9); HEMATOCRIT 22.7 % (36.0-47.0); HEMOGLOBIN 7.5 g/dL (12.0-16.0); LYMPHOCYTES # (AUTO) 1.2 X10^3/uL (1.3-2.9); LYMPHOCYTES % (AUTO) 12.3 % (21.0-51.0); MEAN CORPUSCULAR HEMOGLOBIN 33.5 pg (27.0-34.0); MEAN CORPUSCULAR HGB CONC 33.1 g/dL (33.0-35.0); MEAN CORPUSCULAR VOLUME 101.3 fL (80.0-100.0); MEAN PLATELET VOLUME 7.7 fL (7.4-11.0); MONOCYTES # (AUTO) 1.5 x10^3/uL (0.3-0.8); MONOCYTES % (AUTO) 15.4 % (0.0-13.0); NEUTROPHILS % (AUTO) 71.3 % (42.0-75.0); PLATELET COUNT 524 X10^3/uL (150.0-450.0); RED BLOOD COUNT 2.25 X10^6/uL (3.5-5.4); RED CELL DISTRIBUTION WIDTH 14.6 % (11.6-16.5); WHITE BLOOD COUNT 9.8 X10^3/uL (3.6-10.0)
[2021-06-10 07:49] LABS: ALBUMIN 2.4 g/dL (3.4-5.0); CALCIUM 7.5 mg/dL (8.5-10.1); CARBON DIOXIDE 17.2 mmol/L (21-32); COR CA(FOR HYPOALB) 8.8 mg/dL (8.5-10.1); CREATININE 1.35 mg/dL (0.55-1.02); TOTAL PROTEIN 6.9 g/dL (6.4-8.2)
[2021-06-10 08:17] LABS: BAND NEUTROPHILS % 3 % (0-10); PLATELET MORPHOLOGY COMMENT NORMAL (NORMAL)
--- NOTE | 2021-06-10 08:19 | RAD ---
HISTORYSOBSTUDYCHEST, 1 [id number]/24/2021FINDINGSFocal opacity in the upper lateral left lung could be pneumonia or atelectasis. I believe this was present on the prior study. Some of this could be due to overlying structures.The lower left lung in the right lung are clear. No pleural effusion or pneumothorax.The heart is large, but not changed.Left subclavian central venous catheter is in the expected location of the superior vena cava. EKG leads are noted. Surgical clips are in the upper abdomen.IMPRESSION1. Possible left upper lobe pneumonia, unchanged2. Stable cardiomegalyElectronically signed by: Nate Raines (Jun 10, 2021 08:17:53)
[2021-06-10] MEDS: COREG TAB 3.125 MG PO SCH ×2 (08:26→21:27)
[2021-06-10] MEDS: COLACE CAP 100 MG PO SCH (08:26)
[2021-06-10] MEDS: FERROUS GLUCONATE PO SCH (08:27)
[2021-06-10] MEDS: LIPITOR TAB 40 MG PO SCH (08:27)
[2021-06-10] MEDS: SYNTHROID 50 mcg TAB PO SCH (08:28)
[2021-06-10] MEDS: PEPCID 20 MG IV PREMIX* 20 MG/50 ML BAG IV SCH (08:28)
[2021-06-10] MEDS: LEVSIN/MAALOX/LIDOC VISC PO SCH ×4 (08:28→21:29)
[2021-06-10] MEDS: PROTONIX INJ 40 MG VIAL IVP SCH ×2 (08:29→21:27)
[2021-06-10] MEDS: REMDESIVIR 100 MG in NS 250 ML IV 250 ML IV SCH (08:29)
[2021-06-10] MEDS: ALDACTONE TAB 25 MG PO SCH (09:25)
[2021-06-10] MEDS ORDERED: LASIX IVP ONE (09:47)
[2021-06-10 09:50] LABS: ANTI-NUCLEAR ANTIBODY TEST None Detected (None Detected)
[2021-06-10] MEDS: PULMICORT NEB TX 0.5 MG NEB SCH ×2 (09:54→21:35)
[2021-06-10] MEDS ORDERED: PHARMACY CONSULT - LOVENOX XX SCH (10:00)
[2021-06-10] MEDS ORDERED: MILK OF MAGNESIA PO PRN (11:05)
[2021-06-10] MEDS: ALBUMIN HUMAN 25%- 100 ML 100 ML IV SCH (11:39)
[2021-06-10] MEDS: LOVENOX INJ 40 MG SYR SC SCH ×2 (11:40→21:27)
[2021-06-10] MEDS ORDERED: TYLENOL 325 MG TAB PO ONE (11:40)
[2021-06-10] MEDS ORDERED: BENADRYL INJ 50 MG VIAL IVP ONE (11:40)
[2021-06-10] MEDS ORDERED: NS 250 ML IV 250 ML IV ONE (11:51)
[2021-06-10] MEDS: NS 1000 ML 1,000 ML IV SCH ×2 (11:55→17:59)
[2021-06-10] MEDS ORDERED: LASIX ONE (17:28)
[2021-06-10 17:59] LABS: HEMATOCRIT 28.6 % (36.0-47.0); HEMOGLOBIN 9.5 g/dL (12.0-16.0)
[2021-06-10] MEDS: ELAVIL PO SCH (21:27)
[2021-06-11] MEDS: CARDIZEM TAB 30 MG PLAIN PO SCH ×3 (05:58→21:31)
[2021-06-11] MEDS: MERREM VIAL 500 MG in NS 100 ML IV + SPIKE MINIBAG* 100 ML IV SCH ×3 (05:58→21:31)
[2021-06-11] MEDS: MORPHINE SULFATE INJ 4 MG IVP PRN ×2 (06:01→17:28)
--- NOTE | 2021-06-11 06:35 | RAD ---
HISTORYSOBSTUDYCHEST, 1 [id number]/25/2021.TECHNIQUEAP view of the chestFINDINGSLeft chest wall port with tip in good position. Cardiac silhouette is enlarged. Mediastinal contours appear normal. Similar appearance of bilateral mild scattered interstitial opacities. No definite pleural effusion or pneumothorax. Upper abdomen surgical clips are present.IMPRESSIONNo significant change in mild interstitial opacities which can be seen with atypical pneumonia. Stable oval left upper lobe peripheral opacity.Electronically signed by: Hemant Lujan (Jun 11, 2021 06:33:28)
[2021-06-11 06:57] LABS: BASOPHILS % (AUTO) 0.3 % (0.2-1.0); EOSINOPHILS # (AUTO) 0.1 x10^3/uL (0.0-0.2); EOSINOPHILS % (AUTO) 0.7 % (0.9-2.9); HEMATOCRIT 25.7 % (36.0-47.0); HEMOGLOBIN 8.7 g/dL (12.0-16.0); MEAN CORPUSCULAR HEMOGLOBIN 33.2 pg (27.0-34.0); MEAN CORPUSCULAR VOLUME 97.7 fL (80.0-100.0); MEAN PLATELET VOLUME 7.8 fL (7.4-11.0); MONOCYTES # (AUTO) 1.4 x10^3/uL (0.3-0.8); MONOCYTES % (AUTO) 14.9 % (0.0-13.0); NEUTROPHILS # (AUTO) 6.7 x10^3/uL (2.2-4.8); NEUTROPHILS % (AUTO) 73.1 % (42.0-75.0); PLATELET COUNT 492 X10^3/uL (150.0-450.0); RED BLOOD COUNT 2.63 X10^6/uL (3.5-5.4); RED CELL DISTRIBUTION WIDTH 15.3 % (11.6-16.5); WHITE BLOOD COUNT 9.2 X10^3/uL (3.6-10.0)
[2021-06-11 07:09] LABS: ALBUMIN 2.9 g/dL (3.4-5.0); CALCIUM 7.3 mg/dL (8.5-10.1); CARBON DIOXIDE 18.6 mmol/L (21-32); COR CA(FOR HYPOALB) 8.2 mg/dL (8.5-10.1); CREATININE 1.17 mg/dL (0.55-1.02); TOTAL PROTEIN 6.8 g/dL (6.4-8.2)
[2021-06-11 08:21] LABS: BAND NEUTROPHILS % 1 % (0-10); GIANT PLATELET RARE; PLATELET MORPHOLOGY COMMENT ABNORMAL (NORMAL)
[2021-06-11] MEDS: ALBUMIN HUMAN 25%- 100 ML 100 ML IV SCH ×2 (08:41→21:00)
[2021-06-11] MEDS: COLACE CAP 100 MG PO SCH (08:42)
[2021-06-11] MEDS: COREG TAB 3.125 MG PO SCH ×2 (08:42→21:29)
[2021-06-11] MEDS: PEPCID 20 MG IV PREMIX* 20 MG/50 ML BAG IV SCH (08:42)
[2021-06-11] MEDS: PROTONIX INJ 40 MG VIAL IVP SCH ×2 (08:42→21:00)
[2021-06-11] MEDS: FERROUS GLUCONATE PO SCH (08:43)
[2021-06-11] MEDS: LIPITOR TAB 40 MG PO SCH (08:43)
[2021-06-11] MEDS: LEVSIN/MAALOX/LIDOC VISC PO SCH ×4 (08:43→21:29)
[2021-06-11] MEDS: SYNTHROID 50 mcg TAB PO SCH (08:43)
[2021-06-11] MEDS: LOVENOX INJ 40 MG SYR SC SCH ×2 (09:00→21:00)
[2021-06-11] MEDS: PULMICORT NEB TX 0.5 MG NEB SCH ×2 (09:10→23:50)
--- NOTE | 2021-06-11 09:22 | CT ---
HISTORYShortness of breath, elevated D-dimerSTUDYCTA chest with contrast for pulmonary embolusTechnique: Axial post-contrast images with coronal, sagittal, and 3 dimensional maximum intensity projection images obtained in evaluated. Dose reduction procedures were used with mA/kv adjusted for body size.[id number]/05/2021FINDINGSThere is no evidence for acute pulmonary thromboembolic disease. Examination of the mediastinum demonstrated no evidence for mediastinal masses, enlarged mediastinal or enlarged hilar adenopathy or significant aortic abnormality. However, there is a large pleural effusion having a maximum width of 2.7 cm. Cardiology evaluation is recommended in order to determine if pericardiocentesis is required. There is a small left pleural effusion present. No chest wall or axillary abnormality is identified. Those portions of the upper abdominal organs visualized were within normal limits to the limitations of early arterial injection timing. Examination of the lung kent demonstrated no evidence for nodules, masses, alveolar infiltrates, areas of consolidation, peribronchial thickening, or bronchiectasis. Scattered areas of subsegmental atelectasis are present bilaterally.IMPRESSIONNo evidence for acute pulmonary thromboembolic diseaseLarge pericardial effusion maximum with 2.7 cm and for which cardiology evaluation is recommended in order to determine if pericardiocentesis is indicated.Lungs clear with the exception of scattered areas of subsegmental atelectasis.Electronically signed by: SHAN STEVENSON (Jun 11, 2021 09:20:42)
--- NOTE | 2021-06-11 10:17 | PCM.PROG ---
Progress Note - Progress Note for Day of Date of Exam: 06/10/21 - Subjective Subjective: IS BEING TREATED FOR PNEUMONIA, SHORTNESS OF BREATH, UTI, COUMADIN TOXICITY, ELEVATED D-DIMER, ABDOMINAL PAIN, PERICARDIAL EFFUSION. SHE HAS A PAST MEDICAL HISTORY OF A PULMONARY EMOBLISM, GASTROPARESIS, CHF, HTN. SHE HAS BEEN TAKING COUMADIN AT HOME. TODAY, SHE IS ALERT AND ORIENTED, LYING IN BED ON MORNING ROUNDS. SHE CONTINUES WITH SHORTNESS OF BREATH, NON-PRODUCTIVE COUGH, AND WEAKNESS THIS MORNING. SHE REPORTS THAT SHORTNESS OF BREATH IS SLIGHTLY WORSE TODAY. ON EXAMINATION, HEART IS REGULAR IN RATE AND RHYTHM. SHE IS NOTED TO HAVE UPPER EXPIRATORY WHEEZING. ABDOMEN IS ROUND, SOFT, AND NOTED WITH MILD, DIFFUSE TENDERNESS. NORMAL BOWEL SOUNDS NOTED IN ALL QUADRANTS. BLE NOTED TO HAVE TRACE EDEMA. HER VITALS THIS MORNING ARE: 97.7-89-18-97%-131/72. LABS WERE OBTAINED. ABNORMAL LAB VALUES INCLUDE THE FOLLOWING: RBC 2.25, HGB 7.5, HCT 22.7, PLT COUNT 524, D-DIMER 15.98, CHLORIDE 108, CARBON DIOXIDE 17.2, BUN 51, CREATININE 1.35, GLUCOSE 131, CALCIUM 7.5, AST 67, ALT 98, ALK PHOS 134, CRP 301.20, BNP 300, ALBUMIN 2.4. URINE CULTURE POSITIVE FOR GROWTH OF KELBSIELLA PN EUMONIAE. A CHEST XRAY WAS OBTAINED AND REVEALED: 1. Possible left upper lobe pneumonia, unchanged 2. Stable cardiomegaly. ECHO REVEALED AN EJECTION FRACTION OF 23%. RVSP 27mmHg, SMALL PERICARDIAL EFFUSION WITH CLEAR FLUIDS. SHE IS CURRENTLY RECEIVING NORMAL SALINE AT 70 ML/HR, MEROPENEM 500MG IV Q8H, REMDESIVIR 100MG IV DAILY, DUONEBS TID, PULMICORT NEBS BID, DIFLUCAN 100MG PO DAILY, PEPCID 20MG IV DAILY, PROTONIX 40MG IV BID, PEPCID 20MG IV BID, ALDACTONE 25MG PO DAILY, COREG 3.125MG PO BID, GI COCKTAIL, ZOFRAN 4MG IV Q6H PRN, MORPHINE SULFATE 4MG IV Q6H PRN, AND HER HOME MEDICATIONS WERE RESUMED. TODAY, WE WILL TYPE AND SCREEN AND TRANSFUSE ONE UNIT OF PACKED RED BLOOD CELLS. WE WILL DISCONTINUE THE COUMADIN AND ADD LOVENOX 40MG SC BID. OTHERWISE, WE WILL CONTINUE WITH CURRENT PLAN OF CARE. WE PLAN TO FOLLOW UP WITH AM LABS AND CHEST XRAY AND CONTINUE TO MONITOR. TIME SPENT ON CLINICAL ASSESSMENT, REVIEWING LABS AND IMAGING, DECISION MAKING, AND DOCUMENTATION GREATER THAN 45 MINUTES. - Past Medical Family Social History Past Med/Fam/Surg Hx: No changes since H&P Allergies: Allergies cefaclor Allergy (Mild, Verified 07/17/20 17:27) pentazocine Allergy (Mild, Verified 07/17/20 17:27) Sulfa (Sulfonamide Antibiotics) [SULFA] Allergy (Mild, Verified 07/17/20 17:27) megestrol Allergy (Verified 04/24/21 21:09) fentanyl Adverse Reaction (Severe, Verified 10/12/20 14:34) CARDIAC ARREST prednisone Adverse Reaction (Mild, Verified 07/17/20 17:27) nitrofurantoin [From Macrobid] Adverse Reaction (Verified 10/12/20 14:34) - Review of Systems ROS: No change since H&P - Vital Signs and I&O's Vital Signs: Temperature 98.0 F Pulse Rate [Left] 93 Pulse Rate 93 Respiratory Rate 22 Blood Pressure [Right Arm] 151/70 Blood Pressure 117/61 O2 Sat by Pulse Oximetry 93 Intake and Output: Intake & Output 06/08/21 06/09/21 06/10/21 06/11/21 11:59 11:59 11:59 11:59 Intake Total 1511 / 1511 2200 / 2200 3020 / 3020 2971 / 2971 Balance 1511 / 1511 2200 / 2200 3020 / 3020 2971 / 2971 - Physical Exam Oriented: Normal Eyes: Normal Ear: Normal Nose: Normal Throat: Normal Respiratory: Generalized, Diminished, Wheezes Cardiovascular: Edema (BLE 1+ PITTING ) : Normal Auscultation: Bowel Sounds: Normal Palpation: Normal Tenderness: Diffuse, Mild Skin: Decreased Turgur Musculoskeletal: Back:Thoracic, Back:Lumbar Psychiatric: Anxiety Affect: Anxious Speech Pattern: Clear, Appropriate - Laboratory and Diagnostics Result Diagrams: 06/11/21 05:38 06/11/21 05:38 Labs: 06/07/21 12:06 Blood Blood Culture - Preliminary 06/07/21 12:15 Blood Blood Culture - Preliminary 06/06/21 19:20 Urine,Clean Catch Urine Culture - Final Klebsiella Pneumoniae Laboratory WBC 9.2 X10^3/uL (3.6-10.0) 06/11/21 05:38 RBC 2.63 X10^6/uL (3.5-5.4) L 06/11/21 05:38 Hgb 8.7 g/dL (12.0-16.0) L 06/11/21 05:38 Hct 25.7 % (36.0-47.0) L 06/11/21 05:38 MCV 97.7 fL (80.0-100.0) 06/11/21 05:38 MCH 33.2 pg (27.0-34.0) 06/11/21 05:38 MCHC 34.0 g/dL (33.0-35.0) 06/11/21 05:38 RDW 15.3 % (11.6-16.5) 06/11/21 05:38 Plt Count 492 X10^3/uL (150.0-450.0) H 06/11/21 05:38 Plt Count Comment Increased (ADEQUATE) A 06/11/21 05:38 MPV 7.8 fL (7.4-11.0) 06/11/21 05:38 Neut % (Auto) 73.1 % (42.0-75.0) 06/11/21 05:38 Lymph % (Auto) 11.0 % (21.0-51.0) L 06/11/21 05:38 [place] % (Auto) 14.9 % (0.0-13.0) H 06/11/21 05:38 Eos % (Auto) 0.7 % (0.9-2.9) L 06/11/21 05:38 Baso % (Auto) 0.3 % (0.2-1.0) 06/11/21 05:38 Neut # (Auto) 6.7 x10^3/uL (2.2-4.8) H 06/11/21 05:38 Lymph # (Auto) 1.0 X10^3/uL (1.3-2.9) L 06/11/21 05:38 [place] # (Auto) 1.4 x10^3/uL (0.3-0.8) H 06/11/21 05:38 Eos # (Auto) 0.1 x10^3/uL (0.0-0.2) 06/11/21 05:38 Baso # (Auto) 0.0 X10^3/uL (0.0-0.1) 06/11/21 05:38 Absolute Nucleated RBC 0.2 /100WBC 06/11/21 05:38 Total Counted 100 06/11/21 05:38 Neutrophils % (Manual) 74 % (39-76) 06/11/21 05:38 Band Neutrophils % 1 % (0-10) 06/11/21 05:38 Lymphocytes % (Manual) 15 % (13-43) 06/11/21 05:38 Monocytes % (Manual) 9 % (4-9) 06/11/21 05:38 Eosinophils % (Manual) 1 % (0-6) 06/11/21 05:38 Metamyelocytes % 3 06/07/21 05:15 Plt Clumps, EDTA Rare 06/07/21 05:15 Giant Platelets Rare 06/11/21 05:38 Plt Morphology Comment Abnormal (NORMAL) A 06/11/21 05:38 RBC Morphology Normal (NORMAL) 06/11/21 05:38 Anisocytosis Slight A 06/07/21 05:15 Macrocytosis Slight A 06/07/21 05:15 PT 18.8 SECONDS (11.8-14.3) 06/10/21 05:39 INR Target Range - 06/10/21 05:39 INR 1.65 (0.8-1.3) H 06/10/21 05:39 APTT 40.2 SECONDS (22.9-36.5) H 06/10/21 05:39 PTT Comment - 06/10/21 05:39 D-Dimer 9.39 ug/ml (0.0-0.57) H* 06/11/21 08:40 Sample Site Lrad 06/09/21 05:30 ABG pH 7.380 (7.35-7.45) 06/09/21 05:30 ABG pCO2 26.0 mmHg (35.0-45.0) L 06/09/21 05:30 ABG pO2 77.0 mmHg (80.0-100.0) L 06/09/21 05:30 ABG HCO3 15.4 mmol/L (22-26) L* 06/09/21 05:30 ABG O2 Saturation 95.0 % (90-100) 06/09/21 05:30 ABG Base Excess -8.2 mmol/L (-2.0-2.0) L 06/09/21 05:30 Will Test Pos 06/09/21 05:30 A-a Gradient 90.0 mmHg 06/09/21 05:30 FiO2 28.0 06/09/21 05:30 Blood Gas Comments Rosario well mts/sa 06/09/21 05:30 Sodium 142 mmol/L (136-145) 06/11/21 05:38 Corrected Sodium 143 mmol/L (136-145) 06/11/21 05:38 Potassium 4.8 mmol/L (3.5-5.1) 06/11/21 05:38 Chloride 110 mmol/L (98-107) H 06/11/21 05:38 Carbon Dioxide 18.6 mmol/L (21-32) L 06/11/21 05:38 BUN 48 mg/dL (7-18) H 06/11/21 05:38 Creatinine 1.17 mg/dL (0.55-1.02) H 06/11/21 05:38 Est GFR (MDRD) Af Amer 57 (>60) L 06/11/21 05:38 Est GFR (MDRD) Non-Af 47 (>60) L 06/11/21 05:38 Glucose 124 mg/dL (65-99) H 06/11/21 05:38 Lactic Acid 1.1 mmol/L (0.4-2.0) 06/07/21 12:06 Calcium 7.3 mg/dL (8.5-10.1) L 06/11/21 05:38 Corrected Calcium 8.2 mg/dL (8.5-10.1) L 06/11/21 05:38 Magnesium 1.9 mg/dL (1.7-2.9) 06/07/21 05:15 Total Bilirubin 0.40 mg/dL (0.2-1.0) 06/11/21 05:38 AST 47 Units/L (15-37) H 06/11/21 05:38 ALT 71 Units/L (12-78) 06/11/21 05:38 Alkaline Phosphatase 120 Units/L (46-116) H 06/11/21 05:38 Creatine Kinase 34 Units/L (26-192) 06/06/21 20:54 CK-MB (CK-2) < 1.0 ng/mL (0-4.0) 06/06/21 20:54 CK/CKMB % Calc 2.9 % (<4) 06/06/21 20:54 Troponin I < 0.02 ng/mL (0-1.5) 06/06/21 20:54 C-Reactive Protein 457.90 mg/L (0-3.0) H 06/11/21 05:38 B-Natriuretic Peptide 545 pg/mL (0-79) H* 06/11/21 05:38 Total Protein 6.8 g/dL (6.4-8.2) 06/11/21 05:38 Albumin 2.9 g/dL (3.4-5.0) L 06/11/21 05:38 Globulin 3.9 g/dL (2.5-4.5) 06/11/21 05:38 Albumin/Globulin Ratio 0.7 Ratio (1.1-2.1) L 06/11/21 05:38 Amylase 36 Units/L (25-115) 06/06/21 00:21 Lipase 172 Units/L (73-393) 06/06/21 00:21 Specimen Type Clean catch urine 06/06/21 19:20 Urine Color Yellow (YELLOW) 06/06/21 19:20 Urine Appearance Hazy (CLEAR) 06/06/21 19:20 Urine pH 5.0 (5.0 - 8.0) 06/06/21 19:20 Ur Specific [place] 1.020 (1.000-1.030) 06/06/21 19:20 Urine Protein 2+ (NEGATIVE) 06/06/21 19:20 Urine Glucose (UA) Negative (NEGATIVE) 06/06/21 19:20 Urine Ketones Negative (NEGATIVE) 06/06/21 19:20 Urine Occult Blood 1+ (NEGATIVE) 06/06/21 19:20 Urine Nitrite Negative (NEGATIVE) 06/06/21 19:20 Urine Bilirubin Negative (NEGATIVE) 06/06/21 19:20 Urine Urobilinogen Normal (NORMAL) 06/06/21 19:20 Ur Leukocyte Esterase 3+ (NEGATIVE) 06/06/21 19:20 Urine RBC 3-5 /HPF (0-3) A 06/06/21 19:20 Urine WBC Tntc /HPF (0-5) A 06/06/21 19:20 Ur Squamous Epith Cells Few /HPF (NEGATIVE) 06/06/21 19:20 Urine Bacteria 3+ /HPF (NEGATIVE) 06/06/21 19:20 Hyaline Casts Few /LPF (NEGATIVE) 06/06/21 19:20 Coarse Granular Casts Few /HPF (NEGATIVE) 06/06/21 19:20 Ur Culture Indicated? Yes/culture set up 06/06/21 19:20 Acetone, Semi-Quant Negative (NEGATIVE) 06/07/21 12:06 BETSY Screen None detected (None Detected) 06/08/21 05:24 BETSY Titer TNP 06/08/21 05:24 BETSY Pattern TNP 06/08/21 05:24 SARS-CoV-2 (PCR) Negative (NEGATIVE) 06/08/21 09:54 Influenza Type A (PCR) Negative (NEGATIVE) 06/08/21 09:54 Influenza Type B (PCR) Negative (NEGATIVE) 06/08/21 09:54 RSV (PCR) Negative (NEGATIVE) 06/08/21 09:54 SARS CoV-2 RNA Rapid ASHLEY Negative (NEGATIVE) 06/06/21 04:58 Blood Type A POSITIVE 06/10/21 10:04 Antibody Screen Negative 06/10/21 10:04 Crossmatch See Detail 06/10/21 10:04 - Plan (1) Pneumonia Status: Acute Qualifiers: Pneumonia type: due to unspecified organism Laterality: unspecified laterality Lung location: unspecified part of lung Qualified Code(s): J18.9 - Pneumonia, unspecified organism Plan: NORMAL SALINE AT 70 ML/HR, MEROPENEM 500MG IV Q8H, PEPCID 20MG IV DAILY, PROTONIX 40MG IV BID, GI COCKTAIL, ZOFRAN 4MG IV Q6H PRN, MORPHINE SULFATE 4MG IV Q6H PRN, LASIX 20MG IV BID X 2 DOSES, REMDESIVIR 100MG IV DAILY, DUONEBS TID, PULMICORT NEBS BID, DIFLUCAN 100MG PO DAILY, AND HER HOME MEDICATIONS WITH THE EXCEPTION OF HER COUMADIN WERE RESUMED. (2) Coumadin toxicity Status: Acute Qualifiers: Encounter type: initial encounter Injury intent: undetermined intent Qualified Code(s): T45.514A - Poisoning by anticoagulants, undetermined, initial encounter (3) Urinary tract infection Status: Acute Qualifiers: Urinary tract infection type: acute cystitis Hematuria presence: without hematuria Qualified Code(s): N30.00 - Acute cystitis without hematuria (4) Abdominal pain Status: Acute Qualifiers: Abdominal location: generalized Qualified Code(s): R10.84 - Generalized abdominal pain (5) Pericardial effusion Status: Acute (6) Elevated d-dimer Status: Acute (7) Gastroparesis Status: Chronic (8) Diabetes Status: Chronic Qualifiers: Diabetes mellitus type: type 2 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 Diabetes mellitus complication status: with other specified complication Qualified Code(s): E11.69 - Type 2 diabetes mellitus with other specified complication; 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
--- NOTE | 2021-06-11 10:24 | PCM.PROG ---
Progress Note - Progress Note for Day of Date of Exam: 06/11/21 - Subjective Subjective: IS BEING TREATED FOR PNEUMONIA, SHORTNESS OF BREATH, UTI, ANEMIA, ELEVATED D-DIMER, ABDOMINAL PAIN, PERICARDIAL EFFUSION. SHE HAS A PAST MEDICAL HISTORY OF A PULMONARY EMOBLISM, GASTROPARESIS, CHF, HTN. SHE RECEIVED ONE UNIT OF PACKED RED BLOOD CELLS YESTERDAY. TODAY, SHE IS ALERT AND ORIENTED, LYING IN BED ON MORNING ROUNDS. SHE CONTINUES WITH SHORTNESS OF BREATH, NON- PRODUCTIVE COUGH, AND WEAKNESS THIS MORNING. SHE REPORTS THAT SHORTNESS OF BREATH IS SLIGHTLY WORSE TODAY. ON EXAMINATION, HEART IS REGULAR IN RATE AND RHYTHM. SHE IS NOTED TO HAVE UPPER EXPIRATORY WHEEZING. ABDOMEN IS ROUND, SOFT, AND NOTED WITH MILD, DIFFUSE TENDERNESS. NORMAL BOWEL SOUNDS NOTED IN ALL QUADRA NTS. BLE NOTED TO HAVE TRACE EDEMA. HER VITALS THIS MORNING ARE: 98.0-93-20-92%-151/70. LABS WERE OBTAINED. ABNORMAL LAB VALUES INCLUDE THE FOLLOWING: RBC 2.63, HGB 8.7, HCT 25.7, PLT COUNT 492, D-DIMER 9.39, CHLORIDE 110, CARBON DIOXIDE 18.6, BUN 48, CREATININE 1.17, GLUCOSE 124, CALCIUM 7.3, AST 47, ALK PHOS 120, CRP 457.90, BNP 545, ALBUMIN 2.9. CHEST XRAY REVEALED: No significant change in mild interstitial opacities which can be seen with atypical pneumonia. Stable oval left upper lobe peripheral opacity. SHE IS CURRENTLY RECEIVING NORMAL SALINE AT 70 ML/HR, MEROPENEM 500MG IV Q8H, LOVENOX 40MG SC BID, DUONEBS TID, PULMICORT NEBS BID, DIFLUCAN 100MG PO DAILY, PEPCID 20MG IV DAILY, PROTONIX 40MG IV BID, PEPCID 20MG IV BID, ALDACTONE 25MG PO DAILY, COREG 3.125MG PO BID, GI COCKTAIL, ZOFRAN 4MG IV Q6H PRN, MORPHINE SULFATE 4MG IV Q6H PRN, AND HER HOME MEDICATIONS WERE RESUMED. WE WILL CONTINUE WITH CURRENT PLAN OF CARE. WE WILL OBTAIN A CHEST CTA TO RULE OUT PE. OTHERWISE, WE PLAN TO FOLLOW UP WITH AM LABS AND CHEST XRAY AND CONTINUE TO MONITOR. TIME SPENT ON CLINICAL ASSESSMENT, REVIEWING LABS AND IMAGING, DECISION MAKING, AND DOCUMENTATION GREATER THAN 45 MINUTES. - Past Medical Family Social History Past Med/Fam/Surg Hx: No changes since H&P Allergies: Allergies cefaclor Allergy (Mild, Verified 07/17/20 17:27) pentazocine Allergy (Mild, Verified 07/17/20 17:27) Sulfa (Sulfonamide Antibiotics) [SULFA] Allergy (Mild, Verified 07/17/20 17:27) megestrol Allergy (Verified 04/24/21 21:09) fentanyl Adverse Reaction (Severe, Verified 10/12/20 14:34) CARDIAC ARREST prednisone Adverse Reaction (Mild, Verified 07/17/20 17:27) nitrofurantoin [From Macrobid] Adverse Reaction (Verified 10/12/20 14:34) - Review of Systems ROS: No change since H&P - Vital Signs and I&O's Vital Signs: Temperature 98.0 F Pulse Rate [Left] 93 Pulse Rate 93 Respiratory Rate 22 Blood Pressure [Right Arm] 151/70 Blood Pressure 117/61 O2 Sat by Pulse Oximetry 93 Intake and Output: Intake & Output 06/08/21 06/09/21 06/10/21 06/11/21 11:59 11:59 11:59 11:59 Intake Total 1511 / 1511 2200 / 2200 3020 / 3020 2971 / 2971 Balance 1511 / 1511 2200 / 2200 3020 / 3020 2971 / 2971 - Physical Exam Oriented: Normal Eyes: Normal Ear: Normal Nose: Normal Throat: Normal Respiratory: Generalized, Diminished, Wheezes Cardiovascular: Edema : Normal Auscultation: Bowel Sounds: Normal Palpation: Normal Tenderness: Diffuse, Mild Skin: Decreased Turgur Musculoskeletal: Back:Thoracic, Back:Lumbar Psychiatric: Anxiety Affect: Anxious Speech Pattern: Clear, Appropriate - Laboratory and Diagnostics Result Diagrams: 06/11/21 05:38 06/11/21 05:38 Labs: 06/07/21 12:06 Blood Blood Culture - Preliminary 06/07/21 12:15 Blood Blood Culture - Preliminary 06/06/21 19:20 Urine,Clean Catch Urine Culture - Final Klebsiella Pneumoniae Laboratory WBC 9.2 X10^3/uL (3.6-10.0) 06/11/21 05:38 RBC 2.63 X10^6/uL (3.5-5.4) L 06/11/21 05:38 Hgb 8.7 g/dL (12.0-16.0) L 06/11/21 05:38 Hct 25.7 % (36.0-47.0) L 06/11/21 05:38 MCV 97.7 fL (80.0-100.0) 06/11/21 05:38 MCH 33.2 pg (27.0-34.0) 06/11/21 05:38 MCHC 34.0 g/dL (33.0-35.0) 06/11/21 05:38 RDW 15.3 % (11.6-16.5) 06/11/21 05:38 Plt Count 492 X10^3/uL (150.0-450.0) H 06/11/21 05:38 Plt Count Comment Increased (ADEQUATE) A 06/11/21 05:38 MPV 7.8 fL (7.4-11.0) 06/11/21 05:38 Neut % (Auto) 73.1 % (42.0-75.0) 06/11/21 05:38 Lymph % (Auto) 11.0 % (21.0-51.0) L 06/11/21 05:38 [place] % (Auto) 14.9 % (0.0-13.0) H 06/11/21 05:38 Eos % (Auto) 0.7 % (0.9-2.9) L 06/11/21 05:38 Baso % (Auto) 0.3 % (0.2-1.0) 06/11/21 05:38 Neut # (Auto) 6.7 x10^3/uL (2.2-4.8) H 06/11/21 05:38 Lymph # (Auto) 1.0 X10^3/uL (1.3-2.9) L 06/11/21 05:38 [place] # (Auto) 1.4 x10^3/uL (0.3-0.8) H 06/11/21 05:38 Eos # (Auto) 0.1 x10^3/uL (0.0-0.2) 06/11/21 05:38 Baso # (Auto) 0.0 X10^3/uL (0.0-0.1) 06/11/21 05:38 Absolute Nucleated RBC 0.2 /100WBC 06/11/21 05:38 Total Counted 100 06/11/21 05:38 Neutrophils % (Manual) 74 % (39-76) 06/11/21 05:38 Band Neutrophils % 1 % (0-10) 06/11/21 05:38 Lymphocytes % (Manual) 15 % (13-43) 06/11/21 05:38 Monocytes % (Manual) 9 % (4-9) 06/11/21 05:38 Eosinophils % (Manual) 1 % (0-6) 06/11/21 05:38 Metamyelocytes % 3 06/07/21 05:15 Plt Clumps, EDTA Rare 06/07/21 05:15 Giant Platelets Rare 06/11/21 05:38 Plt Morphology Comment Abnormal (NORMAL) A 06/11/21 05:38 RBC Morphology Normal (NORMAL) 06/11/21 05:38 Anisocytosis Slight A 06/07/21 05:15 Macrocytosis Slight A 06/07/21 05:15 PT 18.8 SECONDS (11.8-14.3) 06/10/21 05:39 INR Target Range - 06/10/21 05:39 INR 1.65 (0.8-1.3) H 06/10/21 05:39 APTT 40.2 SECONDS (22.9-36.5) H 06/10/21 05:39 PTT Comment - 06/10/21 05:39 D-Dimer 9.39 ug/ml (0.0-0.57) H* 06/11/21 08:40 Sample Site Lrad 06/09/21 05:30 ABG pH 7.380 (7.35-7.45) 06/09/21 05:30 ABG pCO2 26.0 mmHg (35.0-45.0) L 06/09/21 05:30 ABG pO2 77.0 mmHg (80.0-100.0) L 06/09/21 05:30 ABG HCO3 15.4 mmol/L (22-26) L* 06/09/21 05:30 ABG O2 Saturation 95.0 % (90-100) 06/09/21 05:30 ABG Base Excess -8.2 mmol/L (-2.0-2.0) L 06/09/21 05:30 Will Test Pos 06/09/21 05:30 A-a Gradient 90.0 mmHg 06/09/21 05:30 FiO2 28.0 06/09/21 05:30 Blood Gas Comments Rosario well mts/sa 06/09/21 05:30 Sodium 142 mmol/L (136-145) 06/11/21 05:38 Corrected Sodium 143 mmol/L (136-145) 06/11/21 05:38 Potassium 4.8 mmol/L (3.5-5.1) 06/11/21 05:38 Chloride 110 mmol/L (98-107) H 06/11/21 05:38 Carbon Dioxide 18.6 mmol/L (21-32) L 06/11/21 05:38 BUN 48 mg/dL (7-18) H 06/11/21 05:38 Creatinine 1.17 mg/dL (0.55-1.02) H 06/11/21 05:38 Est GFR (MDRD) Af Amer 57 (>60) L 06/11/21 05:38 Est GFR (MDRD) Non-Af 47 (>60) L 06/11/21 05:38 Glucose 124 mg/dL (65-99) H 06/11/21 05:38 Lactic Acid 1.1 mmol/L (0.4-2.0) 06/07/21 12:06 Calcium 7.3 mg/dL (8.5-10.1) L 06/11/21 05:38 Corrected Calcium 8.2 mg/dL (8.5-10.1) L 06/11/21 05:38 Magnesium 1.9 mg/dL (1.7-2.9) 06/07/21 05:15 Total Bilirubin 0.40 mg/dL (0.2-1.0) 06/11/21 05:38 AST 47 Units/L (15-37) H 06/11/21 05:38 ALT 71 Units/L (12-78) 06/11/21 05:38 Alkaline Phosphatase 120 Units/L (46-116) H 06/11/21 05:38 Creatine Kinase 34 Units/L (26-192) 06/06/21 20:54 CK-MB (CK-2) < 1.0 ng/mL (0-4.0) 06/06/21 20:54 CK/CKMB % Calc 2.9 % (<4) 06/06/21 20:54 Troponin I < 0.02 ng/mL (0-1.5) 06/06/21 20:54 C-Reactive Protein 457.90 mg/L (0-3.0) H 06/11/21 05:38 B-Natriuretic Peptide 545 pg/mL (0-79) H* 06/11/21 05:38 Total Protein 6.8 g/dL (6.4-8.2) 06/11/21 05:38 Albumin 2.9 g/dL (3.4-5.0) L 06/11/21 05:38 Globulin 3.9 g/dL (2.5-4.5) 06/11/21 05:38 Albumin/Globulin Ratio 0.7 Ratio (1.1-2.1) L 06/11/21 05:38 Amylase 36 Units/L (25-115) 06/06/21 00:21 Lipase 172 Units/L (73-393) 06/06/21 00:21 Specimen Type Clean catch urine 06/06/21 19:20 Urine Color Yellow (YELLOW) 06/06/21 19:20 Urine Appearance Hazy (CLEAR) 06/06/21 19:20 Urine pH 5.0 (5.0 - 8.0) 06/06/21 19:20 Ur Specific [place] 1.020 (1.000-1.030) 06/06/21 19:20 Urine Protein 2+ (NEGATIVE) 06/06/21 19:20 Urine Glucose (UA) Negative (NEGATIVE) 06/06/21 19:20 Urine Ketones Negative (NEGATIVE) 06/06/21 19:20 Urine Occult Blood 1+ (NEGATIVE) 06/06/21 19:20 Urine Nitrite Negative (NEGATIVE) 06/06/21 19:20 Urine Bilirubin Negative (NEGATIVE) 06/06/21 19:20 Urine Urobilinogen Normal (NORMAL) 06/06/21 19:20 Ur Leukocyte Esterase 3+ (NEGATIVE) 06/06/21 19:20 Urine RBC 3-5 /HPF (0-3) A 06/06/21 19:20 Urine WBC Tntc /HPF (0-5) A 06/06/21 19:20 Ur Squamous Epith Cells Few /HPF (NEGATIVE) 06/06/21 19:20 Urine Bacteria 3+ /HPF (NEGATIVE) 06/06/21 19:20 Hyaline Casts Few /LPF (NEGATIVE) 06/06/21 19:20 Coarse Granular Casts Few /HPF (NEGATIVE) 06/06/21 19:20 Ur Culture Indicated? Yes/culture set up 06/06/21 19:20 Acetone, Semi-Quant Negative (NEGATIVE) 06/07/21 12:06 BETSY Screen None detected (None Detected) 06/08/21 05:24 BETSY Titer TNP 06/08/21 05:24 BETSY Pattern TNP 06/08/21 05:24 SARS-CoV-2 (PCR) Negative (NEGATIVE) 06/08/21 09:54 Influenza Type A (PCR) Negative (NEGATIVE) 06/08/21 09:54 Influenza Type B (PCR) Negative (NEGATIVE) 06/08/21 09:54 RSV (PCR) Negative (NEGATIVE) 06/08/21 09:54 SARS CoV-2 RNA Rapid ASHLEY Negative (NEGATIVE) 06/06/21 04:58 Blood Type A POSITIVE 06/10/21 10:04 Antibody Screen Negative 06/10/21 10:04 Crossmatch See Detail 06/10/21 10:04 - Plan (1) Pneumonia Status: Acute Qualifiers: Pneumonia type: due to unspecified organism Laterality: unspecified laterality Lung location: unspecified part of lung Qualified Code(s): J18.9 - Pneumonia, unspecified organism Plan: NORMAL SALINE AT 70 ML/HR, MEROPENEM 500MG IV Q8H, LOVENOX 40MG SC BID, DUONEBS TID, PULMICORT NEBS BID, DIFLUCAN 100MG PO DAILY, PEPCID 20MG IV DAILY, PROTONIX 40MG IV BID, PEPCID 20MG IV BID, ALDACTONE 25MG PO DAILY, COREG 3.125MG PO BID, GI COCKTAIL, ZOFRAN 4MG IV Q6H PRN, MORPHINE SULFATE 4MG IV Q6H PRN, AND HER HOME MEDICATIONS WERE RESUMED. (2) Coumadin toxicity Status: Acute Qualifiers: Encounter type: initial encounter Injury intent: undetermined intent Qualified Code(s): T45.514A - Poisoning by anticoagulants, undetermined, initial encounter (3) Urinary tract infection Status: Acute Qualifiers: Urinary tract infection type: acute cystitis Hematuria presence: without hematuria Qualified Code(s): N30.00 - Acute cystitis without hematuria (4) Abdominal pain Status: Acute Qualifiers: Abdominal location: generalized Qualified Code(s): R10.84 - Generalized abdominal pain (5) Pericardial effusion Status: Acute (6) Elevated d-dimer Status: Acute (7) Gastroparesis Status: Chronic (8) Diabetes Status: Chronic Qualifiers: Diabetes mellitus type: type 2 Diabetes mellitus fdc insulin use: with fdc use Diabetes mellitus complication status: with other specified complication Qualified Code(s): E11.69 - Type 2 diabetes mellitus with other specified complication; Z79.4 - equipment [employer] (current) use of insulin (9) Anemia Status: Chronic Qualifiers: Anemia type: iron deficiency Iron deficiency anemia type: unspecified iron deficiency Qualified Code(s): D50.9 - Iron deficiency anemia, unspecified (10) CHF (congestive heart failure) Status: Chronic Qualifiers: Heart failure type: unspecified Heart failure chronicity: acute on chronic Qualified Code(s): I50.9 - Heart failure, unspecified
[2021-06-11] MEDS: ALDACTONE TAB 25 MG PO SCH (10:59)
[2021-06-11] MEDS: DUONEB 0.5 MG/3 MG (3 mL) NEB SCH ×2 (13:00→23:50)
[2021-06-11] MEDS: NS 1000 ML 1,000 ML IV SCH ×3 (16:11→19:50)
[2021-06-11] MEDS ORDERED: MORPHINE SULFATE INJ 4 MG ONE (17:22)
[2021-06-11] MEDS: ELAVIL PO SCH (21:00)
[2021-06-11] MEDS: LASIX IVP SCH (22:22)
[2021-06-12] MEDS: MERREM VIAL 500 MG in NS 100 ML IV + SPIKE MINIBAG* 100 ML IV SCH ×3 (05:46→22:10)
[2021-06-12] MEDS: CARDIZEM TAB 30 MG PLAIN PO SCH ×3 (05:46→21:47)
[2021-06-12 06:06] LABS: BASOPHILS % (AUTO) 0.2 % (0.2-1.0); EOSINOPHILS % (AUTO) 0.4 % (0.9-2.9); HEMATOCRIT 25.1 % (36.0-47.0); HEMOGLOBIN 8.3 g/dL (12.0-16.0); LYMPHOCYTES % (AUTO) 10.5 % (21.0-51.0); MEAN CORPUSCULAR HEMOGLOBIN 32.6 pg (27.0-34.0); MEAN CORPUSCULAR HGB CONC 33.1 g/dL (33.0-35.0); MEAN CORPUSCULAR VOLUME 98.6 fL (80.0-100.0); MEAN PLATELET VOLUME 7.6 fL (7.4-11.0); MONOCYTES # (AUTO) 1.7 x10^3/uL (0.3-0.8); MONOCYTES % (AUTO) 17.4 % (0.0-13.0); NEUTROPHILS # (AUTO) 6.8 x10^3/uL (2.2-4.8); NEUTROPHILS % (AUTO) 71.5 % (42.0-75.0); PLATELET COUNT 462 X10^3/uL (150.0-450.0); RED BLOOD COUNT 2.54 X10^6/uL (3.5-5.4); RED CELL DISTRIBUTION WIDTH 15.9 % (11.6-16.5); WHITE BLOOD COUNT 9.5 X10^3/uL (3.6-10.0)
[2021-06-12 06:12] LABS: ALANINE AMINOTRANSFERASE 48 Units/L (12-78); ALBUMIN 3.6 g/dL (3.4-5.0); ALKALINE PHOSPHATASE 105 Units/L (46-116); ASPARTATE AMINO TRANSFERASE 28 Units/L (15-37); BLOOD UREA NITROGEN 38 mg/dL (7-18); CALCIUM 7.3 mg/dL (8.5-10.1); CARBON DIOXIDE 23.4 mmol/L (21-32); CHLORIDE 106 mmol/L (98-107); COR NA(FOR HYPERGLY) 141 mmol/L (136-145); CREATININE 1.16 mg/dL (0.55-1.02); SODIUM 140 mmol/L (136-145); TOTAL PROTEIN 6.8 g/dL (6.4-8.2); eGFR NON BLACK RACES 48 (>60)
--- NOTE | 2021-06-12 08:06 | RAD ---
HISTORYSOBSTUDYCHEST, 1 [id number]/26/2021.TECHNIQUEAP view of the chestFINDINGSLeft chest wall port with tip in good position. The cardiac silhouette is stably enlarged. Mediastinal contours appear stable. No significant change in bilateral interstitial opacities. Small left pleural effusion. No discernible pneumothorax.IMPRESSIONEnlarged cardiac silhouette with known pericardial effusion. Scattered interstitial opacities nonspecific but suspicious for COVID 19. Small left pleural effusion.Electronically signed by: Hemant Lujan (Jun 12, 2021 08:04:13)
[2021-06-12] MEDS: ALDACTONE TAB 25 MG PO SCH (08:12)
[2021-06-12] MEDS: ALBUMIN HUMAN 25%- 100 ML 100 ML IV SCH ×2 (08:12→22:09)
[2021-06-12] MEDS: COLACE CAP 100 MG PO SCH (08:13)
[2021-06-12] MEDS: FERROUS GLUCONATE PO SCH (08:13)
[2021-06-12] MEDS: COREG TAB 3.125 MG PO SCH ×2 (08:13→21:00)
[2021-06-12] MEDS: LEVSIN/MAALOX/LIDOC VISC PO SCH ×4 (08:14→21:45)
[2021-06-12] MEDS: LIPITOR TAB 40 MG PO SCH (08:14)
[2021-06-12] MEDS: PROTONIX INJ 40 MG VIAL IVP SCH ×2 (08:15→21:47)
[2021-06-12] MEDS: LOVENOX INJ 40 MG SYR SC SCH ×2 (08:15→22:10)
[2021-06-12] MEDS: PEPCID 20 MG IV PREMIX* 20 MG/50 ML BAG IV SCH (08:15)
[2021-06-12] MEDS: SYNTHROID 50 mcg TAB PO SCH (08:15)
[2021-06-12] MEDS: PULMICORT NEB TX 0.5 MG NEB SCH ×2 (08:35→21:30)
[2021-06-12] MEDS: LASIX IVP SCH ×2 (09:35→22:45)
[2021-06-12] MEDS ORDERED: LASIX IVP ONE (09:51)
[2021-06-12] MEDS ORDERED: LASIX ONE (12:48)
[2021-06-12] MEDS: LANOXIN or DIGITEK PO SCH (12:54)
[2021-06-12] MEDS: MORPHINE SULFATE INJ 4 MG IVP PRN (13:00)
[2021-06-12 13:04] VITALS: BMI 22.6
[2021-06-12] MEDS: DUONEB 0.5 MG/3 MG (3 mL) NEB SCH ×2 (13:23→21:30)
[2021-06-12] MEDS: NS 1000 ML 1,000 ML IV SCH ×2 (14:52→19:30)
--- NOTE | 2021-06-12 20:50 | PCM.PROG ---
Progress Note - Progress Note for Day of Date of Exam: 06/12/21 - Subjective Subjective: IS BEING TREATED FOR PNEUMONIA, SHORTNESS OF BREATH, UTI, ANEMIA, ELEVATED D-DIMER, ABDOMINAL PAIN, PERICARDIAL EFFUSION. SHE HAS A PAST MEDICAL HISTORY OF A PULMONARY EMOBLISM, GASTROPARESIS, CHF, HTN. SHE HAS RECEIVED ONE UNIT OF PACKED RED BLOOD CELLS SINCE ADMISSION. TODAY, SHE IS ALERT AND ORIENTED, LYING IN BED ON MORNING ROUNDS. SHE CONTINUES WITH SHORTNESS OF BREATH, NON-PRODUCTIVE COUGH, AND WEAKNESS THIS MORNING. SHE DOES ADMIT TO SLIGHT IMPROVEMENT IN SYMPTOMS TODAY. ON EXAMINATION, HEART IS REGULAR IN RATE AND RHYTHM. SHE IS NOTED TO HAVE DIMINISHED LUNG SOUNDS THROUGHOUT. ABDOMEN IS ROUND, SOFT, AND NOTED WITH MILD, DIFFUSE TENDERNESS. NORMAL BOWEL SOUNDS NOTED IN ALL QUADRANTS. BLE NOTED TO HAVE TRACE EDEMA. HER VITALS THIS MORNING ARE: 98.2-90-20-94%-149/72. LABS WERE OBTAINED. ABNORMAL LAB VALUES INCLUDE THE FOLLOWING: RBC 2.54, HGB 8.3, HCT 25.1, PLT COUNT 462, D-DIMER 5.37, BUN 38, CREATININE 1.16, GLUCOSE 141, CALCIUM 7.3, CRP 247.10, BNP 426. SPUTUM CULTURE IS PENDING. CHEST XRAY REVEALED: Enlarged cardiac silhouette with known pericardial effusion. Scattered interstitial opacities nonspecific. Small left pleural effusion. WE OBTAINED A CHEST CTA YESTERDAY. IT REVEALED: No evidence for acute pulmonary thromboembolic disease. Large pericardial effusion maximum with 2.7 cm and for which cardiology evaluation is recommended in order to determine if pericardiocentesis is indicated. Lungs clear with the exception of scattered areas of subsegmental atelectasis. SHE IS CURRENTLY RECEIVING, MEROPENEM 500MG IV Q8H, LOVENOX 40MG SC BID, DUONEBS TID, PULMICORT NEBS BID, ALBUMIN 25% IV DAILY, LASIX 20MG IV BID, DIFLUCAN 100MG PO DAILY, PEPCID 20MG IV DAILY, PROTONIX 40MG IV BID, PEPCID 20MG IV BID, COREG 3.125MG PO BID, GI COCKTAIL, ZOFRAN 4MG IV Q6H PRN, MORPHINE SULFATE 4MG IV Q6H PRN, AND HER HOME MEDICATIONS WERE RESUMED. TODAY, WE WILL SALINE LOCK HER IV FLUIDS. WE WILL INCREASE LASIX TO 40MG PO BID AND START DIGOXIN 0.125MG PO DAILY. WE WILL OBTAIN A CHEST CT IN THE MORNING TO ASSESS THE SIZE OF THE PERICARDIAL EFFUSION. LONG SHE IS SHOWING SIGNS OF IMPROVEMENT, WE WILL HOLD OFF ON TRANSFER TO [facility]. OTHERWISE, WE PLAN TO FOLLOW UP WITH AM LABS AND CHEST XRAY AND CONTINUE TO MONITOR. TIME SPENT ON CLINICAL ASSESSMENT, REVIEWING LABS AND IMAGING, DECISION MAKING, AND DOCUMENTATION GREATER THAN 45 MINUTES. - Past Medical Family Social History Past Med/Fam/Surg Hx: No changes since H&P Allergies: Allergies cefaclor Allergy (Mild, Verified 07/17/20 17:27) pentazocine Allergy (Mild, Verified 07/17/20 17:27) Sulfa (Sulfonamide Antibiotics) [SULFA] Allergy (Mild, Verified 07/17/20 17:27) megestrol Allergy (Verified 04/24/21 21:09) fentanyl Adverse Reaction (Severe, Verified 10/12/20 14:34) CARDIAC ARREST prednisone Adverse Reaction (Mild, Verified 07/17/20 17:27) nitrofurantoin [From Macrobid] Adverse Reaction (Verified 10/12/20 14:34) - Review of Systems ROS: No change since H&P - Vital Signs and I&O's Vital Signs: Temperature 97.6 F Pulse Rate [Left] 89 Pulse Rate 86 Respiratory Rate 20 Blood Pressure [Right Arm] 118/67 Blood Pressure 117/61 O2 Sat by Pulse Oximetry 94 Intake and Output: Intake & Output 06/10/21 06/11/21 06/12/21 06/13/21 11:59 11:59 11:59 11:59 Intake Total 3020 / 3020 2971 / 2971 3111 / 3111 1076 / 1076 Output Total 200 / 200 650 / 650 Balance 3020 / 3020 2971 / 2971 2911 / 2911 426 / 426 - Physical Exam Oriented: Normal Eyes: Normal Ear: Normal Nose: Normal Throat: Normal Respiratory: Generalized, Diminished Cardiovascular: Edema : Normal Auscultation: Bowel Sounds: Normal Palpation: Normal Tenderness: Diffuse, Mild Skin: Decreased Turgur Musculoskeletal: Back:Thoracic, Back:Lumbar Psychiatric: Anxiety Affect: Anxious Speech Pattern: Clear, Appropriate - Laboratory and Diagnostics Result Diagrams: 06/12/21 05:26 06/12/21 05:26 Labs: 06/12/21 11:46 Sputum - Expectorated Sputum - Final 06/07/21 12:15 Blood Blood Culture - Final 06/07/21 12:06 Blood Blood Culture - Final 06/06/21 19:20 Urine,Clean Catch Urine Culture - Final Klebsiella Pneumoniae Laboratory WBC 9.5 X10^3/uL (3.6-10.0) 06/12/21 05:26 RBC 2.54 X10^6/uL (3.5-5.4) L 06/12/21 05:26 Hgb 8.3 g/dL (12.0-16.0) L 06/12/21 05:26 Hct 25.1 % (36.0-47.0) L 06/12/21 05:26 MCV 98.6 fL (80.0-100.0) 06/12/21 05:26 MCH 32.6 pg (27.0-34.0) 06/12/21 05:26 MCHC 33.1 g/dL (33.0-35.0) 06/12/21 05:26 RDW 15.9 % (11.6-16.5) 06/12/21 05:26 Plt Count 462 X10^3/uL (150.0-450.0) H 06/12/21 05:26 Plt Count Comment Increased (ADEQUATE) A 06/11/21 05:38 MPV 7.6 fL (7.4-11.0) 06/12/21 05:26 Neut % (Auto) 71.5 % (42.0-75.0) 06/12/21 05:26 Lymph % (Auto) 10.5 % (21.0-51.0) L 06/12/21 05:26 Hyde % (Auto) 17.4 % (0.0-13.0) H 06/12/21 05:26 Eos % (Auto) 0.4 % (0.9-2.9) L 06/12/21 05:26 Baso % (Auto) 0.2 % (0.2-1.0) 06/12/21 05:26 Neut # (Auto) 6.8 x10^3/uL (2.2-4.8) H 06/12/21 05:26 Lymph # (Auto) 1.0 X10^3/uL (1.3-2.9) L 06/12/21 05:26 Hyde # (Auto) 1.7 x10^3/uL (0.3-0.8) H 06/12/21 05:26 Eos # (Auto) 0.0 x10^3/uL (0.0-0.2) 06/12/21 05:26 Baso # (Auto) 0.0 X10^3/uL (0.0-0.1) 06/12/21 05:26 Absolute Nucleated RBC 0.6 /100WBC 06/12/21 05:26 Total Counted 100 06/11/21 05:38 Neutrophils % (Manual) 74 % (39-76) 06/11/21 05:38 Band Neutrophils % 1 % (0-10) 06/11/21 05:38 Lymphocytes % (Manual) 15 % (13-43) 06/11/21 05:38 Monocytes % (Manual) 9 % (4-9) 06/11/21 05:38 Eosinophils % (Manual) 1 % (0-6) 06/11/21 05:38 Metamyelocytes % 3 06/07/21 05:15 Plt Clumps, EDTA Rare 06/07/21 05:15 Giant Platelets Rare 06/11/21 05:38 Plt Morphology Comment Abnormal (NORMAL) A 06/11/21 05:38 RBC Morphology Normal (NORMAL) 06/11/21 05:38 Anisocytosis Slight A 06/07/21 05:15 Macrocytosis Slight A 06/07/21 05:15 PT 18.8 SECONDS (11.8-14.3) 06/10/21 05:39 INR Target Range - 06/10/21 05:39 INR 1.65 (0.8-1.3) H 06/10/21 05:39 APTT 40.2 SECONDS (22.9-36.5) H 06/10/21 05:39 PTT Comment - 06/10/21 05:39 D-Dimer 5.37 ug/ml (0.0-0.57) H* 06/12/21 05:26 Sample Site Lrad 06/09/21 05:30 ABG pH 7.380 (7.35-7.45) 06/09/21 05:30 ABG pCO2 26.0 mmHg (35.0-45.0) L 06/09/21 05:30 ABG pO2 77.0 mmHg (80.0-100.0) L 06/09/21 05:30 ABG HCO3 15.4 mmol/L (22-26) L* 06/09/21 05:30 ABG O2 Saturation 95.0 % (90-100) 06/09/21 05:30 ABG Base Excess -8.2 mmol/L (-2.0-2.0) L 06/09/21 05:30 Will Test Pos 06/09/21 05:30 A-a Gradient 90.0 mmHg 06/09/21 05:30 FiO2 28.0 06/09/21 05:30 Blood Gas Comments Rosario well mts/sa 06/09/21 05:30 Sodium 140 mmol/L (136-145) 06/12/21 05:26 Corrected Sodium 141 mmol/L (136-145) 06/12/21 05:26 Potassium 4.4 mmol/L (3.5-5.1) 06/12/21 05:26 Chloride 106 mmol/L (98-107) 06/12/21 05:26 Carbon Dioxide 23.4 mmol/L (21-32) 06/12/21 05:26 BUN 38 mg/dL (7-18) H 06/12/21 05:26 Creatinine 1.16 mg/dL (0.55-1.02) H 06/12/21 05:26 Est GFR (MDRD) Af Amer 58 (>60) L 06/12/21 05:26 Est GFR (MDRD) Non-Af 48 (>60) L 06/12/21 05:26 Glucose 141 mg/dL (65-99) H 06/12/21 05:26 Lactic Acid 1.1 mmol/L (0.4-2.0) 06/07/21 12:06 Calcium 7.3 mg/dL (8.5-10.1) L 06/12/21 05:26 Corrected Calcium TNP 06/12/21 05:26 Magnesium 1.9 mg/dL (1.7-2.9) 06/07/21 05:15 Total Bilirubin 0.60 mg/dL (0.2-1.0) 06/12/21 05:26 AST 28 Units/L (15-37) 06/12/21 05:26 ALT 48 Units/L (12-78) 06/12/21 05:26 Alkaline Phosphatase 105 Units/L (46-116) 06/12/21 05:26 Creatine Kinase 34 Units/L (26-192) 06/06/21 20:54 CK-MB (CK-2) < 1.0 ng/mL (0-4.0) 06/06/21 20:54 CK/CKMB % Calc 2.9 % (<4) 06/06/21 20:54 Troponin I < 0.02 ng/mL (0-1.5) 06/06/21 20:54 C-Reactive Protein 247.10 mg/L (0-3.0) H 06/12/21 05:26 B-Natriuretic Peptide 426 pg/mL (0-79) H 06/12/21 05:26 Total Protein 6.8 g/dL (6.4-8.2) 06/12/21 05:26 Albumin 3.6 g/dL (3.4-5.0) 06/12/21 05:26 Globulin 3.2 g/dL (2.5-4.5) 06/12/21 05:26 Albumin/Globulin Ratio 1.1 Ratio (1.1-2.1) 06/12/21 05:26 Amylase 36 Units/L (25-115) 06/06/21 00:21 Lipase 172 Units/L (73-393) 06/06/21 00:21 Specimen Type Clean catch urine 06/06/21 19:20 Urine Color Yellow (YELLOW) 06/06/21 19:20 Urine Appearance Hazy (CLEAR) 06/06/21 19:20 Urine pH 5.0 (5.0 - 8.0) 06/06/21 19:20 Ur Specific Makinen 1.020 (1.000-1.030) 06/06/21 19:20 Urine Protein 2+ (NEGATIVE) 06/06/21 19:20 Urine Glucose (UA) Negative (NEGATIVE) 06/06/21 19:20 Urine Ketones Negative (NEGATIVE) 06/06/21 19:20 Urine Occult Blood 1+ (NEGATIVE) 06/06/21 19:20 Urine Nitrite Negative (NEGATIVE) 06/06/21 19:20 Urine Bilirubin Negative (NEGATIVE) 06/06/21 19:20 Urine Urobilinogen Normal (NORMAL) 06/06/21 19:20 Ur Leukocyte Esterase 3+ (NEGATIVE) 06/06/21 19:20 Urine RBC 3-5 /HPF (0-3) A 06/06/21 19:20 Urine WBC Tntc /HPF (0-5) A 06/06/21 19:20 Ur Squamous Epith Cells Few /HPF (NEGATIVE) 06/06/21 19:20 Urine Bacteria 3+ /HPF (NEGATIVE) 06/06/21 19:20 Hyaline Casts Few /LPF (NEGATIVE) 06/06/21 19:20 Coarse Granular Casts Few /HPF (NEGATIVE) 06/06/21 19:20 Ur Culture Indicated? Yes/culture set up 06/06/21 19:20 Acetone, Semi-Quant Negative (NEGATIVE) 06/07/21 12:06 BETSY Screen None detected (None Detected) 06/08/21 05:24 BETSY Titer TNP 06/08/21 05:24 BETSY Pattern TNP 06/08/21 05:24 SARS-CoV-2 (PCR) Negative (NEGATIVE) 06/08/21 09:54 Influenza Type A (PCR) Negative (NEGATIVE) 06/08/21 09:54 Influenza Type B (PCR) Negative (NEGATIVE) 06/08/21 09:54 RSV (PCR) Negative (NEGATIVE) 06/08/21 09:54 Resp Viral Panel (PCR) See scanned report 06/08/21 12:03 SARS CoV-2 RNA Rapid ASHLEY Negative (NEGATIVE) 06/12/21 20:19 Blood Type A POSITIVE 06/10/21 10:04 Antibody Screen Negative 06/10/21 10:04 Crossmatch See Detail 06/10/21 10:04 - Plan (1) Pneumonia Status: Acute Qualifiers: Pneumonia type: due to unspecified organism Laterality: unspecified laterality Lung location: unspecified part of lung Qualified Code(s): J18.9 - Pneumonia, unspecified organism Plan: NORMAL SALINE AT 70 ML/HR, MEROPENEM 500MG IV Q8H, LOVENOX 40MG SC BID, DUONEBS TID, PULMICORT NEBS BID, ALBUMIN 25% IV DAILY, LASIX 40MG IV BID, DIFLUCAN 100MG PO DAILY, PEPCID 20MG IV DAILY, PROTONIX 40MG IV BID, PEPCID 20MG IV BID, DIGOXIN 0.125MG PO DAILY, COREG 3.125MG PO BID, GI COCKTAIL, ZOFRAN 4MG IV Q6H PRN, MORPHINE SULFATE 4MG IV Q6H PRN, AND HER HOME MEDICATIONS WERE RESUMED. (2) Coumadin toxicity Status: Acute Qualifiers: Encounter type: initial encounter Injury intent: undetermined intent Qualified Code(s): T45.514A - Poisoning by anticoagulants, undetermined, initial encounter (3) Urinary tract infection Status: Acute Qualifiers: Urinary tract infection type: acute cystitis Hematuria presence: without hematuria Qualified Code(s): N30.00 - Acute cystitis without hematuria (4) Abdominal pain Status: Acute Qualifiers: Abdominal location: generalized Qualified Code(s): R10.84 - Generalized abdominal pain (5) Pericardial effusion Status: Acute (6) Elevated d-dimer Status: Acute (7) Gastroparesis Status: Chronic (8) Diabetes Status: Chronic Qualifiers: Diabetes mellitus type: type 2 Diabetes mellitus residential insulin use: with long term care pharmacist use Diabetes mellitus complication status: with other specified complication Qualified Code(s): E11.69 - Type 2 diabetes mellitus with other specified complication; Z79.4 - long term care pharmacist (current) use of insulin (9) Anemia Status: Chronic Qualifiers: Anemia type: iron deficiency Iron deficiency anemia type: unspecified iron deficiency Qualified Code(s): D50.9 - Iron deficiency anemia, unspecified (10) CHF (congestive heart failure) Status: Chronic Qualifiers: Heart failure type: unspecified Heart failure chronicity: acute on chronic Qualified Code(s): I50.9 - Heart failure, unspecified
[2021-06-12] MEDS: ELAVIL PO SCH (21:00)
--- NOTE | 2021-06-13 04:33 | CT ---
PROCEDURE: CT Head without Contrast .HISTORY: Altered level of consciousness.TECHNIQUE: Axial images were performed through the head without the administration of IV contrast with multiplanar reformations . Dose reduction techniques including Automated Exposure Control (AEC) and adjustment of mA and kV were utilized .COMPARISON: 02/05/2020.TECHNICAL QUALITY: Satisfactory .FINDINGS:Large acute subdural hemorrhage over the convexity on the right measuring up to 2 cm thick with moderately severe mass effect on the adjacent cerebrum.Acute right falcine subdural hemorrhage measuring up to 0.7 cm thick with mild mass effect on the adjacent cerebrum.Some intraparenchymal hemorrhage left temporal lobe measuring 1.2 cm.Subfalcine herniation to the left identified with 2.1 cm midline shift to the left of the septum pellucidum.Mild transtentorial herniation present with some mild shift of the mid brain to the left.Enlargement of the left lateral ventricle related to compression of the foramina Rivera. Effacement of the right lateral ventricle.Small scalp hematoma on the left with some surgical clips in the scalp and no skull fracture.Visualized sinuses and mastoids are clear.IMPRESSION:1. Large subdural hematoma over the convexity on the right with moderate mass effect on the adjacent cerebrum.2. Smaller right falcine subdural with mild mass effect.3. Some intraparenchymal hemorrhage left parietal lobe.4. 2.1 cm midline shift to the left with enlargement of the left lateral ventricle.5. Subfalcine and transtentorial herniation as described above.Report was called by myself to the emergency room physician at 3:20 a.m. central standard time on 1Electronically signed by: Jorje Cortes (Jun 13, 2021 04:30:27)
[2021-06-13 04:36] VITALS: BP 154/74
[2021-06-13 04:39] LABS: BILIRUBIN,URINE NEGATIVE (NEGATIVE); BLOOD/HEMOGLOBIN,URINE NEGATIVE (NEGATIVE); GLUCOSE, URINE NEGATIVE (NEGATIVE); KETONES,URINE NEGATIVE (NEGATIVE); LEUKOCYTE ESTERASE ,URINE NEGATIVE (NEGATIVE); NITRITES,URINE NEGATIVE (NEGATIVE); PROTEIN,URINE NEGATIVE (NEGATIVE); UROBILINOGEN,URINE NORMAL (NORMAL)
[2021-06-13] MEDS ORDERED: MORPHINE SULFATE INJ 4 MG IVP PRN (05:08)
[2021-06-13] MEDS ORDERED: MORPHINE SULFATE INJ 4 MG ONE (05:19)
[2021-06-13 05:35] LABS: APPEARANCE,URINE CLEAR (CLEAR); COLOR,URINE PALE YELLOW (YELLOW)
[2021-06-13] MEDS: MERREM VIAL 500 MG in NS 100 ML IV + SPIKE MINIBAG* 100 ML IV SCH ×2 (05:35→14:34)
[2021-06-13] MEDS: MORPHINE SULFATE INJ 4 MG IVP PRN ×2 (05:36→14:34)
[2021-06-13] MEDS: CARDIZEM TAB 30 MG PLAIN PO SCH ×2 (05:37→14:34)
[2021-06-13] MEDS: ZOFRAN INJ 4 MG VIAL IVP PRN (05:38)
[2021-06-13] MEDS: DUONEB 0.5 MG/3 MG (3 mL) NEB SCH (07:00)
[2021-06-13] MEDS: FERROUS GLUCONATE PO SCH (08:35)
[2021-06-13] MEDS: COLACE CAP 100 MG PO SCH (08:35)
[2021-06-13] MEDS: ALBUMIN HUMAN 25%- 100 ML 100 ML IV SCH (08:35)
[2021-06-13] MEDS: ALDACTONE TAB 25 MG PO SCH (08:35)
[2021-06-13] MEDS: COREG TAB 3.125 MG PO SCH (08:35)
[2021-06-13] MEDS: LASIX IVP SCH (08:36)
[2021-06-13] MEDS: PEPCID 20 MG IV PREMIX* 20 MG/50 ML BAG IV SCH (08:36)
[2021-06-13] MEDS: LANOXIN or DIGITEK PO SCH (08:36)
[2021-06-13] MEDS: LEVSIN/MAALOX/LIDOC VISC PO SCH ×3 (08:36→18:10)
[2021-06-13] MEDS: LIPITOR TAB 40 MG PO SCH (08:36)
[2021-06-13] MEDS: PROTONIX INJ 40 MG VIAL IVP SCH (08:37)
[2021-06-13] MEDS: SYNTHROID 50 mcg TAB PO SCH (08:37)
[2021-06-13] MEDS: PULMICORT NEB TX 0.5 MG NEB SCH (10:50)
--- NOTE | 2021-06-13 11:16 | PCM.PROG ---
Progress Note - Progress Note for Day of Date of Exam: 06/13/21 - Subjective Subjective: IS BEING TREATED FOR PNEUMONIA, SHORTNESS OF BREATH, UTI, ANEMIA, ELEVATED D-DIMER, ABDOMINAL PAIN, PERICARDIAL EFFUSION. SHE INITIALLY HAD A CRITICALLY HIGH INR ON ADMISSION WELL, BUT IT HAS SINCE RETURNED DECREASED. SHE HAS A PAST MEDICAL HISTORY OF A PULMONARY EMOBLISM, GASTROP ARESIS, CHF, HTN. SHE HAS RECEIVED ONE UNIT OF PACKED RED BLOOD CELLS SINCE ADMISSION. STAFF REPORTS THAT UPON ROUTINE CHECKS AT APPROXIMATELY 03:45 TODAY, PATIENT WAS FOUND TO BE UNRESPONSIVE AND WITH SNORING RESPIRATIONS. PUPILS WERE UNEQUAL AND UNRESPONSIVE. AT THAT TIME, VITALS WERE R: 58, BP:154/70 RR:22 O2:94 TEMP:97.9. A STAT BRAIN CT WAS OBTAINED AND REVEALED: 1. Large subdural hematoma over the convexity on the right with moderate mass effect on the adjacent cerebrum. 2. Smaller right falcine subdural with mild mass effect. 3. Some intraparenchymal hemorrhage left parietal lobe. 4. 2.1 cm midline shift to the left with enlargement of the left lateral ventricle. 5. Subfalcine and tra nstentorial herniation as described above. ON EXAMINATION THIS MORNING, PATIENT DOES REMAIN UNRESPONSIVE TO VERBAL AND PAINFUL STIMULI. HEART IS REGULAR IN RATE AND RHYTHM. SHE IS NOTED TO HAVE DIMINISHED LUNG SOUNDS THROUGHOUT. ABDOMEN IS ROUND, SOFT, AND NOTED TO HAVE NORMAL BOWEL SOUNDS NOTED IN ALL QUADRANTS. HER VITALS THIS MORNING ARE: 97.9-60-22-94%-154/72. HER FAMILY REFUSED MORNING LABS. WE DISCUSSED WITH FAMILY IN DETAIL PATIENTS CONDITION AND PROGNOSIS. THEY WISH FOR PATIENT TO BE KEPT COMFORTABLE AT THIS TIME AND TO STOP ALL OTHER TREATMENTS. WE ARE IN AGREEMENT WITH PLAN. WE WILL DISCONTINUE MEDICATIONS AND TREATMENTS AND ADD COMFORT MEDICATIONS FOR PAIN AND ANY AGITATION THAT SHE MAY HAVE. OTHERWISE, WE WILL CONTINUE TO MONITOR AND MAKE CHANGES APPROPRIATE. TIME SPENT ON CLINICAL ASSESSMENT, REVIEWING LABS AND IMAGING, DECISION MAKING, AND DOCUMENTATION GREATER THAN 45 MINUTES. - Past Medical Family Social History Past Med/Fam/Surg Hx: No changes since H&P Allergies: Allergies cefaclor Allergy (Mild, Verified 07/17/20 17:27) pentazocine Allergy (Mild, Verified 07/17/20 17:27) Sulfa (Sulfonamide Antibiotics) [SULFA] Allergy (Mild, Verified 07/17/20 17:27) megestrol Allergy (Verified 04/24/21 21:09) fentanyl Adverse Reaction (Severe, Verified 10/12/20 14:34) CARDIAC ARREST prednisone Adverse Reaction (Mild, Verified 07/17/20 17:27) nitrofurantoin [From Macrobid] Adverse Reaction (Verified 10/12/20 14:34) - Review of Systems ROS: No change since H&P - Vital Signs and I&O's Vital Signs: Temperature 97.9 F Pulse Rate [Left] 58 Pulse Rate 78 Respiratory Rate 22 Blood Pressure [Right Arm] 154/74 Blood Pressure 117/61 O2 Sat by Pulse Oximetry 94 Intake and Output: Intake & Output 06/10/21 06/11/21 06/12/21 06/13/21 11:59 11:59 11:59 11:59 Intake Total 3020 / 3020 2971 / 2971 3111 / 3111 2509 / 2509 Output Total 200 / 200 2300 / 2300 Balance 3020 / 3020 2971 / 2971 2911 / 2911 209 / 209 - Physical Exam Oriented: Unable to test Eyes: Other Ear: Normal Nose: Normal Throat: Normal Respiratory: Generalized, Diminished : Normal Auscultation: Bowel Sounds: Normal Palpation: Normal Skin: Decreased Turgur Musculoskeletal: Normal Psychiatric: Other Speech Pattern: Aphasic - Laboratory and Diagnostics Result Diagrams: 06/12/21 05:26 06/12/21 05:26 Labs: 06/12/21 11:46 Sputum - Expectorated Sputum Sputum Culture - Preliminary 06/12/21 11:46 Sputum - Expectorated Sputum - Final 06/07/21 12:15 Blood Blood Culture - Final 06/07/21 12:06 Blood Blood Culture - Final 06/06/21 19:20 Urine,Clean Catch Urine Culture - Final Klebsiella Pneumoniae Laboratory WBC 9.5 X10^3/uL (3.6-10.0) 06/12/21 05:26 RBC 2.54 X10^6/uL (3.5-5.4) L 06/12/21 05:26 Hgb 8.3 g/dL (12.0-16.0) L 06/12/21 05:26 Hct 25.1 % (36.0-47.0) L 06/12/21 05:26 MCV 98.6 fL (80.0-100.0) 06/12/21 05:26 MCH 32.6 pg (27.0-34.0) 06/12/21 05:26 MCHC 33.1 g/dL (33.0-35.0) 06/12/21 05:26 RDW 15.9 % (11.6-16.5) 06/12/21 05:26 Plt Count 462 X10^3/uL (150.0-450.0) H 06/12/21 05:26 Plt Count Comment Increased (ADEQUATE) A 06/11/21 05:38 MPV 7.6 fL (7.4-11.0) 06/12/21 05:26 Neut % (Auto) 71.5 % (42.0-75.0) 06/12/21 05:26 Lymph % (Auto) 10.5 % (21.0-51.0) L 06/12/21 05:26 Milam % (Auto) 17.4 % (0.0-13.0) H 06/12/21 05:26 Eos % (Auto) 0.4 % (0.9-2.9) L 06/12/21 05:26 Baso % (Auto) 0.2 % (0.2-1.0) 06/12/21 05:26 Neut # (Auto) 6.8 x10^3/uL (2.2-4.8) H 06/12/21 05:26 Lymph # (Auto) 1.0 X10^3/uL (1.3-2.9) L 06/12/21 05:26 [place] # (Auto) 1.7 x10^3/uL (0.3-0.8) H 06/12/21 05:26 Eos # (Auto) 0.0 x10^3/uL (0.0-0.2) 06/12/21 05:26 Baso # (Auto) 0.0 X10^3/uL (0.0-0.1) 06/12/21 05:26 Absolute Nucleated RBC 0.6 /100WBC 06/12/21 05:26 Total Counted 100 06/11/21 05:38 Neutrophils % (Manual) 74 % (39-76) 06/11/21 05:38 Band Neutrophils % 1 % (0-10) 06/11/21 05:38 Lymphocytes % (Manual) 15 % (13-43) 06/11/21 05:38 Monocytes % (Manual) 9 % (4-9) 06/11/21 05:38 Eosinophils % (Manual) 1 % (0-6) 06/11/21 05:38 Metamyelocytes % 3 06/07/21 05:15 Plt Clumps, EDTA Rare 06/07/21 05:15 Giant Platelets Rare 06/11/21 05:38 Plt Morphology Comment Abnormal (NORMAL) A 06/11/21 05:38 RBC Morphology Normal (NORMAL) 06/11/21 05:38 Anisocytosis Slight A 06/07/21 05:15 Macrocytosis Slight A 06/07/21 05:15 PT 18.8 SECONDS (11.8-14.3) 06/10/21 05:39 INR Target Range - 06/10/21 05:39 INR 1.65 (0.8-1.3) H 06/10/21 05:39 APTT 40.2 SECONDS (22.9-36.5) H 06/10/21 05:39 PTT Comment - 06/10/21 05:39 D-Dimer 5.37 ug/ml (0.0-0.57) H* 06/12/21 05:26 Sample Site Lrad 06/09/21 05:30 ABG pH 7.380 (7.35-7.45) 06/09/21 05:30 ABG pCO2 26.0 mmHg (35.0-45.0) L 06/09/21 05:30 ABG pO2 77.0 mmHg (80.0-100.0) L 06/09/21 05:30 ABG HCO3 15.4 mmol/L (22-26) L* 06/09/21 05:30 ABG O2 Saturation 95.0 % (90-100) 06/09/21 05:30 ABG Base Excess -8.2 mmol/L (-2.0-2.0) L 06/09/21 05:30 Will Test Pos 06/09/21 05:30 A-a Gradient 90.0 mmHg 06/09/21 05:30 FiO2 28.0 06/09/21 05:30 Blood Gas Comments Rosario well mts/sa 06/09/21 05:30 Sodium 140 mmol/L (136-145) 06/12/21 05:26 Corrected Sodium 141 mmol/L (136-145) 06/12/21 05:26 Potassium 4.4 mmol/L (3.5-5.1) 06/12/21 05:26 Chloride 106 mmol/L (98-107) 06/12/21 05:26 Carbon Dioxide 23.4 mmol/L (21-32) 06/12/21 05:26 BUN 38 mg/dL (7-18) H 06/12/21 05:26 Creatinine 1.16 mg/dL (0.55-1.02) H 06/12/21 05:26 Est GFR (MDRD) Af Amer 58 (>60) L 06/12/21 05:26 Est GFR (MDRD) Non-Af 48 (>60) L 06/12/21 05:26 Glucose 141 mg/dL (65-99) H 06/12/21 05:26 POC Glucose (mg/dL) 172 mg/dL (65-99) H 06/13/21 03:26 Lactic Acid 1.1 mmol/L (0.4-2.0) 06/07/21 12:06 Calcium 7.3 mg/dL (8.5-10.1) L 06/12/21 05:26 Corrected Calcium TNP 06/12/21 05:26 Magnesium 1.9 mg/dL (1.7-2.9) 06/07/21 05:15 Total Bilirubin 0.60 mg/dL (0.2-1.0) 06/12/21 05:26 AST 28 Units/L (15-37) 06/12/21 05:26 ALT 48 Units/L (12-78) 06/12/21 05:26 Alkaline Phosphatase 105 Units/L (46-116) 06/12/21 05:26 Creatine Kinase 34 Units/L (26-192) 06/06/21 20:54 CK-MB (CK-2) < 1.0 ng/mL (0-4.0) 06/06/21 20:54 CK/CKMB % Calc 2.9 % (<4) 06/06/21 20:54 Troponin I < 0.02 ng/mL (0-1.5) 06/06/21 20:54 C-Reactive Protein 247.10 mg/L (0-3.0) H 06/12/21 05:26 B-Natriuretic Peptide 426 pg/mL (0-79) H 06/12/21 05:26 Total Protein 6.8 g/dL (6.4-8.2) 06/12/21 05:26 Albumin 3.6 g/dL (3.4-5.0) 06/12/21 05:26 Globulin 3.2 g/dL (2.5-4.5) 06/12/21 05:26 Albumin/Globulin Ratio 1.1 Ratio (1.1-2.1) 06/12/21 05:26 Amylase 36 Units/L (25-115) 06/06/21 00:21 Lipase 172 Units/L (73-393) 06/06/21 00:21 Specimen Type Catherized urine 06/13/21 04:04 Urine Color Pale yellow (YELLOW) 06/13/21 04:04 Urine Appearance Clear (CLEAR) 06/13/21 04:04 Urine pH 5.0 (5.0 - 8.0) 06/13/21 04:04 Ur Specific [place] 1.015 (1.000-1.030) 06/13/21 04:04 Urine Protein Negative (NEGATIVE) 06/13/21 04:04 Urine Glucose (UA) Negative (NEGATIVE) 06/13/21 04:04 Urine Ketones Negative (NEGATIVE) 06/13/21 04:04 Urine Occult Blood Negative (NEGATIVE) 06/13/21 04:04 Urine Nitrite Negative (NEGATIVE) 06/13/21 04:04 Urine Bilirubin Negative (NEGATIVE) 06/13/21 04:04 Urine Urobilinogen Normal (NORMAL) 06/13/21 04:04 Ur Leukocyte Esterase Negative (NEGATIVE) 06/13/21 04:04 Urine RBC 3-5 /HPF (0-3) A 06/06/21 19:20 Urine WBC Tntc /HPF (0-5) A 06/06/21 19:20 Ur Squamous Epith Cells Few /HPF (NEGATIVE) 06/06/21 19:20 Urine Bacteria 3+ /HPF (NEGATIVE) 06/06/21 19:20 Hyaline Casts Few /LPF (NEGATIVE) 06/06/21 19:20 Coarse Granular Casts Few /HPF (NEGATIVE) 06/06/21 19:20 Ur Culture Indicated? Yes/culture set up 06/06/21 19:20 Acetone, Semi-Quant Negative (NEGATIVE) 06/07/21 12:06 BETSY Screen None detected (None Detected) 06/08/21 05:24 BETSY Titer TNP 06/08/21 05:24 BETSY Pattern TNP 06/08/21 05:24 SARS-CoV-2 (PCR) Negative (NEGATIVE) 06/08/21 09:54 Influenza Type A (PCR) Negative (NEGATIVE) 06/08/21 09:54 Influenza Type B (PCR) Negative (NEGATIVE) 06/08/21 09:54 RSV (PCR) Negative (NEGATIVE) 06/08/21 09:54 Resp Viral Panel (PCR) See scanned report 06/08/21 12:03 SARS CoV-2 RNA Rapid ASHLEY Negative (NEGATIVE) 06/12/21 20:19 Blood Type A POSITIVE 06/10/21 10:04 Antibody Screen Negative 06/10/21 10:04 Crossmatch See Detail 06/10/21 10:04 - Plan (1) Pneumonia Status: Acute Qualifiers: Pneumonia type: due to unspecified organism Laterality: unspecified laterality Lung location: unspecified part of lung Qualified Code(s): J18.9 - Pneumonia, unspecified organism Plan: NORMAL SALINE AT 70 ML/HR, MEROPENEM 500MG IV Q8H, LOVENOX 40MG SC BID, DUONEBS TID, PULMICORT NEBS BID, ALBUMIN 25% IV DAILY, LASIX 40MG IV BID, DIFLUCAN 100MG PO DAILY, PEPCID 20MG IV DAILY, PROTONIX 40MG IV BID, PEPCID 20MG IV BID, DIGOXIN 0.125MG PO DAILY, COREG 3.125MG PO BID, GI COCKTAIL, ZOFRAN 4MG IV Q6H PRN, MORPHINE SULFATE 4MG IV Q6H PRN, AND HER HOME MEDICATIONS WERE RESUMED. (2) Coumadin toxicity Status: Acute Qualifiers: Encounter type: initial encounter Injury intent: undetermined intent Qualified Code(s): T45.514A - Poisoning by anticoagulants, undetermined, initial encounter (3) Urinary tract infection Status: Acute Qualifiers: Urinary tract infection type: acute cystitis Hematuria presence: without hematuria Qualified Code(s): N30.00 - Acute cystitis without hematuria (4) Abdominal pain Status: Acute Qualifiers: Abdominal location: generalized Qualified Code(s): R10.84 - Generalized abdominal pain (5) Pericardial effusion Status: Acute (6) Elevated d-dimer Status: Acute (7) Gastroparesis Status: Chronic (8) Diabetes Status: Chronic Qualifiers: Diabetes mellitus type: type 2 Diabetes mellitus assistant terminal manager insulin use: with assistant terminal manager use Diabetes mellitus complication status: with other specified complication Qualified Code(s): E11.69 - Type 2 diabetes mellitus with other specified complication; Z79.4 - FDC (current) use of insulin (9) Anemia Status: Chronic Qualifiers: Anemia type: iron deficiency Iron deficiency anemia type: unspecified iron deficiency Qualified Code(s): D50.9 - Iron deficiency anemia, unspecified (10) CHF (congestive heart failure) Status: Chronic Qualifiers: Heart failure type: unspecified Heart failure chronicity: acute on chronic Qualified Code(s): I50.9 - Heart failure, unspecified
== END 2021-06-13 22:30 | disposition expired | DRG 194 ==
LOC: OBS 23:49 → ER 23:49 → OBSVTOIN 06-06 07:28 → OBS 06-06 09:00
PROVIDERS: ADMIT Internal Medicine; ATTEND Internal Medicine
DX: T45.515A Adverse effect of anticoagulants, initial encounter; J18.8 Other pneumonia, unspecified organism; N30.00 Acute cystitis without hematuria; D50.8 Other iron deficiency anemias; K59.09 Other constipation; E11.43 Type 2 diabetes mellitus with diabetic autonomic (poly)neuropathy; R79.82 Elevated C-reactive protein (CRP); I25.10 Atherosclerotic heart disease of native coronary artery without angina pectoris; Z86.711 Personal history of pulmonary embolism; Z20.822 Contact with and (suspected) exposure to COVID-19; R07.89 Other chest pain; K56.7 Ileus, unspecified; E11.65 Type 2 diabetes mellitus with hyperglycemia; K31.84 Gastroparesis; Z66 Do not resuscitate; I11.0 Hypertensive heart disease with heart failure; B96.1 Klebsiella pneumoniae [K. pneumoniae] as the cause of diseases classified elsewhere; R26.89 Other abnormalities of gait and mobility; R11.2 Nausea with vomiting, unspecified; I50.9 Heart failure, unspecified; R06.02 Shortness of breath; I46.8 Cardiac arrest due to other underlying condition; I30.8 Other forms of acute pericarditis; R94.31 Abnormal electrocardiogram [ECG] [EKG]; Y92.230 Patient room in hospital as the place of occurrence of the external cause; W18.39XA Other fall on same level, initial encounter